=== PATIENT | female | born 1940 | race Caucasian/White ===

== ENCOUNTER 2017-08-30 06:11 | Inpatient (IN) | payer MEDICARE, BC ==
[~2017-08-30] VITALS: Ht 160 cm; Wt 72.6 kg
[~2017-08-30 06:11] MED LIST: ACETAMINOPHEN650 M5 PO; ADULT LOW DOSE81 MG PO; ALBUTEROL2.5 MG/0.5 INH; ALLOPURINOL 10100 M1 PO; ASPIR 8181 MG PO; ASPIRIN EC81 M1 PO; AUGMENTIN 875875 MG PO; AZITHROMYCIN 2250 MG PO; BACTRIM DS TAB1 EACH PO; BRILINTA90 MG PO; CARVEDILOL12.5 MG PO; CARVEDILOL6.25 MG; CARVEDILOL6.25 MG PO; CEFTIN 250 MG250 MG PO; CIPRO500 MG PO; CLOPIDOGREL PO; CO Q-1010 MG PO; COLACE100 MG PO; COREG PO; CRESTOR5 MG PO; DUONEB 2.5-0.5 M3 ML INH; EPOGEN2000 UNIT/ SUBQ; FEOSOL325 M1 PO; FEVERALL650 MG RECTAL; FISHOIL PO; FUROSEMIDE PO; HYDRALAZINE 2525 MG PO; HYDRALAZINE PO; HYDROCODONE-APA1 TA1 PO; IMDUR 60 MG TAB60 M1; IMDUR 60 MG TAB60 M1 PO; IMDUR 60 MG TAB60 MG PO; IRON325 PO; ISOSORBIDE MON120 MG PO; ISOSORBIDE PO; K-DUR 20 MEQ T20 MEQ PO; KEFLEX250 MG PO; LASIX 40 MG TAB40 M1 PO; LASIX 80 MG TAB80 MG PO; LEVAQUIN 250 M250 MG PO; LEVAQUIN 750 M750 MG PO; LIPITOR 20 MG T20 M1 PO; LISINOPRIL PO; LISINOPRIL20 MG PO; LISINOPRIL30 MG PO; LOPRESSOR PO; LORAZEPAM 22 MG/1 ML PO; LOVASTATIN 20 M20 MG PO; LOVASTATIN PO; MEGESTROL400 MG/11 PO; MEVACOR40 MG; MSL20MG/ML PO; MULTI VITAMIN1 EACH PO; NEXIUM40 MG PO; OMEPRAZOLE40 MG PO; ONDANSETRON HCL4 M2 PO; POTASSIUM PO; POTASSIUM20 PO; PREDNISONE 10 M10 MG PO; PREDNISONE 20 M20 MG PO; PRESERVISION A1 EAC1 PO; PRESERVISION A1 EAC2 PO; PRESERVISION T1 EACH PO; PROAIR HFA8.5 GM INH; PROBIOTIC1 EAC1 PO; PROCARDIA XL60 MG PO; PROTONIX40 M1 PO; SYNTHROID25 MCG PO; TYLENOL325 MG PO; VANCO1GM PO; VITAMIN D-32000 UNIT PO; XIFAXAN550 MG PO
[2017-08-30 06:12] VITALS: BP 182/59
[2017-08-30] MEDS ORDERED: IMDUR 60 MG TAB60 M1 PO (06:27)
[2017-08-30 07:02] LABS: HEMATOCRIT 28.5 % (37.0-47.0); HEMOGLOBIN 9.3 gm/dL (12.0-15.0); MCH 35.4 pg (26.0-34.0); MCHC 32.6 g/dL (28.0-37.0); MCV 108.5 fL (80.0-100.0); MPV 7.5 fl. (7.2-11.1); NUCLEATED RBCS 0 /100WBC; PLATELET COUNT* 243 thou/uL (150-400); RBC 2.63 mil/uL (4.20-5.00); RDW-CV 24.6 % (10.5-14.5); WBC 6.1 thou/uL (4.0-11.0)
[2017-08-30 07:13] LABS: APTT 27.8 Seconds (25.0-31.3); INR 1.2
[2017-08-30 07:30] LABS: ABSOLUTE BASOPHILS 0.1 thou/uL (0.0-0.2); ABSOLUTE EOSINOPHILS 0.5 thou/uL (0.0-0.7); ABSOLUTE LYMPHOCYTES 0.4 thou/uL (0.8-5.3); ABSOLUTE MONOCYTES 0.4 thou/uL (0.0-1.2); ABSOLUTE NEUTROPHILS 4.6 thou/uL (1.6-8.1); ANISOCYTOSIS 1+; MACROCYTES 2+; PLATELET ESTIMATE ADEQUATE; POLYCHROMASIA 2+
[2017-08-30 07:37] LABS: ANION GAP 4 mmol/L (7-16); BUN 39 mg/dL (7-18); CALCIUM 8.7 mg/dL (8.5-10.1); CHLORIDE 111 mmol/L (98-107); CO2 30 mmol/L (21-32); CREATININE 1.8 mg/dL (0.6-1.3); GLUCOSE 116 mg/dL (70-99); POTASSIUM 3.7 mmol/L (3.5-5.1); SODIUM 145 mmol/L (136-145)
[2017-08-30 07:48] LABS: ALBUMIN 2.2 g/dL (3.4-5.0); ALKALINE PHOSPHATASE 171 U/L (46-116); NT-PRO BRAIN NAT PEPTIDE 1998 pg/mL (<300); SGOT 35 U/L (15-37); SGPT 20 U/L (30-65); TOTAL BILIRUBIN 0.8 mg/dL (<0.1-1.0); TOTAL PROTEIN 6.9 g/dL (6.4-8.2); TROPONIN-I LEVEL <0.06 ng/mL (<0.06)
[2017-08-30 08:02] VITALS: BP 166/52
[2017-08-30 08:32] VITALS: BP 164/44
--- NOTE | 2017-08-30 11:24 | EKG ---
[place] [address] ELECTROCARDIOGRAM REPORT Name: GABINO INIGUEZ Room: [address] ADM IN .R.#: [id number] Admission: 08/30/17 Attend Phys: Bob Carrillo MD Discharge: Date of : 40 Report #: [id number] THIS REPORT FOR: //name// [facility] ED Test Date: 2017-08-30 Test Time: 06:20:57 Pat Name: GABINO INIGUEZ Department: Room: [facility] Gender: F Chipper Machine Operator: 99 : 1940 Requested By: Óscar Rousseau Order Number: [id number] MD: Efren Sloan Measurements Intervals [place] Rate: 69 P: 35 ID: 175 QRS: 16 QRSD: 103 T: 57 QT: 416 QTc: 446 Interpretive Statements Sinus rhythm Compared to ECG 08/05/2017 08:31:58 Intraventricular conduction delay no longer present ST (T wave) deviation no longer present Electronically Signed On 08-30-2017 11:24:30 CUSTOMER SERVICE COORDINATOR by Efren Sloan [email or web address] <ELECTRONICALLY SIGNED> By: Efren Sloan MD, [facility] 08/30/17 1124 9 9 Efren Sloan MD, [facility] /EPI
[2017-08-30 11:30] VITALS: BP 197/55
[2017-08-30 14:59] LABS: URINE BILIRUBIN NEGATIVE (Negative); URINE BLOOD 1+ (Negative); URINE COLOR YELLOW; URINE GLUCOSE-RANDOM NEGATIVE (Negative); URINE KETONES TRACE (Negative); URINE LEUKOCYTES-REFLEX 1+ (Negative); URINE NITRITE-REFLEX NEGATIVE (Negative); URINE PROTEIN 2+ (Negative); URINE SPECIFIC GRAVITY 1.025 (1.005-1.030); URINE UROBILINOGEN 0.2 E.U./dl (0.2-1.0)
[2017-08-30 15:00] LABS: URINE CLARITY SL CLOUDY
[2017-08-30 15:09] LABS: BACTERIA-REFLEX >30 Many /HPF (None Seen); CASTS None Seen /LPF (None Seen); CRYSTALS None Seen /LPF (None Seen); SQUAMOUS >10 Many /LPF (0-3); URINE WBC-REFLEX >25 Many /HPF (0-5)
[2017-08-30 15:30] VITALS: BP 169/58
--- NOTE | 2017-08-30 15:51 | NUR ---
CM ASSESSMENT: Pt is A&O. Recently discharged to home after being in the hospital and acute rehab. Pt is current with [facility]. There were issues at home with Pt's pleurex drains, they require different supplies than what HH has. Spoke with Mita at [facility], they have ordered supplies, but supplies won't be in until next or Saturday. Lo MAXWELL, contacted [facility] and [facility], both agencies will also need to order supplies. Pt stated that her dtr has been staying with her and she had been doing ok at home, Pt anxious to return home. CM left VM for Mita to see if they can expediate the shipping of the supplies. Anticipate dc early next week. Following.
--- NOTE | 2017-08-30 18:57 | NUR ---
ADMISSION ASSESSMENT COMPLETED REFER TO COMPUTER CHARTING. RECONSIGNMENT CLERK TRACKING SR. PATIENT RESTING IN BED REPORTING NO PAIN OR NAUSEA. PATIENT ON 3 LITERS O2 VIA NASAL CANNULA. BILATERAL PLEURAL X TUBES IN PLACE. PATIENT ORIENTATED TO ROOM, CALL LIGHT AND BED/TV CONTROLS. PATIENT REPORTING NO QUESTIONS OR CONCERNS AT THIS TIME. FAMILY AT BEDSIDE. WILL CONTINUE TO MONITOR.
[2017-08-30 19:40] VITALS: BP 166/46
[2017-08-31] VITALS (7 sets, daily range): BP systolic 117–163; BP diastolic 40–58
--- NOTE | 2017-08-31 04:20 | NUR ---
END SHIFT: PT RESTED WELL. NO PAIN. NO COMPLAINTS NOTED. SMALL NON ADHEARANT BANDAGE APPLIED TO FOREHEAD PER PT REQUEST. 3L NC. VSS. 2+ ANKLE EDEMA NOTED. PT STATES SHE GETS SOA WITH EXURSION. HAS BEEN GETTING UP WITH ASSIST. ASSESSMENT UNCHANGED. SAFETY PRECAUTIONS IN PLACE. CALL LIGHT IN REACH. PERFORMED HOURLY ROUNDING. WILL CONT TO MONITOR.
[2017-08-31 04:51] LABS: CALCIUM 8.1 mg/dL (8.5-10.1); CREATININE 1.9 mg/dL (0.6-1.3); POTASSIUM 4.5 mmol/L (3.5-5.1)
--- NOTE | 2017-08-31 06:44 | CON ---
[address] [address] CONSULTATION Name: GABINO INIGUEZ Room: [address] IN M.R.#: [id number] Admission: 08/30/17 Attend Phys: Bob Carrillo MD Discharge: Date of : 40 Report #: [id number] THIS REPORT FOR: //name// CC: Tres Carrillo HISTORY OF PRESENT ILLNESS: The patient is a very pleasant 77-year-old woman who has a history of severe COPD. She is O2 dependent. She also has a history of recurrent pleural effusions, it has been ongoing for some time. She was just discharged from this facility last weekend after she has had a long stay. She had developed acute kidney injury superimposed on chronic kidney disease, dialysis was done. She also had bilateral PleurX catheters placed due to the frequent recurrence of her pleural effusions as well as volumes that was being drained. Those were done on 08/05/2017. After she completed her inpatient stay, she did go to rehab. She has had sufficient improvement in her renal function that she has not had any dialysis now in over a week. Her creatinine was improving. she has been making urine, the plan was for renal to follow up with her. She has been draining via the PleurX catheters roughly 3 times per week (Saturday, Saturday and Saturday). Her daughter had been instructed the correct way of doing that. However, it appears once they were discharged home, her daughter was unable to get the necessary supplies in order to do it at home. She has not been drained since last weekend. At that time, got approximately 300 mL off the right pleural space and around 25 off the left. Daughter notes they have not been getting much fluid off the left, just had only been around 25 or 30 mL. she has been getting much more short of breath. She is on oxygen at home generally between 2-4 liters. There is a note that when EMS arrived this morning, her O2 saturations were low on room air, but she supposed to be on O2 continuously. She does have a nebulizer at home, does albuterol for that. She has been seen in our office previously, that has been over a year. Our group has seen her when she has been hospitalized here at [facility]. She does have a Trilogy unit at home. However, she has not been using it. Had brought it in for her hospital stay here earlier in the month, again she was not overly compliant with that. She has not been using at home since she was discharged. She is a former smoker, quitting about 10 years ago. She has approximately [id number] smoking history. I do not have any recent PFTs on her. From 4 years ago, she had an FEV1 of 1.4, FVC of 2.1 with a ratio of 68%. Did have evidence of a restrictive process as well. I do note she has had a history also of breast cancer. However, cytology done on the pleural effusions over the last 2 years all have been negative for malignant cells. PAST MEDICAL HISTORY: Besides her COPD, is also remarkable for chronic [facility] [address] [facility] [place] [address] CONSULTATION Name: GABINO INIGUEZ Room: [address] IN M.R.#: [id number] Admission: 12/29/17 Attend Phys: Bob Carrillo MD Discharge: Date of : 40 Report #: [id number] respiratory failure, coronary artery disease. Her last cardiac catheterization was done this year and she did have stents placed at that time. REVIEW OF SYSTEMS: No positives as above. She did fall when she got home last weekend. Got out of the car without waiting for assistance, fell, hit her face on the curb. Did not lose consciousness. Ecchymotic areas present over her upper left forehead and left periorbital area. Her appetite has been fair. difficulty swallowing. She has not had any fevers. No cough or sputum production. No chest pain. Again, she has not been sleeping with a Trilogy as well. Has not had much in the way of increased lower extremity edema. She has been making a fair amount of urine. No nausea or vomiting. PHYSICAL EXAMINATION: GENERAL APPEARANCE: A chronically ill-appearing woman. Her daughter is at the bedside. She is alert, cooperative. HEENT: Head is normocephalic. She does have ecchymotic areas noted over her forehead, again left periorbital area. She is alert, conversant. Mucous membranes are moist. NECK: Negative for adenopathy. No JVD is noted. HEART: Regular. She does have a grade 2/6 systolic murmur. No S3 is heard. LUNGS: Do reveal breath sounds to be diminished in the lower third. She has bibasilar crackles heard as well. She is kyphotic. Minimal dullness to percussion in the lower lung espinal bilaterally. ABDOMEN: Soft. It is not tender, does not appear to have any hepatosplenomegaly. No clubbing is noted. EXTREMITIES: Lower extremities negative for any significant edema. LABORATORY AND X-RAY FINDINGS: Chest x-ray was reviewed. It does appear that she has had some increase in pleural effusions relative to her other studies done. Prominence of pulmonary vascular markings as well. On her chemistry today, BUN is 39, creatinine of 1.8 (improved from 2.1 on 08/23/2017). Potassium is 3.7. Albumin 2.2. Her proBNP was 1998. White blood cell count 6100, hemoglobin 9.3, hematocrit 28.5, platelets are normal. IMPRESSION: 1. Recurrent pleural effusions. Typically has been mostly transudative in nature based on prior studies. Status post PleurX catheter placement. Question how effective the left thorax is based on the history from her daughter. 2. Chronic kidney disease. Had episode of acute renal failure requiring dialysis. Has had improvement in her creatinine as well as her urinary output. 3. Chronic obstructive pulmonary disease, is O2 dependent. 4. Chronic respiratory failure, has not been compliant with her Trilogy machine. 5. Coronary artery disease, status post recent stent placement. RECOMMENDATIONS: [place] [address] CONSULTATION Name: GABINO INIGUEZ Room: [address] IN [facility]#: [id number] Admission: 08/30/17 Attend Phys: Bob Carrillo MD Discharge: Date of : 40 Report #: [id number] 1. I have discussed with her RN. Also discussed with case management. It appears she had been discharged home and her home health company was not able to get her supplies needed to adequately drain the pleural space at home. Currently, are attempting to get that equipment here now. We will have both sides drain today. If she does not get much fluid out of the left pleural space, we will ask IR to evaluate the patency of the left PleurX catheter. May need to consider either repositioning of it, attempting to clear if it does appear that it may be partially obstructed. We will continue her neb treatments. She is on albuterol at home. 2. If arrangements can be made for adequate supplies at home, then can hopefully get discharged home soon. <ELECTRONICALLY SIGNED> By: Zia Abraham MD 08/31/17 [id number] Olsen MD /nt
--- NOTE | 2017-08-31 10:00 | NUR ---
ASSUMED PT CARE AT 0730, FULL ASSESMENT DONE CHARTED. PT A/O X4, DENIES PAIN, DENIES SOA THIS AM. PT UP WITH 1 ASSIST TO BSC, VSS, SR ON THE MONITOR. FALL PRECATUIONS IN PLACE. CALL LIGHT IN REACH. WILL CONTINUE WITH PLAN OF CARE.
--- NOTE | 2017-08-31 13:34 | CON ---
[address] [address] CONSULTATION Name: GABINO INIGUEZ Room: [address] ADM IN M.R.#: [id number] Admission: 08/30/17 Attend Phys: Bob Carrillo MD Discharge: Date of : 40 Report #: [id number] THIS REPORT FOR: //name// CC: Tres Carrillo DATE OF SERVICE: 08/30/2017 NEPHROLOGY CONSULTATION The patient is at [facility], room 212. I am asked to see this 77-year-old female who is well known to me from her prior admission. She was dialysis dependent during much of the latter part of her last admission, but left the hospital with recovery and no need for outpatient dialysis. She presented to the ED the morning of admission after having difficulty breathing. She began to have some back spasms. She had some shaking. She was weak. She was severely short of air. She was on her renal diet at home, but she was having more leg swelling. She has not been dialyzing since she left the hospital, and this has been since about 08/23 at least. PAST MEDICAL HISTORY: She has had CHF exacerbation; community-acquired bacterial pneumonia; COPD exacerbation; acute kidney injury, dialysis dependent; head contusion; hematoma; leukopenia; non-ST elevation myocardial infarction and pleural effusions with bilateral PleurX drainage tubes. She has had respiratory failure and UTI. She has a history of coronary artery disease and NH x 3 and stents x 5. She has had scarlet fever as a child. She has had tonsillectomy and adenoidectomy and D and C. Other medical issues include macular degeneration of the left eye, elevated cholesterol, GERD, diastolic dysfunction, hypertension history and COPD. FAMILY HISTORY: Cardiac disease. SOCIAL HISTORY: She is a former tobacco user. Never had any problem with the recreational drugs or alcohol. She stopped smoking more than a year ago. ALLERGIES: IBUPROFEN AND AMOXICILLIN. PRESENT MEDICATIONS: Per her reconciliation list show that she was on albuterol inhaler 2 puffs every 6 hours, ferrous sulfate 325 mg daily, ticagrelor 90 mg b.i.d., lovastatin 20 mg daily, isosorbide mononitrate 60 mg 2 daily, aspirin 81 mg daily, levothyroxine 25 mcg daily, multivitamins one daily and allopurinol 100 mg daily. REVIEW OF SYSTEMS: HEENT: No recent changes in vision or hearing. [place] [address] CONSULTATION Name: GABINO INIGUEZ Room: [address]#: [id number] Admission: 08/30/17 Attend Phys: Bob Carrillo MD Discharge: Date of : 40 Report #: [id number] the left. CARDIAC: No chest pain. PULMONARY: Positive shortness of air. Positive PleurX catheters. GASTROINTESTINAL: No nausea, vomiting or diarrhea. GENITOURINARY: Recent acute kidney injury requiring dialysis, but she has been off dialysis for about a week since she was last discharged at least. HEMATOLOGIC AND LYMPHATIC: Anemia. MUSCULOSKELETAL: Weakness. ENDOCRINE: Not hypothyroid. Not diabetic. PSYCHIATRIC: Negative. NEUROLOGIC: No TIA, CVA. She has had a recent head contusion. No seizure disorder. No Parkinson disease. Other 14-point review of systems as above. PHYSICAL EXAMINATION: GENERAL: She is awake, alert. Much more conversant and appears much better than when I saw her during her last admission. VITAL SIGNS: Her temp is 36.8, heart rate 63, respirations 20, blood pressure 164/44 and O2 sat 40%, on nasal cannula. Intake and output not yet charted. She has just been admitted. HEENT: She has evidence of ecchymosis on her forehead from recent head contusion, but she is normocephalic. NECK: Supple. CHEST: Shows diminished breath sounds. She has bilateral PleurX catheters. HEART: Shows S1 and S2. She has a 3/6 systolic murmur audible throughout the precordium. No rubs. ABDOMEN: Soft. Positive bowel sounds. EXTREMITIES: Show 1-2+ edema bilaterally over lower extremities. Negative Homans. NEUROLOGIC: Cranial nerves, sensory and motor appeared to be at her recent baseline. LABORATORY: Shows a white count of 6100; hemoglobin 9.3; hematocrit 28.5 and platelets 243,000. PT 12, INR 1.2 and PTT 27.1. Urine is pending. Sodium 145, potassium 3.7, chloride 111 and CO2 30. BUN 39 and creatinine 1.8, this is down from her recent creatinine in the hospital a week or more ago. Glucose 116. Estimated GFR 27. Calcium 8.7. Liver function studies not increased, except for alk phos of 171. CK 37. Troponin less than 0.06. Albumin 2.2. IMAGING STUDIES: Included chest x-ray done today that shows enlargement of her cardiac silhouette, left and right pleural catheters are in place with some residual pleural thickening and pleural fluid. This seems a bit more on the left. She seems to still have her dialysis catheter in place. IMPRESSION: [facility] [address] [place] [address] CONSULTATION Name: GABINO INIGUEZ Room: [address]#: [id number] Admission: 08/30/17 Attend Phys: Bob Carrillo MD Discharge: Date of : 40 Report #: [id number] 1. Dyspnea with evidence of some volume overload and perhaps worsened pleural effusion on the left. She likely has some diastolic dysfunction and diastolic congestive heart failure. 2. Pleural effusions with PleurX catheters. These need to be assessed to be certain they are working appropriately. 3. Recent acute kidney injury, dialysis dependent. 4. Stage 4 chronic kidney disease. 5. Coronary artery disease with 3 myocardial infarctions in the past and status post stent placements. 6. Anemia. 7. Severe chronic obstructive pulmonary disease, O2 dependent. 8. History of recurrent urinary tract infections. 9. Recent head contusion. 10. Recent community-acquired pneumonia. PLAN: We will follow with you. She will have measures to be certain that her PleurX catheter is working. We will try diuresis. Follow lab closely. If unable to remove fluid, and this was thought to be the problem, we would always be able to use her dialysis catheter and dialysis to achieve this. We would prefer that we would be able to do this with meds alone. Further recommendations to follow. <ELECTRONICALLY SIGNED> By: Maria E Sanchez MD 08/31/17 1334 [id number] E Sanchez MD /nt
--- NOTE | 2017-08-31 18:28 | NUR ---
PT PROGRESSING TOWARD GOALS, UP TO BSC WITH ASSIST. DENIES SOA TODAY, NO DRAINAGE FROM PLEUREX CATHETERS. PT IS WANTING TO SPEAK TO BEER STILL RUNNER COMPOUNDER, DR HAS NOT SEEN PT YET TODAY. PT HAS SMALL APITITE. FORHEAD LACERATION ACCESED AND REDRESSED. PT DENIES PAIN. VSS, SR ON THE MONITOR. WILL CONTINUE WITH PLAN OF CARE.
[2017-09-01 04:23] VITALS: BP 151/54
--- NOTE | 2017-09-01 05:50 | NUR ---
ALERT AND ORIENTED. HAD FADING BRUISING TO FACE. DENIED NEED FOR PAIN OR NAUSEA MEDICATON. UP WITH 1 ASSIST TO BEDSIDE COMMODE. CONTINUES TO RECEIVE SCHEDULED BREATHING TREATMENTS AND IV ANTIBIODICS. HAS PLEUREX TUBING ON LEFT AND RIGHT SIDE OF ABDOMEN. HAD DRY DRESSING ON LEFT SIDE OF FOREHEAD. BRUISING NOTED AROUND DIALYSIS TUBING RIGHT SIDE OF UPPER CHEST. HEART MONITOR SHOWS NORMAL SINUS RHYTHM. NO C/O SOA OR PAIN. WILL CONTINUE TO MONITOR. CALL LIGHT WITHIN REACH.
[2017-09-01 08:00] VITALS: BP 157/59
--- NOTE | 2017-09-01 09:00 | NUR ---
ASSUMED RESPONSIBILITY OF PT THIS AM PT IS ALERT AND ORIENTED X 4 NSR ON THE MONITOR IV TO LEFT THUMB IV ROCEPHIN GIVEN SLOW PLEURAL DRAINS TO LEFT SIDE AND RIGHT/BACK DRAINAGE BAGS CONNECTED LS WITH FINE CRACKLES X1 ASSIST TO BSC OR BATHROOM WITH WALKER 3L NC THAT SHE WEARS AT HOME RIGHT ARM LIMB ALERT RECENT FALLS AND PT ON FALL RISK CALL LIGHT IN REACH BED ALARM ON WILL CONT TO MONITOR
[2017-09-01 11:30] VITALS: BP 147/46
[2017-09-01 16:00] VITALS: BP 149/47
--- NOTE | 2017-09-01 19:03 | NUR ---
PLEURAL DRAINS DRAINED TODAY AND DRESSINGS CHANGED TO BOTH LEFT AND RIGHT/BACK DECREASED SHORTNESS OF AIR
[2017-09-01 20:25] VITALS: BP 163/54
[2017-09-02] VITALS: BP 162/64
[2017-09-02 04:00] VITALS: BP 158/59
[2017-09-02 04:41] LABS: CALCIUM 7.9 mg/dL (8.5-10.1); CREATININE 2.2 mg/dL (0.6-1.3); MAGNESIUM 2.1 mg/dL (1.8-2.4); POTASSIUM 3.9 mmol/L (3.5-5.1); TOTAL BILIRUBIN 0.5 mg/dL (<0.1-1.0); TOTAL PROTEIN 6.1 g/dL (6.4-8.2)
[2017-09-02 04:45] LABS: HEMATOCRIT 25.6 % (37.0-47.0); HEMOGLOBIN 8.6 gm/dL (12.0-15.0); MCH 35.9 pg (26.0-34.0); MCHC 33.6 g/dL (28.0-37.0); MCV 106.8 fL (80.0-100.0); MPV 8.1 fl. (7.2-11.1); NUCLEATED RBCS 0 /100WBC; PLATELET COUNT* 179 thou/uL (150-400); RBC 2.39 mil/uL (4.20-5.00); RDW-CV 24.4 % (10.5-14.5); WBC 10.1 thou/uL (4.0-11.0)
[2017-09-02 05:04] LABS: ABSOLUTE LYMPHOCYTES 0.1 thou/uL (0.8-5.3); ABSOLUTE MONOCYTES 0.2 thou/uL (0.0-1.2); ABSOLUTE NEUTROPHILS 9.8 thou/uL (1.6-8.1)
[2017-09-02 05:05] LABS: PLATELET ESTIMATE ADEQUATE
--- NOTE | 2017-09-02 05:08 | NUR ---
PT IS ABLE TO COMMUNICATE HER NEEDS TO STAFF EFFECTIVELY. SHE HAS DENIED THE NEED FOR PAIN MEDICAION UP TO THIS TIME. TWO PLEUREX DRAINS ARE PATENT.
[2017-09-02 08:00] VITALS: BP 163/55
[2017-09-02 12:03] VITALS: BP 164/51
[2017-09-02 16:48] VITALS: BP 162/54
--- NOTE | 2017-09-02 18:47 | NUR ---
ASSUMED RESPONSIBILITY OF PT THIS AM PT IS ALERT AND ORIENTED BUT FORGETFUL AT TIMES IN BED T/O DAY SOA MUCH IMPROVED 2L NC O2 ON SCANT CRACKLES PLEURIX DRAINS COVERED WITH DRESSINGS AND NO DRAINAGE NOTED BANDAGE TO HEAD REPLACED WITH SCANT BRIGHT RED BLEEDING DENIES ANY PAIN AT THIS TIME UP SBA TO ASSIST X 1 TO BSC OR BATHROOM LBM THIS AM PT WITH GOOD APPETITE DID NOT WANT TO TAKE STEROIDS DR TO TITRATE DOWN AND EDUCATION ON STOPPING ABRUPTLY PT OKAY WITH DAUGHTER AT BEDSIDE PLEURIX DRAINS DRAINED YESTERDAY WITHOUT DIFFICULTY DENIES ANY PAIN OR DISCOMFORT CALL LIGHT IN REACH
[2017-09-02 20:23] VITALS: BP 145/46
[2017-09-03] VITALS: BP 149/47
[2017-09-03 04:00] VITALS: BP 156/78
--- NOTE | 2017-09-03 07:55 | NUR ---
PT IS ABLE TO COMMUNICATE HER NEEDS TO STAFF EFFECTIEVLY. SHE HAS DENIED THE NEED FOR PAIN MEDICATIONS UP TO THIS TIME. CURRENTLY, PLEUREX DRAINS ARE BEING ACCESSED AND DRAINED EVERY OTHER DAY; LAST DAY OF DRAINAGE WAS SATURDAY 09/01.
[2017-09-03 08:06] VITALS: BP 163/48
--- NOTE | 2017-09-03 09:43 | NUR ---
ASSUMED CARE OF PT THIS AM AROUND 0715- AGENCY TRAINER IN PLACE ORDERED, TRACING SB THIS AM- UPON ASSESSMENT PT NOTED TO BE RESTING IN BED, WATCHING TV- PT A&O X4- CONTINENT OF BOWEL AND BLADDER- ASSIST X1 TO BED SIDE COMMODE- VSS, O2 SAT 98% ON 3L VIA NC- SOB NOTED WITH EXERTION- ABDOMEN SOFT/ROUND/NON-TENDER, BS X4 QUADS- LAST BM REPORTED 09/02/17- TRACE EDEMA NOTED TO BLE, LEG ELEVATION NOTED- IV NOTED TO LEFT THUMB, INTACT AND SL- IV ABT GIVEN THIS AM PRESCRIBED, NO ADVERSE REACTIONS TO NOTE- LEFT FRONT PLUREX DRAIN NOTED AND RIGHT BACK, WITH DRESSINGS IN PLACE- POOR PO INTAKE NOTED THIS AM WITH BREAKFAST- DRESSING NOTED INTACT TO FOREHEAD, NO DRAINAGE NOTED- PT DENIES ANY C/O PAIN/DISCOMFORT AT THIS TIME- CALL LIGHT AND PERSONAL BELONGINGS WITH IN REACH-HOURLY ROUNDS IN PLACE R/T SAFETY/NEEDS- ALL NEEDS MET AT THIS TIME-TM
[2017-09-03 11:57] VITALS: BP 151/47
[2017-09-03 16:29] VITALS: BP 166/56
--- NOTE | 2017-09-03 18:28 | NUR ---
PT CURRENTLY RESTING IN BED, WATCHING TV- DEPARTMENT SPECIALIST CONTINUED ORDERED, TRACING SR- IV TO LEFT THUMB CONTINUED AND FLSHING WELL, IV LASIX GIVEN PRESCRIBED- PLEUREX DRAINS TO BE DRINED NEXT 09/04/16 PER PULMONARY WITH FURTHER ORDERS THERE AFTER- DRESSING CHANGED TO LEFT FOREHEAD THIS SHIFT INDICATED, CLEANED WITH WW, PATTED DRY WITH XEROFORM GAUZE APPLIED COVERED WITH NON-ADHERANT DRSG AND SECURED WITH TAPE- AREA WITH OUT DRAINGE OR S/S INFECTION- FAIR PO INTAKE NOTED THIS SHIFT- NOTED TO BE URINATING SEVERAL TIMES WITH GOOD OUTPUT THIS SHIFT- DIALYSIS PORT REMOVAL ON HOLD PER WITH NEPHROLOGY, R/T LABS- PT DENIES ANY C/O PAIN/DISCOMFORT AT THIS TIME- CALL LIGHT AND PERSONAL BELONGINGS WITH IN REACH- ALL NEEDS MET AT THIS TIME-WCTM
[2017-09-03 19:35] VITALS: BP 191/65
[2017-09-04] VITALS: BP 171/58
--- NOTE | 2017-09-04 00:29 | NUR ---
ASSUMED CARE OF PT AT 1900. PT IS ALERT AND ORIENTED. VSS. PERRLA. NO COMPLAINTS OF PAIN. PT IS UP WITH STAND BY ASSIST. PT IS IN SINUS RYTHM ON THE TELEMETRY. PT IS RESTING COMFORTABLY IN BED. RESPIRATIONS ARE EVEN AND NONLABORED. WILL CONTINUE TO MONITOR PT.
[2017-09-04 04:07] VITALS: BP 184/61
[2017-09-04 05:24] LABS: CALCIUM 8.1 mg/dL (8.5-10.1); CREATININE 1.9 mg/dL (0.6-1.3); POTASSIUM 3.7 mmol/L (3.5-5.1)
[2017-09-04 09:22] VITALS: BP 164/51
--- NOTE | 2017-09-04 11:46 | NUR ---
Plan is for Pt to dc to home today with [facility]. Spoke with Mita, liaison with [facility], she confirmed that Pt's pleurex supplies will be delivered to [facility]'s office on Saturday. Pt to be sent home with enough supplies to get her through Saturday, informed Mita of this. Cm will fax dc orders once available. Dtr will transport home.
[2017-09-04 11:54] VITALS: BP 174/51
[2017-09-04] MEDS ORDERED: CARDURA1 MG PO (12:58)
[2017-09-04] MEDS ORDERED: PREDNISONE 10 M10 MG PO (12:58)
[2017-09-04] MEDS ORDERED: KEFLEX500 M1 PO (12:58)
--- NOTE | 2017-09-04 14:30 | NUR ---
ASSUMED CARES OF PT AT 0700. PT IN BED ASLEEP, BED IN LOW AND LOCKED POSTION, CALL BUTTON AND PERSONAL ITEMS IN PT REACH. FALL PRECAUTIONS IN PLACE. PT REFUSES SCD'S AT THIS TIME THIS MORNING SHIFT. PT A&O X4, CARIDAC MONITOR TRACING NSR/MURMUR AUSCULTATED. VSS ON RA, 2L 02 NC WORN AT BEDTIME. OCC. HYPERTENSION NOTED, MONITORING. LUNG SOUNDS CLEAR TO DIMINISHED, SOA ON EXERTION. PT CONCERNED ABOUT DIALYSIS CATH. IR TO REMOVE TUNNELED CATH PRIOR TO DISCHARGE PER NEPHROLOGY. PT HAS SCATTERED BRUISING ON FACE AND BODY R/T FALL AT HOME RECENTLY. PT DENIES PAIN AT THIS TIME. PT WEAK, SBA TO BSC. LEFT THUMB IV PATENT TO FLUIDS, TOLERATED IV ABT. HOURLY ROUNDING AND ACCU CHECKS CONTINUE. LEFT LIMB ALERT R/T LUMPECTOMY. CHEST DRAINS TO BE DRAINED AND PREPARED FOR HOME DISCHARGE WITH [facility]. PT AFEBRILE, PERRLA, SBA, PT STATES SHE IS READY TO GO HOME. PT PROGRESSING TOWARDS GOAL. WILL CONTINUE TO MONITOR PT PROGESS. POSSIBLE D/C TODAY.
--- NOTE | 2017-09-04 19:48 | NUR ---
PT CLEARED TO DISCHARGE HOME. IR ORDERED TO REMOVE DIALYSIS TUNNELED CATHETER. PULLED SUCCESSFULLY, NO AVR/TOLERATED. PERIPHERAL IV AND TELE REMOVED. PT EDUCATED ON DISCHARGE ORDERS, STROKE SYMPTOMS AND RISKS. REVIEWED S/S OF INFECTION AT CATH SITE. PLUREX DRAINS APPLIED AND REMOVED APPROX. 330 ML OFF CHEST, 200ML ON RIGHT SIDE AND 130 ON LEFT SIDE. TUBES REDRESSED PER PACKAGES PROVIDED. DAUGHTER AT SIDE TO MONITOR HER MOTHERS DRAINAGE TUBES AND DRESSING. MEDICATIONS REMOVED, PT QUESTIONS WERE ANSWSERED BY NURSE. PT STATED SHE WAS HAPPY TO BE GOING HOME TO HER OWN BED. PT STABLE AT DISCHARGE, PT ESCORTED VIA W/C BY NURSING STAFF WITH DAUGHTER TO CAR AT FRONT OF HOSPITAL TO GO HOME. PT AND DAUGHTER STOPPING AT [facility]IR [facility] TO BREAKFAST AND ROOM ATTENDANT MEDS ORDERED. ALL PT BELONGINGS PACKED, ROOM CHECKED AND TAKEN WITH PT AND DAUGHTER. DISCHARGE COMPLETE AT 1930.
== END 2017-09-04 19:30 | disposition home health service (06) | DRG 177 ==
LOC: M.ERS 06:11 → M.TBA-ER 06:39 → M.2W 07:52
PROVIDERS: Family Medicine; Internal Medicine; Internal Medicine Critical Care Medicine; Internal Medicine Nephrology; ADMIT Internal Medicine
DX: J69.0 Pneumonitis due to inhalation of food and vomit (principal); I50.33 Acute on chronic diastolic (congestive) heart failure; J96.20 Acute and chronic respiratory failure, unspecified whether with hypoxia or hypercapnia; J90 Pleural effusion, not elsewhere classified; N17.9 Acute kidney failure, unspecified; N18.4 Chronic kidney disease, stage 4 (severe); I13.0 Hypertensive heart and chronic kidney disease with heart failure and stage 1 through stage 4 chronic kidney disease, or unspecified chronic kidney disease; J44.1 Chronic obstructive pulmonary disease with (acute) exacerbation; H35.30 Unspecified macular degeneration; E78.00 Pure hypercholesterolemia, unspecified; K21.9 Gastro-esophageal reflux disease without esophagitis; I25.10 Atherosclerotic heart disease of native coronary artery without angina pectoris; D72.819 Decreased white blood cell count, unspecified; D64.9 Anemia, unspecified; Z99.81 Dependence on supplemental oxygen; I25.2 Old myocardial infarction; Z98.61 Coronary angioplasty status; Z87.440 Personal history of urinary (tract) infections; Z79.899 Other long term (current) drug therapy; Z79.82 Long term (current) use of aspirin; Z88.8 Allergy status to other drugs, medicaments and biological substances; Z87.891 Personal history of nicotine dependence; Z87.01 Personal history of pneumonia (recurrent); Z99.2 Dependence on renal dialysis; Z90.89 Acquired absence of other organs; Z82.49 Family history of ischemic heart disease and other diseases of the circulatory system

== ENCOUNTER → 2017-09-26 | Outpatient (CLI) | payer MEDICARE, BC ==
[~2017-09-26] MED LIST changes: +CARDURA1 MG PO; +HYDRALAZINE 2525 M1 PO; +KEFLEX500 M1 PO; +LASIX 40 MG TAB40 M2 PO; +VITAMIN D2000 UNIT PO
== END ==
LOC: M.RAD 11:49
DX: Z09 Encounter for follow-up examination after completed treatment for conditions other than malignant neoplasm (principal); J44.1 Chronic obstructive pulmonary disease with (acute) exacerbation; I51.7 Cardiomegaly; I12.9 Hypertensive chronic kidney disease with stage 1 through stage 4 chronic kidney disease, or unspecified chronic kidney disease; N18.3 Chronic kidney disease, stage 3 (moderate); N18.6 End stage renal disease; I50.9 Heart failure, unspecified; N39.0 Urinary tract infection, site not specified; J96.90 Respiratory failure, unspecified, unspecified whether with hypoxia or hypercapnia; I51.9 Heart disease, unspecified

== ENCOUNTER 2017-10-14 09:40 | Inpatient (IN) | payer MEDICARE, BC ==
[~2017-10-14] VITALS: Ht 160 cm; Wt 70.8 kg
[~2017-10-14 09:40] MED LIST changes: -HYDRALAZINE 2525 M1 PO; -LASIX 40 MG TAB40 M2 PO; -VITAMIN D2000 UNIT PO
[2017-10-14 09:54] VITALS: BP 139/61
[2017-10-14] MEDS ORDERED: LASIX 40 MG TAB40 M2 PO (09:58)
[2017-10-14] MEDS ORDERED: POTASSIUM20 PO (09:59)
[2017-10-14] MEDS ORDERED: VITAMIN D2000 UNIT PO (10:00)
[2017-10-14] MEDS ORDERED: SYNTHROID25 MCG PO (10:00)
[2017-10-14] MEDS ORDERED: PROBIOTIC1 EAC1 PO (10:00)
[2017-10-14] MEDS ORDERED: HYDRALAZINE 2525 M1 PO (10:00)
[2017-10-14 10:19] LABS: HEMOGLOBIN 11.4 gm/dL (12.0-15.0); MCH 36.1 pg (26.0-34.0); MCHC 33.5 g/dL (28.0-37.0); MCV 107.7 fL (80.0-100.0); MPV 8.5 fl. (7.2-11.1); NUCLEATED RBCS 0 /100WBC; PLATELET COUNT* 160 thou/uL (150-400); RBC 3.15 mil/uL (4.20-5.00); RDW-CV 17.5 % (10.5-14.5); WBC 3.8 thou/uL (4.0-11.0)
[2017-10-14 10:26] LABS: ANION GAP 7 mmol/L (7-16); BUN 24 mg/dL (7-18); CHLORIDE 105 mmol/L (98-107); CO2 27 mmol/L (21-32); CREATININE 1.8 mg/dL (0.6-1.3); GLUCOSE 121 mg/dL (70-99); POTASSIUM 3.6 mmol/L (3.5-5.1); SODIUM 139 mmol/L (136-145)
[2017-10-14 10:32] LABS: ALBUMIN 2.5 g/dL (3.4-5.0); ALKALINE PHOSPHATASE 243 U/L (46-116); SGOT 41 U/L (15-37); SGPT 26 U/L (30-65); TOTAL BILIRUBIN 0.7 mg/dL (<0.1-1.0)
[2017-10-14 10:37] LABS: ABSOLUTE EOSINOPHILS 0.2 thou/uL (0.0-0.7); ABSOLUTE LYMPHOCYTES 0.1 thou/uL (0.8-5.3); ABSOLUTE MONOCYTES 0.2 thou/uL (0.0-1.2); ABSOLUTE NEUTROPHILS 3.3 thou/uL (1.6-8.1)
[2017-10-14 10:38] LABS: ANISOCYTOSIS 1+; MACROCYTES 1+; PLATELET ESTIMATE ADEQUATE
[2017-10-14 10:49] LABS: TROPONIN-I LEVEL <0.06 ng/mL (<0.06)
[2017-10-14 14:30] VITALS: BP 126/62; BP 139/55
[2017-10-14 15:19] LABS: % SATURATION 37 % (20-39); IRON 65 ug/dL (50-175)
[2017-10-14 16:00] VITALS: BP 127/56
--- NOTE | 2017-10-14 16:01 | EKG ---
[place] [address] ELECTROCARDIOGRAM REPORT Name: GABINO INIGUEZ Room: [address] ADM IN M.R.#: [id number] Admission: 10/14/17 Attend Phys: Alexa Khan Discharge: Date of : 40 Report #: [id number] THIS REPORT FOR: //name// [facility] ED Test Date: 2017-10-14 Test Time: 09:52:50 Pat Name: GABINO INIGUEZ Department: Room: [facility] Gender: F Broadcast Correspondent: Luz CARPENTER : 1940 Requested By: Dale Cornelius Order Number: [id number] MD: Luis Olvera Measurements Intervals [place] Rate: 96 P: 63 FL: 178 QRS: 11 QRSD: 104 T: 61 QT: 392 QTc: 496 Interpretive Statements Sinus rhythm Borderline prolonged QT interval Compared to ECG 08/30/2017 06:20:57 No significant changes Electronically Signed On 10-14-2017 16:01:40 LAW OFFICE MANAGER by Luis Olvera [email or web address] <ELECTRONICALLY SIGNED> By: Luis Olvera MD, [facility] 10/14/17 1601 uLis Olvera MD, [facility] /EPI
[2017-10-14 16:28] LABS: MAGNESIUM 1.9 mg/dL (1.8-2.4); TROPONIN-I LEVEL <0.06 ng/mL (<0.06)
--- NOTE | 2017-10-14 16:41 | 2DMMODE ---
[place] [address] 2 D/M-MODE ECHOCARDIOGRAM Name: GABINO INIGUEZ Room: [address] [facility]#: [id number] Admission: 10/14/17 Attend Phys: Edvin Leon Discharge: Date of : 40 Date of Service: 10/14/17 [facility] Report #: [id number] THIS REPORT FOR: //name// APPROVED REPORT Study performed: 10/14/2017 15:03:50 EXAM: Comprehensive 2D, Doppler, and color-flow Echocardiogram Patient Location: In-Patient Room #: 229 Status: routine BSA: 1.72 HR: 90 bpm BP: 126/62 mmHg Rhythm: NSR Other Information Study Quality: Good Indications CAD Near syncope 2D Dimensions LVEF(%): 32.28 (>50%) IVSd: 14.66 (7-11mm) LVOT Diam: 18.37 (18-24mm) LVDd: 37.18 mm PWd: 7.78 (7-11mm) Ascending Ao: 26.94 (22-36mm) LVDs: 31.63 (25-40mm) Aortic Root: 24.64 mm Bell's LVEF: 32.28 % Volumes Left Atrial Volume (Systole) LA ESV Index: 34.10 mL/m2 Aortic Valve AoV Peak Cedrick.: 2.84 m/s AO Peak Gr.: 32.30 mmHg LVOT Max P.98 mmHg AO Mean Gr.: 16.74 mmHg LVOT Mean P.20 mmHg LVOT Max V: 1.58 m/s AO V2 VTI: 47.40 cm LVOT Mean V: 1.06 m/s MAURICIO (VTI): 1.70 cm2 LVOT V1 VTI: 30.34 [place] [address] 2 D/M-MODE ECHOCARDIOGRAM Name: GABINO INIGUEZ Room: [address] IN .R.#: [id number] Admission: 10/14/17 Attend Phys: Edvin Leon Discharge: Date of : 40 Date of Service: 10/14/17 [facility] Report #: [id number] E/A Ratio: 0.74 MV Decel. Time: 161.61 ms MV E Max Cedrick.: 1.12 m/s MV PHT: 46.87 ms MVA (PHT): 4.69 cm2 TDI E/Lateral E': 18.67 E/Medial E': 9.33 Medial E' Cedrick.: 0.12 m/s Lateral E' Cedrick.: 0.06 m/s Pulmonary Valve PV Peak Cedrick.: 1.85 m/s PV Peak Gr.: 13.76 mmHg Left Ventricle The left ventricle is normal size. Regional wall motion abnormalities are noted with inferobasilar akinesis Mild concentric left ventricular hypertrophy. Left ventricular systolic function is normal. The left ventricular ejection fraction is within the normal range. LVEF is 60%. Grade I - abnormal relaxation pattern. Right Ventricle The right ventricle is normal size. The right ventricular systolic function is normal. Atria The left atrium size is normal. The right atrium size is normal. Aortic Valve Mild aortic valve sclerosis. No aortic regurgitation is present. Mild aortic stenosis. Mitral Valve There is mitral annular calcification. Mild mitral regurgitation. No evidence of mitral valve stenosis. Tricuspid Valve The tricuspid valve is normal in structure. Unable to assess PA pressure. Trace tricuspid regurgitation. Pulmonic Valve The pulmonary valve is normal in structure. Trace pulmonic regurgitation[place] [address] 2 D/M-MODE ECHOCARDIOGRAM Name: GABINO INIGUEZ Room: [address] [facility]#: [id number] Admission: 10/14/17 Attend Phys: Edvin Leon Discharge: Date of : 40 Date of Service: 10/14/17 [facility] Report #: [id number] The aortic root is normal in size. IVC is normal in size and collapses with >50% inspiration Pericardium There is no pericardial effusion. <Conclusion> The left ventricle is normal size. Mild concentric left ventricular hypertrophy. Left ventricular systolic function is normal. The left ventricular ejection fraction is within the normal range. LVEF is 60%. Grade I - abnormal relaxation pattern. The right ventricle is normal size. Mild aortic valve sclerosis. No aortic regurgitation is present. Mild aortic stenosis. There is mitral annular calcification. Mild mitral regurgitation. The tricuspid valve is normal in structure. IVC is normal in size and collapses with >50% inspiration There is no pericardial effusion. Regional wall motion abnormalities are noted with inferobasilar akinesis <ELECTRONICALLY SIGNED> By: Luis Olvera MD, FACC 10/14/17 1640 1640 1640 Luis Olvera MD, FACC /INF
[2017-10-14] MEDS ORDERED: PRESERVISION A1 EAC2 PO (16:59)
--- NOTE | 2017-10-14 17:59 | NUR ---
RECEIVED REPORT FROM JUAN LUIS IN ER. PT TRANSFERED TO TELE FLOOR AT 1430, ASSUMED CARE. PT A&O X4. VSS. O2 SAT 96% ON RA, TITRATED OFF 2L NC. SENIOR SAS PROGRAMMER PLACED TRACING SR WITH 1ST DEGREE. ADMISSION HISTORY, EDUCATION, AND ASSESSMENT COMPLETED CHARTED. PT ORIENTED TO ROOM, BED AND CALL LIGHT- PT COMMUNICATES UNDERSTANDING. IV PATENT AND INFUSING. PT HAS DENIED PAIN OR DISCOMFORT THROUGHOUT THE SHIFT, STATES THAT SYMPTOMS FROM THIS MORNING HAVE ABATED. DAUGHTER IS AT BEDSIDE. PT EATING AND DRINKING WITHOUT ISSUE. PT UP WITH ASSIST X1 TO BEDSIDE COMMODE TO VOID, VOIDING WITHOUT ISSUE. HIGH FALL RISK PRECAUTIONS IN PLACE. CALL LIGHT IS WITHIN REACH. HOURLY ROUNDING PERFORMED. WILL CONTINUE TO MONITOR FOR DURATION OF SHIFT.
[2017-10-14 20:00] VITALS: BP 120/45
[2017-10-14 23:59] VITALS: BP 121/46
[2017-10-15 04:00] VITALS: BP 146/57
[2017-10-15 05:34] LABS: HEMATOCRIT 27.6 % (37.0-47.0); MCH 36.6 pg (26.0-34.0); MCHC 34.2 g/dL (28.0-37.0); MCV 107.1 fL (80.0-100.0); MPV 9.4 fl. (7.2-11.1); NUCLEATED RBCS 0 /100WBC; PLATELET COUNT* 132 thou/uL (150-400); RBC 2.58 mil/uL (4.20-5.00); RDW-CV 17.4 % (10.5-14.5); WBC 2.9 thou/uL (4.0-11.0)
[2017-10-15 05:38] LABS: CALCIUM 8.4 mg/dL (8.5-10.1); CREATININE 1.6 mg/dL (0.6-1.3); POTASSIUM 4.2 mmol/L (3.5-5.1)
--- NOTE | 2017-10-15 05:42 | NUR ---
PT CARE ASSUMED AFTER REPORT. ASSESSMENT COMPLETE. SR/1ST DEGREE ON MONITOR. DENIES PAIN. PT COMPLANED OF RESTLESS LEGS. DR MYRICK NOTIFIED. TEMAZEPAM ORDERED AND GIVEN. IRON INFUSION COMPLETED. FALL PRECAUTIONS IN PLACE INCLUDING BED ALARM. CALL LIGHT IN REACH. BED IN LOWEST POSITION. PROGRESSING TOWARDS GOALS.
[2017-10-15 05:56] LABS: HEMOGLOBIN 9.4 gm/dL (12.0-15.0)
[2017-10-15 06:26] LABS: ABSOLUTE EOSINOPHILS 0.4 thou/uL (0.0-0.7); ABSOLUTE LYMPHOCYTES 0.5 thou/uL (0.8-5.3); ABSOLUTE MONOCYTES 0.2 thou/uL (0.0-1.2); ABSOLUTE NEUTROPHILS 1.8 thou/uL (1.6-8.1); ANISOCYTOSIS 1+; PLATELET ESTIMATE DECREASED; POIKILOCYTOSIS 1+
[2017-10-15 08:00] VITALS: BP 155/65
[2017-10-15 12:16] VITALS: BP 174/64
--- NOTE | 2017-10-15 13:56 | NUR ---
CM SPOKE TO THE PATIENT TO DISCUSS HOME SITUATION, DISCHARGE PLANNING, AND TO INFORM OF THE ROLE OF CM. PATIENT ALERT AND ORIENTED. PATIENT RESIDES AT HOME ALONE AND STATES THAT HER DTR COMES TO HER HOME EVERY EVENING TO CHECK ON HER. PATIENT OWNS A WALKER, AND ONLY USES IT OCCATIONALLY WHEN SHE IS FEELING WEAK. PATIENT IS CURRENTLY ON-SERVICE WITH [facility] AND PLANS TO CONTINUE THEIR SERVICES AT D/C. PATIENT HAS NO JX OF SNF. PATIENT PLANS TO RETURN HOME AT D/C. CM WILL REMAIN AVAILABLE TO ASSIST AND FOLLOW NEEDED.
[2017-10-15 15:58] VITALS: BP 155/64
--- NOTE | 2017-10-15 18:21 | NUR ---
ASSUMED RESPONSIBILITY OF PT THIS AM PT IS ALERT AND ORIENTEDX4 DENIES ANY PAIN SBA TO BSC LBM T-1 LSC AND DIMINISHED DENIES SOA MRI DONE PER NEURO NO ACUTE CHANGES NOTICED IV IRON INFUSED THIS AM NSR WITH 1D AV TACHY AT TIMES HOLD ASA AND BRILINTA FOR TAKING OF PLEURIX TUBES OUT PT DOES NOT HAVE ANY CONCERNS AT THIS TIME CALL LIGHT IN REACH MEDS RESTARTED
[2017-10-15 20:00] VITALS: BP 145/59
[2017-10-16] VITALS: BP 143/61; BP 150/59
[2017-10-16 04:00] VITALS: BP 121/50
--- NOTE | 2017-10-16 05:20 | NUR ---
PT CARE ASSUMED AFTER REPORT. ASSESSMENT COMPLETE. SR ON MONITOR. O2 2L NC. DENIES PAIN. NPO SINCE MIDNIGHT FOR PROCEDURE TODAY. FALL PRECAUTIONS IN PLACE INCLUDING BED ALARM. CALL LIGHT IN REACH. BED IN LOWEST POSITION. PROGRESSING TOWARDS GOALS.
[2017-10-16 05:34] LABS: ABSOLUTE EOSINOPHILS 0.5 thou/uL (0.0-0.7); ABSOLUTE LYMPHOCYTES 0.5 thou/uL (0.8-5.3); ABSOLUTE MONOCYTES 0.4 thou/uL (0.0-1.2); ABSOLUTE NEUTROPHILS 1.6 thou/uL (1.6-8.1); EOSINOPHILS 17.6 %; HEMATOCRIT 25.4 % (37.0-47.0); HEMOGLOBIN 8.6 gm/dL (12.0-15.0); LYMPHOCYTES 17.3 %; MCH 36.2 pg (26.0-34.0); MCHC 33.7 g/dL (28.0-37.0); MCV 107.4 fL (80.0-100.0); MONOCYTES 11.5 %; MPV 9.3 fl. (7.2-11.1); NUCLEATED RBCS 0 /100WBC; PLATELET COUNT* 130 thou/uL (150-400); POLYS 52.6 %; RBC 2.37 mil/uL (4.20-5.00); RDW-CV 16.9 % (10.5-14.5); WBC 3.1 thou/uL (4.0-11.0)
[2017-10-16 05:59] LABS: CALCIUM 8.2 mg/dL (8.5-10.1); CREATININE 1.4 mg/dL (0.6-1.3); POTASSIUM 4.1 mmol/L (3.5-5.1)
--- NOTE | 2017-10-16 07:16 | CON ---
[address] [address] CONSULTATION Name: GABINO INIGUEZ Room: [address] IN M.R.#: [id number] Admission: 10/14/17 Attend Phys: Alexa Khan Discharge: Date of : 40 Report #: [id number] THIS REPORT FOR: //name// CC: Tres Leon DO DATE OF SERVICE: 10/15/2017 PULMONARY CONSULTATION ATTENDING PHYSICIAN: Edvin Leon DO INDICATION FOR CONSULTATION: Nonfunctioning pleural tube drainage systems. HISTORY OF PRESENT ILLNESS: The patient is a 77-year-old female who presented to the Emergency Room on 10/14/2017 after not feeling well. She took her blood pressure and she discovered her systolics around 170. She took the hydralazine and then she had some lightheadedness. She became somewhat shaky and dizzy and thought she was going to pass out. She denies any chest pain or hemoptysis or shortness of air. She denied any cough or sick contacts or illness. She is to see Dr. Hurd this week about getting her indwelling chest tubes removed. Also is going to receive an iron infusion. Had an MRI yesterday, results are still pending. She is feeling much better today. Again, I talked to her and her daughter about it. She is only draining about 5-15 mL out of either chest tube about every 5 days. She was draining about 600 mL out of the chest tube every other day. This was related to transudative effusion related to pleural effusion and related to her renal failure. That seems to have been improving and so there has not been as much fluid. PAST MEDICAL HISTORY: The patient has a history of atypical chest pain, fluid overload, also mild COPD, has end-stage renal disease, questionably on dialysis, also has hematoma, previous leukopenia, and a non-ST elevated myocardial infarction. ALLERGIES: She has allergies or intolerance to AMOXICILLIN which gives her rash and IBUPROFEN which gives her itching. Her past medical history, she had scarlet fever as a child. 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 PAST SURGICAL HISTORY: Include D and C and tonsils [place] [address] CONSULTATION Name: GABINO INIGUEZ Room: [address] IN ..#: [id number] Admission: 10/14/17 Attend Phys: Alexa Khan Discharge: Date of : 40 Report #: [id number] OUTPATIENT MEDICATIONS: She was off the prednisone taper and she was off Keflex or cephalexin, she took 500 mg b.i.d. on 09/04/2017 and finished that 10 days later, also was on doxazosin, Cardura 1 mg p.o. b.i.d., 60 tabs on 09/04/2017. Other reported medicines include Lasix, furosemide 40 mg daily, levothyroxine 25 mcg daily, cholecalciferol, vitamin D3 2000 units daily, ticagrelor or Brilinta 90 mg b.i.d., Imdur 60 mg or 120 mg once daily, and also albuterol nebulizers and also on ferrous sulfate 325 mg daily, lovastatin, Mevacor 20 mg daily, potassium chloride 20 mEq daily, off aspirin 81 mg daily and levothyroxine 25 mcg daily. FAMILY HISTORY: Negative for premature cardiopulmonary disease. SOCIAL HISTORY: She is a remote smoker. She quit about 3-4 years ago. She had about a 35-lbww-bjvg history of smoking. Denies any alcohol or illicit drug use. Lives at home with her daughter. REVIEW OF SYSTEMS: A 14-point review of systems reviewed and negative except for pertinent positives noted in the HPI. PHYSICAL EXAMINATION: GENERAL: A pleasant 77-year-old female who can lie flat in bed without any distress. VITAL SIGNS: Blood pressure is between 155/65 and 174/64, heart rate is 90, respirations 16, and temperature is 36 degrees, room air sats 95%. She is 5 feet 4 inches tall, weight 70 kilograms or 154 pounds, BMI is 27. HEENT: Unremarkable. NECK: Supple without nodes. CHEST: Shows clear breath sounds without wheeze or rhonchi. CARDIOVASCULAR: Regular rate and rhythm without murmur, gallop or rub. Heart rate is 90. I am not certain she has an AV shunt or AV graft present. If she does, she may need to use that for ongoing hemodialysis. Her pleural tubes are located. The right one is posteriorly in the right lower lobe and the left one is somewhat anteriorly and laterally in the left lower lobe. IMAGING: Chest x-ray shows both the tubes to be in good position, not much fluid around them. A CT of the chest just obtained this morning noncontrast with a creatinine of 1.8, basically explores the same. IMPRESSION: Nonfunctioning pleural chest tubes, probably related to renal insufficiency and transudative effusion. PLAN: We will see if IR can remove these chest tubes tomorrow. She has been off her Plavix and been off her Breo, so she should be out of the millard as far as anticoagulation and bleeding occurs. Other than that I think she should do quite well. [address] [address] CONSULTATION Name: GABINO INIGUEZ Room: [address] IN M.R.#: [id number] Admission: 10/14/17 Attend Phys: Alexa Khan Discharge: Date of : 40 Report #: [id number] Thanks again for allowing us to participate in this lady's care. I saw her on 10/14/2017 and I dictated this on 10/15/2017. Dr. Hurd will see her in the office in another week or two. We may get another chest x-ray in 3-4 weeks to make sure the fluid is not coming back. <ELECTRONICALLY SIGNED> By: Angie Olsen MD 10/16/17 0716 1339 [id number] Abraham MD /nt
[2017-10-16 07:39] LABS: INFLUENZA A ANTIGEN None Detected (None Detect); INFLUENZA B ANTIGEN None Detected (None Detect)
[2017-10-16 08:00] VITALS: BP 152/59
[2017-10-16 11:24] VITALS: BP 120/50
--- NOTE | 2017-10-16 12:15 | NUR ---
CONTINUE TO FOLLOW, MET WITH PT. STATES FEELING IMPROVED. TO HAVE HER PLEUREX TUBES REMOVED TOMORROW. PT PLANS TO RETURN HOME AT [place] AND RESUME HER HH WITH [facility]. CALLED AND UPDATED ANN/PHOKELSIX ON PLAN. WILL FOLLOW
--- NOTE | 2017-10-16 13:40 | NUR ---
This RN agrees with the assessment of SN Ken
[2017-10-16 15:42] VITALS: BP 134/51
[2017-10-16 17:53] LABS: HEMATOCRIT 25.4 % (37.0-47.0); HEMOGLOBIN 8.5 gm/dL (12.0-15.0)
--- NOTE | 2017-10-16 19:40 | NUR ---
ASSUMED RESPONSIBILITY OF PT THIS AM PT IS ALERT AND ORIENTED VERY PLEASANT SBA TO BSC PLEURX TUBES DRAINED TODAY AND PLAN TO REMOVE TUBES TOMORROW NPO AFTER MIDNIGHT IR TO DO DENIES ANY PAIN T/O DAY NO CONCERNS TODAY
[2017-10-16 20:00] VITALS: BP 137/51
[2017-10-17] VITALS: BP 142/54
[2017-10-17 04:00] VITALS: BP 143/43
--- NOTE | 2017-10-17 05:14 | NUR ---
PT CARE ASSUMED AFTER REPORT. ASSESSMENT COMPLETE. ST/SB ON MONITOR. O2 2L NC. NPO FOR PLEUREX REMOVAL. FALL PRECAUTIONS IN PLACE INCLUDING BED ALARM. CALL LIGHT IN REACH. BED IN LOWEST POSITION. DENIES PAIN. PROGRESSING TOWARDS GOALS.
[2017-10-17 05:34] LABS: ABSOLUTE EOSINOPHILS 0.5 thou/uL (0.0-0.7); ABSOLUTE LYMPHOCYTES 0.6 thou/uL (0.8-5.3); ABSOLUTE MONOCYTES 0.4 thou/uL (0.0-1.2); ABSOLUTE NEUTROPHILS 1.2 thou/uL (1.6-8.1); BASOPHILS 0.9 %; EOSINOPHILS 19.7 %; HEMATOCRIT 25.2 % (37.0-47.0); HEMOGLOBIN 8.5 gm/dL (12.0-15.0); LYMPHOCYTES 20.3 %; MCH 36.3 pg (26.0-34.0); MCHC 33.8 g/dL (28.0-37.0); MCV 107.6 fL (80.0-100.0); MONOCYTES 14.2 %; MPV 9.7 fl. (7.2-11.1); NUCLEATED RBCS 0 /100WBC; PLATELET COUNT* 123 thou/uL (150-400); POLYS 44.9 %; RBC 2.34 mil/uL (4.20-5.00); RDW-CV 17.2 % (10.5-14.5); WBC 2.8 thou/uL (4.0-11.0)
[2017-10-17 05:55] LABS: CREATININE 1.3 mg/dL (0.6-1.3); POTASSIUM 4.2 mmol/L (3.5-5.1)
[2017-10-17 08:00] VITALS: BP 151/59
--- NOTE | 2017-10-17 08:00 | NUR ---
AM ASSESSMENT COMPELTE, DEFER TO COMPUTER CHARTING. COLOR BLENDER TRACKING TRACKING SB. DENIES PAIN, DIZZINESS, NAUSEA OR ANY DISCOMFORT AT THIS TIME. REMAINS NPO FOR PROCEDURE. CALL LIGHT WITHIN REACH, HOB ELEVATED.
[2017-10-17 11:56] VITALS: BP 139/50
[2017-10-17 14:14] VITALS: BP 139/50
--- NOTE | 2017-10-17 14:16 | NUR ---
ORDERS NOTED FOR DC HOME [facility]. CALLED AND FAXED DC ORDERS TO [facility]. PT STATES FEELING GOOD AND READY TO GO HOME. DENIES ANY OTHER CONCERNS. DTR TO TRANSPORT
[2017-10-17 15:58] VITALS: BP 132/46
--- NOTE | 2017-10-24 11:51 | CON ---
[address] [address] CONSULTATION Name: GABINO INIGUEZ Room: [address] IN M.R.#: [id number] Admission: 10/14/17 Attend Phys: Alexa Khan Discharge: 10/17/17 Date of : 40 Report #: [id number] THIS REPORT FOR: //name// CC: Tres Leon DATE OF SERVICE: 10/15/2017 HISTORY OF PRESENT ILLNESS: This is a 77-year-old female patient on whom the history is not clear. She was admitted with an episode of blurred vision, lightheadedness, dizziness and weakness. They all appeared to be generalized. It looks like the symptoms resolved. The symptoms came spontaneously. They were moderately severe and then they resolved spontaneously. She does not know what brought them on. REVIEW OF SYSTEMS: Indicate this patient does have shortness of breath. She has some tubes put in. At one time, her blood pressure was low when she came in. She does take oxygen at home. She has iron infusions because she indicates "her count gets low." She denies any seizure activity in the past. Record indicates she has a history of pleural effusions, head contusion, community-acquired pneumonia, urinary tract infections in the past. That was her relevant 14-point review of system. PAST MEDICAL HISTORY: Negative for any stroke. FAMILY HISTORY: Negative for early age stroke. SOCIAL HISTORY: Indicates she is a former smoker. She does not use alcohol. PHYSICAL EXAMINATION: Indicate she is alert. She is responsive. Her speech, concentration, fund of knowledge and memory is at her baseline. Cranial nerve examination 2-12 looks mostly unremarkable. She has symmetrical strength, sensation, reflexes and tones in all 4 extremities. There is no meningeal sign. There is no carotid bruit. I could not look at the fundus very well. Reflexes are diminished. Strength, sensation and tone is symmetrical. She has no cerebellar sign. She is reasonably well-developed individual. She does not have much dysmorphic features of eyes, ears and face. Her vision and hearing looks adequate. Pulses are somewhat difficult to feel, but she has no edema, cyanosis or jaundice. Cardiac examinations indicate a murmur, but she said she does have a murmur. There does not appear to be any atrial fibrillations. Respiratory examination does not appear to be showing much respiratory difficulty, but she does have a chest tube put in. Blood pressure is 146/57, respirations 18, pulse is 80, temperature is 97.7. LABORATORY DATA: Hemoglobin is 9.4. [place] [address] CONSULTATION Name: GABINO INIGUEZ Room: [address] IN M.R.#: [id number] Admission: 10/14/17 Attend Phys: Alexa Khan Discharge: 10/17/17 Date of : 40 Report #: [id number] IMAGING: She did not have any imaging study of the brain. IMPRESSION: Most likely her symptoms were secondary to multiple systemic problems going on including and low hemoglobin count, but she had multiple other symptoms, which cannot be explained on the basis of that fully, especially blurring of vision. I suspect that is still because of hypoperfusion, but I would like to do an MRI just to make sure there is no etiology there. I discussed that possibility with the patient and she wants to do it and we will set it up sometime and follow up tomorrow after that. Thank you very much for this referral. If you have any questions, please feel free to contact me. <ELECTRONICALLY SIGNED> By: Ad Betancourt MD 10/24/17 1151 0943 1119Ad Betancourt MD /nt
== END 2017-10-17 17:37 | disposition home health service (06) | DRG 304 ==
LOC: M.ERS 09:40 → M.TBA-ER 11:32 → M.2W 11:32
PROVIDERS: Emergency Medicine Emergency Medical Services; ADMIT Internal Medicine
PROC: 0BPQX0Z Removal of Drainage Device from Pleura, External Approach (ICD-10-PCS; principal; 2017-10-17)
DX: I16.1 Hypertensive emergency (principal); E43 Unspecified severe protein-calorie malnutrition; N18.4 Chronic kidney disease, stage 4 (severe); I50.32 Chronic diastolic (congestive) heart failure; R65.10 Systemic inflammatory response syndrome (SIRS) of non-infectious origin without acute organ dysfunction; I42.1 Obstructive hypertrophic cardiomyopathy; I95.2 Hypotension due to drugs; I13.0 Hypertensive heart and chronic kidney disease with heart failure and stage 1 through stage 4 chronic kidney disease, or unspecified chronic kidney disease; I25.10 Atherosclerotic heart disease of native coronary artery without angina pectoris; K21.9 Gastro-esophageal reflux disease without esophagitis; J44.9 Chronic obstructive pulmonary disease, unspecified; E78.00 Pure hypercholesterolemia, unspecified; H35.30 Unspecified macular degeneration; E03.9 Hypothyroidism, unspecified; M10.9 Gout, unspecified; E78.5 Hyperlipidemia, unspecified; D50.9 Iron deficiency anemia, unspecified; I25.2 Old myocardial infarction; Z98.49 Cataract extraction status, unspecified eye; Z95.5 Presence of coronary angioplasty implant and graft; Z88.1 Allergy status to other antibiotic agents; Z88.8 Allergy status to other drugs, medicaments and biological substances; Z87.891 Personal history of nicotine dependence; Z82.49 Family history of ischemic heart disease and other diseases of the circulatory system; Z68.27 Body mass index [BMI] 27.0-27.9, adult

== ENCOUNTER 2017-12-12 10:44 | Emergency (ER) | payer MEDICARE, BC ==
[~2017-12-12] VITALS: Ht 160 cm; Wt 70.3 kg
[2017-12-12 12:30] VITALS: BP 158/77
== END 2017-12-12 12:31 | disposition home or self-care (01) ==
LOC: M.ERS 10:44
DX: R04.0 Epistaxis (principal); I25.10 Atherosclerotic heart disease of native coronary artery without angina pectoris; K21.9 Gastro-esophageal reflux disease without esophagitis; I11.0 Hypertensive heart disease with heart failure; I50.9 Heart failure, unspecified; J44.9 Chronic obstructive pulmonary disease, unspecified; E78.00 Pure hypercholesterolemia, unspecified; Z87.440 Personal history of urinary (tract) infections; Z88.1 Allergy status to other antibiotic agents; Z88.6 Allergy status to analgesic agent; Z87.891 Personal history of nicotine dependence

== ENCOUNTER → 2017-12-12 | Outpatient (CLI) | payer MEDICARE, BC ==
[~2017-12-12] MED LIST changes: +HYDRALAZINE 2525 M1 PO; +LASIX 40 MG TAB40 M2 PO; +VITAMIN D2000 UNIT PO
== END ==
LOC: M.CT 12:50
DX: R91.8 Other nonspecific abnormal finding of lung field (principal)

== ENCOUNTER 2017-12-31 19:40 | Emergency (ER) | payer MEDICARE, BC ==
[~2017-12-31] VITALS: Ht 160 cm; Wt 70.8 kg
[2017-12-31 20:07] VITALS: BP 180/69
== END 2017-12-31 20:08 | disposition home or self-care (01) ==
LOC: M.ERS 19:40
DX: S00.412A Abrasion of left ear, initial encounter (principal); I25.10 Atherosclerotic heart disease of native coronary artery without angina pectoris; K21.9 Gastro-esophageal reflux disease without esophagitis; I11.0 Hypertensive heart disease with heart failure; I50.9 Heart failure, unspecified; J44.9 Chronic obstructive pulmonary disease, unspecified; E78.00 Pure hypercholesterolemia, unspecified; Z87.440 Personal history of urinary (tract) infections; Z88.1 Allergy status to other antibiotic agents; Z88.6 Allergy status to analgesic agent; Z87.891 Personal history of nicotine dependence; X58.XXXA Exposure to other specified factors, initial encounter; Y93.89 Activity, other specified; Y92.89 Other specified places as the place of occurrence of the external cause; Y99.8 Other external cause status

== ENCOUNTER → 2018-01-08 | Outpatient (CLI) | payer MEDICARE, BC ==
[2018-01-08 11:19] LABS: HEMATOCRIT 30.5 % (37.0-47.0); HEMOGLOBIN 10.5 gm/dL (12.0-15.0)
[2018-01-08 12:01] LABS: % SATURATION 77 % (20-39); IRON 130 ug/dL (50-175)
[2018-01-08 12:49] LABS: ALBUMIN 2.5 g/dL (3.4-5.0); CALCIUM 8.8 mg/dL (8.5-10.1); CREATININE 1.3 mg/dL (0.6-1.3); TOTAL BILIRUBIN 0.9 mg/dL (<0.1-1.0); TOTAL PROTEIN 6.6 g/dL (6.4-8.2)
== END ==
LOC: M.LAB 10:50
PROVIDERS: Internal Medicine Nephrology
DX: N18.4 Chronic kidney disease, stage 4 (severe) (principal); D50.8 Other iron deficiency anemias

== ENCOUNTER → 2018-07-17 | Outpatient (CLI) | payer MEDICARE, BC ==
[2018-07-17 12:44] LABS: HEMATOCRIT 36.5 % (37.0-47.0); HEMOGLOBIN 12.5 gm/dL (12.0-15.0); MCH 36.3 pg (26.0-34.0); MCHC 34.4 g/dL (28.0-37.0); MCV 105.6 fL (80.0-100.0); MPV 7.2 fl. (7.2-11.1); NUCLEATED RBCS 0 /100WBC; PLATELET COUNT* 197 thou/uL (150-400); RBC 3.45 mil/uL (4.20-5.00); RDW-CV 14.3 % (10.5-14.5); WBC 5.1 thou/uL (4.0-11.0)
[2018-07-17 12:52] LABS: ALBUMIN 2.5 g/dL (3.4-5.0); CALCIUM 9.2 mg/dL (8.5-10.1); CREATININE 1.4 mg/dL (0.6-1.3); PHOSPHORUS* 2.5 mg/dL (2.5-4.9)
[2018-07-17 13:08] LABS: ABSOLUTE BASOPHILS 0.1 thou/uL (0.0-0.2); ABSOLUTE EOSINOPHILS 0.7 thou/uL (0.0-0.7); ABSOLUTE LYMPHOCYTES 0.9 thou/uL (0.8-5.3); ABSOLUTE MONOCYTES 0.2 thou/uL (0.0-1.2); ABSOLUTE NEUTROPHILS 3.2 thou/uL (1.6-8.1); PLATELET ESTIMATE ADEQUATE
[2018-07-17 13:09] LABS: MACROCYTES 2+
[2018-07-17 18:06] LABS: eGFR IF AFRICAN AMERICAN 45 (>59)
[2018-07-18 10:10] LABS: PARATHYROID HORMONE 40 pg/mL (15-65)
== END ==
LOC: M.LAB 12:14
PROVIDERS: Internal Medicine Nephrology
DX: I13.0 Hypertensive heart and chronic kidney disease with heart failure and stage 1 through stage 4 chronic kidney disease, or unspecified chronic kidney disease (principal); N18.3 Chronic kidney disease, stage 3 (moderate)

== ENCOUNTER 2018-09-12 06:48 | Inpatient (IN) | payer MEDICARE, BC ==
[2018-09-12] VITALS (8 sets, daily range): BP systolic 98–225; BP diastolic 37–97
[~2018-09-12] VITALS: Ht 160 cm; Wt 83.0 kg
[2018-09-12] MEDS ORDERED: OMEPRAZOLE40 MG PO (07:01)
[2018-09-12] MEDS ORDERED: ASA81BEC PO (07:02)
[2018-09-12 07:28] LABS: ABSOLUTE EOSINOPHILS 0.3 thou/uL (0.0-0.7); ABSOLUTE LYMPHOCYTES 0.5 thou/uL (0.8-5.3); ABSOLUTE MONOCYTES 0.5 thou/uL (0.0-1.2); ABSOLUTE NEUTROPHILS 3.7 thou/uL (1.6-8.1); BASOPHILS 0.6 %; EOSINOPHILS 5.5 %; HEMATOCRIT 36.4 % (37.0-47.0); HEMOGLOBIN 12.6 gm/dL (12.0-15.0); MCH 36.8 pg (26.0-34.0); MCHC 34.5 g/dL (28.0-37.0); MCV 106.6 fL (80.0-100.0); MONOCYTES 9.3 %; MPV 7.9 fl. (7.2-11.1); NUCLEATED RBCS 0 /100WBC; PLATELET COUNT* 152 thou/uL (150-400); POLYS 73.6 %; RBC 3.42 mil/uL (4.20-5.00); RDW-CV 14.9 % (10.5-14.5)
[2018-09-12 07:37] LABS: ANION GAP 4 mmol/L (7-16); BUN 20 mg/dL (7-18); CALCIUM 8.6 mg/dL (8.5-10.1); CHLORIDE 108 mmol/L (98-107); CO2 32 mmol/L (21-32); CREATININE 1.2 mg/dL (0.6-1.3); GLUCOSE 108 mg/dL (70-99); POTASSIUM 3.7 mmol/L (3.5-5.1); SODIUM 144 mmol/L (136-145)
[2018-09-12 07:39] LABS: INR 1.2; PROTIME 11.9 Seconds (9.20-11.50)
[2018-09-12 07:45] LABS: BE 5.3 mmol/L (-2 to +3); HCO3 30.2 mmol/L (22.0-26.0); PO2 85.7 mmHg (75.0-100.0); pH 7.444 (7.340-7.450)
[2018-09-12 07:48] LABS: ALBUMIN 1.7 g/dL (3.4-5.0); ALKALINE PHOSPHATASE 153 U/L (46-116); NT-PRO BRAIN NAT PEPTIDE 949 pg/mL (<300); SGOT 42 U/L (15-37); SGPT 22 U/L (30-65); TOTAL BILIRUBIN 1.3 mg/dL (<0.1-1.0); TOTAL PROTEIN 6.2 g/dL (6.4-8.2); TROPONIN-I LEVEL <0.06 ng/mL (<0.06)
--- NOTE | 2018-09-12 10:53 | EKG ---
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: Luz DEL VALLE : 1940 Requested By: Michael Chu Order Number: [id number] MD: Luis Olvera Measurements Intervals [place] Rate: 67 P: 59 [place]: 162 QRS: 31 QRSD: 101 T: 60 QT: 429 QTc: 453 Interpretive Statements Sinus rhythm Atrial premature complex Probable left atrial enlargement Borderline low voltage, extremity leads Compared to ECG 10/14/2017 09:52:50 Atrial premature complex(es) now present Electronically Signed On 09-12-2018 10:52:45 BREAD WRAPPER OPERATOR by Luis Olvera [email or web address] <ELECTRONICALLY SIGNED> By: Luis Olvera MD, FACC 09/12/18 1052 9 Luis Olvera MD, [facility] /EPI
--- NOTE | 2018-09-12 17:22 | 2DMMODE ---
[place] [address] 2 D/M-MODE ECHOCARDIOGRAM Name: GABINO INIGUEZ Room: [address] IN [facility]#: [id number] Admission: 09/12/18 Attend Phys: Bob Carrillo, Discharge: Date of : 40 Date of Service: 09/12/18 1722 Report #: [id number] THIS REPORT FOR: //name// APPROVED REPORT Study performed: 09/12/2018 16:42:11 EXAM: Comprehensive 2D, Doppler, and color-flow Echocardiogram Patient Location: In-Patient Room #: 224 Status: routine BSA: 1.86 HR: 63 bpm BP: 181/70 mmHg Rhythm: NSR Other Information Study Quality: Good Indications Congestive Heart Failure CAD 2D Dimensions IVSd: 17.11 (7-11mm) LVOT Diam: 18.18 (18-24mm) LVDd: 45.69 mm PWd: 7.74 (7-11mm) Ascending Ao: 25.37 (22-36mm) LVDs: 38.71 (25-40mm) Aortic Root: 27.21 mm Volumes Left Atrial Volume (Systole) LA ESV Index: 45.50 mL/m2 Aortic Valve AoV Peak Cedrick.: 2.81 m/s AO Peak Gr.: 31.47 mmHg LVOT Max P.53 mmHg AO Mean Gr.: 16.91 mmHg LVOT Mean P.28 mmHg LVOT Max V: 1.84 m/s AO V2 VTI: 54.15 cm LVOT Mean V: 1.26 m/s MAURICIO (VTI): 1.67 cm2 LVOT V1 VTI: 34.75 cm Mitral Valve E/A Ratio: 1.09 MV Decel. Time: 217.55 [place] [address] 2 D/M-MODE ECHOCARDIOGRAM Name: GABINO INIGUEZ Room: [address] IN ..#: [id number] Admission: 09/12/18 Attend Phys: Bob Carrillo, Discharge: Date of : 40 Date of Service: 09/12/18 1722 Report #: [id number] MV E Max Cedrick.: 1.56 m/s MV PHT: 63.09 ms MVA (PHT): 3.49 cm2 TDI E/Lateral E': 22.29 E/Medial E': 17.33 Medial E' Cedrick.: 0.09 m/s Lateral E' Cedrick.: 0.07 m/s Pulmonary Valve PV Peak Cedrick.: 1.82 m/s PV Peak Gr.: 13.18 mmHg Left Ventricle The left ventricle is normal size. Inferior wall appears hypokinetic. Moderate concentric left ventricular hypertrophy. Left ventricular systolic function fairly well preserved. LVEF is 55-60%. Transmitral Doppler flow pattern suggests impaired LV relaxation. Right Ventricle The right ventricle is normal size. The right ventricular systolic function is normal. Atria Left atrium is moderately dilated. Right atrium is mildly dilated. Aortic Valve Mild aortic valve sclerosis. No aortic regurgitation is present. Mild aortic stenosis. Mitral Valve There is mitral annular calcification. Mild mitral regurgitation. No evidence of mitral valve stenosis. Tricuspid Valve The tricuspid valve is normal in structure. Trace tricuspid regurgitation. Unable to assess PA pressure. Pulmonic Valve The pulmonary valve is normal in structure. Mild pulmonic regurgitation. Great Vessels The aortic root is normal in size. IVC is normal in size and collapses >50% [place] [address] 2 D/M-MODE ECHOCARDIOGRAM Name: GABINO INIGUEZ Room: [address] IN [facility]#: [id number] Admission: 09/12/18 Attend Phys: Bob Carrillo, Discharge: Date of : 40 Date of Service: 09/12/18 1722 Report #: [id number] Pericardium There is no pericardial effusion. <Conclusion> The left ventricle is normal size. Moderate concentric left ventricular hypertrophy. Left ventricular systolic function fairly well preserved. LVEF is 55-60%. Transmitral Doppler flow pattern suggests impaired LV relaxation. Left atrium is moderately dilated. Right atrium is mildly dilated. Mild aortic stenosis. Mild mitral regurgitation. Trace tricuspid regurgitation. IVC is normal in size and collapses >50% with inspiration. <ELECTRONICALLY SIGNED> By: Kyle Valle MD, FACC 09/12/181721 21 21 Kyle Valle MD, FACC /INF
[2018-09-13 04:10] VITALS: BP 137/56
[2018-09-13 04:56] LABS: CALCIUM 8.3 mg/dL (8.5-10.1); CREATININE 1.5 mg/dL (0.6-1.3); MAGNESIUM 1.6 mg/dL (1.8-2.4); POTASSIUM 3.9 mmol/L (3.5-5.1)
[2018-09-13 08:00] VITALS: BP 146/54
[2018-09-13 12:00] VITALS: BP 154/70
[2018-09-13 16:00] VITALS: BP 158/70
[2018-09-13 20:00] VITALS: BP 146/60
[2018-09-14] VITALS: BP 149/67
[2018-09-14 04:00] VITALS: BP 150/60
[2018-09-14 05:42] LABS: CALCIUM 8.1 mg/dL (8.5-10.1); CREATININE 1.5 mg/dL (0.6-1.3); POTASSIUM 4.2 mmol/L (3.5-5.1)
[2018-09-14 08:00] VITALS: BP 179/80
[2018-09-14 12:00] VITALS: BP 144/67
[2018-09-14 16:00] VITALS: BP 148/80
[2018-09-14 20:00] VITALS: BP 147/60
[2018-09-15] VITALS (7 sets, daily range): BP systolic 131–191; BP diastolic 40–79
[2018-09-15 04:05] LABS: CALCIUM 8.3 mg/dL (8.5-10.1); CREATININE 1.5 mg/dL (0.6-1.3); MAGNESIUM 2.2 mg/dL (1.8-2.4); POTASSIUM 4.1 mmol/L (3.5-5.1)
[2018-09-16] VITALS: BP 151/49
[2018-09-16 04:00] VITALS: BP 124/70
[2018-09-16 05:34] LABS: CALCIUM 8.4 mg/dL (8.5-10.1); CREATININE 1.8 mg/dL (0.6-1.3); MAGNESIUM 2.2 mg/dL (1.8-2.4); POTASSIUM 4.3 mmol/L (3.5-5.1)
[2018-09-16 08:00] VITALS: BP 171/46
[2018-09-16] MEDS ORDERED: METOPROLOL SUCC25 M1 PO (08:34)
[2018-09-16] MEDS ORDERED: LASIX 40 MG TAB40 M2 PO (08:34)
[2018-09-16] MEDS ORDERED: SPIRONOLACTONE25 MG PO (08:34)
[2018-09-16] MEDS ORDERED: ADULT LOW DOSE81 MG PO (08:34)
[2018-09-16 12:00] VITALS: BP 198/61
[2018-09-16 15:19] VITALS: BP 138/48
[2018-09-16 20:00] VITALS: BP 165/66
[2018-09-17] VITALS: BP 109/43
[2018-09-17 04:00] VITALS: BP 152/57
[2018-09-17 08:05] VITALS: BP 133/59
[2018-09-17 11:45] VITALS: BP 161/51
[2018-09-17] MEDS ORDERED: METOPROLOL SUCC25 M1 PO (12:35)
== END 2018-09-17 17:06 | disposition home or self-care (01) | DRG 291 ==
LOC: M.ERS 06:48 → M.2W 08:20 → M.TBA-ER 08:20 → M.2W 08:44
PROVIDERS: Emergency Medicine; ADMIT Internal Medicine
DX: I13.0 Hypertensive heart and chronic kidney disease with heart failure and stage 1 through stage 4 chronic kidney disease, or unspecified chronic kidney disease (principal); I50.33 Acute on chronic diastolic (congestive) heart failure; J96.01 Acute respiratory failure with hypoxia; I42.1 Obstructive hypertrophic cardiomyopathy; H35.30 Unspecified macular degeneration; I25.10 Atherosclerotic heart disease of native coronary artery without angina pectoris; N18.3 Chronic kidney disease, stage 3 (moderate); K21.9 Gastro-esophageal reflux disease without esophagitis; E78.5 Hyperlipidemia, unspecified; K75.81 Nonalcoholic steatohepatitis (NASH); J98.4 Other disorders of lung; K74.60 Unspecified cirrhosis of liver; E66.9 Obesity, unspecified; E78.00 Pure hypercholesterolemia, unspecified; J44.9 Chronic obstructive pulmonary disease, unspecified; Z79.899 Other long term (current) drug therapy; I25.2 Old myocardial infarction; Z95.5 Presence of coronary angioplasty implant and graft; Z79.82 Long term (current) use of aspirin; Z88.1 Allergy status to other antibiotic agents; Z88.6 Allergy status to analgesic agent; Z98.49 Cataract extraction status, unspecified eye; Z82.49 Family history of ischemic heart disease and other diseases of the circulatory system; Z68.32 Body mass index [BMI] 32.0-32.9, adult

== ENCOUNTER → 2018-09-24 | Outpatient (CLI) | payer MEDICARE, BC ==
[~2018-09-24] MED LIST changes: +ASA81BEC PO; +METOPROLOL SUCC25 M1 PO; +SPIRONOLACTONE25 MG PO
[2018-09-24 14:20] LABS: CALCIUM 9.9 mg/dL (8.5-10.1); CREATININE 1.8 mg/dL (0.6-1.3); POTASSIUM 4.4 mmol/L (3.5-5.1)
== END ==
LOC: M.LAB 13:39
PROVIDERS: Nurse Practitioner
DX: I11.0 Hypertensive heart disease with heart failure (principal); I50.32 Chronic diastolic (congestive) heart failure; Z87.891 Personal history of nicotine dependence

== ENCOUNTER → 2018-11-20 | Outpatient (CLI) | payer MEDICARE, BC ==
[2018-11-20 14:22] LABS: CALCIUM 9.5 mg/dL (8.5-10.1); CREATININE 1.8 mg/dL (0.6-1.3); POTASSIUM 3.8 mmol/L (3.5-5.1)
== END ==
LOC: M.LAB 13:55
PROVIDERS: Family Medicine
DX: I13.2 Hypertensive heart and chronic kidney disease with heart failure and with stage 5 chronic kidney disease, or end stage renal disease (principal); N18.6 End stage renal disease; I50.30 Unspecified diastolic (congestive) heart failure; Z99.2 Dependence on renal dialysis

== ENCOUNTER → 2018-12-25 | Outpatient (CLI) | payer MEDICARE, BC ==
[2018-12-25 12:29] LABS: ABSOLUTE EOSINOPHILS 0.3 thou/uL (0.0-0.7); ABSOLUTE LYMPHOCYTES 0.8 thou/uL (0.8-5.3); ABSOLUTE MONOCYTES 0.4 thou/uL (0.0-1.2); ABSOLUTE NEUTROPHILS 2.6 thou/uL (1.6-8.1); BASOPHILS 1.2 %; EOSINOPHILS 7.6 %; HEMATOCRIT 31.4 % (37.0-47.0); LYMPHOCYTES 19.7 %; MCH 37.6 pg (26.0-34.0); MCHC 35.1 g/dL (28.0-37.0); MCV 106.9 fL (80.0-100.0); MONOCYTES 10.7 %; MPV 7.8 fl. (7.2-11.1); NUCLEATED RBCS 0 /100WBC; PLATELET COUNT* 163 thou/uL (150-400); POLYS 60.8 %; RBC 2.94 mil/uL (4.20-5.00); RDW-CV 13.9 % (10.5-14.5); WBC 4.2 thou/uL (4.0-11.0)
[2018-12-25 12:40] LABS: ALBUMIN 2.7 g/dL (3.4-5.0); CALCIUM 9.4 mg/dL (8.5-10.1); CREATININE 1.6 mg/dL (0.6-1.3); PHOSPHORUS* 2.6 mg/dL (2.5-4.9)
[2018-12-25 13:05] LABS: CREATININE 1.7 mg/dL (0.6-1.3); PHOSPHORUS* 2.9 mg/dL (2.5-4.9)
== END ==
LOC: M.LAB 11:48
PROVIDERS: Nurse Practitioner Family
DX: I13.0 Hypertensive heart and chronic kidney disease with heart failure and stage 1 through stage 4 chronic kidney disease, or unspecified chronic kidney disease (principal); N18.3 Chronic kidney disease, stage 3 (moderate); I50.32 Chronic diastolic (congestive) heart failure

== ENCOUNTER 2018-12-26 10:47 | Emergency (ER) | payer MEDICARE, BC ==
[~2018-12-26] VITALS: Ht 160 cm; Wt 79.4 kg
[2018-12-26] MEDS ORDERED: KEFLEX500 M1 PO (13:15)
[2018-12-26 13:38] VITALS: BP 156/74
== END 2018-12-26 13:20 | disposition home or self-care (01) ==
LOC: M.ERS 10:47
DX: S16.1XXA Strain of muscle, fascia and tendon at neck level, initial encounter (principal); S61.412A Laceration without foreign body of left hand, initial encounter; S91.012A Laceration without foreign body, left ankle, initial encounter; S00.83XA Contusion of other part of head, initial encounter; M25.551 Pain in right hip; K21.9 Gastro-esophageal reflux disease without esophagitis; I11.0 Hypertensive heart disease with heart failure; I50.32 Chronic diastolic (congestive) heart failure; J44.9 Chronic obstructive pulmonary disease, unspecified; E78.00 Pure hypercholesterolemia, unspecified; I25.10 Atherosclerotic heart disease of native coronary artery without angina pectoris; Z88.1 Allergy status to other antibiotic agents; Z88.6 Allergy status to analgesic agent; Z87.891 Personal history of nicotine dependence; Z95.5 Presence of coronary angioplasty implant and graft; W01.0XXA Fall on same level from slipping, tripping and stumbling without subsequent striking against object, initial encounter; Y93.89 Activity, other specified; Y92.89 Other specified places as the place of occurrence of the external cause; Y99.8 Other external cause status

== ENCOUNTER 2019-01-04 03:31 | Inpatient (IN) | payer MEDICARE, BC ==
[~2019-01-04] VITALS: Ht 160 cm; Wt 81.2 kg
[2019-01-04 03:35] VITALS: BP 223/108
[2019-01-04 03:55] LABS: ABSOLUTE EOSINOPHILS 0.4 thou/uL (0.0-0.7); ABSOLUTE LYMPHOCYTES 0.8 thou/uL (0.8-5.3); ABSOLUTE MONOCYTES 0.4 thou/uL (0.0-1.2); ABSOLUTE NEUTROPHILS 2.4 thou/uL (1.6-8.1); BASOPHILS 0.8 %; EOSINOPHILS 9.3 %; HEMATOCRIT 33.4 % (37.0-47.0); HEMOGLOBIN 11.6 gm/dL (12.0-15.0); LYMPHOCYTES 20.3 %; MCH 37.2 pg (26.0-34.0); MCHC 34.7 g/dL (28.0-37.0); MCV 107.4 fL (80.0-100.0); MONOCYTES 10.7 %; MPV 7.9 fl. (7.2-11.1); NUCLEATED RBCS 0 /100WBC; PLATELET COUNT* 144 thou/uL (150-400); POLYS 58.9 %; RBC 3.11 mil/uL (4.20-5.00); RDW-CV 14.4 % (10.5-14.5)
[2019-01-04 04:03] LABS: ANION GAP 5 mmol/L (7-16); BUN 53 mg/dL (7-18); CALCIUM 9.1 mg/dL (8.5-10.1); CHLORIDE 109 mmol/L (98-107); CO2 30 mmol/L (21-32); CREATININE 1.8 mg/dL (0.6-1.3); GLUCOSE 109 mg/dL (70-99); POTASSIUM 4.4 mmol/L (3.5-5.1); SODIUM 144 mmol/L (136-145)
[2019-01-04 04:06] LABS: INR 1.1; PROTIME 11.5 Seconds (9.20-11.50)
[2019-01-04 04:14] LABS: ALBUMIN 2.7 g/dL (3.4-5.0); ALKALINE PHOSPHATASE 134 U/L (46-116); LIPASE 370 U/L (73-393); NT-PRO BRAIN NAT PEPTIDE 560 pg/mL (<300); SGOT 48 U/L (15-37); SGPT 30 U/L (30-65); TOTAL BILIRUBIN 0.7 mg/dL (<0.1-1.0); TOTAL PROTEIN 7.1 g/dL (6.4-8.2); TROPONIN-I LEVEL <0.06 ng/mL (<0.06)
[2019-01-04 05:48] LABS: URINE BILIRUBIN NEGATIVE (Negative); URINE BLOOD TRACE (Negative); URINE CLARITY CLEAR; URINE COLOR YELLOW; URINE GLUCOSE-RANDOM NEGATIVE (Negative); URINE KETONES NEGATIVE (Negative); URINE LEUKOCYTES-REFLEX 1+ (Negative); URINE NITRITE-REFLEX NEGATIVE (Negative); URINE PROTEIN 2+ (Negative); URINE SPECIFIC GRAVITY 1.015 (1.005-1.030); URINE UROBILINOGEN 0.2 E.U./dl (0.2-1.0)
[2019-01-04 06:04] LABS: BACTERIA-REFLEX >30 Many /HPF (None Seen); CASTS None Seen /LPF (None Seen); CRYSTALS None Seen /LPF (None Seen); MUCUS 4-6 Moderate strn/LPF (None Seen); SQUAMOUS 4-10 Moderate /LPF (0-3); TRANSITIONAL EPITHEL CELL 0-3 Few /LPF (None Seen); URINE WBC-REFLEX >25 Many /HPF (0-5); WBC CLUMPS Few (None Seen)
[2019-01-04 07:50] VITALS: BP 145/57
[2019-01-04 08:15] VITALS: BP 158/61
[2019-01-04 12:13] VITALS: BP 138/79
--- NOTE | 2019-01-04 13:46 | EKG ---
[place] [address] ELECTROCARDIOGRAM REPORT Name: GABINO INIGUEZ Room: [address] ADM [place] .R.#: [id number] Admission: 01/04/19 Attend Phys: Josemanuel Shafer MD Discharge: Date of : 40 Report #: [id number] THIS REPORT FOR: //name// [facility] ED Test Date: 2019-01-04 Test Time: 03:38:12 Pat Name: GABINO INIGUEZ Department: Room: [address] Gender: F Peanut Farmer: Luz URBAN : 1940 Requested By: Georgina Daniel Order Number: [id number] Gigi MD: Efren Sloan Measurements Intervals [place] Rate: 76 P: 70 [place]: 167 QRS: 16 QRSD: 108 T: 76 QT: 412 QTc: 464 Interpretive Statements Sinus rhythm Borderline low voltage, extremity leads Compared to ECG 09/12/2018 07:00:57 no change Electronically Signed On 01-04-2019 13:45:52 CDT by Efren Sloan [email or web address] <ELECTRONICALLY SIGNED> By: Efren Sloan MD, [facility] 01/04/19 1345 0338 0338 Efren Sloan MD, FAC /EPI
--- NOTE | 2019-01-04 13:47 | EKG ---
[place] [address] ELECTROCARDIOGRAM REPORT Name: GABINO INIGUEZ Room: [address] ADM IN ..#: [id number] Admission: 01/04/19 Attend Phys: Josemanuel Shafer MD Discharge: Date of : 40 Report #: [id number] THIS REPORT FOR: //name// [facility] ED Test Date: 2019-01-04 Test Time: 04:15:33 Pat Name: GABINO INIGUEZ Department: Room: [facility] Gender: F Geometry Teacher: Luz URBAN : 1940 Requested By: Georgina Daniel Order Number: [id number] MD: Efren Sloan Measurements Intervals [place] Rate: 110 P: 0 [place]: 186 QRS: -2 QRSD: 105 T: 61 QT: 411 QTc: 557 Interpretive Statements Sinus tachycardia with short run of atrial tachycardia Prolonged QT interval Electronically Signed On 01-04-2019 13:47:10 CDT by Efren Sloan [email or web address] <ELECTRONICALLY SIGNED> By: Efren Sloan MD, [facility] 01/04/19 1347 0415 0415 Efren Sloan MD, FACC /EPI
--- NOTE | 2019-01-04 13:48 | EKG ---
[place] [address] ELECTROCARDIOGRAM REPORT Name: GABINO INIGUEZ Room: [address] ADM IN ..#: [id number] Admission: 01/04/19 Attend Phys: Josemanuel Shafer MD Discharge: Date of : 40 Report #: [id number] THIS REPORT FOR: //name// [facility] ED Test Date: 2019-01-04 Test Time: 04:17:25 Pat Name: GABINO INIGUEZ Department: Room: [address] Gender: F Tool Shaper Set Up Operator: Luz URBAN : 1940 Requested By: Georgina Daniel Order Number: [id number] Gigi MD: Efren Sloan Measurements Intervals [place] Rate: 108 P: 0 SC: 167 QRS: -2 QRSD: 106 T: 62 QT: 412 QTc: 553 Interpretive Statements Sinus tachycardia with run of atrial tachycardia Prolonged QT interval Electronically Signed On 01-04-2019 13:47:56 CDT by Efren Sloan [email or web address] <ELECTRONICALLY SIGNED> By: Efren Sloan MD, [facility] 01/04/19 1347 0417 041 Efren Sloan MD, FACC /EPI
[2019-01-04 15:49] VITALS: BP 125/56
[2019-01-04 19:50] VITALS: BP 145/54
[2019-01-05] VITALS (21 sets, daily range): BP systolic 98–164; BP diastolic 41–70
--- NOTE | 2019-01-05 01:02 | NUR ---
PT CARE IS ASSUMED AT 1930. ALERT AND ORIENTED X4. SAT MAINTAINED IN NC. CALL LIGHT WITHIN REACH AND BED IN LOW POSITION. DENIES PAIN AND SOB AT THIS MOMENT. REPORT GIVEN TO LISSETH HERNANDEZ.
[2019-01-05 04:18] LABS: ABSOLUTE EOSINOPHILS 0.4 thou/uL (0.0-0.7); ABSOLUTE LYMPHOCYTES 0.9 thou/uL (0.8-5.3); ABSOLUTE MONOCYTES 0.5 thou/uL (0.0-1.2); ABSOLUTE NEUTROPHILS 2.3 thou/uL (1.6-8.1); BASOPHILS 0.9 %; HEMOGLOBIN 10.5 gm/dL (12.0-15.0); LYMPHOCYTES 21.2 %; MCH 37.7 pg (26.0-34.0); MCHC 35.1 g/dL (28.0-37.0); MCV 107.4 fL (80.0-100.0); MONOCYTES 11.8 %; MPV 8.2 fl. (7.2-11.1); NUCLEATED RBCS 0 /100WBC; PLATELET COUNT* 132 thou/uL (150-400); POLYS 56.1 %; RDW-CV 14.5 % (10.5-14.5); WBC 4.2 thou/uL (4.0-11.0)
[2019-01-05 04:47] LABS: ANION GAP 6 mmol/L (7-16); BUN 55 mg/dL (7-18); CALCIUM 9.1 mg/dL (8.5-10.1); CHLORIDE 110 mmol/L (98-107); CHOLESTEROL 124 mg/dL (<200); CO2 28 mmol/L (21-32); CREATININE 1.8 mg/dL (0.6-1.3); GLUCOSE 101 mg/dL (70-99); HDL CHOLESTEROL 52 mg/dL (>40); LDL CHOLESTEROL 60 mg/dL (<100); POTASSIUM 4.2 mmol/L (3.5-5.1); SODIUM 144 mmol/L (136-145); TC:HDL 2.4 Ratio (Not establshd); TRIGLYCERIDE 60 mg/dL (<150); VLDL 12 mg/dL (<40)
[2019-01-05 04:49] LABS: SERUM ASSESSMENT CLEAR
--- NOTE | 2019-01-05 07:33 | NUR ---
PATIENT NPO POST MIDNIGHT FOR CARDIAC CATH. CONSENT SIGNED AND IN CHART. IVF INFUSING PER ORDERS. DENIES CHEST PAIN THIS SHIFT. VSS ON 2L O2 NC. CALL LIGHT WITHIN REACH.
--- NOTE | 2019-01-05 09:33 | NUR ---
PT ALERT AND ORIENTED. TELE TRACKING SR WITH 1ST AVB AND FREQUENT PAC'S. ALL VSS ON ROOM AIR. DENIES CP, SOA. REMAINS NPO FOR HEART CATH THIS AM. EDUCATED ON SAFETY AND PLAN OF CARE. PT TO [facility] AT APPROX 0845 THIS AM. PLEASE SEE ASSESSMENT FOR ADDITIONAL INFORMATION. WILL CONT TO MONITOR.
--- NOTE | 2019-01-05 09:36 | NUR ---
Pt is out of the room when CM went to assess, will f/u later
--- NOTE | 2019-01-05 13:40 | EKG ---
[place] [address] ELECTROCARDIOGRAM REPORT Name: GABINO INIGUEZ Room: [address] ADM IN M.R.#: [id number] Admission: 01/04/19 Attend Phys: Josemanuel Shafer MD Discharge: Date of : 40 Report #: [id number] THIS REPORT FOR: //name// [facility] Test Date: 2019-01-05 Test Time: 10:51:43 Pat Name: GABINO INIGUEZ Department: Room: [address] Gender: F Cnc Mill Operator: : 1940 Requested By: Efren Sloan Order Number: [id number] Gigi MD: Efren Sloan Measurements Intervals [place] Rate: 62 P: 71 VA: 226 QRS: 30 QRSD: 107 T: 60 QT: 487 QTc: 495 Interpretive Statements Sinus arrhythmia Prolonged VA interval Borderline low voltage, extremity leads Borderline prolonged QT interval Compared to ECG 01/04/2019 04:17:25 First degree AV block now present Sinus tachycardia no longer present Electronically Signed On 01-05-2019 13:39:56 CDT by Efren Sloan [email or web address] <ELECTRONICALLY SIGNED> By: Efren Sloan MD, [facility] 01/05/19 1339 1051 1051 Efren Sloan MD, [facility] /EPI
--- NOTE | 2019-01-05 14:38 | CON ---
[address] [address] CONSULTATION Name: GABINO INIGUEZ Room: [address] IN M.R.#: [id number] Admission: 01/04/19 Attend Phys: Josemanuel Shafer MD Discharge: Date of : 40 Report #: [id number] THIS REPORT FOR: //name// CC: Josemanuel Zuniga DO DATE OF SERVICE: 01/04/2019 CARDIOLOGY CONSULTATION HISTORY OF PRESENT ILLNESS: The patient is a 78-year-old single white female who I was asked to see in the hospital today after an episode of chest pain. The patient has an extensive past medical history. She has had multiple stents placed in the past. She had coronary artery stents placed in [place], [place] in [facility]. Her last stent was apparently placed here at [place] [address] Olvera. She apparently has not had a stress test since that time. She has been followed by my partner, Dr. Valle. Her last cardiac catheterization in the records appears to have been in 08/2017 from the right femoral artery. She is found to have heavily calcified arteries. The LAD had a 60% narrowing. The circumflex had a 50% stenosis. The right coronary artery had a 90% heavily calcified mid stenosis. She had a stent placed in the mid right coronary artery. No ventriculogram was performed. She had an echocardiogram in September of this year that showed an ejection fraction of 60% with biatrial enlargement, mild aortic stenosis with a peak gradient across the aortic valve of 14 mmHg. The patient was last admitted here to [place] in September with zeosx-dt-lxxdlkb diastolic heart failure. She stays fairly active. She lives by herself. She was doing well until last night; she felt some chest pain, felt diaphoretic. This morning, she felt short of breath, diaphoretic and had chest pain. Her daughter brought her to the hospital and she was admitted. She denied the pain being related to food. She had no belching episode. She has had no recent bleeding. Denied any fever, cough or trauma to her chest. She denies exertional dyspnea, palpitations or syncope. PAST MEDICAL HISTORY: She has had previous tonsillectomy. She has a history of hypertension and hyperlipidemia. She has had previous peptic ulcer disease, requiring transfusion. She has chronic kidney disease, was on dialysis for a period of time. MEDICATIONS: On admission consist of furosemide, Synthroid, omeprazole, aspirin, lovastatin, Imdur and hydralazine. ALLERGIES: SHE HAS PREVIOUS INTOLERANCE TO AMOXICILLIN AND IBUPROFEN. FAMILY HISTORY: [place] [address] CONSULTATION Name: GABINO INIGUEZ Room: [address] IN ..#: [id number] Admission: 01/04/19 Attend Phys: Josemanuel Shafer MD Discharge: Date of : 40 Report #: [id number] SOCIAL HISTORY: She is , lives by herself in [place]. Quit smoking years ago. No alcohol abuse. REVIEW OF SYSTEMS: She has had no history of stroke. She does have a history of a carotid stenosis by previous Doppler study. She has had previous history of peptic ulcer disease, chronic kidney disease. No cancer. No psychiatric illness. No chronic skin condition. PHYSICAL EXAMINATION: GENERAL: Revealed an elderly frail-appearing female, lying in bed. She appeared in no acute distress. VITAL SIGNS: Her blood pressure was 200/100, her pulse was 80. HEENT: She was anicteric, conjunctivae pink. Mucous members moist. NECK: Neck veins did not appear distended. Right carotid bruit was heard. CHEST: Clear to auscultation. CARDIAC EXAMINATION: Regular rate and a grade 4 mid peaking systolic ejection murmur along the sternal border. ABDOMEN: Soft. EXTREMITIES: Had no pitting edema. Dorsalis pedis pulse 2+ bilaterally. SKIN: Warm and dry. NEUROLOGICAL EXAMINATION: Nonfocal. LABORATORY DATA: ECG showed a sinus rhythm; no significant ST or T-wave change. Her workup in the Emergency Room today consisted of a portable chest x-ray that showed bilateral interstitial infiltrates, possible pulmonary edema and small effusions. Previous CT scan of the head done last month showed a hematoma after she slipped and fell. Her carotid MRA in 10/2017 showed less than 40% bilateral. Her lab work today, her sodium 144, potassium 4.4 and creatinine 1.8, it was 1.8 in September. Liver function studies were normal. Total protein 7.1. Albumin 2.7. Troponin 0.06. Her BNP 560 in 2017. Cholesterol 111, triglycerides 58, HDL 37 and LDL 63. In October, TSH was 3.6. Her white blood cell count is 4.0, hemoglobin 11.6 and MCV is 107. Her B12 in 2017 was 1142. Her T4 in 2018 was 1.29. IMPRESSION AND RECOMMENDATIONS: 1. Unstable angina. Recommend cardiac catheterization. 2. Mild aortic stenosis. 3. Mild carotid stenosis. 4. Hypertension. The patient has been on a beta bello and hydralazine. 5. [place] [address] CONSULTATION Name: GABINO INIGUEZ Room: [address] IN [facility].#: [id number] Admission: 01/04/19 Attend Phys: Josemanuel Shafer MD Discharge: Date of : 40 Report #: [id number] 6. History of peptic ulcer disease. 7. Hyperlipidemia. The patient is on a statin drug. <ELECTRONICALLY SIGNED> By: Efren Sloan MD, FACC 01/05/19 1438 0933 0033Dalis Sloan MD, FACC /nt
--- NOTE | 2019-01-05 15:02 | CARD ---
[address] [address] CARDIAC CATH REPORT Name: GABINO INIGUEZ Room: [address] IN [facility].#: [id number] Admission: 01/04/19 Attend Phys: Josemanuel Shafer MD Discharge: Date of : 40 Report #: [id number] THIS REPORT FOR: //name// APPROVED REPORT Study performed: 01/05/2019 07:52:49 Patient Details Patient Status: In-Patient Room #: The patient is a 78 year-old female Event Personnel Efren Sloan Clinical Nursing Intern, Eunice Little RN Mobile Device Engineer, Landon Barnett SUPERVISOR PAYROLL Monitor, Bob Chavez SUPERVISOR PAYROLL Scrub Procedures Performed Left Heart Cath w/or w/o Coronaries [id number] [facility] Place w/wo Plasty Single LAD [id number] Hemostasis w/ Angioseal , Right transradial approach Indication Unstable angina , Chest pain Risk Factors Hypercholesterolemia, Coronary Artery DiseaseHypertension, Tobacco History () Previous Procedures/Diagnoses Previous PCI Admission/Lab Medications/Medications given during procedure Glycoprotein IllbIlla Inhibitors, Heparin Unfract., Midazolam (Versed) IV 2 mg, Lidocaine Subcut 15 ml, Hydralazine (Apresoline) IV 10 mg, Heparin IV 6000 units, Aggrastat IV 8.4 mcg per min, Heparin IV 2000 units, Plavix PO 600 mg, Zofran (Ondansetron) IV 4 mg Procedure Narrative The patient was brought electively to the Cardiac Catheterization Laboratory and was prepped and draped in a sterile manner. The right femoral was infiltrated with 1% Lidocaine subcutaneous anesthesia. A 6fr Ultimum Sheath sheath was inserted into the RFA. Coronary angiography was performed using coronary diagnostic catheters. The right coronary system was accessed and visualized with [place] [place] [address] CARDIAC CATH REPORT Name: GABINO INIGUEZ Room: [address] IN [facility].#: [id number] Admission: 01/04/19 Attend Phys: Josemanuel Shafer MD Discharge: Date of : 40 Report #: [id number] catheter. The left coronary system was accessed and visualized with a JL4 catheter. The left ventricle was accessed and visualized with a Angled PIG catheter. Left ventricular/Aortic Valve gradient assessed via catheter pullback. Pre-demployment femoral angiogram was performed . Closure device was deployed with a 6 Fr Angioseal STS 6Fr. The patient tolerated the procedure well and there were no complications associated with the procedure. There was no hematoma. Intraoperative Conscious Sedation Dose: 955 mGy Contrast Type and Amount: Visipaque 150 ml Coronary Angiography The patient's coronary anatomy is co- dominant. Diagnostic Cath Left Main 0% stenosis LAD 70% mid, and 50% distal stenosis noted Circumflex 60% ostial stenosis, mid stent with 40% restenosis OM2 stent appeared chronically occluded and filled by retrograde collaterals from the lad Right Coronary proximal stent with 30% restenosis, mid stent with 0% stenosis, 30% distal stenosis noted Left Ventriculography Left Ventriculography was not performed. Hemodynamics The aortic pressure is 191/59 mmHg with a mean of 88 mmHg. The left ventricular pressure is 194/12 mmHg with a mean of mmHg. The left ventricular end diastolic pressure is 21 mmHg. There was no gradient across the aortic valve upon pullback. Pullback from the left ventricle to the aorta revealed no gradient across the aortic valve. PCI Technique Lesion Anticoagulation was achieved with Heparin. bolus of iv aggrastat given Percutaneous coronary intervention was performed on the mid left anterior descending artery segment. The lesion stenosis prior to intervention was 70% with RAAFEL 3 flow. A 6F XB LAD 3.5 Guide Catheter was used to engage the lm ostium. A IG: BMW 190cm Interventional Guidewire was [place] [address] CARDIAC CATH REPORT Name: GABINO INIGUEZ Room: [address]#: [id number] Admission: 01/04/19 Attend Phys: Josemanuel Shafer MD Discharge: Date of : 40 Report #: [id number] BALLOON DILATION A Balloon catheter Trek RX 2.5 X 8 was inserted and inflated up to 10.00atm for 14seconds. Repeat angiography revealed the following post-dilatation results: 40% stenosis. Additional Inflation: 12.00atm for 13seconds. STENT DEPLOYMENT A drug-eluting stent [place] RX Stent 2.29A39vo was inserted and inflated up to 15.00atm for 15seconds. Repeat angiography revealed the following post-stent deployment results: 0% stenosis. Additional Inflation: 18.00atm for 15seconds. Final angiography reveals 0 % stenosis with RAFAEL 3 flow. Conclusion 1. 70% stenosis of the mid lad 2. no restenosis of stent in the mid circumflex, although the stent in the 2nd marginal branch appeared chronically occluded and filled by retrograde collaterals 3. no restenosis of stents in the rca 4. successful placement of a drug eluting stent in the mid lad Recommendations Cardiac Rehabilitation Referral Aggressive Medical Therapy Medications Administered Clopidogrel <ELECTRONICALLY SIGNED> By: Efren Sloan MD, [facility] 01/05/19 1502 1502 1502Davikashif Sloan MD, FAC /INF
--- NOTE | 2019-01-05 15:12 | NUR ---
Pt is A&O. Resides at home alone. Independent. Supportive dtr that is involved in POC. Pt has home o2 through [employer]. Pt has a cane that she can use for mobility. Hx of [facility]. Pt had a cath today. Goal is home at [place]. Following
[2019-01-06 00:30] VITALS: BP 155/57
[2019-01-06] MEDS ORDERED: TYLENOL325 MG PO (02:05)
[2019-01-06 02:54] LABS: HEMATOCRIT 27.1 % (37.0-47.0); HEMOGLOBIN 9.4 gm/dL (12.0-15.0); MCH 37.5 pg (26.0-34.0); MCHC 34.7 g/dL (28.0-37.0); MCV 108.1 fL (80.0-100.0); RBC 2.51 mil/uL (4.20-5.00); RDW-CV 14.3 % (10.5-14.5); WBC 5.1 thou/uL (4.0-11.0)
[2019-01-06 03:13] LABS: CALCIUM 8.3 mg/dL (8.5-10.1); CREATININE 1.9 mg/dL (0.6-1.3); POTASSIUM 4.9 mmol/L (3.5-5.1)
[2019-01-06 04:00] VITALS: BP 145/43
--- NOTE | 2019-01-06 06:07 | NUR ---
PATIENT IS ALERT AND ORIENTED X4. VSS, ON NC 2L/M OVERNIGHT. 02 SATS >92% IN RA. NO BLEEDING OR HEMATOMA AT THE RT FEMORAL SITE. FENTANYL 50MG AND TYLENOL GIVEN ONCE THIS SHIFT FOR PAIN. SLEPT WELL OVERNIGHT.
[2019-01-06 08:30] VITALS: BP 147/68
--- NOTE | 2019-01-06 08:30 | NUR ---
ASSUMED PT. CARE AND RECEIVED REPORT AT 0730. PT A/OX4, VSS, MONITOR ON TRACING SR WITH PAC. PT. DENIES CURRENT PAIN/SOB. ON RA @ 95%. FULL ASSESSMENT COMPLETED, REFER TO CHARTING. RIGHT GROIN DRESSING C/D/I. 2/2 PULSES. NAVARRO TO DD WITH CLEAR YELLOW DRAINAGE. CALL LIGHT IN REACH, FALL PRECUATIONS IN PLACE. WILL CONTINUE WITH PLAN OF CARE.
[2019-01-06 10:43] VITALS: BP 145/43
[2019-01-06] MEDS ORDERED: PLAVIX 75 MG TA75 M1 PO (11:29)
[2019-01-06] MEDS ORDERED: APAP650 PO (11:30)
[2019-01-06] MEDS ORDERED: NITROGLYCERIN0.4 MG SUBLING (11:33)
[2019-01-06 12:32] VITALS: BP 149/43
--- NOTE | 2019-01-06 13:23 | NUR ---
XRAY RESULTS CALLED TO DR. MYRICK. ORDER RECEIVED TO GIVEN 40MG LASIX AND OKAY TO DC. PT. DID NOT WANT TO TAKE LASIX AND DRIVE HOME, PT. WANTS TO TAKE DOSE WHEN SHE GETS HOME. PT. AND DAUGHTER AGREEABLE. PT. GIVEN DC INSTRUCTIONS, SCRIPTS AND CARENOTES. PT. LEFT IN WHEELCHAIR TO RETURN HOMEIN PERSONAL VEHICLE, ALL BELONGINGS ACCOUNTED FOR.
--- NOTE | 2019-01-06 17:02 | EKG ---
[place] [address] ELECTROCARDIOGRAM REPORT Name: GABINO INIGUEZ Room: [address] DIS IN M.R.#: [id number] Admission: 01/04/19 Attend Phys: Josemanuel Shafer MD Discharge: 01/06/19 Date of : 40 Report #: [id number] THIS REPORT FOR: //name// [facility] Test Date: 2019-01-06 Test Time: 05:14:41 Pat Name: GABINO INIGUEZ Department: Room: [address] Gender: F Experimental Welder: TOBIAS : 1940 Requested By: Efren Sloan Order Number: [id number] Gigi MD: Kyle Valle Measurements Intervals [place] Rate: 62 P: 58 [place]: 195 QRS: 28 QRSD: 106 T: 56 QT: 469 QTc: 477 Interpretive Statements Sinus rhythm Atrial premature complexes Borderline low voltage, extremity leads Compared to ECG 01/05/2019 10:51:43 Atrial premature complex(es) now present Sinus arrhythmia no longer present First degree AV block no longer present Electronically Signed On 01-06-2019 17:02:08 CDT by Kyle Valle [email or web address] <ELECTRONICALLY SIGNED> By: Kyle Valle MD, [facility] 01/06/19 1702 3 3 Kyle Valle MD, [facility] /EPI
== END 2019-01-06 13:30 | disposition home or self-care (01) | DRG 246 ==
LOC: M.ERS 03:31 → M.TBA-ER 05:56 → M.2W 05:56
PROVIDERS: Emergency Medicine; Internal Medicine Cardiovascular Disease; ADMIT Internal Medicine
PROC: 027034Z Dilation of Coronary Artery, One Artery with Drug-eluting Intraluminal Device, Percutaneous Approach (ICD-10-PCS; principal; 2019-01-05)
PROC: 4A023N7 Measurement of Cardiac Sampling and Pressure, Left Heart, Percutaneous Approach (ICD-10-PCS; principal; 2019-01-05)
PROC: B2111ZZ Fluoroscopy of Multiple Coronary Arteries using Low Osmolar Contrast (ICD-10-PCS; principal; 2019-01-05)
DX: I25.110 Atherosclerotic heart disease of native coronary artery with unstable angina pectoris (principal); I50.43 Acute on chronic combined systolic (congestive) and diastolic (congestive) heart failure; I13.0 Hypertensive heart and chronic kidney disease with heart failure and stage 1 through stage 4 chronic kidney disease, or unspecified chronic kidney disease; E44.0 Moderate protein-calorie malnutrition; E78.5 Hyperlipidemia, unspecified; N18.9 Chronic kidney disease, unspecified; D64.9 Anemia, unspecified; I35.0 Nonrheumatic aortic (valve) stenosis; R00.0 Tachycardia, unspecified; I65.29 Occlusion and stenosis of unspecified carotid artery; J44.9 Chronic obstructive pulmonary disease, unspecified; I42.9 Cardiomyopathy, unspecified; I25.2 Old myocardial infarction; Z95.5 Presence of coronary angioplasty implant and graft; Z79.899 Other long term (current) drug therapy; Z88.1 Allergy status to other antibiotic agents; Z88.6 Allergy status to analgesic agent; Z87.891 Personal history of nicotine dependence; Z87.11 Personal history of peptic ulcer disease

== ENCOUNTER 2019-01-13 22:32 | Observation (INO) | payer MEDICARE, BC ==
[~2019-01-13] VITALS: Ht 160 cm; Wt 78.9 kg
[~2019-01-13 22:32] MED LIST changes: +APAP650 PO; +NITROGLYCERIN0.4 MG SUBLING; +PLAVIX 75 MG TA75 M1 PO; +SYNTHROID25 MC1 PO
[2019-01-13 22:39] VITALS: BP 193/100
[2019-01-13 23:13] LABS: ABSOLUTE EOSINOPHILS 0.3 thou/uL (0.0-0.7); ABSOLUTE LYMPHOCYTES 0.9 thou/uL (0.8-5.3); ABSOLUTE MONOCYTES 0.6 thou/uL (0.0-1.2); ABSOLUTE NEUTROPHILS 2.5 thou/uL (1.6-8.1); EOSINOPHILS 6.5 %; HEMATOCRIT 32.4 % (37.0-47.0); HEMOGLOBIN 11.4 gm/dL (12.0-15.0); LYMPHOCYTES 20.4 %; MCH 37.2 pg (26.0-34.0); MCHC 35.2 g/dL (28.0-37.0); MCV 105.6 fL (80.0-100.0); MONOCYTES 14.6 %; MPV 8.2 fl. (7.2-11.1); NUCLEATED RBCS 0 /100WBC; PLATELET COUNT* 188 thou/uL (150-400); POLYS 57.5 %; RBC 3.07 mil/uL (4.20-5.00); RDW-CV 13.8 % (10.5-14.5); WBC 4.4 thou/uL (4.0-11.0)
[2019-01-13 23:25] LABS: ANION GAP 5 mmol/L (7-16); BUN 47 mg/dL (7-18); CALCIUM 8.8 mg/dL (8.5-10.1); CHLORIDE 105 mmol/L (98-107); CO2 29 mmol/L (21-32); CREATININE 1.8 mg/dL (0.6-1.3); GLUCOSE 161 mg/dL (70-99); POTASSIUM 3.6 mmol/L (3.5-5.1); SODIUM 139 mmol/L (136-145)
[2019-01-13 23:28] LABS: INR 1.2; PROTIME 11.8 Seconds (9.20-11.50)
[2019-01-13 23:35] LABS: ALBUMIN 2.6 g/dL (3.4-5.0); ALKALINE PHOSPHATASE 171 U/L (46-116); LIPASE 433 U/L (73-393); NT-PRO BRAIN NAT PEPTIDE 368 pg/mL (<300); SGOT 46 U/L (15-37); SGPT 30 U/L (30-65); TOTAL BILIRUBIN 0.7 mg/dL (<0.1-1.0); TROPONIN-I LEVEL <0.06 ng/mL (<0.06)
[2019-01-13 23:48] LABS: AMMONIA 124 umol/L (11-32)
[2019-01-14] VITALS (7 sets, daily range): BP systolic 125–159; BP diastolic 41–79
--- NOTE | 2019-01-14 04:59 | NUR ---
RECEIVED REPORT FROM CATALINO HERNANDEZ. PT TRANSFERRED TO 209. PT A&OX4. VSS. ACCELERATOR OPERATOR IN PLACE. ORIENTED TO ROOM AND CALL LIGHT. ADMISSION HISTORY & PHYSICAL ASSESSMENT COMPLETED AND CHARTED. FALL FORM SIGNED. PT ON O2 AT 2L NC. PT TRACING SR 1ST DEG ON TELE. PT UPSTANDBY TO BSC. PT RESTED WELL ON BED. CALL LIGHT WITHIN REACH.
--- NOTE | 2019-01-14 07:45 | NUR ---
ASSUMED CARE OF PT ASSESSED AND DOCUMENTED. PT IS ON CARDIAC MONITER TRACING SR HR 63. PT IS A&O WITH NO C/O PAIN. VSS WNL. PT IS AFEBRILE. PT IS ON ROOM AIR. PT IS ON FALL PRECAUTIONS PER FACILITY PROTOCOL. BED IS IN LOW POSITION CALL LIGHT IS IN REACH. WM.
[2019-01-14 09:52] LABS: URINE BILIRUBIN NEGATIVE (Negative); URINE BLOOD NEGATIVE (Negative); URINE CLARITY CLEAR; URINE COLOR YELLOW; URINE GLUCOSE-RANDOM NEGATIVE (Negative); URINE KETONES NEGATIVE (Negative); URINE LEUKOCYTES-REFLEX NEGATIVE (Negative); URINE NITRITE-REFLEX NEGATIVE (Negative); URINE PROTEIN 1+ (Negative); URINE SPECIFIC GRAVITY 1.015 (1.005-1.030); URINE UROBILINOGEN 0.2 E.U./dl (0.2-1.0)
--- NOTE | 2019-01-14 10:23 | NUR ---
Pt is A&O. Resides at home alone. Pt recently dc to home last week. Pt stated that last evening she started feeling dizzy and off balance. Supportive dtr, that is in room at bedside. Pt has a walker that she can use for mobility. Home o2. Hx of [facility]. No hx of SNF. Goal is home at dc. Following.
--- NOTE | 2019-01-14 10:49 | EKG ---
[place] [address] ELECTROCARDIOGRAM REPORT Name: GABINO INIGUEZ Room: [address] ADM IN M.R.#: [id number] Admission: 01/14/19 Attend Phys: Bob Carrillo MD Discharge: Date of : 40 Report #: [id number] THIS REPORT FOR: //name// [facility] ED Test Date: 2019-01-13 Test Time: 22:41:18 Pat Name: GABINO INIGUEZ Department: Room: [facility] Gender: F Crate Opener: Luz URBAN : 1940 Requested By: Travis Mcfarland Order Number: [id number] MD: Efren Sloan Measurements Intervals [place] Rate: 108 P: 237 [place]: 176 QRS: 2 QRSD: 106 T: 64 QT: 420 QTc: 563 Interpretive Statements Sinus or ectopic atrial tachycardia Prolonged QT interval Compared to ECG 01/06/2019 05:14:41 Prolonged QT interval now present Sinus rhythm no longer present Atrial premature complex(es) no longer present Electronically Signed On 01-14-2019 10:49:20 CDT by Efren Sloan [email or web address] <ELECTRONICALLY SIGNED> By: Efren Sloan MD, [facility] 01/14/19 1049 2241 2241 Efren Sloan MD, [facility] /EPI
--- NOTE | 2019-01-14 17:20 | NUR ---
PT HAS RESTED IN HER ROOM THIS SHIFT WITH DAUGHTER AT BEDSIDE. URINE SPECIMEN OBTAINED AND TAKEN TO LAB. PT HAS HAD NO C/O PAIN OR DISCOMFORT. EDCATION GIVEN ON DEMAND. HOURLY ROUNDING CONT.
[2019-01-15] VITALS: BP 143/46
[2019-01-15 04:00] VITALS: BP 141/42
--- NOTE | 2019-01-15 05:04 | NUR ---
ASSUMED CARE OF PT AFTER REPORT AT 1930. PT A&OX4. VSS.PHYSICAL ASSESSMENT COMPLETED AND CHARTED. PT ON RA. PT TRACING SR 1ST DEG ON TELE. PT UPSTANDBY TO BSC. PT DENIES ANY PAIN OR DISCOMFORT. PT RESTED WELL ON BED. CALL LIGHT WITHIN REACH.
[2019-01-15 08:00] VITALS: BP 155/47
--- NOTE | 2019-01-15 11:19 | NUR ---
9656 ASSUMED CARE OF PATIENT. PLEASE SEE DOCUMENTED ASSESSMENT. PT IS HOPING TO GO HOME TODAY. REFUSING LACTULOSE.
[2019-01-15] MEDS ORDERED: XIFAXAN550 M1 PO ×2 (12:20→13:25)
--- NOTE | 2019-01-15 12:20 | NUR ---
PATIENT TO BE DISCHARGED HOME TODAY. DAUGHTER WILL TAKE PATIENT HOME
[2019-01-15] MEDS ORDERED: LACTULOSE20 GM/30 M PO ×2 (12:21→13:26)
[2019-01-15] MEDS ORDERED: LOPRESSOR25 PO ×2 (12:22→13:27)
[2019-01-15 13:00] VITALS: BP 165/62
[2019-01-15 13:39] VITALS: BP 165/62
--- NOTE | 2019-01-15 15:28 | NUR ---
PATIENT EDUCATION FOR DISCHARGE COMPLETED. IV DISCONTINUED AND TELE PACK REMOVED.
--- NOTE | 2019-01-15 15:37 | NUR ---
1530 DISCHARGED PER WHEELCHAIR
== END 2019-01-15 15:30 | disposition home or self-care (01) ==
LOC: M.ERS 22:32 → M.2W 01-14 00:16 → M.TBA-ER 01-14 00:16 → M.2W 01-14 00:57
PROVIDERS: Emergency Medicine; ADMIT Internal Medicine
DX: K72.90 Hepatic failure, unspecified without coma (principal); I13.0 Hypertensive heart and chronic kidney disease with heart failure and stage 1 through stage 4 chronic kidney disease, or unspecified chronic kidney disease; N18.3 Chronic kidney disease, stage 3 (moderate); I50.42 Chronic combined systolic (congestive) and diastolic (congestive) heart failure; E44.0 Moderate protein-calorie malnutrition; I48.0 Paroxysmal atrial fibrillation; E78.5 Hyperlipidemia, unspecified; K74.69 Other cirrhosis of liver; I25.10 Atherosclerotic heart disease of native coronary artery without angina pectoris; I25.2 Old myocardial infarction; K21.9 Gastro-esophageal reflux disease without esophagitis; J44.9 Chronic obstructive pulmonary disease, unspecified; E78.00 Pure hypercholesterolemia, unspecified; I25.5 Ischemic cardiomyopathy; Z88.1 Allergy status to other antibiotic agents; Z88.6 Allergy status to analgesic agent; Z79.899 Other long term (current) drug therapy; Z90.12 Acquired absence of left breast and nipple; Z87.891 Personal history of nicotine dependence; Z98.890 Other specified postprocedural states

== ENCOUNTER → 2019-02-03 | Outpatient (CLI) | payer MEDICARE, BC ==
[~2019-02-03] MED LIST changes: +LACTULOSE20 GM/30 M PO; +LOPRESSOR25 PO; +XIFAXAN550 M1 PO
[2019-02-03 15:00] LABS: HEMATOCRIT 32.5 % (37.0-47.0); HEMOGLOBIN 11.2 gm/dL (12.0-15.0); MCH 36.7 pg (26.0-34.0); MCHC 34.5 g/dL (28.0-37.0); MCV 106.6 fL (80.0-100.0); MPV 8.4 fl. (7.2-11.1); NUCLEATED RBCS 0 /100WBC; PLATELET COUNT* 142 thou/uL (150-400); RBC 3.05 mil/uL (4.20-5.00); RDW-CV 13.8 % (10.5-14.5); WBC 3.7 thou/uL (4.0-11.0)
[2019-02-03 15:18] LABS: ALBUMIN 2.8 g/dL (3.4-5.0); CALCIUM 9.1 mg/dL (8.5-10.1); CREATININE 1.7 mg/dL (0.6-1.3); PHOSPHORUS* 2.7 mg/dL (2.5-4.9); POTASSIUM 3.8 mmol/L (3.5-5.1)
[2019-02-03 15:39] LABS: CALCIUM 8.9 mg/dL (8.5-10.1); CREATININE 1.7 mg/dL (0.6-1.3); PHOSPHORUS* 2.7 mg/dL (2.5-4.9)
[2019-02-03 15:48] LABS: ABSOLUTE LYMPHOCYTES 1.1 thou/uL (0.8-5.3); ABSOLUTE MONOCYTES 0.1 thou/uL (0.0-1.2); ABSOLUTE NEUTROPHILS 2.4 thou/uL (1.6-8.1); PLATELET ESTIMATE ADEQUATE
== END ==
LOC: M.LAB 14:27
PROVIDERS: Nurse Practitioner Family
DX: I13.0 Hypertensive heart and chronic kidney disease with heart failure and stage 1 through stage 4 chronic kidney disease, or unspecified chronic kidney disease (principal); I50.9 Heart failure, unspecified; N18.3 Chronic kidney disease, stage 3 (moderate)

== ENCOUNTER → 2019-02-24 | Outpatient (CLI) | payer MEDICARE, BC | LOC: M.ULTRA 08:49 | DX: K80.20 Calculus of gallbladder without cholecystitis without obstruction (principal); J90 Pleural effusion, not elsewhere classified; N28.1 Cyst of kidney, acquired; K74.60 Unspecified cirrhosis of liver ==

== ENCOUNTER 2019-05-05 05:14 | Inpatient (IN) | payer MEDICARE, BC ==
[~2019-05-05] VITALS: Ht 152.4 cm; Wt 88.5 kg
[2019-05-05 05:26] VITALS: BP 190/62
[2019-05-05] MEDS ORDERED: CARVEDILOL3.125 MG PO (05:32)
[2019-05-05 05:45] LABS: BE 5.6 mmol/L (-2 to +3); PO2 91.2 mmHg (75.0-100.0)
[2019-05-05 06:11] LABS: HEMATOCRIT 32.8 % (37.0-47.0); HEMOGLOBIN 11.2 gm/dL (12.0-15.0); MCH 36.6 pg (26.0-34.0); MCHC 34.2 g/dL (28.0-37.0); MPV 8.2 fl. (7.2-11.1); NUCLEATED RBCS 0 /100WBC; PLATELET COUNT* 130 thou/uL (150-400); RBC 3.07 mil/uL (4.20-5.00); RDW-CV 14.7 % (10.5-14.5); WBC 11.1 thou/uL (4.0-11.0)
[2019-05-05 06:21] LABS: ANION GAP 5 mmol/L (7-16); BUN 36 mg/dL (7-18); CALCIUM 9.2 mg/dL (8.5-10.1); CHLORIDE 106 mmol/L (98-107); CO2 31 mmol/L (21-32); GLUCOSE 117 mg/dL (70-99); POTASSIUM 4.7 mmol/L (3.5-5.1); SODIUM 142 mmol/L (136-145)
[2019-05-05 06:24] LABS: INR 1.2; PROTIME 12.6 Seconds (9.20-11.50)
[2019-05-05 06:32] LABS: ALBUMIN 2.7 g/dL (3.4-5.0); ALKALINE PHOSPHATASE 134 U/L (46-116); MAGNESIUM 2.1 mg/dL (1.8-2.4); NT-PRO BRAIN NAT PEPTIDE 2229 pg/mL (<300); SGOT 42 U/L (15-37); SGPT 27 U/L (30-65); TOTAL PROTEIN 7.1 g/dL (6.4-8.2); TROPONIN-I LEVEL <0.06 ng/mL (<0.06)
[2019-05-05 07:03] LABS: ABSOLUTE BASOPHILS 0.1 thou/uL (0.0-0.2); ABSOLUTE LYMPHOCYTES 0.3 thou/uL (0.8-5.3); ABSOLUTE MONOCYTES 0.8 thou/uL (0.0-1.2); ABSOLUTE NEUTROPHILS 9.9 thou/uL (1.6-8.1)
[2019-05-05 07:04] LABS: PLATELET ESTIMATE DECREASED; TOXIC GRANULATION 2+
[2019-05-05 07:05] LABS: MACROCYTES 2+
[2019-05-05 08:00] VITALS: BP 168/55
[2019-05-05 08:07] VITALS: BP 194/57
[2019-05-05 11:03] LABS: URINE BILIRUBIN NEGATIVE (Negative); URINE BLOOD TRACE (Negative); URINE CLARITY CLEAR; URINE COLOR YELLOW; URINE GLUCOSE-RANDOM NEGATIVE (Negative); URINE KETONES NEGATIVE (Negative); URINE LEUKOCYTES-REFLEX NEGATIVE (Negative); URINE NITRITE-REFLEX NEGATIVE (Negative); URINE PROTEIN 2+ (Negative); URINE SPECIFIC GRAVITY 1.025 (1.005-1.030); URINE UROBILINOGEN 0.2 E.U./dl (0.2-1.0)
--- NOTE | 2019-05-05 11:13 | NUR ---
PT ADMITTED TO TELE FLOOR AT 0850, REPORT RECEIVED FROM ER NURSE. PT IS AOX4 SA ON PILE DRIVING SETTER. CARDIAC STRIP PLACED IN CHART. NAVARRO PLACED IN PER DR ORDER. NS STARTED AT 250 CC PER HOUR. COREG GIVEN. ORAL TEMP OF 101.9 TYLENOL GIVEN, TEMP RECHECKED 100.5. COLD COMPRESS PLACED ON PT FOREHEAD. IV IN LEFT FINGER IS INTACT. HEART HEALTHY DIET, PT HAS GOOD APPETITE. WILL CONTINUE TO MONITOR PT
[2019-05-05 11:32] LABS: CASTS None Seen /LPF (None Seen); CRYSTALS None Seen /LPF (None Seen); SQUAMOUS 4-10 Moderate /LPF (0-3); URINE RBC None Seen /HPF (0-2); URINE WBC-REFLEX 6-15 Few /HPF (0-5)
[2019-05-05 11:40] VITALS: BP 138/48
--- NOTE | 2019-05-05 13:57 | NUR ---
cm completed initial assessment to [facility] on role of cm and to discuss d/c planning. pt alert and oriented x 4. pt lives at home alone. pt is independent w/adls. drives and states she is "somewhat" active. support system consist of family and friends. pt has walker, commode and shower bench at home. pt has a hx w/[facility], but states she doesnt think shell need home health. pt has no hx w/snf. cm to cont to follow to assist as needed.
--- NOTE | 2019-05-05 14:18 | NUR ---
I HAVE REVIEWED THE STUDENT'S CHARTING.
[2019-05-05 16:05] VITALS: BP 106/43
--- NOTE | 2019-05-05 16:21 | EKG ---
[place] [address] ELECTROCARDIOGRAM REPORT Name: GABINO INIGUEZ Room: [address] ADM IN M.R.#: [id number] Admission: 05/05/19 Attend Phys: Alexa Khan Discharge: Date of : 40 Report #: [id number] THIS REPORT FOR: //name// [facility] ED Test Date: 2019-05-05 Test Time: 05:45:43 Pat Name: GABINO INIGUEZ Department: Room: [facility] Gender: F Matrix Drier Tender: [place] : 1940 Requested By: Karin Alvarado Order Number: [id number] MD: Luis Olvera Measurements Intervals [place] Rate: 60 P: 48 MA: 58 QRS: 7 QRSD: 104 T: 51 QT: 443 QTc: 443 Interpretive Statements Sinus rhythm Supraventricular bigeminy Short MA interval Compared to ECG 01/13/2019 22:41:18 Atrial premature complex(es) now present Short MA interval now present Prolonged QT interval no longer present Electronically Signed On 05-05-2019 16:21:32 CDT by Luis Olvera [email or web address] <ELECTRONICALLY SIGNED> By: Luis Olvera MD, [facility] 05/05/19 1621 0545 0545 Luis Olvera MD, [facility] /EPI
[2019-05-05 19:45] VITALS: BP 136/38
[2019-05-06 00:39] VITALS: BP 135/42
--- NOTE | 2019-05-06 03:05 | NUR ---
RECEIVED REPORT AND ASSUMED CARE AT 1900. VSS. CARDIAC MONITORING IN PLACE. PT DENIES COMPLAINTS OF PAIN. ASSESSMENT COMPLETED CHARTED. PT UP WITH ASSIST. BED LOCKED IN LOWEST POSITION, CALL LIGHT WITHIN REACH, BED ALARM ON.
[2019-05-06 04:59] LABS: ABSOLUTE EOSINOPHILS 0.1 thou/uL (0.0-0.7); ABSOLUTE LYMPHOCYTES 0.5 thou/uL (0.8-5.3); ABSOLUTE MONOCYTES 0.5 thou/uL (0.0-1.2); ABSOLUTE NEUTROPHILS 3.5 thou/uL (1.6-8.1); BASOPHILS 0.3 %; EOSINOPHILS 3.1 %; HEMATOCRIT 27.4 % (37.0-47.0); HEMOGLOBIN 9.4 gm/dL (12.0-15.0); LYMPHOCYTES 11.1 %; MCH 36.8 pg (26.0-34.0); MCHC 34.5 g/dL (28.0-37.0); MCV 106.6 fL (80.0-100.0); MONOCYTES 11.2 %; MPV 8.4 fl. (7.2-11.1); NUCLEATED RBCS 0 /100WBC; PLATELET COUNT* 97 thou/uL (150-400); POLYS 74.3 %; RBC 2.57 mil/uL (4.20-5.00); RDW-CV 14.5 % (10.5-14.5); WBC 4.7 thou/uL (4.0-11.0)
[2019-05-06 05:01] VITALS: BP 176/54
[2019-05-06 05:07] LABS: CALCIUM 8.3 mg/dL (8.5-10.1); CREATININE 2.4 mg/dL (0.6-1.3); MAGNESIUM 1.9 mg/dL (1.8-2.4); PHOSPHORUS* 3.6 mg/dL (2.5-4.9); TOTAL BILIRUBIN 1.1 mg/dL (<0.1-1.0); TOTAL PROTEIN 5.8 g/dL (6.4-8.2)
[2019-05-06 06:10] LABS: CHOLESTEROL 95 mg/dL (<200); HDL CHOLESTEROL 37 mg/dL (>40); LDL CHOLESTEROL 49 mg/dL (<100); TC:HDL 2.6 Ratio (Not establshd); TRIGLYCERIDE 46 mg/dL (<150); VLDL 9 mg/dL (<40)
[2019-05-06 06:13] LABS: SERUM ASSESSMENT Clear
[2019-05-06 07:53] VITALS: BP 172/54
--- NOTE | 2019-05-06 11:13 | NUR ---
ASSUMED PT CARE AT 0730. ASSESSMENT COMPLETED CHARTED. ABLE TO MAKE NEEDS KNOWN. UP WITH 1 TO BSC. NAVARRO DRAINING YELLOW URINE WITH NO ISSUES. PT RESTING IN BED MOST OF THE MORNING. NO C/O PAIN OR DISCOMFORT. WILL CONTINUE TO MONITOR.
[2019-05-06 12:31] VITALS: BP 176/72
--- NOTE | 2019-05-06 18:15 | EKG ---
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: : 1940 Requested By: Josemanuel Shafer Order Number: [id number] Gigi MD: Kyle Valle Measurements Intervals [place] Rate: 58 P: 74 [place]: 194 QRS: 8 QRSD: 110 T: 53 QT: 486 QTc: 478 Interpretive Statements Sinus rhythm Compared to ECG 05/05/2019 05:45:43 Atrial premature complex(es) no longer present Short [place] interval no longer present Electronically Signed On 05-06-2019 18:15:26 CDT by Kyle Valle [email or web address] <ELECTRONICALLY SIGNED> By: Kyle Valle MD, [facility] 05/06/19 1815 0054 0054 Kyle Valle MD, [facility] /EPI
[2019-05-06 20:00] VITALS: BP 124/48
[2019-05-07] VITALS: BP 135/61
[2019-05-07 04:00] VITALS: BP 130/45
--- NOTE | 2019-05-07 05:06 | NUR ---
ASSUMED PT CARE AT APPROX 1930. PT IS AWAKE AND ORIENTED X4. VSS ON 2L OF O2/NC, NO DESATURATIONS NOTED. COMPLIANCE SPEC IN PLACE, TRACING SA. PT DENIES PAIN/DISCOMFORT THROUGH THIS SHIFT. ASSESSMENT DONE AND CHARTED. NAVARRO CATH INTACT AND DRAINING WELL. CALL LIGHT WITHIN REACH, HOURLY ROUNDING DONE FOR PT SAFETY, FALL PRECAUTIONS IN PLACE.
[2019-05-07 05:26] LABS: HEMATOCRIT 31.2 % (37.0-47.0); HEMOGLOBIN 10.5 gm/dL (12.0-15.0); MCH 35.8 pg (26.0-34.0); MCHC 33.6 g/dL (28.0-37.0); MCV 106.6 fL (80.0-100.0); MPV 8.6 fl. (7.2-11.1); RBC 2.92 mil/uL (4.20-5.00); RDW-CV 14.4 % (10.5-14.5); WBC 5.4 thou/uL (4.0-11.0)
[2019-05-07 05:38] LABS: INR 1.2
[2019-05-07 05:43] LABS: ALBUMIN 2.3 g/dL (3.4-5.0); CREATININE 1.8 mg/dL (0.6-1.3); MAGNESIUM 2.2 mg/dL (1.8-2.4); POTASSIUM 3.8 mmol/L (3.5-5.1); TOTAL BILIRUBIN 0.7 mg/dL (<0.1-1.0); TOTAL PROTEIN 6.3 g/dL (6.4-8.2)
[2019-05-07 08:00] VITALS: BP 129/54
--- NOTE | 2019-05-07 15:50 | NUR ---
ASSUMED PT CARE AT 1930. ASSESSMENT COMPLETED CHARTED. ABLE TO MAKE NEEDS KNOWN. UP WITH SBA TO BSC DUE TO SOA. NO C/O PAIN OR DISCOMFORT. HAS BEEN RA ALL DAY AND WEARS O2 AT NIGHT. VSS. NAVARRO IN PLACE DRAINING YELLOW URINE. WILL CONTINUE TO MONITOR.
[2019-05-07 16:00] VITALS: BP 146/50
[2019-05-07 20:15] VITALS: BP 147/57
[2019-05-08] VITALS: BP 136/61
[2019-05-08 04:00] VITALS: BP 131/66
[2019-05-08 05:29] LABS: CALCIUM 8.7 mg/dL (8.5-10.1); CREATININE 1.8 mg/dL (0.6-1.3); POTASSIUM 3.6 mmol/L (3.5-5.1)
--- NOTE | 2019-05-08 06:04 | NUR ---
PT SLEPT WELL WITHOUT COMPLAINTS. UP WITH ASSIST TO BSC FOR BM OVERNIGHT. LHAND SL IV. BLE EDEMA. O2 2L SAT 96%. NAVARRO DRAINING YELLOW URINE. R LIMB ALERT. HAS DENIED PAIN OR PROBLEMS OVERNIGHT. PO ABX GIVEN ORDERED. AM LABS DRAWN. ABLE TO USE CALL LITE AND MAKE NEEDS KNOWN. PT TURNED AND REPOSITIONED Q2 HOURS AND PRN FOR SKIN CARE AND COMFORT PT WOULD ALLOW. [place] CARE GIVEN, AND BARRIER CREAM APPLIED. TELE AFIB, SB AT TIMES THIS SHIFT.
[2019-05-08 08:00] VITALS: BP 149/70
[2019-05-08] MEDS ORDERED: LASIX 40 MG TAB40 M2 PO (09:10)
[2019-05-08] MEDS ORDERED: COREG6.25 MG PO (09:10)
[2019-05-08 10:09] VITALS: BP 149/70
--- NOTE | 2019-05-08 10:32 | NUR ---
PT STATES THAT SHE ALREADY HAS OXYGEN AT HOME AND DOES NOT WANT TO GO FOR A WALK TO REASSESS THE NEED FOR HOME OXYGEN NEED. SHE STATES THAT SHE HAS A PULSE OXIMTER AT HOME TO CHECK HER SATURATION ON A REGULAR BASIS TO MAKE SURE HER OXYGEN LEVEL IS OK AND WILL INCREASE HER OXYGEN IF NEEDED.
[2019-05-08 13:51] VITALS: BP 139/49
--- NOTE | 2019-05-08 14:58 | 2DMMODE ---
[place] [address] 2 D/M-MODE ECHOCARDIOGRAM Name: GABINO INIGUEZ Room: [address] IN [facility]#: [id number] Admission: 05/05/19 Attend Phys: Edvin Leon Discharge: Date of : 40 Date of Service: 05/08/19 1458 Report #: [id number] THIS REPORT FOR: //name// APPROVED REPORT Study performed: 05/08/2019 11:12:09 EXAM: Limited 2D, Doppler, and color-flow Echocardiogram Patient Location: In-Patient Room #: 209 Status: routine BSA: 1.93 HR: 56 bpm BP: 149/70 mmHg Rhythm: NSR Other Information Study Quality: Good Indications Murmur Limited echo to evaluate LVEF and aortic stenosis 2D Dimensions LVOT Diam: 19.76 (18-24mm) Aortic Valve AoV Peak Cedrick.: 2.79 m/s AO Peak Gr.: 31.06 mmHg LVOT Max P.20 mmHg AO Mean Gr.: 17.40 mmHg LVOT Mean P.71 mmHg LVOT Max V: 1.52 m/s AO V2 VTI: 63.76 cm LVOT Mean V: 1.00 m/s MAURICIO (VTI): 1.85 cm2 LVOT V1 VTI: 38.49 cm Left Ventricle The left ventricle is normal size. Basilar 2/3 of inferior wall is hypo-akinetic. Moderate septal hypertrophy is present. Left ventricular systolic function is mildly decreased. LVEF is 45-50%. Right Ventricle The right ventricle is normal size. The right ventricular systolic function is normal. Atria Left atrium is mildly dilated. Right [place] [address] 2 D/M-MODE ECHOCARDIOGRAM Name: GABINO INIGUEZ Room: [address] IN ..#: [id number] Admission: 05/05/19 Attend Phys: Edvin Leon Discharge: Date of : 40 Date of Service: 05/08/19 1458 Report #: [id number] Aortic Valve Moderate aortic valve sclerosis. No aortic regurgitation is present. Mild to moderate aortic stenosis. Mitral Valve There is mitral annular calcification. Mild to moderate mitral regurgitation. Tricuspid Valve The tricuspid valve is normal in structure. Unable to assess PA pressure. Trace tricuspid regurgitation. Pulmonic Valve The pulmonary valve is normal in structure. Mild pulmonic regurgitation. Great Vessels The aortic root is normal in size. IVC is normal in size and collapses >50% with inspiration. Pericardium There is no pericardial effusion. <Conclusion> The left ventricle is normal size. Moderate septal hypertrophy is present. Left ventricular systolic function is mildly decreased. LVEF is 45-50%. The right ventricle is normal size. Left atrium is mildly dilated. Right atrium is dilated. Moderate aortic valve sclerosis. No aortic regurgitation is present. Mild to moderate aortic stenosis. There is mitral annular calcification. Mild to moderate mitral regurgitation. The tricuspid valve is normal in structure. IVC is normal in size and collapses >50% with inspiration. There is no pericardial effusion. Basilar 2/3 of inferior wall is hypo-akinetic. <ELECTRONICALLY SIGNED> By: Luis Olvera MD, [facility] 05/08/19 1458 1458 1458 Luis Olvera MD, [facility] /INF
--- NOTE | 2019-05-08 15:20 | NUR ---
RE:heart failure medication education I provided the patient a heart failure medication information handout. We discussed furosemide and carvedilol. I answered all the patients questions. Pharmacy is available for any future questions. Thank you.
--- NOTE | 2019-05-08 16:06 | NUR ---
ASSUMED PT CARE AT 1930. ASSESSMENT COMPLETED CHARTED. ABLE TO MAKE NEEDS KNOWN. D/C [facility] TODAY AND PT IS URINATING WITH NO ISSUES. NO C/O PAIN OR DISCOMFORT. UP WITH SBA. PT DAUGHTER CAME BY AFTER WORK AND GOT ALL OF PT STUFF TOGETHER. TOOK OUT IV AND TOOK OFF HEART MONITOR. WENT OVER DISCHARGE PAPERWORK AND HAD NO FURTHER QUESTIONS. PT LEFT AT 1540 IN WHEELCHAIR TO DAUGHTERS CAR. WILL CONTINUE TO MONITOR.
--- NOTE | 2019-05-08 17:08 | CON ---
[address] [address] CONSULTATION Name: GABINO INIGUEZ Room: [address] IN M.R.#: [id number] Admission: 05/05/19 Attend Phys: Alexa Khan Discharge: 05/08/19 Date of : 40 Report #: [id number] THIS REPORT FOR: //name// CC: Tres Mcintosh DATE OF SERVICE: 05/05/2019 CARDIOLOGY CONSULT INDICATION: Heart failure and febrile illness. HISTORY OF PRESENT ILLNESS: The patient is a very pleasant 78-year-old white female who is well known to myself. She has a history of coronary artery disease with multiple percutaneous coronary interventions in the past. Her most recent episode of intervention was in December of this year with drug-eluting stent placed to the LAD. She is on dual antiplatelet therapy for this. She came to the hospital this morning after an episode of sweats, chills, fever and shortness of breath. She was felt to possibly have pneumonia. She does appear to have a recurrent left pleural effusion. At the time of my interview, she is afebrile. She denies chest pain throughout this episode. Her troponins are negative x 3 sets. NT-proBNP was mildly elevated. Her creatinine is elevated consistent with acute renal failure. She does have a history of chronic diastolic heart failure. Presently, she appears to have acute on chronic diastolic heart failure. PAST MEDICAL HISTORY: 1. Coronary artery disease with multiple interventions in the past. 2. Diastolic heart failure. 3. Hypertension. 4. Dyslipidemia. 5. Peptic ulcer disease. 6. Chronic renal insufficiency. 7. History of tonsillectomy. HOME MEDICATIONS: Tylenol p.r.n., DuoNeb inhaler q. 6 hours p.r.n., aspirin 81 mg daily, carvedilol 3.125 mg b.i.d., vitamin D 2000 units daily, Plavix 75 mg daily, furosemide 120 mg p.o. daily, probiotic capsules 1 daily, lactulose 30 mL daily, levothyroxine 25 mcg daily, lovastatin 20 mg at dinnertime, multivitamin 1 tablet daily, Nitrostat p.r.n., potassium chloride 40 mEq daily, Xifaxan 550 mg b.i.d., PreserVision gel one tablet b.i.d. FAMILY HISTORY: Positive [place] [address] CONSULTATION Name: GABINO INIGUEZ Room: [address]#: [id number] Admission: 05/05/19 Attend Phys: Alexa Khan Discharge: 05/08/19 Date of : 40 Report #: [id number] ALLERGIES: AMOXICILLIN, IBUPROFEN. SOCIAL HISTORY: The patient is . She lives by herself. She quit smoking years ago. She does not drink alcohol. PHYSICAL EXAMINATION: VITAL SIGNS: Blood pressure 138/48, pulse is 96 and regular. GENERAL: This is a thin, pleasant, elderly female in no distress. Mood and affect appropriate. HEENT: Extraocular muscles intact. Mucous membranes moist. NECK: Shows no obvious jugular venous distention. There are no carotid bruits. CHEST: Reveals diffusely decreased breath sounds throughout with crackles. CARDIOVASCULAR: Reveals a regular rhythm with grade 2/6 systolic ejection murmur. ABDOMEN: Reveals normal bowel sounds. The abdomen is soft, nontender. EXTREMITIES: Shows trace to 1+ edema to the knees bilaterally. LABORATORY DATA: Reviewed. Troponins are negative x 3 sets. NT-proBNP was moderately elevated at 2250. Creatinine is mildly elevated at 2.0. IMPRESSION AND RECOMMENDATIONS: 1. Acute on chronic diastolic heart failure. We will give a single bolus of IV Lasix at this time and follow renal function with a.m. labs. The patient is on her home regimen otherwise. We will follow clinically. 2. Coronary artery disease, presently stable. She had stenting in December. Continue dual antiplatelet therapy through July of this year. She is on Plavix and aspirin. 3. Acute renal failure. Etiology not entirely clear. We will follow with a.m. labs. 4. Hypertension. Blood pressure adequately controlled on current regimen. 5. Dyslipidemia. Continue lovastatin at current dose. Check fasting lipid profile in a.m. <ELECTRONICALLY SIGNED> By: Kyle Valle MD, FACC 05/08/19 1708 1408 2149Micjani Valle MD, FACC /nt
--- NOTE | 2019-05-09 06:54 | CON ---
[address] [address] CONSULTATION Name: GABINO INIGUEZ Room: [address] IN M.R.#: [id number] Admission: 05/05/19 Attend Phys: Alexa Khan Discharge: 05/08/19 Date of : 40 Report #: [id number] THIS REPORT FOR: //name// CC: Tres Leon DATE OF SERVICE: 05/08/2019 This is a consultation obtained by Dr. Carrillo for acute kidney injury and chronic kidney disease. HISTORY OF PRESENT ILLNESS: The patient is a 78-year-old female patient well known to us. She has a history of diastolic congestive heart failure and stage 3 chronic kidney disease with her baseline creatinine being around 1.4-1.7. She sees my partner, Dr. Angeles. She was last seen back in January with creatinine of around 1.6. She was admitted 2 days ago with worsening shortness of breath. There is some documentation of fevers and chills, but the patient could not remember those today. She reported worsening shortness of breath with activity and some orthopnea. She takes 2 liters of oxygen at home. She does have history of congestive heart failure, predominantly diastolic and a history of coronary artery disease with recent placement of stents in the coronary. She also has a history of liver cirrhosis. The patient denied any cough or any phlegm. No recent sick contacts. At home, she takes Lasix 120 mg in the morning. PAST MEDICAL HISTORY: Congestive heart failure; diastolic, chronic kidney disease stage 3; baseline creatinine of 1.4-1.7, history of cirrhosis, history of COPD, history of coronary artery disease with recent coronary interventions, hypertension, history of pleural effusions in the past, recurrent UTIs, history of non-ST elevation [place]. PERSONAL, SOCIAL AND FAMILY HISTORY: She is a former tobacco user. No recreational drugs. ALLERGIES: IBUPROFEN AND AMOXICILLIN. No family history of ESRD. The patient has an episode of acute kidney injury that required dialysis back in 2017. She has not dialyzed since that time. HOME MEDICATIONS: Carvedilol 3.125 mg twice daily, multivitamins, albuterol nebulizers, lovastatin, potassium supplements, levothyroxine, cholecalciferol, lactobacillus, aspirin, Plavix, acetaminophen and nitroglycerin [place] [address] CONSULTATION Name: GABINO INIGUEZ Room: [address]#: [id number] Admission: 05/05/19 Attend Phys: Alexa Khan Discharge: 05/08/19 Date of : 40 Report #: [id number] reported taking Lasix 120 mg daily. PHYSICAL EXAMINATION: VITAL SIGNS: Today, her blood pressure is 149/70, pulse is 72. She is afebrile. LUNGS: Diminished bilaterally, but clear. Jugular venous pressure is elevated. ABDOMEN: Soft and nontender. CARDIOVASCULAR: She has regular S1, S2. EXTREMITIES: Showed trace lower extremity edema. LABORATORY DATA: Reviewed. Her creatinine on admission had gone up to 2.4 after intravenous diuretic dosing, now down to 1.8. Hemoglobin is 10.5, white count is 5.4. Sodium 142 and potassium 3.6. ASSESSMENT: 1. Chronic kidney disease stage 3, baseline creatinine 1.4-1.7. 2. History of acute kidney injury in 2017, requiring dialysis, but recovered from that. 3. Diastolic congestive heart failure. 4. History of cirrhosis. 5. Coronary artery disease with recent coronary interventions. PLAN: 1. Congestive heart failure decompensation required intravenous diuretics with slight bump in creatinine, now inching closer to baseline. 2. Recommend staying on home dose of Lasix 120 mg, though I would recommend splitting that into 80 in the morning and 40 towards the afternoon. 3. If the patient is being discharged from the hospital today, she can come back for followup to Nephrology in 1 week from now. 4. We will continue to follow and provide necessary support while she is in the hospital. Thank you for the consultation. <ELECTRONICALLY SIGNED> By: Shan Curry MD 05/09/19 0654 0955 1120Shan Curry MD /nt
--- NOTE | 2019-05-09 16:06 | CON ---
[address] [address] CONSULTATION Name: GABINO INIGUEZ Room: [address] IN M.R.#: [id number] Admission: 05/05/19 Attend Phys: Alexa Khan Discharge: 05/08/19 Date of : 40 Report #: [id number] THIS REPORT FOR: //name// CC: CELE Leon DICTATED BY: Suzanne Rosen [facility] DATE OF SERVICE: 05/07/2019 Please note at the time of this dictation, the patient was seen and physically examined by myself. REASON FOR CONSULTATION: Help with her diuretic therapy, refractory due to her cirrhosis and congestive heart failure. HISTORY OF PRESENT ILLNESS: This is a pleasant 78-year-old female who was recently seen in our office earlier this summer for her cirrhosis of the liver. At that time, the patient was doing relatively well. She did undergo an ultrasound back in January that was essentially normal. She states over the last several days she does admit that she has not been watching her diet and increasing a lot of salt, which likely brought her in to the hospital. She states she was noticing that she was having some swelling and more edema as well. Her weight had also been fluctuating somewhat. She had been noticing the last couple of days that she was coughing leading to some dry heaves, prompting her to come to the Emergency Room for further evaluation. The patient did undergo an EGD back in 2015 that showed a healed duodenal ulcer, small hiatal hernia. 2014, she had a colonoscopy that showed sigmoid diverticulosis and external hemorrhoids. ALLERGIES: AMOXICILLIN, IBUPROFEN. MEDICATIONS: From home include carvedilol, multivitamin, albuterol, lovastatin, potassium, levothyroxine, vitamin D, probiotic, aspirin, Plavix, acetaminophen, nitroglycerin, Xifaxan, lactulose 40, and 120 mg of Lasix daily. PAST MEDICAL HISTORY: Congestive heart failure, cirrhosis, chronic kidney disease, currently has pleural effusions. PAST SURGICAL HISTORY: Cataracts, tonsillectomy, multiple PTCAs with stent placement. She had an ultrasound-guided thoracentesis on multiple occasions. FAMILY HISTORY: Cancer in her siblings. SOCIAL HISTORY: Denies any alcohol or illegal drug use, tobacco [place] [address] CONSULTATION Name: GABINO INIGUEZ Room: [address]#: [id number] Admission: 05/05/19 Attend Phys: Alexa Khan Discharge: 05/08/19 Date of : 40 Report #: [id number] greater than 1 year. REVIEW OF SYSTEMS: Twelve-point review of systems is essentially negative except what is mentioned in the HPI. PHYSICAL EXAMINATION: VITAL SIGNS: Temperature 36.3, pulse 55, respirations 18, blood pressure 124/54. HEART: Regular rate and rhythm. LUNGS: Clear. ABDOMEN: Soft, positive bowel sounds in all 4 quadrants with no masses or tenderness noted. LABORATORY DATA: Hemoglobin is 10.9, white count is 5.4, platelets 127. PT is 12, INR is 1.2, GFR is 27, total bilirubin 0.7, alkaline phosphatase 142, ALT 16, AST is 36. Chest x-ray shows worsening congestive heart failure. IMPRESSION: 1. Cirrhosis. 2. Thrombocytopenia. 3. Shortness of air. 4. History of chronic obstructive pulmonary disease. 5. Anticoagulant therapy, Plavix, recent stent placement in December. 6. Chronic kidney disease stage 3-4. 7. Family history of colon cancer. PLAN: 1. We will consult Nephrology in light of her having worsening congestive heart failure as well as her cirrhosis and her chronic kidney disease state to help with management of this. 2. We will decrease her lactulose to 10 mL a day to help with her stooling. 3. The patient is overdue for a surveillance EGD regarding varices. 4. Further recommendations to be made once Dr. Cabrera sees the patient and after a Nephrology sees the patient. Thank you for allowing us to participate in this patient's care. Please do not hesitate to call with any questions in regard to this consult. <ELECTRONICALLY SIGNED> By: Donte Cabrera DO 05/09/19 1606 1220 2355Donte Cabrera DO /nt
== END 2019-05-08 15:40 | disposition home or self-care (01) | DRG 871 ==
LOC: M.ERS 05:14 → M.TBA-ER 06:37 → M.2W 08:18
PROVIDERS: Family Medicine; Internal Medicine; Internal Medicine Cardiovascular Disease; Personal Emergency Response Attendant; ADMIT Internal Medicine
DX: A41.9 Sepsis, unspecified organism (principal); J15.6 Pneumonia due to other Gram-negative bacteria; J96.21 Acute and chronic respiratory failure with hypoxia; I50.33 Acute on chronic diastolic (congestive) heart failure; N17.9 Acute kidney failure, unspecified; N18.4 Chronic kidney disease, stage 4 (severe); E44.0 Moderate protein-calorie malnutrition; I13.0 Hypertensive heart and chronic kidney disease with heart failure and stage 1 through stage 4 chronic kidney disease, or unspecified chronic kidney disease; J44.0 Chronic obstructive pulmonary disease with (acute) lower respiratory infection; R65.20 Severe sepsis without septic shock; I25.10 Atherosclerotic heart disease of native coronary artery without angina pectoris; K21.9 Gastro-esophageal reflux disease without esophagitis; E78.5 Hyperlipidemia, unspecified; K74.60 Unspecified cirrhosis of liver; D69.6 Thrombocytopenia, unspecified; E03.9 Hypothyroidism, unspecified; I35.0 Nonrheumatic aortic (valve) stenosis; I25.5 Ischemic cardiomyopathy; Z88.6 Allergy status to analgesic agent; Z88.1 Allergy status to other antibiotic agents; Z87.891 Personal history of nicotine dependence; Z87.11 Personal history of peptic ulcer disease; Z82.49 Family history of ischemic heart disease and other diseases of the circulatory system; Z98.49 Cataract extraction status, unspecified eye; Z79.01 Long term (current) use of anticoagulants; Z80.0 Family history of malignant neoplasm of digestive organs; Z68.38 Body mass index [BMI] 38.0-38.9, adult; I25.2 Old myocardial infarction; Z95.5 Presence of coronary angioplasty implant and graft; Z79.82 Long term (current) use of aspirin; Z79.899 Other long term (current) drug therapy

== ENCOUNTER → 2019-05-12 | Outpatient (CLI) | payer MEDICARE, BC ==
[~2019-05-12] MED LIST changes: +CARVEDILOL3.125 MG PO; +COREG6.25 MG PO
[2019-05-12 15:13] LABS: CALCIUM 9.5 mg/dL (8.5-10.1); CREATININE 1.6 mg/dL (0.6-1.3); POTASSIUM 4.2 mmol/L (3.5-5.1)
== END ==
LOC: M.LAB 14:22
PROVIDERS: Registered Nurse
DX: I25.5 Ischemic cardiomyopathy (principal)

== ENCOUNTER → 2019-07-27 | Outpatient (CLI) | payer MEDICARE, BC ==
[2019-07-27 13:23] LABS: HEMATOCRIT 33.7 % (37.0-47.0); HEMOGLOBIN 11.9 gm/dL (12.0-15.0)
[2019-07-27 13:41] LABS: ALBUMIN 2.4 g/dL (3.4-5.0); CALCIUM 8.2 mg/dL (8.5-10.1); CREATININE 1.5 mg/dL (0.6-1.3); PHOSPHORUS* 2.7 mg/dL (2.5-4.9); TOTAL PROTEIN 7.1 g/dL (6.4-8.2)
[2019-07-27 13:43] LABS: CALCIUM 8.2 mg/dL (8.5-10.1); CREATININE 1.5 mg/dL (0.6-1.3); PHOSPHORUS* 2.9 mg/dL (2.5-4.9)
== END ==
LOC: M.LAB 13:01
PROVIDERS: Internal Medicine Nephrology
DX: N18.3 Chronic kidney disease, stage 3 (moderate) (principal)

== ENCOUNTER 2019-12-02 10:37 | Inpatient (IN) | payer MEDICARE, BC ==
[~2019-12-02] VITALS: Ht 160 cm; Wt 93.4 kg
[~2019-12-02 10:37] MED LIST changes: -NITROGLYCERIN0.4 MG SUBLING
[2019-12-02 10:39] VITALS: BP 122/44
[2019-12-02 11:27] LABS: INFLUENZA A ANTIGEN Negative (Negative); INFLUENZA B ANTIGEN Negative (Negative)
[2019-12-02 11:35] LABS: HEMATOCRIT 22.6 % (37.0-47.0); HEMOGLOBIN 7.8 gm/dL (12.0-15.0); MCH 36.9 pg (26.0-34.0); MCHC 34.6 g/dL (28.0-37.0); MCV 106.7 fL (80.0-100.0); MPV 8.8 fl. (7.2-11.1); NUCLEATED RBCS 0 /100WBC; PLATELET COUNT* 120 thou/uL (150-400); RBC 2.12 mil/uL (4.20-5.00); RDW-CV 16.2 % (10.5-14.5); WBC 10.8 thou/uL (4.0-11.0)
[2019-12-02 11:41] LABS: CALCIUM 8.1 mg/dL (8.5-10.1); CREATININE 2.5 mg/dL (0.6-1.3); POTASSIUM 4.3 mmol/L (3.5-5.1)
[2019-12-02 11:42] LABS: APTT 28.7 Seconds (25.0-31.3); INR 1.3; PROTIME 13.2 Seconds (9.20-11.50)
[2019-12-02 11:52] LABS: ALBUMIN 2.1 g/dL (3.4-5.0); TOTAL PROTEIN 5.7 g/dL (6.4-8.2)
[2019-12-02 12:12] LABS: ABSOLUTE LYMPHOCYTES 0.5 thou/uL (0.8-5.3); ABSOLUTE MONOCYTES 0.5 thou/uL (0.0-1.2); ABSOLUTE NEUTROPHILS 9.7 thou/uL (1.6-8.1)
[2019-12-02 12:14] LABS: MACROCYTES 1+
[2019-12-02 12:15] LABS: PLATELET ESTIMATE DECREASED; TOXIC GRANULATION 1+
[2019-12-02 12:44] VITALS: BP 111/50
[2019-12-02 13:32] VITALS: BP 110/45
--- NOTE | 2019-12-02 16:33 | NUR ---
PATIENT ARRIVED TO UNIT AT APPROX 1300. ALERT AND ORIENTED X4. ADMISSION HISTORY AND ASSESSMENT COMPLETED AND CHARTED. VSS ON 2 LITERS 02. NO COMPLAINT OF PAIN OR SOA. COVID PENDING. TRACING SINUS SAMAN ON THE MONITOR. PATIENT ORIENTED TO ROOM AND INSTRUCTED TO USE CALL LIGHT FOR NEEDS. CALL LIGHT PLACED IN REACH. HOURLY ROUNDS COMPLETED. WILL CONTINUE TO MONITOR.
--- NOTE | 2019-12-02 17:02 | EKG ---
[place] [address] ELECTROCARDIOGRAM REPORT Name: GABINO INIGUEZ Room: [address] ADM IN M.R.#: [id number] Admission: 12/02/19 Attend Phys: Liz Louise Discharge: Date of : 40 Date of Service: 12/02/19 1052 Report #: [id number] THIS REPORT FOR: //name// [facility] ED Test Date: 2019-12-02 Test Time: 10:52:43 Pat Name: GABINO INIGUEZ Department: Room: 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
[2019-12-02 17:04] VITALS: BP 143/55
[2019-12-02 20:00] VITALS: BP 124/44
[2019-12-03 03:30] VITALS: BP 138/54
[2019-12-03 06:45] LABS: ABSOLUTE EOSINOPHILS 0.2 thou/uL (0.0-0.7); ABSOLUTE LYMPHOCYTES 0.6 thou/uL (0.8-5.3); ABSOLUTE MONOCYTES 0.9 thou/uL (0.0-1.2); ABSOLUTE NEUTROPHILS 4.8 thou/uL (1.6-8.1); BASOPHILS 0.2 %; EOSINOPHILS 3.1 %; HEMOGLOBIN 8.2 gm/dL (12.0-15.0); LYMPHOCYTES 9.5 %; MCHC 34.4 g/dL (28.0-37.0); MCV 107.4 fL (80.0-100.0); MONOCYTES 13.2 %; MPV 8.8 fl. (7.2-11.1); NUCLEATED RBCS 0 /100WBC; PLATELET COUNT* 108 thou/uL (150-400); RBC 2.23 mil/uL (4.20-5.00); RDW-CV 16.3 % (10.5-14.5); WBC 6.5 thou/uL (4.0-11.0)
[2019-12-03 06:49] LABS: CALCIUM 7.8 mg/dL (8.5-10.1); CREATININE 2.2 mg/dL (0.6-1.3); POTASSIUM 4.2 mmol/L (3.5-5.1); TOTAL BILIRUBIN 0.7 mg/dL (<0.1-1.0); TOTAL PROTEIN 5.8 g/dL (6.4-8.2)
[2019-12-03 09:35] VITALS: BP 171/79
[2019-12-03 12:30] VITALS: BP 175/86
--- NOTE | 2019-12-03 15:33 | NUR ---
CM ASSESSMENT: CM SPOKE TO THE PT TO DISCUSS HER HOME SITUATION, AND MOBILITY AND COGNITION PRIOR TO ADMISSION, AND TO INFORM OF THE ROLE OF CM. PT INFORMS THAT SHE RESIDES AT HOME ALONE, NORMALLY INDPENDENT AND DRIVES. PT OWNS A WALKER AND A CANE, BUT DOES NOT USE THEM. PT HAS A PAST HX OF HH WITH [facility]. PT HAS 0 HX OF SNF, AND PLANS TO RETURN HOME AT D/C. PT'S COVID-19 RESULTS: 'NOT DETECTED'. PHYSICIAN'S PROGRESS NOTE INFORMS THAT PT MAY BE READY TO D/C TOMORROW. CM WILL REMAIN AVAILABLE TO ASSIST AND FOLLOW NEEDED.
[2019-12-03 17:02] VITALS: BP 202/90
--- NOTE | 2019-12-03 18:40 | NUR ---
ASSUMED CARE OFATIENT AT APPROX 0730. ALERT AND ORIENTED X4. ASSESSMENT COMPLETED AND CHARTED. VSS ON ROOM AIR. NO COMPLAINTS OF PAIN OR SOA. ANTIBIOTICS INFUSED ORDERED. PATIENT UP WITH ASSIST. FALL PRECAUTIONS IN PLACE. CALL LIGHT WITHIN REACH. HOURLY ROUNDS COMPLETED. WILL CONTINUE WITH PLAN OF CARE.
[2019-12-03 20:00] VITALS: BP 195/84
[2019-12-03 21:00] VITALS: BP 132/53
[2019-12-04] VITALS: BP 143/47
[2019-12-04 04:00] VITALS: BP 143/52
[2019-12-04 08:00] VITALS: BP 148/54
[2019-12-04] MEDS ORDERED: AZITHROMYCIN 2250 MG PO (11:05)
[2019-12-04] MEDS ORDERED: CEFDINIR300 MG PO (11:06)
--- NOTE | 2019-12-04 11:59 | NUR ---
ASSUMED PT CARE REPORT RECEIVED FROM NURSE PT IS AOX4. ON 2 L NC. OXYGEN REMOVED SINCE PATIENT TOLD THIS NURSE SHE ONLY WEAR OXYGEN AT NIGHT TIME. O2 SATURATION ON RA IS 99%. PT GOT UP AND WALKED IN HER ROOM. NO COMPLAINT. DENIES PAIN. PATIENT REQUESTED THAT HER COREG BE GIVEN TO HER DESPITE HER HEART RATE OF 57 STATING THAT HER FENCE MAKER WANTS HER TO TAKE IT WHEN HER HR IS IN THE 50S. COREG GIVEN REQUESTED. VSS. SEE CHART. DISCHARGE ORDERED. REST AND EXERCISE O2 MOINITORING ORDERED. AWAITING FOR RT. CALL LIGHT WITHIN REACH. WILL CONTINUE TO MONITOR
[2019-12-04] MEDS ORDERED: NITROGLYCERIN0.4 MG SUBLING (13:10)
[2019-12-04 13:14] VITALS: BP 148/54
--- NOTE | 2019-12-04 14:57 | NUR ---
PATIENT LEFT FLOOR AT 1350 ACCOMPANIED BY THIS NURSE ON WHEELCHAIR. IV LINE REMOVED. HEART MONITOR RETRIEVED. PT WENT HOME WITH DAUGHTER. BELONGINGS BROUGHT ALONG.
== END 2019-12-04 13:50 | disposition home or self-care (01) | DRG 177 ==
LOC: M.ERS 10:37 → M.ORTHSURG 12:07 → M.TBA-ER 12:07 → M.ORTHSURG 13:01
PROVIDERS: Emergency Medicine Emergency Medical Services; ADMIT Internal Medicine
DX: J15.6 Pneumonia due to other Gram-negative bacteria (principal); J96.01 Acute respiratory failure with hypoxia; N17.0 Acute kidney failure with tubular necrosis; I50.22 Chronic systolic (congestive) heart failure; J44.0 Chronic obstructive pulmonary disease with (acute) lower respiratory infection; E44.0 Moderate protein-calorie malnutrition; I13.0 Hypertensive heart and chronic kidney disease with heart failure and stage 1 through stage 4 chronic kidney disease, or unspecified chronic kidney disease; E03.9 Hypothyroidism, unspecified; I25.10 Atherosclerotic heart disease of native coronary artery without angina pectoris; E78.5 Hyperlipidemia, unspecified; N18.9 Chronic kidney disease, unspecified; D64.9 Anemia, unspecified; E78.00 Pure hypercholesterolemia, unspecified; K21.9 Gastro-esophageal reflux disease without esophagitis; I25.2 Old myocardial infarction; Z87.891 Personal history of nicotine dependence; Z95.5 Presence of coronary angioplasty implant and graft; Z79.82 Long term (current) use of aspirin; Z79.01 Long term (current) use of anticoagulants; Z79.899 Other long term (current) drug therapy; Z88.1 Allergy status to other antibiotic agents; Z88.8 Allergy status to other drugs, medicaments and biological substances; Z68.36 Body mass index [BMI] 36.0-36.9, adult; Z82.49 Family history of ischemic heart disease and other diseases of the circulatory system; Z03.818 Encounter for observation for suspected exposure to other biological agents ruled out

== ENCOUNTER 2019-12-13 21:12 | Inpatient (IN) | payer MEDICARE, BC ==
[~2019-12-13] VITALS: Ht 160 cm; Wt 92.6 kg
[~2019-12-13 21:12] MED LIST changes: +CEFDINIR300 MG PO; +NITROGLYCERIN0.4 MG SUBLING
[2019-12-13 21:14] VITALS: BP 125/87
[2019-12-13 21:45] LABS: INFLUENZA A ANTIGEN Negative (Negative); INFLUENZA B ANTIGEN Negative (Negative)
[2019-12-14 00:17] LABS: ABSOLUTE EOSINOPHILS 0.1 thou/uL (0.0-0.7); ABSOLUTE LYMPHOCYTES 0.2 thou/uL (0.8-5.3); ABSOLUTE MONOCYTES 0.5 thou/uL (0.0-1.2); ABSOLUTE NEUTROPHILS 3.3 thou/uL (1.6-8.1); BASOPHILS 0.6 %; HEMATOCRIT 24.2 % (37.0-47.0); HEMOGLOBIN 8.3 gm/dL (12.0-15.0); MCH 36.8 pg (26.0-34.0); MCHC 34.4 g/dL (28.0-37.0); MCV 107.1 fL (80.0-100.0); MONOCYTES 11.5 %; MPV 8.1 fl. (7.2-11.1); NUCLEATED RBCS 0 /100WBC; PLATELET COUNT* 120 thou/uL (150-400); POLYS 81.9 %; RBC 2.26 mil/uL (4.20-5.00)
[2019-12-14 00:48] LABS: CALCIUM 8.9 mg/dL (8.5-10.1); CREATININE 1.9 mg/dL (0.6-1.3); POTASSIUM 4.6 mmol/L (3.5-5.1)
[2019-12-14 00:55] LABS: INR 1.3; PROTIME 13.6 Seconds (9.20-11.50)
[2019-12-14 00:58] LABS: ALBUMIN 2.4 g/dL (3.4-5.0); TOTAL PROTEIN 6.2 g/dL (6.4-8.2)
[2019-12-14 02:45] VITALS: BP 164/57
[2019-12-14 03:02] VITALS: BP 164/57
[2019-12-14 08:00] VITALS: BP 131/46
[2019-12-14] MEDS ORDERED: FUROSEMIDE 40 M40 M1 PO (09:28)
--- NOTE | 2019-12-14 11:00 | EKG ---
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 : 1940 Requested By: Georgina Daniel Order Number: [id number] MD: Luis Olvera Measurements Intervals [place] Rate: 93 P: 50 SD: 223 QRS: 0 QRSD: 104 T: 65 QT: 380 QTc: 473 Interpretive Statements Sinus rhythm Prolonged SD interval Borderline low voltage, extremity leads Compared to ECG 12/02/2019 10:52:43 First degree AV block now present Atrial premature complex(es) no longer present Electronically Signed On 12-14-2019 10:59:14 CDT by Luis Olvera [email or web address] <ELECTRONICALLY SIGNED> By: Luis Olvera MD, FACC 12/14/19 1059 2159 Luis Olvera MD, FACC /EPI
[2019-12-14 12:00] VITALS: BP 188/46
[2019-12-14 14:07] LABS: URINE BILIRUBIN NEGATIVE (Negative); URINE BLOOD NEGATIVE (Negative); URINE CLARITY CLEAR; URINE COLOR YELLOW; URINE GLUCOSE-RANDOM NEGATIVE (Negative); URINE KETONES NEGATIVE (Negative); URINE LEUKOCYTES-REFLEX TRACE (Negative); URINE NITRITE-REFLEX NEGATIVE (Negative); URINE PROTEIN TRACE (Negative); URINE SPECIFIC GRAVITY >= 1.030 (1.005-1.030); URINE UROBILINOGEN 0.2 E.U./dl (0.2-1.0)
[2019-12-14 14:13] LABS: CASTS None Seen /LPF (None Seen); CRYSTALS None Seen /LPF (None Seen); SQUAMOUS 0-3 Few /LPF (0-3); URINE RBC 0-2 Rare /HPF (0-2); URINE WBC-REFLEX 6-15 Few /HPF (0-5)
[2019-12-14 16:00] VITALS: BP 191/51
--- NOTE | 2019-12-14 16:20 | 2DMMODE ---
[place] [address] 2 D/M-MODE ECHOCARDIOGRAM Name: GABINO INIGUEZ Room: [address] IN [facility]#: [id number] Admission: 12/14/19 Attend Phys: Edvin Leon Discharge: Date of : 40 Date of Service: 12/14/19 1618 Report #: [id number] THIS REPORT FOR: cc: FAM - No family physician/PCP FAM - No family physician/PCP Luis Olvera MD [facility] ~ APPROVED REPORT Study performed: 12/14/2019 14:52:38 EXAM: Comprehensive 2D, Doppler, and color-flow Echocardiogram Patient Location: In-Patient Room #: [facility] Status: routine BSA: 1.92 HR: 67 bpm BP: 164/57 mmHg Rhythm: NSR Other Information Study Quality: Good Indications Congestive Heart Failure Dyspnea 2D Dimensions IVSd: 18.10 (7-11mm) LVOT Diam: 17.31 (18-24mm) LVDd: 47.84 mm PWd: 8.73 (7-11mm) Ascending Ao: 28.50 (22-36mm) LVDs: 38.22 (25-40mm) Aortic Root: 29.03 mm Aortic Valve AoV Peak Cedrick.: 3.06 m/s AO Peak Gr.: 37.57 mmHg AO Mean Gr.: 20.98 mmHg AO V2 VTI: 67.33 cm Mitral Valve E/A Ratio: 1.28 MV Decel. Time: 207.19 ms MV E Max Cedrick.: 1.76 m/s MV PHT: 60.09 [place] [address] 2 D/M-MODE ECHOCARDIOGRAM Name: GABINO INIGUEZ Room: [address] IN [facility]#: [id number] Admission: 12/14/19 Attend Phys: Edvin Leon Discharge: Date of : 40 Date of Service: 12/14/19 1618 Report #: [id number] MVA (PHT): 3.66 cm2 TDI E/Lateral E': 22.00 Lateral E' Cedrick.: 0.08 m/s Pulmonary Valve PV Peak Cedrick.: 2.04 m/s PV Peak Gr.: 16.66 mmHg Left Ventricle The left ventricle is normal size. There is normal LV segmental wall motion. Moderatel septal hypertrophy is present. Left ventricular outflow tract gradient is present, peak 40mmHg The left ventricular systolic function is normal. The left ventricular ejection fraction is within the normal range. LVEF is 55%. The left ventricular diastolic function is normal. Right Ventricle The right ventricle is normal size. The right ventricular systolic function is normal. Atria Left atrium is mildly dilated. Right atrium is dilated. Aortic Valve Moderate aortic valve sclerosis. No aortic regurgitation is present. No hemodynamically significant valvular aortic stenosis. Mitral Valve Moderate mitral annular calcification. Mild to moderate mitral regurgitation. No evidence of mitral valve stenosis. Tricuspid Valve The tricuspid valve is normal in structure. Trace tricuspid regurgitation. Unable to assess PA pressure. Pulmonic Valve The pulmonary valve is normal in structure. Mild pulmonic regurgitation. Great Vessels The aortic root is normal in size. IVC is normal in size and collapses >50% with inspiration. Pericardium There is no pericardial [place] [address] 2 D/M-MODE ECHOCARDIOGRAM Name: GABINO INIGUEZ Room: [address] IN .R.#: [id number] Admission: 12/14/19 Attend Phys: Edvin Leon Discharge: Date of : 40 Date of Service: 12/14/19 1618 Report #: [id number] <Conclusion> The left ventricle is normal size. Moderate proximal septal hypertrophy is present with a peak transoutflow tract gradient of 40mmHg The left ventricular systolic function is normal. The left ventricular ejection fraction is within the normal range. LVEF is 55%. The right ventricle is normal size. The right ventricular systolic function is normal. Left atrium is mildly dilated. Moderate aortic valve sclerosis. No aortic regurgitation is present. No hemodynamically significant valvular aortic stenosis. Moderate mitral annular calcification. Mild to moderate mitral regurgitation. No evidence of mitral valve stenosis. The tricuspid valve is normal in structure. IVC is normal in size and collapses >50% with inspiration. There is no pericardial effusion. <ELECTRONICALLY SIGNED> By: Luis Olvera MD, FACC 12/14/19 1618 1618 161 Luis Olvera MD, FACC /INF
[2019-12-14 20:00] VITALS: BP 171/48
[2019-12-15] VITALS: BP 138/51
[2019-12-15 04:00] VITALS: BP 168/43
[2019-12-15 04:02] LABS: HEMATOCRIT 22.9 % (37.0-47.0); HEMOGLOBIN 7.8 gm/dL (12.0-15.0); MCH 36.3 pg (26.0-34.0); MCHC 34.1 g/dL (28.0-37.0); MCV 106.4 fL (80.0-100.0); MPV 7.8 fl. (7.2-11.1); RBC 2.15 mil/uL (4.20-5.00); RDW-CV 16.7 % (10.5-14.5); WBC 2.4 thou/uL (4.0-11.0)
[2019-12-15 04:45] LABS: ALBUMIN 2.1 g/dL (3.4-5.0); CALCIUM 8.2 mg/dL (8.5-10.1); CREATININE 2.2 mg/dL (0.6-1.3); PHOSPHORUS* 3.3 mg/dL (2.5-4.9); POTASSIUM 4.8 mmol/L (3.5-5.1)
[2019-12-15 08:00] VITALS: BP 183/53
[2019-12-15 12:11] VITALS: BP 85/49
[2019-12-15 16:00] VITALS: BP 137/44
[2019-12-15 19:40] VITALS: BP 147/45
[2019-12-16] VITALS: BP 165/50
[2019-12-16 04:00] VITALS: BP 195/60
[2019-12-16 04:21] LABS: HEMATOCRIT 25.3 % (37.0-47.0); HEMOGLOBIN 8.7 gm/dL (12.0-15.0); MCH 36.7 pg (26.0-34.0); MCHC 34.2 g/dL (28.0-37.0); MCV 107.2 fL (80.0-100.0); MPV 8.5 fl. (7.2-11.1); RBC 2.36 mil/uL (4.20-5.00); RDW-CV 17.2 % (10.5-14.5); WBC 3.1 thou/uL (4.0-11.0)
[2019-12-16 04:36] LABS: ALBUMIN 2.2 g/dL (3.4-5.0); CALCIUM 8.3 mg/dL (8.5-10.1); CREATININE 1.9 mg/dL (0.6-1.3); PHOSPHORUS* 3.7 mg/dL (2.5-4.9); POTASSIUM 5.1 mmol/L (3.5-5.1)
[2019-12-16 06:00] VITALS: BP 142/55
[2019-12-16 08:15] VITALS: BP 150/46
[2019-12-16 12:13] VITALS: BP 140/41
[2019-12-16 19:50] VITALS: BP 139/48
[2019-12-17] VITALS: BP 147/47
[2019-12-17 04:00] VITALS: BP 168/77
[2019-12-17 08:00] VITALS: BP 178/50
[2019-12-17 10:58] LABS: CALCIUM 7.8 mg/dL (8.5-10.1); CREATININE 2.3 mg/dL (0.6-1.3); MAGNESIUM 1.8 mg/dL (1.8-2.4); PHOSPHORUS* 3.8 mg/dL (2.5-4.9); POTASSIUM 4.9 mmol/L (3.5-5.1)
[2019-12-17 12:14] VITALS: BP 171/46
[2019-12-17 16:53] VITALS: BP 144/51
[2019-12-17 20:00] VITALS: BP 133/54
[2019-12-18 00:36] VITALS: BP 122/55
[2019-12-18 04:24] VITALS: BP 117/56
[2019-12-18 07:35] VITALS: BP 151/56
[2019-12-18 10:11] VITALS: BP 151/56
[2019-12-18 10:41] LABS: CALCIUM 7.7 mg/dL (8.5-10.1); CREATININE 2.6 mg/dL (0.6-1.3); POTASSIUM 4.9 mmol/L (3.5-5.1)
[2019-12-18] MEDS ORDERED: GABAPENTIN 100100 MG PO (11:12)
[2019-12-18] MEDS ORDERED: VALTREX 500 MG500 M1 PO (11:12)
[2019-12-18] MEDS ORDERED: PROBIOTIC1 EAC1 PO (11:12)
[2019-12-18] MEDS ORDERED: LASIX 40 MG TAB40 M2 PO (11:12)
[2019-12-18] MEDS ORDERED: HYDROCODON-ACE1 EAC7 PO (11:12)
[2019-12-18] MEDS ORDERED: LEVAQUIN 750 M750 MG PO (11:14)
[2019-12-18] MEDS ORDERED: BENADRYL ITCH28.3 G1 TOP (11:29)
[2019-12-18] MEDS ORDERED: CLARITIN10 MG PO (11:29)
== END 2019-12-18 16:18 | disposition home health service (06) | DRG 291 ==
LOC: M.ERS 21:12 → M.ORTHSURG 12-14 00:09 → M.TBA-ER 12-14 00:09 → M.ORTHSURG 12-14 03:00 → M.2W 12-14 20:14
PROVIDERS: Emergency Medicine; Family Medicine; ADMIT Internal Medicine
DX: I13.0 Hypertensive heart and chronic kidney disease with heart failure and stage 1 through stage 4 chronic kidney disease, or unspecified chronic kidney disease (principal); I50.33 Acute on chronic diastolic (congestive) heart failure; N17.9 Acute kidney failure, unspecified; E44.0 Moderate protein-calorie malnutrition; J96.11 Chronic respiratory failure with hypoxia; D61.818 Other pancytopenia; N39.0 Urinary tract infection, site not specified; N18.3 Chronic kidney disease, stage 3 (moderate); Z20.828 Contact with and (suspected) exposure to other viral communicable diseases; I25.10 Atherosclerotic heart disease of native coronary artery without angina pectoris; K21.9 Gastro-esophageal reflux disease without esophagitis; J44.9 Chronic obstructive pulmonary disease, unspecified; E78.00 Pure hypercholesterolemia, unspecified; H35.30 Unspecified macular degeneration; I25.5 Ischemic cardiomyopathy; B02.9 Zoster without complications; D53.9 Nutritional anemia, unspecified; E03.9 Hypothyroidism, unspecified; K74.60 Unspecified cirrhosis of liver; M79.2 Neuralgia and neuritis, unspecified; Z87.891 Personal history of nicotine dependence; Z68.36 Body mass index [BMI] 36.0-36.9, adult; Z87.440 Personal history of urinary (tract) infections; I25.2 Old myocardial infarction; Z95.5 Presence of coronary angioplasty implant and graft; Z79.2 Long term (current) use of antibiotics; Z79.899 Other long term (current) drug therapy; Z88.1 Allergy status to other antibiotic agents; Z88.8 Allergy status to other drugs, medicaments and biological substances

== ENCOUNTER 2020-01-03 00:04 | Inpatient (IN) | payer MEDICARE, BC ==
[~2020-01-03] VITALS: Ht 160 cm; Wt 94.9 kg
[2020-01-03] VITALS (7 sets, daily range): BP systolic 120–199; BP diastolic 42–105
[~2020-01-03 00:04] MED LIST changes: +BENADRYL ITCH28.3 G1 TOP; +CLARITIN10 MG PO; +FUROSEMIDE 40 M40 M1 PO; +GABAPENTIN 100100 MG PO; +HYDROCODON-ACE1 EAC7 PO; +VALTREX 500 MG500 M1 PO
[2020-01-03 00:46] LABS: ABSOLUTE EOSINOPHILS 0.3 thou/uL (0.0-0.7); ABSOLUTE LYMPHOCYTES 0.6 thou/uL (0.8-5.3); ABSOLUTE MONOCYTES 0.5 thou/uL (0.0-1.2); ABSOLUTE NEUTROPHILS 2.6 thou/uL (1.6-8.1); BASOPHILS 0.7 %; EOSINOPHILS 7.5 %; HEMATOCRIT 25.4 % (37.0-47.0); HEMOGLOBIN 8.6 gm/dL (12.0-15.0); LYMPHOCYTES 15.3 %; MCH 36.9 pg (26.0-34.0); MCHC 33.8 g/dL (28.0-37.0); MCV 109.3 fL (80.0-100.0); MONOCYTES 13.1 %; MPV 7.9 fl. (7.2-11.1); NUCLEATED RBCS 0 /100WBC; PLATELET COUNT* 177 thou/uL (150-400); POLYS 63.4 %; RBC 2.32 mil/uL (4.20-5.00); RDW-CV 19.1 % (10.5-14.5); WBC 4.1 thou/uL (4.0-11.0)
[2020-01-03 00:55] LABS: CALCIUM 8.5 mg/dL (8.5-10.1); CREATININE 4.1 mg/dL (0.6-1.3)
[2020-01-03 00:56] LABS: INR 1.5; PROTIME 14.9 Seconds (9.20-11.50)
[2020-01-03 01:06] LABS: ALBUMIN 2.4 g/dL (3.4-5.0); TOTAL PROTEIN 7.2 g/dL (6.4-8.2)
[2020-01-03] MEDS ORDERED: TYLENOL EXTRA500 MG PO (05:35)
--- NOTE | 2020-01-03 05:58 | NUR ---
PT RECIEVED FROM ED IN ROOM 219. ALERT AND ORIENTED X4. C/O PAIN, MEDICATION GIVEN PER EMAR. SOB WITH EXERTION. CALL LIGHT WITHIN REACH AND BED IN LOW POSITION. HOURLY ROUNDING DONE FOR PT SAFETY.
[2020-01-03 10:45] LABS: URINE BILIRUBIN NEGATIVE (Negative); URINE BLOOD NEGATIVE (Negative); URINE CLARITY CLEAR; URINE COLOR YELLOW; URINE GLUCOSE-RANDOM NEGATIVE (Negative); URINE KETONES TRACE (Negative); URINE LEUKOCYTES-REFLEX 1+ (Negative); URINE NITRITE-REFLEX NEGATIVE (Negative); URINE PROTEIN 1+ (Negative); URINE SPECIFIC GRAVITY 1.025 (1.005-1.030); URINE UROBILINOGEN 0.2 E.U./dl (0.2-1.0)
[2020-01-03 10:52] LABS: BACTERIA-REFLEX 1-9 Few /HPF (None Seen); CASTS None Seen /LPF (None Seen); CRYSTALS None Seen /LPF (None Seen); RENAL EPITHELIAL CELLS 4-10 Moderate /LPF (None Seen); SQUAMOUS 4-10 Moderate /LPF (0-3); URINE RBC 3-10 Few /HPF (0-2); YEAST-REFLEX Present (None Seen)
[2020-01-04] VITALS: BP 126/41
[2020-01-04 04:00] VITALS: BP 143/51
--- NOTE | 2020-01-04 05:48 | NUR ---
PT CARE ASSUMED AT 1930. SAT MAINTAINED IN O2. ALERT AND ORIENTED X4. DENIES PAIN AND SOB. CALL LIGHT WITHIN REACH AND BED IN LOW POSITION. HOURLY ROUNDING DONE FOR PT SAFETY.
[2020-01-04 07:25] LABS: HEMATOCRIT 24.8 % (37.0-47.0); HEMOGLOBIN 8.3 gm/dL (12.0-15.0); MCHC 33.4 g/dL (28.0-37.0); MCV 110.7 fL (80.0-100.0); RBC 2.24 mil/uL (4.20-5.00); RDW-CV 19.4 % (10.5-14.5); WBC 5.1 thou/uL (4.0-11.0)
[2020-01-04 07:49] LABS: ALBUMIN 2.2 g/dL (3.4-5.0); CALCIUM 8.1 mg/dL (8.5-10.1); CREATININE 4.3 mg/dL (0.6-1.3); MAGNESIUM 2.3 mg/dL (1.8-2.4); POTASSIUM 4.3 mmol/L (3.5-5.1); TOTAL BILIRUBIN 0.9 mg/dL (<0.1-1.0); TOTAL PROTEIN 6.3 g/dL (6.4-8.2)
[2020-01-04 08:00] VITALS: BP 172/55
--- NOTE | 2020-01-04 10:34 | EKG ---
[place] [address] ELECTROCARDIOGRAM REPORT Name: GABINO INIGUEZ Room: [address] ADM IN M.R.#: [id number] Admission: 01/03/20 Attend Phys: Liz Louise Discharge: Date of : 40 Date of Service: 01/03/20 0009 Report #: [id number] THIS REPORT FOR: //name// [facility] ED Test Date: 2020-01-03 Test Time: 00:09:40 Pat Name: GABINO INIGUEZ Department: Room: [facility] Gender: F Arnp: [place] : 1940 Requested By: Karin Alvarado Order Number: [id number] MD: Efren Sloan Measurements Intervals [place] Rate: 82 P: 34 LA: 216 QRS: 33 QRSD: 102 T: 61 QT: 392 QTc: 458 Interpretive Statements Sinus rhythm Atrial premature complex Borderline prolonged LA interval Low voltage, extremity leads Abnormal R-wave progression, late transition Compared to ECG 12/13/2019 21:59:02 Atrial premature complex(es) now present Electronically Signed On 01-04-2020 10:33:03 CDT by Efren Sloan [email or web address] <ELECTRONICALLY SIGNED> By: Efren Sloan MD, FAC 01/04/20 1033 0009 0009 Efren Sloan MD, FAC /EPI
[2020-01-04 11:58] VITALS: BP 154/61
--- NOTE | 2020-01-04 12:40 | NUR ---
ASSUMED PT CARE AT 0730, PT RESTING IN BED C/O PAIN TO RT. ABD R/T RESOLVING SHINGLES. TYLENOL GIVEN W/ RELIEF. PT SATTING 99% ON 3L AND TRACING SB ON THE REFRIGERATION ENGINEERING TEACHER. PT GOAL IS DIURESIS AND TO WORK W/ PT/OT AND SEE NEPHRO. WOUND CARE CONSULT IN PLACE FOR 3+ EDEMA TO BILAT LE'S. UNABLE TO COLLECT STOOL FOR CDIFF CULTURE R/T STOOL MIXED W/ URINE. AM ASSESSMENT CHARTED, MEDS PER OCT, HOURLY ROUNDING OBSERVED, WILL CONTINUE POC.
--- NOTE | 2020-01-04 15:00 | NUR ---
PT.KNOWN FROM PREVIOUS RECENT HOSPITALIZATION. SHE LIVES ALONE. FAMILY IS VERY SUPPORTIVE. [facility] HAS HOME O2. HOPES TO GO HOME AGAIN AT DISCHARGE AND WOULD LIKE TO CONTINUE HH WITH [facility].
[2020-01-04 17:21] VITALS: BP 160/82
--- NOTE | 2020-01-04 18:13 | NUR ---
NO ACUTE CHANGES THROUGHOUT SHIFT. PT CONTINUES TO SAT MID TO HIGH 90'S ON 3L AND HAD NO FURTHER C/O PAIN THROUGHOUT SHIFT. PT SAW NEPHRO TODAY, SEE NOTES, AND REFUSED PT. STOOL SAMPLE WAS COLLECTED THIS AFTERNOON AND SENT TO LAB. MEDS PER OCT, HOURLY ROUNDING OBSERVED, WILL CONTINUE POC.
[2020-01-04 19:50] VITALS: BP 165/55
[2020-01-05] VITALS (8 sets, daily range): BP systolic 133–188; BP diastolic 47–86
--- NOTE | 2020-01-05 07:20 | NUR ---
CHANGE OF SHIFT, BEDSIDE REPORT GIVEN PATIENT SEEN AT BEDSIDE, IN BED ASLEEP ASSUMED PATIENT CARE
[2020-01-05 07:23] LABS: HEMATOCRIT 20.6 % (37.0-47.0); HEMOGLOBIN 7.1 gm/dL (12.0-15.0); MCH 37.6 pg (26.0-34.0); MCHC 34.4 g/dL (28.0-37.0); MCV 109.3 fL (80.0-100.0); RBC 1.88 mil/uL (4.20-5.00); RDW-CV 18.8 % (10.5-14.5); WBC 4.4 thou/uL (4.0-11.0)
--- NOTE | 2020-01-05 08:18 | NUR ---
PT CARE ASSUMED AT 1930. SAT MAINTAINED IN O2. ALERT AND ORIENTED X4. DENIES PAIN AND SOB. BP ELEVATED THIS AM, MEDICATION GIVEN PER EMAR. CALL LIGHT WITHIN REACH AND BED IN LOW POSITION. HOURLY ROUNDING DONE FOR PT SAFETY.
[2020-01-05 09:50] LABS: ALBUMIN 2.8 g/dL (3.4-5.0); CALCIUM 7.9 mg/dL (8.5-10.1); CREATININE 4.7 mg/dL (0.6-1.3); MAGNESIUM 2.4 mg/dL (1.8-2.4); PHOSPHORUS* 4.7 mg/dL (2.5-4.9); POTASSIUM 4.4 mmol/L (3.5-5.1); TOTAL BILIRUBIN 0.8 mg/dL (<0.1-1.0); TOTAL PROTEIN 6.6 g/dL (6.4-8.2)
--- NOTE | 2020-01-05 12:09 | NUR ---
Per , anticipate dc on to skilled, CM to discuss skilled options with Pt and dtr. Following.
--- NOTE | 2020-01-05 16:45 | NUR ---
MULTIPLE ATTEMPTS TO REPLACED FAILED IV. UNSUUCESSFUL. CONTACTED DR ZHU FOR ORDER FOR CENTRAL LINE PLACEMENT BOOTS AND SHOES SUPERVISOR NOTIFIED AND WILL CONTACT STAFF TO PLACE CL
[2020-01-05 22:07] LABS: IgA 471 mg/dL (64-422); IgG 1854 mg/dL (586-1602); IgM 149 mg/dL (26-217)
[2020-01-06] VITALS (7 sets, daily range): BP systolic 135–183; BP diastolic 47–64
--- NOTE | 2020-01-06 04:54 | NUR ---
PT CARE ASSUMED AT 1930. SAT MAINTAINED IN O2. ALERT AND ORIENTED X4. DENIES PAIN. SOB AT REST. CALL LIGHT WITHIN REACH AND BED IN LOW POSITION. LASIX DRIP RUNNING. HOURLY ROUNDING DONE FOR PT SAFETY.
[2020-01-06 06:36] LABS: MCH 37.2 pg (26.0-34.0); MCV 109.3 fL (80.0-100.0); MPV 8.5 fl. (7.2-11.1); RBC 1.72 mil/uL (4.20-5.00); RDW-CV 19.3 % (10.5-14.5); WBC 4.2 thou/uL (4.0-11.0)
[2020-01-06 06:47] LABS: HEMATOCRIT 18.8 % (37.0-47.0); HEMOGLOBIN 6.4 gm/dL (12.0-15.0)
[2020-01-06 06:50] LABS: ALBUMIN 3.7 g/dL (3.4-5.0); CALCIUM 8.1 mg/dL (8.5-10.1); CREATININE 4.8 mg/dL (0.6-1.3); MAGNESIUM 2.4 mg/dL (1.8-2.4); PHOSPHORUS* 3.5 mg/dL (2.5-4.9); POTASSIUM 4.2 mmol/L (3.5-5.1); TOTAL BILIRUBIN 0.9 mg/dL (<0.1-1.0)
--- NOTE | 2020-01-06 07:15 | NUR ---
CHANGE OF SHIFT, BEDSIDE REPORT GIVEN PATIENT SEEN AT BEDSIDE, IN BED RESTING ASSUMED PATIENT CARE
--- NOTE | 2020-01-06 08:46 | NUR ---
CM spoke with Pt regarding skilled post dc from hospital, Pt declined and wants to return home with HH. Pt is current with [facility].
--- NOTE | 2020-01-06 09:15 | NUR ---
PATIENTS O2 SATS DECREASED TO LOW 80S RT NOTIFIED HIGH FLOW NC PLACED AT 11 L SATS TO LOW 90S WILL CONTINUE TO MONITOR
--- NOTE | 2020-01-07 02:09 | NUR ---
PT ALERT ORIENTED. PRBCS INFUSING. LAST HGB 6.3. DENIES PAIN. TELEMETRY SHOWS SB. NAVARRO WITH YELLOW. ON LASIX QTT. 1500 ML FR. WCTM
[2020-01-07 04:00] VITALS: BP 146/56
[2020-01-07 05:03] LABS: HEMATOCRIT 22.7 % (37.0-47.0); HEMOGLOBIN 7.8 gm/dL (12.0-15.0); MCH 36.6 pg (26.0-34.0); MCHC 34.4 g/dL (28.0-37.0); MCV 106.6 fL (80.0-100.0); MPV 8.6 fl. (7.2-11.1); RBC 2.13 mil/uL (4.20-5.00); RDW-CV 19.1 % (10.5-14.5); WBC 4.2 thou/uL (4.0-11.0)
[2020-01-07 05:14] LABS: ALBUMIN 4.2 g/dL (3.4-5.0); CALCIUM 8.3 mg/dL (8.5-10.1); CREATININE 5.4 mg/dL (0.6-1.3); MAGNESIUM 2.6 mg/dL (1.8-2.4); PHOSPHORUS* 5.1 mg/dL (2.5-4.9); POTASSIUM 4.7 mmol/L (3.5-5.1)
--- NOTE | 2020-01-07 06:59 | NUR ---
AM HGB 7.8, PT RESTING WITH EYES CLOSED.
[2020-01-07 08:00] VITALS: BP 149/80
[2020-01-07 10:08] LABS: KAPPA FREE LIGHT CHAINS 295.7 mg/L (3.3-19.4)
--- NOTE | 2020-01-07 12:40 | NUR ---
Per , anticipate that Pt will need to be inpt for a few more days, renal biopsy planned. Pulm following. Per , Pt will need skilled vs rehab, Pt is adament that she wants to return home at [place]. Cm to contact pt's dtr to discuss dispo. Following.
--- NOTE | 2020-01-07 13:36 | NUR ---
WOUND NURSE: WOUND NURSE CONSULT RECEIVED FOR TUBIGRIPS PLACED BY DR. MARKO MD. PATIENT'S CALF MEASUREMENTS ARE 37.5 ON RIGHT AND 38.0 CM ON LEFT. APPLIED SINGLE LAYER SIZE E TUBIGRIPS TOES TO KNEE TO BLE. ALSO ELEVATED BLE ON 2 PILLOWS IN THE BED. PATIENT INSTRUCTED ON IMPORTANCE OF ELEVATION FOR EDEMA CONTROL WITH GOOD UNDER UNDERSTANDING ACHIEVED.
--- NOTE | 2020-01-07 13:48 | NUR ---
ASSUMED PT CARE AT 0730, PT RESTING IN BED C/O SHORTNESS OF BREATH AND SATTING 89% ON 3L. O2 WAS INCREASED TO 5L AND SAT UP IN BED, PT SATTING 95%. BOTH STOOL AND URINE SAMPLES NEEDED, BOTH COLLECTED AND SENT TO LAB, REFER TO RESULTS. PT HAS A NAVARRO IN PLACE W/ DARK SHAWN URINE CONTAINING SEDEMENT TO DEPENDENT DRAINAGE. PT CONTINUES TO HAVE EDEMA TO BILAT LE'S W/ TUBIGRIPS IN PLACE, WOUND CARE SAW PT TO CHANGE SIZING. NEPHRO SAW PT TODAY, ORDERED KIDNEY BIOPSY, ASPIRIN NEEDS TO BE HELD PER US FOR 5 DAYS BEFORE BIOPSY CAN BE DONE. ASPIRIN WAS GIVEN THIS MORNING W/ AM MEDS. PT GOAL IS TO TITRATE O2 DOWN AND MAINTAIN SATS ABOVE 92%. AM ASSESSMENT CHARTED, MEDS PER OCT, HOURLY ROUNDING OBSERVED, WILL CONTINUE POC.
[2020-01-07 15:08] LABS: GLOBULIN TOTAL 3.3 g/dL (2.2-3.9); M-SPIKE Not Observed g/dL (Not Observed)
[2020-01-07 16:29] VITALS: BP 181/73
--- NOTE | 2020-01-07 18:58 | NUR ---
NO ACUTE CHANGES THROUGHOUT SHIFT, PT CONTINUES TO WEAR 5L AND SAT MID 90'S AND TRACE SB ON THE ACCOUNTS ADJUSTABLE CLERK. URINE OUTPUT TO NAVARRO CONTINUES TO BE DARK SHAWN W/ SEDIMENT. PT GOT UP TO CHAIR W/ PT TODAY. MEDS PER MAR, HOURLY ROUNDING OBSERVED, WILL CONTINUE POC.
[2020-01-07 20:00] VITALS: BP 157/60
[2020-01-07 20:34] LABS: SMEAR FOR EOSINOPHILS Rare per HPF
[2020-01-08] VITALS: BP 142/54
--- NOTE | 2020-01-08 01:24 | NUR ---
PT SLEEPY AROUSES EASILY. ORIENTED X 4. TURNING Q 2 HRS. DENIES PAIN. NAVARRO WITH BROWN URINE. LASIX AT 10MG/HR. TELEMETRY SHOWS SB 1ST DEGREE AVB. WCTM
[2020-01-08 04:00] VITALS: BP 128/54
[2020-01-08 04:44] LABS: ABSOLUTE LYMPHOCYTES 0.3 thou/uL (0.8-5.3); ABSOLUTE MONOCYTES 0.5 thou/uL (0.0-1.2); ABSOLUTE NEUTROPHILS 3.9 thou/uL (1.6-8.1); BASOPHILS 0.1 %; EOSINOPHILS 0.1 %; HEMATOCRIT 21.8 % (37.0-47.0); HEMOGLOBIN 7.6 gm/dL (12.0-15.0); MCH 37.2 pg (26.0-34.0); MCHC 34.8 g/dL (28.0-37.0); MONOCYTES 10.4 %; MPV 9.3 fl. (7.2-11.1); NUCLEATED RBCS 0 /100WBC; PLATELET COUNT* 121 thou/uL (150-400); POLYS 82.4 %; RBC 2.04 mil/uL (4.20-5.00); RDW-CV 19.8 % (10.5-14.5); WBC 4.7 thou/uL (4.0-11.0)
[2020-01-08 05:08] LABS: % SATURATION 34 % (20-39); IRON 44 ug/dL (50-175)
[2020-01-08 05:08] LABS: COMPLEMENT-C4 6 mg/dL (14-44)
[2020-01-08 05:11] LABS: CALCIUM 8.3 mg/dL (8.5-10.1); POTASSIUM 4.8 mmol/L (3.5-5.1)
[2020-01-08 07:45] VITALS: BP 140/48
--- NOTE | 2020-01-08 11:25 | NUR ---
ASSUMED PT CARE AT 0730, PT RESTING IN BED, SATTING 98% ON 4L, TRACING SB WITH A 1D ON THE PINMAKER AND STATES HER BACK IS SORE BUT THAT SHE RECEIVED TYLENOL THIS MORNING AND DOESN'T NEED ANYTHING ELSE FOR PAIN. PT SPOKE W/ NEPHRO THIS MORNING, GOAL IS TO GETA TEMPORARY DIALYSIS PORT PLACED TO DIALIZE PT TODAY AND TOMORROW. PT GOAL IS TO HAVE DIALYSIS DONE TODAY AND TITRATE OXYGEN DOWN. AM ASSESSMENT CHARTED, MEDS PER MAR, HOURLY ROUNDING OBSERVED, STRICT I&O MONITORING IN PLACE, WILL CONTINUE POC.
[2020-01-08 12:17] VITALS: BP 151/45
--- NOTE | 2020-01-08 13:01 | NUR ---
Per Dr, Pt in agreement with renal biopsy and dialysis at this time. Pt will need skilled at dc, CM to continue to attempt to reach dtr via phone. No dc plans as of yet.
[2020-01-08 16:41] VITALS: BP 149/59
--- NOTE | 2020-01-08 17:33 | NUR ---
NO ACUTE CHANGES THROUGHOUT SHIFT, PT CONTINUES TO SAT MID 90'S ON 4L AND TRACE SB ON THE DESIGN TEACHER. PT C/O PAIN TO BACK THIS AFTERNOON, PRN TYLENOL GIVEN W/ PARTIAL RELIEF. TEMPORARY DIALYSIS PORT WAS PLACED, PT IS CURRENTLY AWAITING DIALYSIS WHICH IS SCHEDULED FOR 1829. MEDS PER OCT, HOURLY ROUNDING OBSERVED, WILL CONTINUE POC.
[2020-01-08 18:07] LABS: HEPATITIS B SURFACE AG Negative (Negative)
[2020-01-08 23:45] VITALS: BP 130/59
[2020-01-09 04:00] VITALS: BP 150/58
[2020-01-09 05:58] LABS: HEMATOCRIT 22.4 % (37.0-47.0); HEMOGLOBIN 7.7 gm/dL (12.0-15.0); MCH 36.8 pg (26.0-34.0); MCHC 34.2 g/dL (28.0-37.0); MCV 107.4 fL (80.0-100.0); MPV 8.6 fl. (7.2-11.1); RBC 2.09 mil/uL (4.20-5.00); RDW-CV 19.5 % (10.5-14.5); WBC 4.5 thou/uL (4.0-11.0)
[2020-01-09 06:14] LABS: ALBUMIN 3.5 g/dL (3.4-5.0); MAGNESIUM 2.5 mg/dL (1.8-2.4); PHOSPHORUS* 6.1 mg/dL (2.5-4.9); POTASSIUM 4.7 mmol/L (3.5-5.1)
--- NOTE | 2020-01-09 07:17 | NUR ---
Shift uneventful. Pt is aox4, running s-garett w/ 1st degree AV block/ BBB, respirations are even and unlabored on 3L NC. Pt is medically stable at this time.
[2020-01-09 08:34] VITALS: BP 154/55
[2020-01-09 12:00] VITALS: BP 148/55
--- NOTE | 2020-01-09 12:54 | NUR ---
PT OFF UNIT TO DIALYSIS.
--- NOTE | 2020-01-09 15:50 | NUR ---
PT RETURN FROM DIALYSIS AT 1530.
[2020-01-09 16:00] VITALS: BP 130/107
--- NOTE | 2020-01-09 17:56 | NUR ---
PT TOLERATING PO AND HAD DIALYSIS TODAY. PT WILL HAVE RANAL AND BONE MARROW BIOPSY ON OF NEXT WEEK. PT DENIED PAIN OR SOA. WILL CONTINUE TO ASSESS.
[2020-01-09 20:00] VITALS: BP 107/45
[2020-01-10] VITALS (7 sets, daily range): BP systolic 144–174; BP diastolic 45–70
[2020-01-10 12:06] LABS: CALCIUM 8.2 mg/dL (8.5-10.1); CREATININE 4.8 mg/dL (0.6-1.3); MAGNESIUM 2.3 mg/dL (1.8-2.4); PHOSPHORUS* 6.5 mg/dL (2.5-4.9); POTASSIUM 4.6 mmol/L (3.5-5.1)
--- NOTE | 2020-01-10 17:44 | NUR ---
PATIENT RESTING IN BED. VSS. RIGHT TEMP DIALYSIS CATH, LEFT TRIPLE LUMEN IJ. UP WITH WALKER AND ASSIST X2. DIALYSIS EXPECTED SATURDAY. RENAL US AND BONE BIOPSY SCHEDULED FOR SATURDAY. HOURLY ROUNDING COMPLETED FOR PATINET SAFETY.
[2020-01-11] VITALS: BP 149/56
[2020-01-11 04:00] VITALS: BP 118/75
[2020-01-11 07:28] LABS: CALCIUM 8.4 mg/dL (8.5-10.1); CREATININE 5.5 mg/dL (0.6-1.3)
[2020-01-11 07:35] LABS: POTASSIUM 5.6 mmol/L (3.5-5.1)
[2020-01-11 08:00] VITALS: BP 150/92
[2020-01-11 10:08] LABS: GLOMERULR BASEM MEMBRN AB 4 units (0-20)
[2020-01-11 12:10] VITALS: BP 154/52
--- NOTE | 2020-01-11 14:49 | NUR ---
PT OFF UNIT TO DIALYSIS.
--- NOTE | 2020-01-11 15:10 | NUR ---
Pt to have renal and BM biopsy tomorrow. HD planned for today. Rehab consult placed. Following.
--- NOTE | 2020-01-11 18:16 | NUR ---
PT RETURN FROM DIALYSIS.
[2020-01-11 19:08] LABS: ANA INTERPRETATION Negative (())
[2020-01-11 20:00] VITALS: BP 92/36
[2020-01-12] VITALS (8 sets, daily range): BP systolic 105–177; BP diastolic 38–65
[2020-01-12 06:10] LABS: HEMATOCRIT 26.3 % (37.0-47.0); MCH 36.7 pg (26.0-34.0); MCHC 34.4 g/dL (28.0-37.0); MCV 106.9 fL (80.0-100.0); MPV 7.9 fl. (7.2-11.1); NUCLEATED RBCS 0 /100WBC; PLATELET COUNT* 144 thou/uL (150-400); RBC 2.46 mil/uL (4.20-5.00); RDW-CV 19.2 % (10.5-14.5); WBC 7.8 thou/uL (4.0-11.0)
[2020-01-12 06:26] LABS: ALBUMIN 3.2 g/dL (3.4-5.0); MAGNESIUM 2.3 mg/dL (1.8-2.4); PHOSPHORUS* 6.8 mg/dL (2.5-4.9); POTASSIUM 5.2 mmol/L (3.5-5.1)
[2020-01-12 06:28] LABS: CREATININE 3.9 mg/dL (0.6-1.3)
[2020-01-12 07:10] LABS: ABSOLUTE LYMPHOCYTES 0.9 thou/uL (0.8-5.3); ABSOLUTE MONOCYTES 0.2 thou/uL (0.0-1.2); ABSOLUTE NEUTROPHILS 6.7 thou/uL (1.6-8.1); ANISOCYTOSIS 1+; MICROCYTES 1+; PLATELET ESTIMATE ADEQUATE
--- NOTE | 2020-01-12 11:24 | NUR ---
ASSUMED PT CARE REPORT RECEIVED FROM NURSE.PT IS AOX4 ON RA. O2 SAT 97%. TRACING SB ON DATA POWER CONSULTANT. VSS. WENT TO IR FOR RENAL AND BONE MARROW BIOPSY. CAME BACK AT 1115 ON 2 L NC. LOOKS HALF SEDATED. OPEN EYES AND ANSWERES TO QUESTIONS ASKED PROPERLY. VSS . SEE CHART. O2 SAT 99% ON 2 L NC. NO COMPLAINT. WILL FOLLOW UP AND CONTINUE TO MONITOR
--- NOTE | 2020-01-12 12:58 | NUR ---
CM spoke with Pt's dtr via phone. Updated on need for SNF vs acute rehab. Dtr in agreement with POC, but is concerned with what Pt will want to do once the biopsy results are back. Dtr states that Pt would likely prefer acute rehab, consult completed, rehab Dr recommending skilled. Per dtr, Pt would be able to stay with her son [place] from acute rehab is needed. Spoke with Dr today, Dr recommending SNF, and also informed CM that Pt will need outpt dialysis. CM to fax referral to [facility]. Following.
[2020-01-13] VITALS (7 sets, daily range): BP systolic 126–168; BP diastolic 43–66
[2020-01-13 04:54] LABS: HEMATOCRIT 23.6 % (37.0-47.0); HEMOGLOBIN 8.2 gm/dL (12.0-15.0); MCH 37.3 pg (26.0-34.0); MCHC 34.9 g/dL (28.0-37.0); MCV 106.7 fL (80.0-100.0); MPV 8.5 fl. (7.2-11.1); RBC 2.21 mil/uL (4.20-5.00); RDW-CV 19.1 % (10.5-14.5); WBC 4.7 thou/uL (4.0-11.0)
[2020-01-13 05:12] LABS: ALBUMIN 2.7 g/dL (3.4-5.0); CALCIUM 8.2 mg/dL (8.5-10.1); CREATININE 4.8 mg/dL (0.6-1.3); MAGNESIUM 2.4 mg/dL (1.8-2.4); PHOSPHORUS* 8.2 mg/dL (2.5-4.9); POTASSIUM 5.6 mmol/L (3.5-5.1); TOTAL BILIRUBIN 0.9 mg/dL (<0.1-1.0); TOTAL PROTEIN 5.9 g/dL (6.4-8.2)
--- NOTE | 2020-01-13 05:56 | NUR ---
ASSUMED PT CARE AT APPROX 1930. PT IS AWAKE AND ORIENTED X4. REAL ESTATE RECRUITER IS TRACING SR/SB. PT DENIES PAIN/DSCOMFORT. ASSESSMENT DONE CHARTED. NO ACUTE CHANGES OVERNIGHT. PT IS FOR TUNNELED DIALYSIS CATHETER PLACEMENT TODAY, MAINTAINED ON NPO. CALL LIGHT WITHIN REACH. HOURLY ROUNDING DONE FOR PT SAFETY. HIGH FALL PRECAUTIONS IN PLACE. POSITION CHANGES DONE Q2H.
--- NOTE | 2020-01-13 11:26 | NUR ---
ASSUMED PT CARE REPORT RECEIVED FROM NURSE . PT IS AOX4. ON 2 L NC. TRACING SINUS SAMAN ON FLUID DYNAMICIST. VSS. PT LEFT THE FLOOR AT 0900 FOR TUNNELED DIALYSIS CATHETER PLACEMENT. PT CAME BACK ON UNIT AT 1100. ACCOMPANIED BY IR NURSE. POST IR VITAL SIGNS TAKEN AND CHARTED. PT IS NOW WORKING WITH PHYSICAL THERAPY IN HER ROOM. AWAITING FOR DIALYSIS TO BE DONE TODAY. NO FURTHER COMPLAINT. NAVARRO IN PLACE
--- NOTE | 2020-01-13 11:55 | CON ---
[address] [address] CONSULTATION Name: GABINO INIGUEZ Room: [address] IN M.R.#: [id number] Admission: 01/03/20 Attend Phys: Stephany Webb Discharge: Date of : 40 Report #: [id number] THIS REPORT FOR: //name// cc: JOSE ALFREDO Almanza family physician/PCP JOSE ALFREDO Almanza family physician/PCP ~ THIS REPORT FOR: //name// CC: JOSE ALFREDO physician/PCP Liz Louise DATE OF SERVICE: 01/03/2020 REQUESTING PHYSICIAN: Dr. Echavarria. REASON FOR CONSULTATION: Acute kidney injury on top of the chronic kidney disease. HISTORY OF PRESENT ILLNESS: The patient is a very pleasant 79-year-old female who is very well known to me as I follow her for her chronic kidney disease stage 4 in my office. She has a known history of congestive heart failure as well, was on Lasix 80 mg p.o. twice a day at home, presents with complaints of increased lower extremity edema and increased shortness of breath. Her CT scan revealed the presence of some small bilateral pleural effusion and evidence of fluid overload. Her creatinine on admission is 4.1, which is higher than her baseline, baseline is around 2. PAST MEDICAL HISTORY: 1. Chronic kidney disease, stage 4. 2. History of liver cirrhosis. 3. History of cardiomyopathy due to coronary artery disease and also history of congestive heart failure. FAMILY HISTORY: Noncontributory. SOCIAL HISTORY: No tobacco or alcohol abuse. MEDICATIONS: Reviewed. From my standpoint, she is on Lasix 80 mg p.o. twice a day. REVIEW OF SYSTEMS: Positive for the symptoms as I mentioned earlier, otherwise all systems reviewed and negative. PHYSICAL EXAMINATION: GENERAL: Awake, alert, oriented. VITAL SIGNS: Blood pressure 120/50, heart rate 74, afebrile. HEENT: [place] [address] CONSULTATION Name: GABINO INIGUEZ Room: [address]#: [id number] Admission: 01/03/20 Attend Phys: Stephany Webb Discharge: Date of : 40 Report #: [id number] NECK: Fatty. JVD is elevated. LUNGS: Decreased breath sounds at both bases. CARDIOVASCULAR: Distant heart tones. ABDOMEN: Obese, soft. LOWER EXTREMITIES: With bilateral edema. LABORATORY DATA: Report revealed serum sodium 144, potassium 4.0, chloride 105, carbon dioxide 34, BUN 62, creatinine 4.1. ASSESSMENT: 1. Chronic kidney disease, stage 4. 2. Acute kidney injury likely due to congestive heart failure and underperfusion of the kidneys. 3. Ischemic cardiomyopathy. 4. Congestive heart failure. 5. Liver cirrhosis. PLAN: 1. [place], will put on Lasix 60 mg IV twice a day. Follow her labs very closely. 2. Probably will need to obtain Cardiology recommendations to reassess her ejection fraction. 3. The patient is very close to the chronic dialysis. 4. Discussed this case with Dr. Echavarria. Thank you very much. <ELECTRONICALLY SIGNED> By: Kavon Angeles MD 01/13/20 1155 1217 0006Alexashli Angeles MD /[facility]
--- NOTE | 2020-01-13 13:13 | NUR ---
Pt now an acute rehab candidate, anticipate that Pt will be medically stable to dc on Saturday. CM waiting to hear back from [facility] regarding outpt dialysis chair time. Updated Pt's dtr of dispo and need of outpt dialysis at this time. Between dtr and son, they will make sure that Pt has what she needs at dc.
--- NOTE | 2020-01-13 13:51 | NUR ---
PT HAD A BOWEL MOVEMENT. PT LEFT FLOOR TO GO TO DIALYSIS AT 1350 . REPORT GIVEN TO DIALYSIS NURSE
--- NOTE | 2020-01-13 15:41 | NUR ---
PER PHYSICAL THERAPIST THIS AM, PATIENT WILL NEED REHAB BECAUSE PATIENT IS WEAK ON HIS LEGS AND NEED MORE STRENGHT TRAINING.
[2020-01-14] VITALS (7 sets, daily range): BP systolic 115–175; BP diastolic 34–64
--- NOTE | 2020-01-14 00:53 | NUR ---
ASSUMED CARE OF PT AT 1900. PT IS ALERT AND ORIENTED. TERRENCE. LONNY. PT HAS A NAVARRO IN PLACE. PT IS IN SINUS BRADYCARDIA. PT IS SLEEPING QUIETLY IN BED. RESPIRATIONS ARE EVEN AND NONLABORED. WILL CONTINUE TO MONITOR PT.
[2020-01-14 04:36] LABS: HEMATOCRIT 23.1 % (37.0-47.0); HEMOGLOBIN 7.9 gm/dL (12.0-15.0); MCH 36.6 pg (26.0-34.0); MCHC 34.1 g/dL (28.0-37.0); MCV 107.1 fL (80.0-100.0); RBC 2.15 mil/uL (4.20-5.00); RDW-CV 18.8 % (10.5-14.5); WBC 4.5 thou/uL (4.0-11.0)
[2020-01-14 04:52] LABS: ALBUMIN 2.6 g/dL (3.4-5.0); CALCIUM 7.9 mg/dL (8.5-10.1); MAGNESIUM 2.2 mg/dL (1.8-2.4); TOTAL PROTEIN 5.6 g/dL (6.4-8.2)
[2020-01-14 04:57] LABS: CREATININE 3.7 mg/dL (0.6-1.3)
--- NOTE | 2020-01-14 12:18 | NUR ---
ALISSA spoke with Franny from [facility], plan schedule is MWF at 430pm. Updated that Pt will be going to acute rehab first. Per , anticipate that Pt will be ready to dc tomorrow.
--- NOTE | 2020-01-14 17:48 | NUR ---
PATIENT PLEASANT AND CONVERSANT, COOPERATIVE W/ ASSESS, CARES AND PHYSICAL THERAPY. NOTED GEN WEAKNESS. PATIENT STATES WANTING TO REST TODAY. EATING INDEP. SEE THERAPY NOTES. TELE NOTED SBRADY THRU SHIFT 48-50BPM. DRSG CHANGE TO DIALYSIS PORT SITE, ASEPTIC TECH USED. IV TLSC LT NOTED WNL. FLUSHES EASIILY ALL PORTS. NAVARRO CATH DISC, 100ML DARK URINE NOTED. EDEMA NOTED 1+BLE. HRLY ROUNDS DONE. PATIENT DENIES OTHER NURSING NEEDS AT THIS TIME. HOB UP TO PATIENT COMFORT. CALL LIGHT IN REACH. TV ON. ~TJRN
[2020-01-15 04:00] VITALS: BP 158/51
[2020-01-15 04:50] LABS: HEMATOCRIT 24.5 % (37.0-47.0); HEMOGLOBIN 8.6 gm/dL (12.0-15.0); MCH 37.1 pg (26.0-34.0); MPV 8.9 fl. (7.2-11.1); RBC 2.31 mil/uL (4.20-5.00); RDW-CV 18.8 % (10.5-14.5); WBC 6.9 thou/uL (4.0-11.0)
[2020-01-15 05:01] LABS: CALCIUM 8.3 mg/dL (8.5-10.1); CREATININE 5.3 mg/dL (0.6-1.3); MAGNESIUM 2.5 mg/dL (1.8-2.4); POTASSIUM 4.3 mmol/L (3.5-5.1)
[2020-01-15 08:09] VITALS: BP 164/53
--- NOTE | 2020-01-15 09:20 | NUR ---
ASSUMED CARE OF PT THIS AM AROUND 0715- CORRECTIONAL PROBATION OFFICER IN PLACE ORDERED, TRACING SB- UPON ASSESSMENT PT NOTED TO BE RESTING IN BED, WATCHING TV- PT A&O X 4, FORGETFULL- OLIGURIA NOTED, CONT OF BOWEL- EXT ASSIST X1 WITH TRANSFERS- LCTA/DIMINISHED IN BASES- RESP EVEN AND UN-LABORED- VSS, O2 SAT 92% ON 2L VIA NC- ABD SOFT/ROUND/OBESE, BS X4 QUADS- GOOD PO INTAKE NOTED THIS AM WITH BREAKFAST- LEFT TRIPLE LUMEN SUB CLAV PICC NOTED C/D/I AND SL, RIGHT CHEST DIALYSIS PORT NOTED C/D/I-2+ BLE EDEMA NOTED- PT DENIES ANY C/O PAIN/DISCOMFORT AT THIS TIME- CALL LIGHT AND PERSONAL BELONGINGS WITH IN REACH- HOURLY ROUNDS IN PLACE R/T SAFETY/NEEDS- ALL NEEDS MET AT THIS TIME-WCTM
[2020-01-15 11:45] VITALS: BP 136/39
[2020-01-15] MEDS ORDERED: PREDNISONE 20 M20 MG PO (13:36)
[2020-01-15] MEDS ORDERED: EPOGEN2000 UNIT/ IVPUSH (13:36)
[2020-01-15] MEDS ORDERED: HYDRALAZINE 10M10 MG PO (13:36)
[2020-01-15] MEDS ORDERED: HYDROCODON-ACE1 EAC7 PO (13:36)
[2020-01-15] MEDS ORDERED: ACIDOPHILUS1 EAC4 PO (13:36)
[2020-01-15] MEDS ORDERED: IPRAT-ALBUT 0.5-3 ML INH (13:36)
[2020-01-15 16:11] VITALS: BP 152/43
== END 2020-01-15 17:01 | DRG 177 ==
LOC: M.ERS 00:04 → M.2W 01:26 → M.TBA-ER 01:26 → M.2W 01:34
PROVIDERS: Family Medicine; Internal Medicine; Internal Medicine Nephrology; Personal Emergency Response Attendant; ADMIT Internal Medicine
DX: J15.6 Pneumonia due to other Gram-negative bacteria (principal); I50.33 Acute on chronic diastolic (congestive) heart failure; J96.21 Acute and chronic respiratory failure with hypoxia; N17.0 Acute kidney failure with tubular necrosis; J44.1 Chronic obstructive pulmonary disease with (acute) exacerbation; N18.4 Chronic kidney disease, stage 4 (severe); I42.2 Other hypertrophic cardiomyopathy; E44.0 Moderate protein-calorie malnutrition; D61.818 Other pancytopenia; D80.2 Selective deficiency of immunoglobulin A [IgA]; I13.0 Hypertensive heart and chronic kidney disease with heart failure and stage 1 through stage 4 chronic kidney disease, or unspecified chronic kidney disease; J44.0 Chronic obstructive pulmonary disease with (acute) lower respiratory infection; I25.10 Atherosclerotic heart disease of native coronary artery without angina pectoris; K21.9 Gastro-esophageal reflux disease without esophagitis; I25.5 Ischemic cardiomyopathy; K74.60 Unspecified cirrhosis of liver; E78.5 Hyperlipidemia, unspecified; I16.0 Hypertensive urgency; R91.1 Solitary pulmonary nodule; N28.1 Cyst of kidney, acquired; E87.70 Fluid overload, unspecified; D64.9 Anemia, unspecified; D75.89 Other specified diseases of blood and blood-forming organs; J84.89 Other specified interstitial pulmonary diseases; E66.9 Obesity, unspecified; R31.9 Hematuria, unspecified; E87.5 Hyperkalemia; I25.2 Old myocardial infarction; Z88.6 Allergy status to analgesic agent; Z88.1 Allergy status to other antibiotic agents; Z88.8 Allergy status to other drugs, medicaments and biological substances; Z87.891 Personal history of nicotine dependence; Z85.3 Personal history of malignant neoplasm of breast; Z68.37 Body mass index [BMI] 37.0-37.9, adult

== ENCOUNTER 2020-01-15 12:28 | Inpatient (IN) | payer MEDICARE, BC ==
[~2020-01-15] VITALS: Ht 160 cm; Wt 87.0 kg
[~2020-01-15 12:28] MED LIST changes: +TYLENOL EXTRA500 MG PO
[2020-01-15] MEDS ORDERED: IPRAT-ALBUT 0.5-3 ML INH (13:36)
[2020-01-15] MEDS ORDERED: ACIDOPHILUS1 EAC4 PO (13:36)
[2020-01-15] MEDS ORDERED: HYDROCODON-ACE1 EAC7 PO (13:36)
[2020-01-15] MEDS ORDERED: PREDNISONE 20 M20 MG PO (13:36)
[2020-01-15] MEDS ORDERED: HYDRALAZINE 10M10 MG PO (13:36)
[2020-01-15] MEDS ORDERED: EPOGEN2000 UNIT/ IVPUSH (13:36)
[2020-01-15 17:00] VITALS: BP 173/52
[2020-01-15 20:14] VITALS: BP 156/41
[2020-01-16 05:22] LABS: HEMATOCRIT 24.3 % (37.0-47.0); HEMOGLOBIN 8.5 gm/dL (12.0-15.0); MCH 36.9 pg (26.0-34.0); MCHC 35.2 g/dL (28.0-37.0); RBC 2.31 mil/uL (4.20-5.00); RDW-CV 18.6 % (10.5-14.5); WBC 6.4 thou/uL (4.0-11.0)
[2020-01-16 05:45] LABS: CALCIUM 8.5 mg/dL (8.5-10.1); CREATININE 6.1 mg/dL (0.6-1.3); POTASSIUM 4.4 mmol/L (3.5-5.1)
[2020-01-16 08:34] VITALS: BP 148/51
[2020-01-16 19:58] VITALS: BP 147/43
[2020-01-17 08:00] VITALS: BP 145/49
[2020-01-17 19:35] VITALS: BP 140/42
[2020-01-18 07:23] LABS: HEMOGLOBIN 8.9 gm/dL (12.0-15.0); MCH 36.6 pg (26.0-34.0); MCHC 34.2 g/dL (28.0-37.0); MCV 107.1 fL (80.0-100.0); MPV 9.5 fl. (7.2-11.1); RBC 2.43 mil/uL (4.20-5.00); RDW-CV 18.7 % (10.5-14.5); WBC 7.4 thou/uL (4.0-11.0)
[2020-01-18 07:32] LABS: ALBUMIN 2.7 g/dL (3.4-5.0); CALCIUM 8.9 mg/dL (8.5-10.1); POTASSIUM 4.5 mmol/L (3.5-5.1); TOTAL BILIRUBIN 1.2 mg/dL (<0.1-1.0)
[2020-01-18 07:36] LABS: CREATININE 5.1 mg/dL (0.6-1.3)
[2020-01-18 08:29] VITALS: BP 186/54
[2020-01-18 14:52] VITALS: BP 167/48
[2020-01-18 19:15] VITALS: BP 178/59
[2020-01-19 08:00] VITALS: BP 178/51
[2020-01-19 19:30] VITALS: BP 152/57
[2020-01-20 08:54] VITALS: BP 181/49
[2020-01-20 16:46] LABS: HEMATOCRIT 28.2 % (37.0-47.0); HEMOGLOBIN 9.7 gm/dL (12.0-15.0); MCH 36.8 pg (26.0-34.0); MCHC 34.4 g/dL (28.0-37.0); MCV 106.8 fL (80.0-100.0); MPV 9.2 fl. (7.2-11.1); RBC 2.64 mil/uL (4.20-5.00); RDW-CV 18.7 % (10.5-14.5); WBC 9.5 thou/uL (4.0-11.0)
[2020-01-20 17:15] LABS: ALBUMIN 3.2 g/dL (3.4-5.0); CALCIUM 8.8 mg/dL (8.5-10.1); CREATININE 4.4 mg/dL (0.6-1.3); MAGNESIUM 2.2 mg/dL (1.8-2.4); POTASSIUM 4.7 mmol/L (3.5-5.1); TOTAL BILIRUBIN 2.1 mg/dL (<0.1-1.0); TOTAL PROTEIN 6.9 g/dL (6.4-8.2)
[2020-01-20 17:30] VITALS: BP 172/55
[2020-01-20 19:50] VITALS: BP 151/49
[2020-01-20 23:40] VITALS: BP 128/38
[2020-01-21 05:48] LABS: HEMATOCRIT 23.6 % (37.0-47.0); HEMOGLOBIN 8.3 gm/dL (12.0-15.0); MCH 37.2 pg (26.0-34.0); MCV 106.4 fL (80.0-100.0); MPV 8.6 fl. (7.2-11.1); RBC 2.22 mil/uL (4.20-5.00); WBC 7.4 thou/uL (4.0-11.0)
[2020-01-21 05:56] LABS: CALCIUM 8.5 mg/dL (8.5-10.1); CREATININE 4.6 mg/dL (0.6-1.3); MAGNESIUM 2.4 mg/dL (1.8-2.4); POTASSIUM 4.5 mmol/L (3.5-5.1)
[2020-01-21 06:35] VITALS: BP 146/39
[2020-01-21 08:00] VITALS: BP 133/38
[2020-01-21 20:04] VITALS: BP 143/41
[2020-01-22 08:03] VITALS: BP 144/45
[2020-01-22 09:35] LABS: ABSOLUTE BASOPHILS 0.1 thou/uL (0.0-0.2); ABSOLUTE EOSINOPHILS 0.1 thou/uL (0.0-0.7); ABSOLUTE LYMPHOCYTES 0.8 thou/uL (0.8-5.3); ABSOLUTE MONOCYTES 1.1 thou/uL (0.0-1.2); ABSOLUTE NEUTROPHILS 5.2 thou/uL (1.6-8.1); EOSINOPHILS 1.2 %; HEMATOCRIT 25.5 % (37.0-47.0); HEMOGLOBIN 8.7 gm/dL (12.0-15.0); LYMPHOCYTES 11.5 %; MCH 36.7 pg (26.0-34.0); MCHC 33.9 g/dL (28.0-37.0); MCV 108.2 fL (80.0-100.0); MONOCYTES 14.6 %; MPV 8.6 fl. (7.2-11.1); NUCLEATED RBCS 0 /100WBC; PLATELET COUNT* 102 thou/uL (150-400); POLYS 71.7 %; RBC 2.36 mil/uL (4.20-5.00); RDW-CV 19.1 % (10.5-14.5); WBC 7.3 thou/uL (4.0-11.0)
[2020-01-22 09:53] LABS: ALBUMIN 2.6 g/dL (3.4-5.0); CALCIUM 8.4 mg/dL (8.5-10.1); CREATININE 3.9 mg/dL (0.6-1.3); POTASSIUM 3.8 mmol/L (3.5-5.1); TOTAL BILIRUBIN 1.5 mg/dL (<0.1-1.0)
[2020-01-22 20:00] VITALS: BP 143/49
[2020-01-23 00:32] VITALS: BP 125/33
[2020-01-23 06:17] VITALS: BP 133/41
[2020-01-23 08:15] VITALS: BP 147/41
[2020-01-23 20:00] VITALS: BP 116/34
[2020-01-23 23:25] VITALS: BP 114/34
[2020-01-24 06:32] VITALS: BP 164/55
[2020-01-24 07:30] VITALS: BP 155/51
[2020-01-24 20:00] VITALS: BP 140/39
[2020-01-24 23:52] VITALS: BP 135/40
[2020-01-25 06:11] VITALS: BP 152/50
[2020-01-25 08:24] LABS: CALCIUM 8.5 mg/dL (8.5-10.1)
[2020-01-25 08:25] LABS: CREATININE 4.9 mg/dL (0.6-1.3)
[2020-01-25 09:00] VITALS: BP 139/48
[2020-01-25 17:55] VITALS: BP 167/50
[2020-01-25 20:00] VITALS: BP 146/50
[2020-01-25 23:37] VITALS: BP 155/48
[2020-01-26 09:38] VITALS: BP 127/42
[2020-01-26 12:10] VITALS: BP 184/46
[2020-01-26 19:10] VITALS: BP 145/49
[2020-01-26 23:32] VITALS: BP 127/44
[2020-01-27 05:24] VITALS: BP 137/54
[2020-01-27 08:00] VITALS: BP 137/51
[2020-01-27 09:36] LABS: CALCIUM 8.5 mg/dL (8.5-10.1); MAGNESIUM 2.1 mg/dL (1.8-2.4); POTASSIUM 3.9 mmol/L (3.5-5.1)
[2020-01-27 09:37] LABS: CREATININE 3.7 mg/dL (0.6-1.3)
[2020-01-27 09:39] LABS: HEMATOCRIT 25.4 % (37.0-47.0); HEMOGLOBIN 8.6 gm/dL (12.0-15.0); MCH 36.7 pg (26.0-34.0); MCHC 33.8 g/dL (28.0-37.0); MCV 108.8 fL (80.0-100.0); MPV 8.6 fl. (7.2-11.1); RBC 2.33 mil/uL (4.20-5.00); RDW-CV 18.6 % (10.5-14.5); WBC 4.8 thou/uL (4.0-11.0)
[2020-01-27 17:30] VITALS: BP 154/52
[2020-01-27 20:00] VITALS: BP 141/51
[2020-01-28 08:00] VITALS: BP 148/50
[2020-01-28 20:00] VITALS: BP 131/44
[2020-01-29 08:00] VITALS: BP 121/46
[2020-01-29 10:28] VITALS: BP 131/44
[2020-01-29] MEDS ORDERED: COLACE100 MG PO (10:39)
[2020-01-29 10:46] VITALS: BP 131/44
== END 2020-01-29 15:29 | disposition home health service (06) | DRG 947 ==
LOC: M.REH 12:28
PROVIDERS: Internal Medicine; Nurse Practitioner; ADMIT Physical Medicine & Rehabilitation
PROC: 5A1D70Z Performance of Urinary Filtration, Intermittent, Less than 6 Hours Per Day (ICD-10-PCS; principal; 2020-01-17)
PROC: 5A1D70Z Performance of Urinary Filtration, Intermittent, Less than 6 Hours Per Day (ICD-10-PCS; 2020-01-19)
PROC: 5A1D70Z Performance of Urinary Filtration, Intermittent, Less than 6 Hours Per Day (ICD-10-PCS; 2020-01-21)
PROC: 5A1D70Z Performance of Urinary Filtration, Intermittent, Less than 6 Hours Per Day (ICD-10-PCS; 2020-01-26)
DX: R53.81 Other malaise (principal); J96.21 Acute and chronic respiratory failure with hypoxia; I50.33 Acute on chronic diastolic (congestive) heart failure; N17.0 Acute kidney failure with tubular necrosis; J15.6 Pneumonia due to other Gram-negative bacteria; J44.1 Chronic obstructive pulmonary disease with (acute) exacerbation; I13.0 Hypertensive heart and chronic kidney disease with heart failure and stage 1 through stage 4 chronic kidney disease, or unspecified chronic kidney disease; E44.0 Moderate protein-calorie malnutrition; N18.4 Chronic kidney disease, stage 4 (severe); E03.9 Hypothyroidism, unspecified; I25.10 Atherosclerotic heart disease of native coronary artery without angina pectoris; K21.9 Gastro-esophageal reflux disease without esophagitis; D63.1 Anemia in chronic kidney disease; E78.2 Mixed hyperlipidemia; E66.9 Obesity, unspecified; Z87.440 Personal history of urinary (tract) infections; Z85.3 Personal history of malignant neoplasm of breast; Z95.5 Presence of coronary angioplasty implant and graft; I25.2 Old myocardial infarction; Z88.1 Allergy status to other antibiotic agents; Z88.8 Allergy status to other drugs, medicaments and biological substances; Z68.34 Body mass index [BMI] 34.0-34.9, adult; Z82.49 Family history of ischemic heart disease and other diseases of the circulatory system; Z80.0 Family history of malignant neoplasm of digestive organs; Z99.2 Dependence on renal dialysis

== ENCOUNTER 2020-06-03 15:41 | Inpatient (IN) | payer MEDICARE, BC ==
[~2020-06-03] VITALS: Ht 160 cm; Wt 84.8 kg
[2020-06-03 15:41] VITALS: BP 127/69
[~2020-06-03 15:41] MED LIST changes: +ACIDOPHILUS1 EAC4 PO; +EPOGEN2000 UNIT/ IVPUSH; +HYDRALAZINE 10M10 MG PO; +IPRAT-ALBUT 0.5-3 ML INH
[2020-06-03] MEDS ORDERED: MIDODRINE HCL10 MG PO (15:48)
[2020-06-03] MEDS ORDERED: NEPHRO-VITE RX1 TA1 PO (15:49)
[2020-06-03] MEDS ORDERED: PRESERVISION A1 EAC2 PO ×2 (15:50→17:48)
[2020-06-03 16:11] LABS: ABSOLUTE BASOPHILS 0.1 thou/uL (0.0-0.2); ABSOLUTE EOSINOPHILS 0.3 thou/uL (0.0-0.7); ABSOLUTE MONOCYTES 0.9 thou/uL (0.0-1.2); ABSOLUTE NEUTROPHILS 3.6 thou/uL (1.6-8.1); BASOPHILS 1.6 %; EOSINOPHILS 4.3 %; HEMATOCRIT 34.9 % (37.0-47.0); HEMOGLOBIN 12.4 gm/dL (12.0-15.0); LYMPHOCYTES 17.2 %; MCH 38.6 pg (26.0-34.0); MCHC 35.6 g/dL (28.0-37.0); MCV 108.5 fL (80.0-100.0); MONOCYTES 15.3 %; MPV 8.3 fl. (7.2-11.1); NUCLEATED RBCS 0 /100WBC; PLATELET COUNT* 146 thou/uL (150-400); POLYS 61.6 %; RBC 3.22 mil/uL (4.20-5.00); RDW-CV 14.7 % (10.5-14.5); WBC 5.8 thou/uL (4.0-11.0)
[2020-06-03 16:22] LABS: CALCIUM 9.6 mg/dL (8.5-10.1); CREATININE 7.9 mg/dL (0.6-1.3); POTASSIUM 4.1 mmol/L (3.5-5.1)
[2020-06-03 16:30] LABS: ALBUMIN 2.8 g/dL (3.4-5.0); MAGNESIUM 2.9 mg/dL (1.8-2.4); TOTAL BILIRUBIN 0.8 mg/dL (<0.1-1.0); TOTAL PROTEIN 7.2 g/dL (6.4-8.2)
--- NOTE | 2020-06-03 17:00 | EKG ---
[place] [address] ELECTROCARDIOGRAM REPORT Name: GABINO INIGUEZ Room: [facility]#: [id number] Admission: 06/03/20 Attend Phys: Discharge: Date of : 40 Date of Service: 06/03/20 1543 Report #: [id number] THIS REPORT FOR: //name// [facility] ED Test Date: 2020-06-03 Test Time: 15:43:52 Pat Name: GABINO INIGUEZ Department: Room: Gender: F Retirement Plan Counselor: : 1940 Requested By: Dale Cornelius Order Number: [id number] MD: Efren Sloan Measurements Intervals [place] Rate: 125 P: MA: QRS: 3 QRSD: 111 T: 87 QT: 332 QTc: 479 Interpretive Statements Atrial fibrillation Abnormal R-wave progression, late transition Baseline wander in lead(s) II,III,aVF Compared to ECG 01/03/2020 00:09:40 Sinus rhythm no longer present Electronically Signed On 06-03-2020 16:59:56 CDT by Efren Sloan [email or web address] <ELECTRONICALLY SIGNED> By: Efren Sloan MD, FACC 06/03/20 1659 1543 1543 Efren Sloan MD, [facility] /EPI
[2020-06-03 18:00] VITALS: BP 100/50
[2020-06-03 18:20] VITALS: BP 115/64
[2020-06-03 20:00] VITALS: BP 98/53
[2020-06-04] VITALS: BP 91/59
[2020-06-04 04:00] VITALS: BP 106/78
[2020-06-04 04:36] LABS: HEMATOCRIT 29.5 % (37.0-47.0); HEMOGLOBIN 10.5 gm/dL (12.0-15.0); MCH 38.8 pg (26.0-34.0); MCHC 35.7 g/dL (28.0-37.0); MCV 108.7 fL (80.0-100.0); RBC 2.72 mil/uL (4.20-5.00); RDW-CV 15.2 % (10.5-14.5); WBC 5.3 thou/uL (4.0-11.0)
[2020-06-04 04:55] LABS: CALCIUM 9.1 mg/dL (8.5-10.1); CREATININE 8.4 mg/dL (0.6-1.3); MAGNESIUM 2.9 mg/dL (1.8-2.4); POTASSIUM 4.1 mmol/L (3.5-5.1)
[2020-06-04 08:00] VITALS: BP 121/64
--- NOTE | 2020-06-04 12:00 | CON ---
[address] [address] CONSULTATION Name: GABINO INIGUEZ Room: [address] IN M.R.#: [id number] Admission: 06/03/20 Attend Phys: Bob Carrillo MD Discharge: Date of : 40 Report #: [id number] THIS REPORT FOR: //name// cc: Tres Zuniga Gregg R. DO THIS REPORT FOR: //name// CC: Tres Kinsey DATE OF SERVICE: 06/04/2020 CARDIOLOGY CONSULTATION HISTORY OF PRESENT ILLNESS: The patient is an 80-year-old single white female who I was asked to see in the hospital today after she had an episode of atrial fibrillation. The patient has an extensive and complicated past medical history. She has had multiple stents in the past, apparently totaling 7. She states her first stent was at [facility] back in 2006. After that time. She has had stents placed in [place]. Her last stent was placed here at [place] little over a year ago. She is not very active at this time. She has been followed by my partner, Dr. Valle. She apparently was admitted to [place] in December with swelling. She was noted to have end-stage renal disease. A temporary dialysis catheter was placed. She is now on dialysis Saturday, Saturday and Saturday. She went to dialysis yesterday. She had felt weak and somewhat short of breath lately. She was noted to be in rapid atrial fibrillation. She was sent to the hospital and admitted. She was started on IV Cardizem. I was asked to see her for further evaluation and treatment. She denies any recent fever, cough, swelling, chest pain. She has felt somewhat weak, but no syncope. PAST MEDICAL HISTORY: She has had previous mastectomy for breast cancer. She has had tonsillectomy. She previously had a history of high blood pressure, is on Coreg, but after being placed on dialysis, she now has low blood pressure and is no longer taking Coreg. She does take lovastatin and aspirin a day. She was on Brilinta, but this was discontinued last year. ALLERGIES: SHE HAS AN INTOLERANCE TO AMOXICILLIN. FAMILY HISTORY: Mother had congestive heart failure. SOCIAL HISTORY: She is single, lives in [place]. She quit smoking years ago. No alcohol abuse. She uses a walker occasionally. REVIEW OF SYSTEMS: There is no history of stroke, asthma, [place] [address] CONSULTATION Name: GABINO INIGUEZ Room: [address] IN [facility].#: [id number] Admission: 06/03/20 Attend Phys: Bob Carrillo MD Discharge: Date of : 40 Report #: [id number] apparently was told she had cirrhosis in the past. No chronic skin condition. No psychiatric illness. PHYSICAL EXAMINATION: GENERAL: Revealed an elderly female lying in bed. She appeared in no distress. VITAL SIGNS: Her blood pressure 100/60, pulse is 100 and irregular. She is afebrile. HEENT: She was anicteric. Conjunctivae pink. Mucous membranes moist. NECK: Veins do not appear distended. Right carotid bruit was noted. CHEST: Clear to auscultation. NECK: Supple. CARDIOVASCULAR: Irregular rhythm, grade 2 holosystolic murmur at the apex. ABDOMEN: Soft. EXTREMITIES: Had no pitting edema. SKIN: Cool and dry. NEUROLOGIC: Nonfocal. Her ECG on admission showed atrial fibrillation with an increased ventricular response rate. No significant ST or T-wave changes. After being placed on diltiazem, the patient did have a couple of sinus beats. Her workup, she had an echocardiogram done in December that showed evidence of a hypertrophic cardiomyopathy with septal hypertrophy and outflow tract gradient of 40 mmHg. Ejection fraction of 55%, left atrial enlargement, aortic sclerosis, mild mitral regurgitation. Her x-ray in the Emergency Room last night showed normal heart size, clear lung espinal. LABORATORY DATA: Sodium 136, BUN 54, creatinine 8.4. Liver function studies were normal. Her troponin 0.06. BNP 2495. TSH 1.2. Her white blood cell count 5.3; hemoglobin was 10.5, it was actually 6.3 in December. IMPRESSION AND RECOMMENDATIONS: 1. Atrial fibrillation. I would consider starting amiodarone in an effort to convert the patient. I would recommend anticoagulation with Eliquis. 2. End-stage renal disease. The patient is on hemodialysis. 3. Coronary artery disease. Previous stents. Recommend aspirin. 4. Previous tobacco abuse. 5. History of cirrhosis. 6. Anemia. No history of bleeding. 7. Carotid bruit. The patient followed by Vascular Surgery. <ELECTRONICALLY SIGNED> By: Efren Sloan MD, FACC 06/04/20 1200 0826 [id number] alberto Sloan MD, FACC /nt
[2020-06-04 13:05] VITALS: BP 121/46
[2020-06-04 17:58] VITALS: BP 109/42
[2020-06-04 21:00] VITALS: BP 103/58
[2020-06-05] VITALS: BP 98/47
[2020-06-05 04:00] VITALS: BP 125/59
[2020-06-05 04:41] LABS: HEMATOCRIT 29.5 % (37.0-47.0); HEMOGLOBIN 10.4 gm/dL (12.0-15.0); MCH 38.5 pg (26.0-34.0); MCHC 35.2 g/dL (28.0-37.0); MCV 109.2 fL (80.0-100.0); RBC 2.7 mil/uL (4.20-5.00); RDW-CV 14.9 % (10.5-14.5); WBC 5.5 thou/uL (4.0-11.0)
[2020-06-05 04:50] LABS: CALCIUM 8.7 mg/dL (8.5-10.1); MAGNESIUM 2.1 mg/dL (1.8-2.4); POTASSIUM 4.2 mmol/L (3.5-5.1)
[2020-06-05 04:51] LABS: CREATININE 5.3 mg/dL (0.6-1.3)
[2020-06-05 07:35] VITALS: BP 128/45
[2020-06-05 11:53] VITALS: BP 118/49
[2020-06-05 16:06] VITALS: BP 120/42
[2020-06-05 20:24] VITALS: BP 140/53
[2020-06-06] VITALS: BP 125/51
[2020-06-06 04:00] VITALS: BP 132/46
[2020-06-06 05:13] LABS: HEMATOCRIT 28.8 % (37.0-47.0); HEMOGLOBIN 10.3 gm/dL (12.0-15.0); MCHC 35.8 g/dL (28.0-37.0); MCV 108.8 fL (80.0-100.0); MPV 8.9 fl. (7.2-11.1); RBC 2.65 mil/uL (4.20-5.00); RDW-CV 14.6 % (10.5-14.5); WBC 5.1 thou/uL (4.0-11.0)
[2020-06-06 05:35] LABS: ANION GAP 6 mmol/L (7-16); BUN 50 mg/dL (7-18); CALCIUM 9.2 mg/dL (8.5-10.1); CHLORIDE 100 mmol/L (98-107); CHOLESTEROL 108 mg/dL (<200); CO2 30 mmol/L (21-32); GLUCOSE 96 mg/dL (70-99); HDL CHOLESTEROL 40 mg/dL (>40); LDL CHOLESTEROL 55 mg/dL (<100); MAGNESIUM 2.9 mg/dL (1.8-2.4); POTASSIUM 4.7 mmol/L (3.5-5.1); SODIUM 136 mmol/L (136-145); TC:HDL 2.7 Ratio (Not establshd); TRIGLYCERIDE 67 mg/dL (<150); VLDL 13 mg/dL (<40)
[2020-06-06 05:53] LABS: CREATININE 7.1 mg/dL (0.6-1.3)
[2020-06-06 06:08] LABS: SERUM ASSESSMENT CLEAR
[2020-06-06 08:02] VITALS: BP 130/32
--- NOTE | 2020-06-06 09:46 | EKG ---
[place] [address] ELECTROCARDIOGRAM REPORT Name: GABINO INIGUEZ Room: [address] ADM IN M.R.#: [id number] Admission: 06/03/20 Attend Phys: Bob Carrillo, Discharge: Date of : 40 Date of Service: 06/06/20 0858 Report #: [id number] THIS REPORT FOR: //name// [facility] Test Date: 2020-06-06 Test Time: 08:58:17 Pat Name: GABINO INIGUEZ Department: Room: [address] Gender: F Hat Marker: : 1940 Requested By: Efren Sloan Order Number: [id number] Reading MD: Efren Sloan Measurements Intervals [place] Rate: 69 P: 64 RI: 214 QRS: -20 QRSD: 121 T: 56 QT: 468 QTc: 502 Interpretive Statements sinus arrhthmia Borderline prolonged RI interval Nonspecific intraventricular conduction delay Compared to ECG 06/03/2020 15:43:52 Atrial fibrillation no longer present Electronically Signed On 06-06-2020 9:45:56 CDT by Efren Sloan [email or web address] <ELECTRONICALLY SIGNED> By: Efren Sloan MD, FAC 06/06/20 0945 Efren Sloan MD, [facility] /EPI
[2020-06-06] MEDS ORDERED: ELIQUIS5 MG PO (09:55)
[2020-06-06] MEDS ORDERED: PACERONE 200 M200 M1 PO (09:55)
[2020-06-06 11:48] VITALS: BP 128/41
[2020-06-06 12:36] VITALS: BP 114/40
--- NOTE | 2020-06-08 09:54 | CON ---
[address] [address] CONSULTATION Name: GABINO INIGUEZ Room: [address] IN M.R.#: [id number] Admission: 06/03/20 Attend Phys: Bob Carrillo MD Discharge: 06/06/20 Date of : 40 Report #: [id number] THIS REPORT FOR: //name// cc: Tres Zuniga Gregg R. DO ~ THIS REPORT FOR: //name// CC: Tres Carrillo DATE OF SERVICE: 06/04/2020 NEPHROLOGY CONSULTATION CONSULTING PHYSICIAN: Bob Carrillo MD REASON FOR NEPHROLOGY CONSULTATION: ESRD, assistance in providing dialysis. REASON FOR ADMISSION: Chest pain. HISTORY OF PRESENT ILLNESS: This is an 80-year-old female who was brought in from the Dialysis Facility yesterday when she went into tachycardia and this was noticed to have rapid irregular rhythm just prior to starting dialysis. She had a heart rate of about 140s and she has no history of atrial fibrillation. In the ER, her heart rate went from 140s to low 50s and primary team entertained the possibility of possibly sick sinus syndrome. She has a right IJ tunneled dialysis catheter right now. She did have chest pain associated with tachycardia and that has resolved. It resolved even prior to coming to the hospital. She is comfortable right now. ALLERGIES: IBUPROFEN, CEFUROXIME AND AMOXICILLIN. REVIEW OF SYSTEMS: As mentioned in history of present illness, otherwise 10-point review of systems done, negative. HOME MEDICATIONS: Include ipratropium/albuterol, lactobacillus, Epogen, hydralazine, hydrocodone and gabapentin, loratadine. Lovastatin, levothyroxine, aspirin 81, midodrine, folic acid, vitamin C, PreserVision drops. PAST MEDICAL AND SURGICAL HISTORY: Includes coronary artery disease, GA x 4, stents x 7, scarlet fever, tonsillectomy, adenoidectomy, diastolic congestive heart failure, GERD, ESRD, hypertension, COPD, elevated cholesterol, macular degeneration of left eye, pleural effusion, history of frequent UTIs and hypertrophic obstructive cardiomyopathy, lumpectomy with lymph node removal, [place] [address] CONSULTATION Name: GABINO INIGUEZ Room: [address] IN [facility].#: [id number] Admission: 06/03/20 Attend Phys: Bob Carrillo MD Discharge: 06/06/20 Date of : 40 Report #: [id number] ischemic cardiomyopathy, chronic diastolic congestive heart failure as mentioned above. FAMILY HISTORY: Nonsignificant in this 80-year-old female. SOCIAL HISTORY: She does not drink alcohol or use illicit drugs or smoke. PHYSICAL EXAMINATION: VITAL SIGNS: Blood pressure is 106/78, respiratory rate is 18, pulse rate is 113, temperature 36.6, and pulse ox 97% on 2 liters of oxygen by nasal cannula. GENERAL: She is awake, alert, oriented x 3. HEAD AND EYES: Atraumatic and normocephalic. Conjunctivae normal. EARS, NOSE, AND THROAT: Normal ears and nose. Mucous membranes are moist. NECK: No JVD. CHEST: Bilaterally diminished breath sounds anteriorly. No crackles or wheezing heard. CARDIOVASCULAR: S1, S2 normal. No murmurs noted. ABDOMEN: Soft, nondistended, nontender. Bowel sounds are present. EXTREMITIES: Lower extremities, there is no lower extremity edema. DIALYSIS ACCESS: Right IJ tunneled dialysis catheter is intact. PSYCHOLOGIC: Mood and affect seems to be normal. NEUROLOGIC: Grossly intact. LABORATORY DATA: WBC is 5.3, hemoglobin is 10.5 and platelet count is 120. Sodium was 136, potassium is 4.1, BUN was 54. Magnesium is 2.9. Other labs are reviewed. IMAGING: Chest x-ray was reviewed. ASSESSMENT: 1. End-stage renal disease, on hemodialysis Saturday, Saturday and Saturday, missed her dialysis yesterday because of tachycardia and chest pain. 2. Chest pain, likely in association with atrial fibrillation with rapid ventricular response, new-onset atrial fibrillation. Cardiology has been consulted. 3. Possible sick sinus syndrome, tachybrady syndrome. 4. Coronary artery disease. 5. Chronic obstructive pulmonary disease. 6. Hypermagnesemia. 7. Chronic diastolic congestive heart failure. 8. Anemia of chronic kidney disease. PLAN: 1. Her magnesium is 2.9. Avoid all magnesium-containing compounds. 2. Cardiology to evaluate her for new-onset AFib. 3. Her hemoglobin is currently at goal 10.5. No need for Epogen. [address] [place] [address] CONSULTATION Name: GABINO INIGUEZ Room: [address] IN ..#: [id number] Admission: 06/03/20 Attend Phys: Bob Carrillo MD Discharge: 06/06/20 Date of : 40 Report #: [id number] 4. She will be dialyzed today because she missed her dialysis yesterday. Thank you for this consultation. We will continue to follow her for dialysis needs. <ELECTRONICALLY SIGNED> By: Supriya Metcalf MD 06/08/20 0954 0801 [id number] Metcalf MD /nt
== END 2020-06-06 16:48 | disposition home or self-care (01) | DRG 308 ==
LOC: M.ERS 15:41 → M.2W 17:21 → M.TBA-ER 17:21 → M.2W 18:10
PROVIDERS: Emergency Medicine Emergency Medical Services; ADMIT Internal Medicine; ATTEND Internal Medicine
PROC: 5A1D70Z Performance of Urinary Filtration, Intermittent, Less than 6 Hours Per Day (ICD-10-PCS; principal; 2020-06-04)
PROC: 5A1D70Z Performance of Urinary Filtration, Intermittent, Less than 6 Hours Per Day (ICD-10-PCS; 2020-06-06)
DX: I49.5 Sick sinus syndrome (principal); N18.6 End stage renal disease; I48.20 Chronic atrial fibrillation, unspecified; I25.110 Atherosclerotic heart disease of native coronary artery with unstable angina pectoris; I50.32 Chronic diastolic (congestive) heart failure; I13.2 Hypertensive heart and chronic kidney disease with heart failure and with stage 5 chronic kidney disease, or end stage renal disease; E44.0 Moderate protein-calorie malnutrition; J44.9 Chronic obstructive pulmonary disease, unspecified; K21.9 Gastro-esophageal reflux disease without esophagitis; E78.00 Pure hypercholesterolemia, unspecified; E83.41 Hypermagnesemia; D63.1 Anemia in chronic kidney disease; R09.89 Other specified symptoms and signs involving the circulatory and respiratory systems; I95.9 Hypotension, unspecified; Z20.828 Contact with and (suspected) exposure to other viral communicable diseases; Z85.3 Personal history of malignant neoplasm of breast; Z68.33 Body mass index [BMI] 33.0-33.9, adult; Z95.5 Presence of coronary angioplasty implant and graft; I25.2 Old myocardial infarction; Z99.2 Dependence on renal dialysis; Z88.1 Allergy status to other antibiotic agents; Z88.8 Allergy status to other drugs, medicaments and biological substances; Z87.891 Personal history of nicotine dependence; Z79.82 Long term (current) use of aspirin; Z79.899 Other long term (current) drug therapy; Z23 Encounter for immunization

== ENCOUNTER 2020-08-13 08:55 | Inpatient (IN) | payer MEDICARE, BC ==
[~2020-08-13] VITALS: Ht 160 cm; Wt 87.0 kg
--- NOTE | ~2020-08-13 | PROC ---
[address] [address] PROCEDURE REPORT Name: GABINO INIGUEZ Room: [address] ADM IN M.R.#: [id number] Admission: 08/13/20 Attend Phys: Alexa Khan Discharge: Date of : 40 Report #: [id number] THIS REPORT FOR: cc: Tres Zuniga Gregg R. DO ~ [facility],Medical Records Staff For GI report, please see the Provation report in Perceptive 7 content. By: 1454Medical Records Staff [facility] /CHRISTIAN
[~2020-08-13 08:55] MED LIST changes: +ELIQUIS5 MG PO; +MIDODRINE HCL10 MG PO; +NEPHRO-VITE RX1 TA1 PO; +PACERONE 200 M200 M1 PO
[2020-08-13 09:04] VITALS: BP 133/30
[2020-08-13] MEDS ORDERED: RENA-VITE RX T1 EACH PO (09:07)
[2020-08-13] MEDS ORDERED: DIGESTIVE ADVA PO (09:08)
[2020-08-13] MEDS ORDERED: ROPINIROLE HCL0.5 MG PO (09:09)
[2020-08-13 09:49] LABS: ABSOLUTE EOSINOPHILS 0.2 thou/uL (0.0-0.7); ABSOLUTE NEUTROPHILS 3.5 thou/uL (1.6-8.1); EOSINOPHILS 3.5 %; HEMOGLOBIN 7.4 gm/dL (12.0-15.0); MCHC 33.4 g/dL (28.0-37.0); NUCLEATED RBCS 0 /100WBC; RBC 1.93 mil/uL (4.20-5.00)
[2020-08-13 09:53] LABS: APTT 30.4 Seconds (25.0-31.3); INR 1.3; PROTIME 13.8 Seconds (9.20-11.50)
[2020-08-13 09:55] LABS: CALCIUM 8.1 mg/dL (8.5-10.1); CREATININE 6.4 mg/dL (0.6-1.3); POTASSIUM 4.3 mmol/L (3.5-5.1)
[2020-08-13 10:03] LABS: BASOPHILS 0.7 %; HEMATOCRIT 22.3 % (37.0-47.0); MCH 38.5 pg (26.0-34.0); MCV 115.2 fL (80.0-100.0); MPV 9.1 fl. (7.2-11.1); PLATELET COUNT* 134 thou/uL (150-400); POLYS 60.8 %; RDW-CV 16.5 % (10.5-14.5); WBC 5.8 thou/uL (4.0-11.0)
[2020-08-13 10:09] LABS: MAGNESIUM 2.3 mg/dL (1.8-2.4); TOTAL BILIRUBIN 0.8 mg/dL (<0.1-1.0); TOTAL PROTEIN 5.6 g/dL (6.4-8.2)
[2020-08-13 11:29] LABS: MACROCYTES 3+; TOXIC GRANULATION 1+
[2020-08-13 11:30] LABS: ANISOCYTOSIS 1+
[2020-08-13 11:31] LABS: PLATELET ESTIMATE DECREASED
[2020-08-13 11:47] VITALS: BP 113/33
[2020-08-13 11:55] VITALS: BP 124/36
[2020-08-13] MEDS ORDERED: AMIODARONE HCL400 MG PO (13:43)
[2020-08-13] MEDS ORDERED: PACERONE200 MG PO (13:44)
[2020-08-13 14:37] LABS: CALCIUM 8.6 mg/dL (8.5-10.1); CREATININE 6.8 mg/dL (0.6-1.3); PHOSPHORUS* 4.7 mg/dL (2.5-4.9); POTASSIUM 3.8 mmol/L (3.5-5.1)
[2020-08-13 16:00] VITALS: BP 112/43
--- NOTE | 2020-08-13 18:10 | NUR ---
PT ADMITTED TO ROOM 210 AT APPROX 1155, REPORT RECEIVED FROM MARY KEATING. PT STATES SHE HAS BEEN HAVING CHEST PAIN BUT CURRENTLY DOESN'T HAVE ANY. PT ALSO STATES SHE HAS BEEN FEELING MORE WEAK ON FEET AT HOME SO WALKER BROUGHT INTO ROOM. NEPHRO CONSULT IN PLACE AND THEY WILL BE HERE TO SEE PT TOMORROW. PT DAUGHTER IN ROOM AND UPDATED ON POC. ADMISSION ASSESSMENT AND HX COMPLETED CHARTED, HOME MEDS RECONCILED, PT ORIENTED TO ROOM AND CALL LIGHT. PT GOAL IS TO REMAIN FREE FROM CHEST PAIN. HOURLY ROUNDING OBSERVED, FALL PRECAUTIONS IN PLACE, CALL LIGHT W/IN REACH.
[2020-08-13 20:00] VITALS: BP 145/81
[2020-08-14] VITALS (7 sets, daily range): BP systolic 98–139; BP diastolic 28–95
[2020-08-14 03:42] LABS: ABSOLUTE EOSINOPHILS 0.3 thou/uL (0.0-0.7); ABSOLUTE LYMPHOCYTES 1.2 thou/uL (0.8-5.3); ABSOLUTE MONOCYTES 0.9 thou/uL (0.0-1.2); ABSOLUTE NEUTROPHILS 3.2 thou/uL (1.6-8.1); BASOPHILS 0.8 %; LYMPHOCYTES 21.2 %; MCH 38.7 pg (26.0-34.0); MCHC 33.9 g/dL (28.0-37.0); MCV 114.2 fL (80.0-100.0); MONOCYTES 15.8 %; MPV 8.5 fl. (7.2-11.1); NUCLEATED RBCS 0 /100WBC; PLATELET COUNT* 111 thou/uL (150-400); POLYS 57.2 %; RBC 1.61 mil/uL (4.20-5.00); WBC 5.6 thou/uL (4.0-11.0)
[2020-08-14 04:09] LABS: ALBUMIN 1.7 g/dL (3.4-5.0); CALCIUM 7.6 mg/dL (8.5-10.1); POTASSIUM 3.7 mmol/L (3.5-5.1); TOTAL BILIRUBIN 0.8 mg/dL (<0.1-1.0); TOTAL PROTEIN 4.9 g/dL (6.4-8.2)
[2020-08-14 04:10] LABS: CREATININE 7.9 mg/dL (0.6-1.3)
[2020-08-14 05:56] LABS: HEMATOCRIT 18.3 % (37.0-47.0); HEMOGLOBIN 6.2 gm/dL (12.0-15.0)
[2020-08-14 08:18] LABS: ANISOCYTOSIS Occasional; MACROCYTES 2+; PLATELET ESTIMATE DECREASED
--- NOTE | 2020-08-14 14:05 | EKG ---
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 : 1940 Requested By: Óscar Rousseau Order Number: [id number] MD: Thony Hawthorne Measurements Intervals [place] Rate: 66 P: -6 MS: 200 QRS: 50 QRSD: 116 T: -8 QT: 472 QTc: 495 Interpretive Statements Sinus rhythm Nonspecific intraventricular conduction delay Minimal ST elevation, lateral leads Baseline wander in lead(s) I,III,aVR,aVL,aVF Compared to ECG 06/06/2020 08:58:17 ST (T wave) deviation now present Electronically Signed On 08-14-2020 14:05:35 ACTUARIAL INTERN by Thony Hawthorne [email or web address] <ELECTRONICALLY SIGNED> By: Georgette Hawthorne MD, [facility] 08/14/20 1405 8 8 Georgette Hawthorne MD, [facility] /EPI
[2020-08-14 16:08] LABS: HEMATOCRIT 22.3 % (37.0-47.0); HEMOGLOBIN 7.5 gm/dL (12.0-15.0)
--- NOTE | 2020-08-14 18:47 | NUR ---
ASSUMED PT CARE AT 0730, PT AOX4, NO C/O SHORTNESS OF BREATH BUT C/O HEADACHE THIS MORNING TREATED W/ PRN TYLENOL W/ RELIEF. PT DAUGHTER IN ROOM THIS MORNING AND UPDATED ON POC. PT HGB 6.2, NOTIFIED AND ORDERS RECEIVED FOR 1 UNIT BLOOD. BLOOD GIVEN. PT GOAL IS TO CONTINUE TO IMPROVE HGB AND INCREASE ACTIVITY. AM ASSESSMENT CHARTED, MEDS PER MAR, HOURLY ROUNDING OBSERVED, FALLL PRECAUTIONS IN PLACE, CALL LIGHT W/IN REACH.
[2020-08-15] VITALS: BP 120/38
[2020-08-15 04:00] VITALS: BP 120/36
[2020-08-15 04:22] LABS: ABSOLUTE EOSINOPHILS 0.3 thou/uL (0.0-0.7); ABSOLUTE LYMPHOCYTES 1.7 thou/uL (0.8-5.3); ABSOLUTE MONOCYTES 1.1 thou/uL (0.0-1.2); ABSOLUTE NEUTROPHILS 3.8 thou/uL (1.6-8.1); BASOPHILS 0.5 %; EOSINOPHILS 4.2 %; HEMATOCRIT 21.2 % (37.0-47.0); HEMOGLOBIN 7.2 gm/dL (12.0-15.0); LYMPHOCYTES 24.3 %; MCH 36.4 pg (26.0-34.0); MONOCYTES 16.4 %; MPV 9.1 fl. (7.2-11.1); NUCLEATED RBCS 0 /100WBC; PLATELET COUNT* 118 thou/uL (150-400); POLYS 54.6 %; RBC 1.98 mil/uL (4.20-5.00); RDW-CV 20.6 % (10.5-14.5)
[2020-08-15 04:29] LABS: MCV 107.2 fL (80.0-100.0)
[2020-08-15 04:53] LABS: ALBUMIN 1.8 g/dL (3.4-5.0); CALCIUM 8.2 mg/dL (8.5-10.1); POTASSIUM 4.6 mmol/L (3.5-5.1); TOTAL PROTEIN 4.8 g/dL (6.4-8.2)
[2020-08-15 04:56] LABS: CREATININE 10.5 mg/dL (0.6-1.3)
[2020-08-15 04:58] LABS: CALCIUM 8.2 mg/dL (8.5-10.1); CREATININE 10.5 mg/dL (0.6-1.3); POTASSIUM 4.6 mmol/L (3.5-5.1)
[2020-08-15 04:59] LABS: ALBUMIN 1.8 g/dL (3.4-5.0)
[2020-08-15 05:21] LABS: PHOSPHORUS* 6.5 mg/dL (2.5-4.9)
[2020-08-15 08:00] VITALS: BP 113/30
--- NOTE | 2020-08-15 13:27 | NUR ---
Pt is A&O. Resides at home alone. Independent. Pt uses a walker for mobility. Pt is current at [facility] BS on a MWF 3rd shift scheduled, CM spoke with Charlene at [facility] to inform of hospitalization. Hx of [place] . Hx of ARU. Pt to have dialysis today. Pt's goal is to return home at dc, CM to follow for dc needs. Pt to have stress today. Anticipate dc in a few days.
--- NOTE | 2020-08-15 16:16 | 2DMMODE ---
[place] [address] 2 D/M-MODE ECHOCARDIOGRAM Name: GABINO INIGUEZ Room: [address] IN [facility]#: [id number] Admission: 08/13/20 Attend Phys: Edvin Leon Discharge: Date of : 40 Date of Service: 08/15/20 1615 Report #: [id number] THIS REPORT FOR: cc: Tres Zuniga,Tres Ross,Luis Ceron MD [facility] ~ APPROVED REPORT Study performed: 08/15/2020 14:42:07 EXAM: Comprehensive 2D, Doppler, and color-flow Echocardiogram Patient Location: In-Patient Room #: 210 BSA: 1.91 HR: 53 bpm BP: 113/30 mmHg Other Information Study Quality: Good Indications Chest Pain 2D Dimensions IVSd: 15.18 (7-11mm) LVOT Diam: 19.96 (18-24mm) LVDd: 44.70 mm PWd: 10.06 (7-11mm) Ascending Ao: 29.78 (22-36mm) LVDs: 32.69 (25-40mm) Aortic Root: 28.33 mm Volumes Left Atrial Volume (Systole) LA ESV Index: 25.50 mL/m2 Aortic Valve AoV Peak Cedrick.: 3.54 m/s AO Peak Gr.: 50.08 mmHg LVOT Max P.68 mmHg AO Mean Gr.: 27.28 mmHg LVOT Mean P.27 mmHg LVOT Max V: 1.47 m/s AO V2 VTI: 86.51 cm LVOT Mean V: 0.95 m/s MAURICIO (VTI): 1.50 cm2 LVOT V1 VTI: 41.58 [place] [address] 2 D/M-MODE ECHOCARDIOGRAM Name: GABINO INIGUEZ Room: [address] IN .R.#: [id number] Admission: 08/13/20 Attend Phys: Edvin Leon Discharge: Date of : 40 Date of Service: 08/15/20 1615 Report #: [id number] MV Peak Gr.: 12.91 mmHg MV Mean Gr.: 4.56 mmHg E/A Ratio: 1.06 MV Decel. Time: 366.73 ms MV E Max Cedrick.: 1.26 m/s MV PHT: 106.35 ms MVA (PHT): 2.07 cm2 TDI E/Lateral E': 14.00 E/Medial E': 9.69 Medial E' Cedrick.: 0.13 m/s Lateral E' Cedrick.: 0.09 m/s Pulmonary Valve PV Peak Cedrick.: 2.00 m/s PV Peak Gr.: 15.92 mmHg Tricuspid Valve RAP Estimate: 5.00 mmHg TR Peak Gr.: 18.95 mmHg RVSP: 23.95 mmHg PA Pressure: 23.95 mmHg Left Ventricle The left ventricle is normal size. There is normal LV segmental wall motion. moderate septal hypertrophy Left ventricular systolic function is normal. The left ventricular ejection fraction is within the normal range. LVEF is 60%. The left ventricular diastolic function is normal. Right Ventricle The right ventricle is normal size. The right ventricular systolic function is normal. Atria The left atrium size is normal. The right atrium size is normal. Aortic Valve Moderate aortic valve sclerosis. No aortic regurgitation is present. Mild to moderate aortic stenosis. Mitral Valve Moderate mitral annular calcification. Mild mitral regurgitation. No evidence of mitral valve stenosis. Tricuspid Valve The tricuspid valve is normal in structure. Mild tricuspid [place] [address] 2 D/M-MODE ECHOCARDIOGRAM Name: GABINO INIGUEZ Room: [address] IN [facility]#: [id number] Admission: 08/13/20 Attend Phys: Edvin Leon Discharge: Date of : 40 Date of Service: 08/15/20 1615 Report #: [id number] Pulmonic Valve The pulmonary valve is normal in structure. There is no pulmonic valvular regurgitation. Great Vessels The aortic root is normal in size. IVC is normal in size and collapses >50% with inspiration. Pericardium There is no pericardial effusion. <Conclusion> The left ventricle is normal size. moderate septal hypertrophy Left ventricular systolic function is normal. The left ventricular ejection fraction is within the normal range. LVEF is 60%. The left ventricular diastolic function is normal. The right ventricle is normal size. The left atrium size is normal. Moderate aortic valve sclerosis. No aortic regurgitation is present. Mild to moderate aortic stenosis. Moderate mitral annular calcification. Mild mitral regurgitation. No evidence of mitral valve stenosis. The tricuspid valve is normal in structure. Mild tricuspid regurgitation. IVC is normal in size and collapses >50% with inspiration. There is no pericardial effusion. There is normal LV segmental wall motion. <ELECTRONICALLY SIGNED> By: Luis Olvera MD, FACC 08/15/20 1615 14 14 Luis Olvera MD, FACC /INF
[2020-08-15 20:00] VITALS: BP 105/30
[2020-08-15 23:45] VITALS: BP 100/50
[2020-08-16 04:00] VITALS: BP 100/57
[2020-08-16 04:57] LABS: ABSOLUTE BASOPHILS 0.1 thou/uL (0.0-0.2); ABSOLUTE EOSINOPHILS 0.2 thou/uL (0.0-0.7); ABSOLUTE MONOCYTES 1.1 thou/uL (0.0-1.2); ABSOLUTE NEUTROPHILS 4.5 thou/uL (1.6-8.1); BASOPHILS 0.8 %; EOSINOPHILS 2.5 %; LYMPHOCYTES 14.7 %; MCHC 33.5 g/dL (28.0-37.0); MCV 107.5 fL (80.0-100.0); MONOCYTES 15.6 %; MPV 9.4 fl. (7.2-11.1); NUCLEATED RBCS 0 /100WBC; PLATELET COUNT* 115 thou/uL (150-400); POLYS 66.4 %; RBC 1.81 mil/uL (4.20-5.00); RDW-CV 20.3 % (10.5-14.5); WBC 6.8 thou/uL (4.0-11.0)
[2020-08-16 05:04] LABS: CALCIUM 7.8 mg/dL (8.5-10.1); POTASSIUM 4.6 mmol/L (3.5-5.1)
[2020-08-16 05:05] LABS: CREATININE 5.9 mg/dL (0.6-1.3)
[2020-08-16 06:03] LABS: % SATURATION 51 % (20-39); IRON 92 ug/dL (50-175)
[2020-08-16 06:08] LABS: HEMOGLOBIN 6.5 gm/dL (12.0-15.0)
[2020-08-16 06:09] LABS: HEMATOCRIT 19.5 % (37.0-47.0)
[2020-08-16 08:00] VITALS: BP 123/29; BP 147/81
[2020-08-16 12:00] VITALS: BP 122/28
--- NOTE | 2020-08-16 14:01 | NUR ---
GI following. Anticipate dc in a few days to home.
[2020-08-16 15:30] VITALS: BP 128/29; BP 132/34; BP 134/30; BP 140/38
--- NOTE | 2020-08-16 18:14 | CARDNUC ---
[place] [address] CARDIAC NUCLEAR IMAGING REPORT Name: GABINO INIGUEZ Room: 210 ADM IN [facility]#: [id number] Admission: 08/13/20 Attend Phys: Edvin Leon Discharge: Date of : 40 Date of Service: 08/16/20 1814 Report #: [id number] THIS REPORT FOR: cc: Tres Zuniga Gregg R. DO [place], F. Douglas MD [facility] ~ APPROVED REPORT Imaging Protocol: Stress Tc-99m/Rest Tc-99m 2 days Study performed: 08/14/2020 11:42:00 Indication: Chest pain, Dyspnea Patient Location: In-Patient Room #: 210 Stress Tech: Charissa Be Stress Nurse: Arielle Latham RN NM Tech:ALEAH Olivares Ht: 5 ft 3 in Wt: 180 lbs BSA: 1.85 m2 BMI: 31.88 Medical History Medical History: Chest pain, dyspnea, ESRD-Dialysis, COPD, nausea, anemic, hypothyroidism, chronic lung disease, HX Liver Cirrhosis, Macular Degeneration, wheelchair, weak, unstable gait, HTN, HLD, CAD s/p ME, CAD s/p stent, former smoker, 2L O2, hypotension. Medications: Apixaban, Atorvastatin, Cordarone, Midodrine, NTG. Allergies: Ibuprofen, Cefuroxime, Amoxicillin. Cardiac Risk Factors: Age, FHX of CAD, HTN, Hyperlipidemia, SOB, Past Smoker, COPD, hypotension. Previous Cardiac Procedures: Myocardial infarction, PCI. Pretest Chest Pain Characteristics: No chest pain Exercise History: Sedentary Physical Disabilities: Wheelchair, weak, unstable. Meds Held (24 hrs): NTG. Resting Data Rest SPECT myocardial perfusion imaging was performed in supine position 30 minutes following the intravenous injection of 31.9 mCi of Tc-99m Sestamibi. Time of rest injection: 1300 Date: 08/16/2020 The images were gated to evaluate regional [place] [address] CARDIAC NUCLEAR IMAGING REPORT Name: GABINO INIGUEZ Room: [address]#: [id number] Admission: 08/13/20 Attend Phys: Edvin Leon Discharge: Date of : 40 Date of Service: 08/16/20 1814 Report #: [id number] left ventricular ejection fraction. Administration Route: IV Administration Site: Left Hand Pharmacologic Stress Pharmacologic stress test was performed by injecting Regadenoson 0.4 mg IV push over 10-15 seconds immediately followed by the intravenous injection of 27.7 mCi of Tc-99m Sestamibi. Time of stress injection: 1105 Date: 08/15/2020 Administration Route: IV Administration Site: Left Hand Gated Stress SPECT was performed 40 minutes after stress injection. The images were gated to evaluate regional wall motion and calculate left ventricular ejection fraction. Stress only was performed in the Supine position. Stress Test Details Stress Test: Pharmacologic stress testing performed using 0.4 mg of regadenoson per 5 mL given IV over 10 seconds. Reason for pharmacologic stress test: Wheelchair, weak, unstable.. 60 mg caffeine given for other. HR Max Heart Rate (APMHR): 140 bpm Resting HR: 72 bpm Target HR (85% APMHR): 119 bpm Max HR Achieved: 92 bpm % of APMHR: 65 Recovery HR: 82 bpm HR response to stress: Normal HR response to stress BP Resting BP: 100/36 mmHg Max BP: 168/35 mmHg Recovery BP: 101/57 mmHg BP response to stress: Abnormal hypertensive response to stress. ECG Resting ECG: Sinus Rhythm, low voltage Stress ECG: Sinus Rhythm unchanged from above ST Change: None Arrhythmia: None Recovery ECG: Sinus rhythm low voltage unchanged from above Recovery ST Change: None Recovery Arrhythmia: [place] [address] CARDIAC NUCLEAR IMAGING REPORT Name: GEETHAGABINO Room: [address] IN [facility]#: [id number] Admission: 08/13/20 Attend Phys: Edvin Leon Discharge: Date of : 40 Date of Service: 08/16/20 1814 Report #: [id number] Clinical Reason for Termination: Completed protocol Stress Symptoms: Dyspnea, Chest pain. Exercise duration: 00 min 00 sec Exercise capacity: 1.00 METs Nurse Comments An 80 year old female inpatient presented for a sitting Lexiscan r/t chest pain, increased dyspnea. Test well tolerated. Recovery unremarkable. Patient required IV caffeine d/t dialysis/ ESRD and unable to take caffeine P.O.. Patient was escorted via wheelchair to Nuclear Medicine for imaging. Patient was stable and stated she felt good at that time. Stress ECG Conclusion Normal hemodynamic response to pharmacologic stress. Clinically suspicious for ischemia Non-diagnostic pharmacologic EKG stress due to failure to attain target HR. Study Quality Study: Good Artifact: Mild Breast and diaphragmatic artifact Lung Uptake: Normal Study Data At rest, the left ventricular ejection fraction was 74%.. Post stress, the left ventricular ejection was 37%.. SSS: 33 SRS: 28 SDS: 5 TID = 1.19. Perfusion The resting study demonstrates a large amount of severe lateral defect and a small mild inferior defect. The post stress images demonstrate a large severe lateral defect that is worse than seen at rest a small mild apical defect and a small mild anteroseptal defect near the apex. These images are consistent with an old lateral infarct with some inferior wall infarction. There is however a small mild apical completely reversible defect with some completely reversible portions extending into the anteroseptal area and the anterolateral areas. These reversible defects are compatible with ischemia involving the apex and the anterolateral wall near the apex in the anteroseptal wall near the apex. Images were reviewed [place] [address] CARDIAC NUCLEAR IMAGING REPORT Name: GABINO INIGUEZ Room: [address] IN M.R.#: [id number] Admission: 08/13/20 Attend Phys: Edvin ArmendarizYon Leon Discharge: Date of : 40 Date of Service: 08/16/201813 Report #: [id number] Wall Motion Normal at rest but globally hypokinetic with stress. Global ischemia should be considered Nuclear Conclusion ECG Findings: non-diagnostic Clinical Findings: positive for ischemia Nuclear Findings: positive for ischemia Exercise Capacity: not assessed Left Ventricular Function: Normal at rest but severely abnormal with stress Risk Study: high There is significant ischemia seen in the apex and apical septal and apical lateral areas. There is also a large infarct seen in the lateral wall and inferior wall. There is dramatic change in the left ventricular ejection fraction with stress. Overall this is a high risk study. <Conclusion> Normal hemodynamic response to pharmacologic stress. Clinically suspicious for ischemia Non-diagnostic pharmacologic EKG stress due to failure to attain target HR. <ELECTRONICALLY SIGNED> By: Georgette Hawthorne MD, FACC 08/16/201813 13 13 Georgette Hawthorne MD, FACC /INF
[2020-08-16 20:49] VITALS: BP 130/49
[2020-08-17 00:17] VITALS: BP 125/33
[2020-08-17 04:28] LABS: ABSOLUTE BASOPHILS 0.1 thou/uL (0.0-0.2); ABSOLUTE EOSINOPHILS 0.4 thou/uL (0.0-0.7); ABSOLUTE LYMPHOCYTES 1.8 thou/uL (0.8-5.3); ABSOLUTE MONOCYTES 1.3 thou/uL (0.0-1.2); ABSOLUTE NEUTROPHILS 3.9 thou/uL (1.6-8.1); BASOPHILS 0.7 %; EOSINOPHILS 4.8 %; HEMATOCRIT 24.5 % (37.0-47.0); HEMOGLOBIN 8.4 gm/dL (12.0-15.0); LYMPHOCYTES 24.5 %; MCH 35.3 pg (26.0-34.0); MCHC 34.2 g/dL (28.0-37.0); MCV 103.1 fL (80.0-100.0); MONOCYTES 17.5 %; MPV 9.9 fl. (7.2-11.1); NUCLEATED RBCS 0 /100WBC; PLATELET COUNT* 131 thou/uL (150-400); POLYS 52.5 %; RBC 2.38 mil/uL (4.20-5.00); RDW-CV 22.2 % (10.5-14.5); WBC 7.5 thou/uL (4.0-11.0)
[2020-08-17 04:44] LABS: ALBUMIN 1.8 g/dL (3.4-5.0); CALCIUM 8.3 mg/dL (8.5-10.1); POTASSIUM 4.6 mmol/L (3.5-5.1); TOTAL BILIRUBIN 1.1 mg/dL (<0.1-1.0); TOTAL PROTEIN 4.9 g/dL (6.4-8.2)
[2020-08-17 04:47] LABS: CREATININE 7.9 mg/dL (0.6-1.3)
[2020-08-17 05:00] VITALS: BP 102/30
--- NOTE | 2020-08-17 05:03 | NUR ---
PT IS ABLE TO COMMUNICATE HER NEEDS TO STAFF EFFECTIVELY. CURRENT PAIN MEDICATION REGIMEN HAS BEEN ADEQUATE FOR CONTROLLING HER PAIN UP TO THIS TIME. SHE HAS BEEN NPO SINCE MIDNIGHT FOR A LIKELY EGD LATER TODAY. SHE HAS BEEN FOLLOWING A M/W/ SCHEDULE FOR HEMODIALYSIS AND WILL PROBABLY HAVE A RUN TODAY.
[2020-08-17 06:15] LABS: ANISOCYTOSIS 1+; PLATELET ESTIMATE ADEQUATE
[2020-08-17 09:00] VITALS: BP 136/55
--- NOTE | 2020-08-17 09:40 | NUR ---
PT TO GI LAB FOR EGD VIA BED WITH FIRST AID TRAINER.
--- NOTE | 2020-08-17 12:57 | NUR ---
PT TO DIALYSIS
--- NOTE | 2020-08-17 13:54 | NUR ---
GI following, plan EGD today. Possible dc to home with HH in 1-2 days. CM updated Charlene at [facility].
[2020-08-17 21:18] VITALS: BP 130/39
[2020-08-18] VITALS: BP 114/28
[2020-08-18 04:00] VITALS: BP 117/27
[2020-08-18 05:07] LABS: ABSOLUTE BASOPHILS 0.1 thou/uL (0.0-0.2); ABSOLUTE EOSINOPHILS 0.2 thou/uL (0.0-0.7); ABSOLUTE LYMPHOCYTES 1.7 thou/uL (0.8-5.3); ABSOLUTE MONOCYTES 1.6 thou/uL (0.0-1.2); ABSOLUTE NEUTROPHILS 5.3 thou/uL (1.6-8.1); BASOPHILS 0.8 %; HEMATOCRIT 24.5 % (37.0-47.0); HEMOGLOBIN 8.2 gm/dL (12.0-15.0); LYMPHOCYTES 19.2 %; MCH 35.3 pg (26.0-34.0); MCHC 33.6 g/dL (28.0-37.0); MCV 105.2 fL (80.0-100.0); MONOCYTES 17.8 %; MPV 9.2 fl. (7.2-11.1); NUCLEATED RBCS 0 /100WBC; PLATELET COUNT* 124 thou/uL (150-400); POLYS 60.2 %; RBC 2.33 mil/uL (4.20-5.00); RDW-CV 22.2 % (10.5-14.5); WBC 8.7 thou/uL (4.0-11.0)
[2020-08-18 06:15] LABS: ALBUMIN 1.8 g/dL (3.4-5.0); CALCIUM 7.8 mg/dL (8.5-10.1); POTASSIUM 4.6 mmol/L (3.5-5.1); TOTAL BILIRUBIN 0.9 mg/dL (<0.1-1.0); TOTAL PROTEIN 5.1 g/dL (6.4-8.2)
[2020-08-18 06:16] LABS: CREATININE 5.1 mg/dL (0.6-1.3)
[2020-08-18 08:27] VITALS: BP 130/58
--- NOTE | 2020-08-18 08:35 | NUR ---
PT IS ABLE TO COMMUNICATE HER NEEDS TO STAFF EFFECTIVELY. SHE HAS DENIED THE NEED FOR PAIN MEDICATION DURIRING AGRICULTURAL SPECIALIST. SHE HAS BEEN FOLLOWING A M/W/F SCHEDULE FOR HEMODIALYSIS WHILE IN THE HOSPITAL. EGD DONE 08/17, BX RESULTS PENDING.
[2020-08-18 12:00] VITALS: BP 109/30
--- NOTE | 2020-08-18 15:09 | NUR ---
Pt to have heart cath tomorrow. Plan home at or.
[2020-08-18 16:00] VITALS: BP 110/31
[2020-08-18 20:00] VITALS: BP 118/30
--- NOTE | 2020-08-18 20:00 | NUR ---
RECEIVED REPORT AND ASSUMED CARE OF PT, ASSESSMENT COMPLETED. O2 ON AT 2L/NC, SOA WITH ACTIVITY, HOB ELEVATED. ASSISTED TO BSC, STEADY. TELEMETRY ON SHOWING SB. WILL CONT TO MONITOR AND ASSIST NEEDED.
[2020-08-19] VITALS: BP 108/28
[2020-08-19 04:25] LABS: ABSOLUTE EOSINOPHILS 0.2 thou/uL (0.0-0.7); ABSOLUTE LYMPHOCYTES 1.5 thou/uL (0.8-5.3); ABSOLUTE MONOCYTES 1.3 thou/uL (0.0-1.2); ABSOLUTE NEUTROPHILS 4.8 thou/uL (1.6-8.1); BASOPHILS 0.6 %; HEMATOCRIT 22.4 % (37.0-47.0); HEMOGLOBIN 7.5 gm/dL (12.0-15.0); LYMPHOCYTES 18.6 %; MCH 35.6 pg (26.0-34.0); MCHC 33.7 g/dL (28.0-37.0); MCV 105.6 fL (80.0-100.0); MONOCYTES 16.8 %; MPV 8.8 fl. (7.2-11.1); NUCLEATED RBCS 0 /100WBC; PLATELET COUNT* 109 thou/uL (150-400); RBC 2.12 mil/uL (4.20-5.00); RDW-CV 21.7 % (10.5-14.5); WBC 7.9 thou/uL (4.0-11.0)
[2020-08-19 04:30] VITALS: BP 107/30
[2020-08-19 04:42] LABS: ALBUMIN 1.7 g/dL (3.4-5.0); ALKALINE PHOSPHATASE 112 U/L (46-116); ANION GAP 4 mmol/L (7-16); BUN 36 mg/dL (7-18); CALCIUM 8.1 mg/dL (8.5-10.1); CHLORIDE 100 mmol/L (98-107); CHOLESTEROL 79 mg/dL (<200); CO2 29 mmol/L (21-32); GLUCOSE 92 mg/dL (70-99); HDL CHOLESTEROL 21 mg/dL (>40); LDL CHOLESTEROL 49 mg/dL (<100); POTASSIUM 4.5 mmol/L (3.5-5.1); SGOT 82 U/L (15-37); SGPT 84 U/L (30-65); SODIUM 133 mmol/L (136-145); TC:HDL 3.8 Ratio (Not establshd); TOTAL BILIRUBIN 0.6 mg/dL (<0.1-1.0); TOTAL PROTEIN 4.5 g/dL (6.4-8.2); TRIGLYCERIDE 46 mg/dL (<150); VLDL 9 mg/dL (<40)
[2020-08-19 05:04] LABS: CREATININE 7.6 mg/dL (0.6-1.3); SERUM ASSESSMENT CLEAR
[2020-08-19 06:32] LABS: ANISOCYTOSIS 2+; PLATELET ESTIMATE ADEQUATE
--- NOTE | 2020-08-19 07:47 | NUR ---
SLEPT WELL. NO CHANGES IN ASSESSMENT. NPO SINCE [place] FOR CARDIAC CATH THIS AM. ASSISTED TO BSC. TELEMETRY CONT TO SHOW SB. HS GOALS OF REST AND SAFETY ACHIEVED.
--- NOTE | 2020-08-19 11:23 | NUR ---
Pt hbg too low for cath today. Dialysis today. Per , no weekend dc planned. CM updated Charlene at [facility]. Following.
[2020-08-19 12:00] VITALS: BP 117/44
[2020-08-19 12:26] VITALS: BP 117/44
--- NOTE | 2020-08-19 13:44 | NUR ---
CARDIOLOGY MANAGER RETENTION KENTON TOLBERT ORDER 1 UNIT PRBC FOR DIALYSIS THIS AFTERNOON HOWEVER DR. SADLER DOES NOT WANT TO TRANSFUSE UNLESS HGB LESS THAN 7.0. DR. SADLER INSTRUCT PREFORMING MACHINE OPERATOR TO NOT TRANSFUSE BLOOD AND GIVE EPOETIN DURING DIALYSIS. INFORM [place] TOLBERT MANAGER RETENTION WHO IS AWARE. WILL CONTINUE TO ASSESS.
--- NOTE | 2020-08-19 17:12 | NUR ---
PT RECIEVING DILAYSIS AT THIS TIME.
[2020-08-19 20:00] VITALS: BP 127/33
--- NOTE | 2020-08-19 20:00 | NUR ---
RECEIVED REPORT AND ASSUMED CARE OF PT, ASSESSMENT COMPLETED. PT STATED SHE WAS TIRED FROM ALL THE ACTIVITY TODAY AND STILL DOESN'T KNOW WHAT IS GOING TO HAPPEN. O2 ON AT 2L/NC, HOB ELEVATED. TELEMETRY ON SHOWING SB. WILL CONT TO MONITOR AND ASSIST NEEDED.
[2020-08-19 23:55] VITALS: BP 115/43
[2020-08-20 04:04] LABS: HEMATOCRIT 22.3 % (37.0-47.0); HEMOGLOBIN 7.5 gm/dL (12.0-15.0); MCH 35.3 pg (26.0-34.0); MCHC 33.9 g/dL (28.0-37.0); MCV 104.2 fL (80.0-100.0); MPV 9.3 fl. (7.2-11.1); RBC 2.14 mil/uL (4.20-5.00); RDW-CV 20.8 % (10.5-14.5); WBC 7.4 thou/uL (4.0-11.0)
[2020-08-20 04:23] LABS: ALBUMIN 1.6 g/dL (3.4-5.0); CALCIUM 7.5 mg/dL (8.5-10.1); POTASSIUM 4.1 mmol/L (3.5-5.1); TOTAL BILIRUBIN 0.6 mg/dL (<0.1-1.0); TOTAL PROTEIN 4.6 g/dL (6.4-8.2)
[2020-08-20 04:28] VITALS: BP 113/40
[2020-08-20 04:47] LABS: CREATININE 4.8 mg/dL (0.6-1.3)
--- NOTE | 2020-08-20 07:05 | NUR ---
SLEPT WELL TONIGHT. ASSISTED TO AND FROM BR WITH STEADY GAIT. O2 REMAINS ON, NO SOA NOTED. NO CHANGE IN ASSESSMENT. TELEMETRY CONT TO SHOW SB. HS GOALS OF REST AND SAFETY ACHIEVED.
[2020-08-20 08:30] VITALS: BP 115/65
[2020-08-20 12:53] VITALS: BP 120/55
--- NOTE | 2020-08-20 13:44 | NUR ---
ASSUMED CARE OF PT AT 0730. PT RESTING IN BED WAITING FOR BREAKFAST. A&0X4, DENIES ANY PAIN OR SHORTNESS OF BREATH AT THIS TIME. TRACING SB ON THE RN TRAVEL-RATE IN THE UPPER 40'S-50'S. ON 2L NC SAT UPPER 90'S. PT UP WITH 1 ASSIST WALKER AND GAIT BELT TO BATHROOM-PT UNSTEADY AT TIMES. PT STATES SHE HASN'T HAD A BOWEL MOVEMENT IN 3 DAYS-PRN DULCOLAX GIVEN PER EMAR. DR ZHU HERE TO SEE PT. ORDERS RECEIVED TO TRANSFUSE 1 UNIT PRBC-WAITING TO HEAR FROM BLOOD BANK AT THIS TIME. PT GOAL FOR TODAY IS TRANSFUSION OF BLOOD WITH NO COMPLICATIONS, HAVE A BOWEL MOVEMENT AND INCREASE ACTIVITY. PT AND OT ON BOARD. AM ASSESSMENT CHARTED. MEDICATIONS PER OCT. PT REPOSITIONS SELF WITH REMINDERS. HOURLY ROUNDING OBSERVED. BED IN LOW POSTIION. CALL LIGHT WITHIN REACH. WILL CONTINUE PLAN OF CARE.
[2020-08-20 16:25] VITALS: BP 120/32; BP 125/35; BP 125/38; BP 130/36
[2020-08-20 18:38] VITALS: BP 101/35
[2020-08-20 20:00] VITALS: BP 136/38
[2020-08-20 20:02] LABS: HEMATOCRIT 28.2 % (37.0-47.0)
[2020-08-20 20:03] LABS: HEMOGLOBIN 9.5 gm/dL (12.0-15.0)
[2020-08-21] VITALS (7 sets, daily range): BP systolic 119–149; BP diastolic 32–47
[2020-08-21 04:49] LABS: HEMATOCRIT 26.3 % (37.0-47.0); HEMOGLOBIN 8.9 gm/dL (12.0-15.0); MCH 34.3 pg (26.0-34.0); MPV 9.4 fl. (7.2-11.1); RBC 2.6 mil/uL (4.20-5.00); RDW-CV 22.4 % (10.5-14.5); WBC 6.6 thou/uL (4.0-11.0)
[2020-08-21 04:55] LABS: ALBUMIN 1.7 g/dL (3.4-5.0); CALCIUM 7.6 mg/dL (8.5-10.1); MAGNESIUM 2.2 mg/dL (1.8-2.4); POTASSIUM 3.9 mmol/L (3.5-5.1); TOTAL BILIRUBIN 0.8 mg/dL (<0.1-1.0); TOTAL PROTEIN 4.8 g/dL (6.4-8.2)
[2020-08-21 05:06] LABS: CREATININE 7.3 mg/dL (0.6-1.3)
--- NOTE | 2020-08-21 16:32 | NUR ---
ASSUMED CARE OF PT AT 0730. PT RESTING IN BED WAITING FOR BREAKFAST. A&0X4, DENIES ANY PAIN OR SHORTNESS OF BREATH AT THIS TIME. PT AGREEABLE TO WORK WITH PHYSICAL THERAPY THIS AFTERNOON-TOLERATD WELL. TRACING SB WITH BBB ON THE METAL SPRAYER PROTECTIVE COATING. ON 2L NC SAT UPPER 90'S. PT UP WITH 1 ASSIST AND WALKER TO BATHROOM-UNSTEADY AT TIMES. PT STATES SHE HAD BLOODY STOOL LAST NIGHT- REMAINED FREE FROM BLOODY STOOLS THIS SHIFT. HGB STABLE. AM ASSESSMENT CHARTED. MEDICATIONS PER OCT. PT REPOSITIONS SELF WITH REMINDERS. HOURLY ROUNDING OBSERVED. BED IN LOW POSITION. CALL LIGHT WITHIN REACH. WILL CONTINUE PLAN OF CARE.
[2020-08-22 04:24] LABS: HEMATOCRIT 28.9 % (37.0-47.0); HEMOGLOBIN 9.8 gm/dL (12.0-15.0); MCH 33.7 pg (26.0-34.0); MCHC 33.8 g/dL (28.0-37.0); MCV 99.8 fL (80.0-100.0); MPV 9.2 fl. (7.2-11.1); RBC 2.9 mil/uL (4.20-5.00); RDW-CV 22.7 % (10.5-14.5); WBC 7.3 thou/uL (4.0-11.0)
[2020-08-22 04:59] VITALS: BP 138/48
[2020-08-22 05:02] LABS: ALBUMIN 1.9 g/dL (3.4-5.0); CALCIUM 8.4 mg/dL (8.5-10.1); MAGNESIUM 2.4 mg/dL (1.8-2.4); TOTAL BILIRUBIN 0.9 mg/dL (<0.1-1.0); TOTAL PROTEIN 5.3 g/dL (6.4-8.2)
[2020-08-22 05:09] LABS: CREATININE 9.1 mg/dL (0.6-1.3)
[2020-08-22] MEDS ORDERED: PROTONIX40 M3 PO (07:43)
[2020-08-22 08:30] VITALS: BP 146/39
--- NOTE | 2020-08-22 10:11 | NUR ---
Pt discharging to home today, Pt declined HH. CM spoke with Pt's dtr, dtr in agreement of no HH at this time, CM requested that dtr contact CM if she gets Pt home today and realizes that she could benefit from HH, CM will arrange at that time. Pt to have dialysis today. ALISSA updated Desmond at [facility] of dialysis today and dc afterwards. CM to fax H&P, covid test and flowsheets post dialysis today
[2020-08-22 12:00] VITALS: BP 130/45
--- NOTE | 2020-08-22 17:00 | NUR ---
ASSUMED CARE OF PT AT 0730. PT RESTING IN BED. A&0X4, DENIES ANY PAIN OR SHORTNESS OF BREATH AT THIS TIME. TRACING SB WITH BBB ON THE PATROL SERGEANT SHERIFF'S OFFICE. ON 2L NC SAT UPPER 90'S. PT UP WITH 1 ASSIST AND WALKER TO BATHROOM. PT TO HAVE DIALYSIS TODAY AND DISCHARGE HOME WITH DAUGHTER AFTER. DIALYSIS NURSE CALLED AND WILL BE HERE AROUND [phone]. CM CALLED DAUGHTER AND DAUGHTER OK WITH LATE DISCHARGE THIS EVENING. AM ASSESSMENT CHARTED. MEDICATIONS PER OCT. PT REPOSITIONS SELF. HOURLY ROUNDING OBSERVED. BED IN LOW POSITION. CALL LIGHT WITHIN REACH. WILL CONTINUE PLAN OF CARE.
[2020-08-22 17:14] VITALS: BP 146/39
[2020-08-22 17:18] VITALS: BP 146/39
--- NOTE | 2020-08-22 19:06 | PATH ---
[address] [address] PATHOLOGY RPT PROCEDURE Name: GABINO INIGUEZ Room: [address] IN M.R.#: [id number] Admission: 08/13/20 Date of : 40 Discharge: Report #: [id number] Path Case #: [id number] [facility] Accession Number: [id number] . 01 Material submitted: . PART A: stomach - GASTRIC BIOPSY R/O H. PYLORI AND GASTRITIS PART B: esophagus - DISTAL ESOPHAGUS R/O DYSPLASIA. Modifiers: distal . 01 Clinician provided ICD-10: I13.2 N18.6 . 01 Clinical history: . CHEST PAIN, ANEMIA, ESRD ON DIAYLSIS . 02 Diagnosis: A. Stomach "gastritis", endoscopic biopsy: - Gastric antral and oxyntic mucosa with mild reactive changes, mild chronic inflammation, and foveolar hyperplasia. - Negative for intestinal metaplasia, dysplasia, and malignancy. - Negative for Helicobacter pylori. . B. Esophagus "distal", endoscopic biopsy: - Gastric cardia mucosa with reactive change, acute and chronic inflammation, and focally prominent surface foveolar hyperplasia. - Negative for intestinal metaplasia, dysplasia, and malignancy. . (PÉREZ:eliazar; 08/19/2020) MBR 08/22/2020 1828 Local . 02 Electronically signed: . Trace Kahn MD, Pathologist NPI- [id number] . 01 Gross description: . A. Received in formalin labeled "Small, [place], gastric biopsy" are two gracia-brown soft tissue fragments measuring in aggregate 0.5 x 0.5 x 0.1 cm. The specimen is submitted entirely in A1. . B. Received in formalin labeled "Small, [place], esophagus-distal" is a fragment of gracia-brown soft tissue measuring 0.5 x 0.3 x 0.1 cm. The specimen is submitted entirely in B1. ([facility] [place]; 08/18/2020) [facility] 08/18/2020 1616 Local . 02 Pathologist provided ICD-10: K20.90, I13.2, N18.6, D64.9 . 02 [place] [address] PATHOLOGY RPT PROCEDURE Name: GABINO INIGUEZ Room: [address] IN M.R.#: [id number] Admission: 08/13/20 Date of : 40 Discharge: Report #: [id number] Path Case #: [id number] Specimen Comment: A courtesy copy of this report has been sent to [phone] Specimen Comment: [phone], Specimen Comment: Report sent to ,DR JOHN / DR BARRAGAN Performed at: [address] [facility], [place] [id number] MD Ezra Morelos MD Phone: [phone] Performed at: 02 [facility] [address], [place], [place] [id number] MD Calvin Villanueva MD Phone: [phone]
[2020-08-22 22:20] VITALS: BP 169/52
--- NOTE | 2020-08-25 12:12 | CON ---
[address] [address] CONSULTATION Name: GABINO INIGUEZ Room: [address] IN M.R.#: [id number] Admission: 08/13/20 Attend Phys: Alexa Khan Discharge: 08/22/20 Date of : 40 Report #: [id number] THIS REPORT FOR: cc: Tres Zuniga Gregg R. DO ~ Khan, Abid R. MD NEPHROLOGY CONSULT CONSULTING PHYSICIAN: Edvin Leon DO REASON FOR CONSULTATION: End-stage kidney disease. HISTORY OF PRESENT ILLNESS: An 80-year-old female with end-stage kidney disease, admitted with chest pain. She was found to be anemic and is currently receiving blood transfusion. She currently appears to be comfortable, has no complaints. She had dialysis on Saturday, she cut the treatment short by about 20 minutes. She was not feeling well, but overall is doing well, presently. REVIEW OF SYSTEMS: Constitutional, psych, heme, eyes, ENT, respiratory, cardiac, GI, , endocrine, all negative except as documented above. PAST MEDICAL HISTORY: End-stage kidney disease, coronary artery disease, COPD, diastolic heart failure, hypothyroidism, history of breast cancer, history of cirrhosis, history of IgA kappa paraprotein with bone marrow biopsy, history of chronic lung disease. CURRENT MEDICATIONS: Reviewed. FAMILY HISTORY: Not pertinent in this 80-year-old female. SOCIAL HISTORY: Former smoker. PHYSICAL EXAMINATION: VITAL SIGNS: Blood pressure is 98/28, pulse 65, respirations 16, temperature 36.9. Blood pressures have been mostly in the 110s/40s. GENERAL: No acute distress. EYES: Open. EARS: Externally normal. NECK: Supple. CARDIOVASCULAR: Regular rate. LUNGS: No crackles. ABDOMEN: Soft. MUSCULOSKELETAL: Nontender. PSYCHIATRIC: Awake, alert. [address] [address] CONSULTATION Name: GABINO INIGUEZ Room: [address]#: [id number] Admission: 08/13/20 Attend Phys: Alexa Khan Discharge: 08/22/20 Date of : 40 Report #: [id number] LABORATORY DATA: White cell count 5.6, hemoglobin 6.2, platelets 111. Sodium 135, potassium 3.7, chloride 101, bicarbonate 33, BUN 36, creatinine 7.9, glucose 89, calcium 7.6. ASSESSMENT: 1. End-stage kidney disease, hemodialysis Saturday, Saturday and Saturday at the [facility]. 2. Anemia, hemoglobin down to 6.2 from 7.4 on admission. 3. Coronary artery disease. 4. Chronic obstructive pulmonary disease. 5. Chronic hypotension, on midodrine. 6. Diastolic heart failure. 7. Hypothyroidism. 8. History of breast cancer. 9. History of liver cirrhosis. 10. Chronic lung disease. 11. History of IgA kappa paraprotein with bone marrow biopsy done in the past. PLAN: 1. No acute indications for dialysis today. No pulmonary edema on chest x-ray. 2. Anemia. Defer to Internal Medicine. She is receiving a transfusion. We will administer NICK therapy with hemodialysis. 3. Would avoid morphine. 4. Would consider holding Eliquis given acute drop in the hemoglobin. 5. Discontinue milk of magnesia. We will follow along with you for dialysis needs and plan dialysis tomorrow. Thank you for requesting my opinion in the care and management of this patient. <ELECTRONICALLY SIGNED> By: Dmitriy La MD 08/25/20 1212 1323 [id number] La MD /nt
--- NOTE | 2020-08-30 14:05 | CON ---
[address] [address] CONSULTATION Name: GABINO INIGUEZ Room: [address] IN M.R.#: [id number] Admission: 08/13/20 Attend Phys: Alexa Khan Discharge: 08/22/20 Date of : 40 Report #: [id number] THIS REPORT FOR: cc: Tres Zuniga Gregg R. DO ~ Saundra Faith MD COVERING PROVIDER: Saundra Faith MD The patient has been seen and personally examined by me. REASON FOR CONSULTATION: Anemia. HISTORY OF PRESENT ILLNESS: The patient presented to [facility] Emergency Department on 08/13/2020 with complaints of a chest pain and burning feeling. She said this has been going on for approximately a week with intermittent pain and she does report pain with movement. She states that her pain is located in the middle of the chest. She describes the pain as a consistent dull aching pain that increases to 8-10 out of 10 pain with movement. She is short of breath and on 2 liters per nasal cannula. She has also reported intermittent nausea. The patient was last seen by our service and had an EGD and colonoscopy done with EGD revealing bleeding ulcers and colonic polyps. She does report taking Eliquis daily for chronic atrial fibrillation. PAST MEDICAL HISTORY: Significant for atrial fibrillation, chronic end-stage renal disease, on hemodialysis Saturday, Saturday, Saturday. Anemia, chest pain, coronary artery disease, congestive heart failure exacerbation, cirrhosis and respiratory failure, among others. ALLERGIES: AMOXICILLIN, RASH. CEFUROXIME, RASH. IBUPROFEN, ITCHING. FAMILY HISTORY: Significant for a sister with breast cancer. Two other sisters with colon cancer and a brother with metastasized cancer of unknown origin. SOCIAL HISTORY: She is a 23-ucpu-iibr former smoker who quit greater than a year ago. Alcohol, she quit greater than 30 years ago. Illicit drugs none. REVIEW OF SYSTEMS: A 12-point review of systems is otherwise negative except for what is documented in the HPI. PHYSICAL EXAMINATION: CARDIOVASCULAR: Regular rate and rhythm. LUNGS: Clear and diminished bilaterally and throughout all lung espinal. ABDOMEN: Nausea, mild tenderness in epigastric region of abdomen. LABORATORY DATA: BUN 69, creatinine 10.5, GFR 4. BNP 2194[place] [address] CONSULTATION Name: GABINO INIGUEZ Room: [address]#: [id number] Admission: 08/13/20 Attend Phys: Alexa Khan Discharge: 08/22/20 Date of : 40 Report #: [id number] count 7.0, hemoglobin 7.2 with a low pretransfusion of 6.2, platelet count 118. IMAGING: Chest x-ray, impression: Mild hyperinflation and chronic pulmonary changes. There are no superimposed acute chest processes. ASSESSMENT: 1. Anemia. 2. Nausea. 3. End-stage renal disease, on dialysis. 4. Chest pain. PLAN: 1. Iron panel. 2. Await results of occult blood. 3. Await stress test and echocardiogram from Cardiology for clearance. 4. Dialysis today per Nephrology. 5. Consider EGD and colonoscopy with cardiac clearance. Thank you for allowing us to participate in the care of this anurag 80-year-old female while awaiting cardiac clearance and test results. We will obtain an iron panel for assessment of her anemia. Please feel free to contact us with any further questions or needs. <ELECTRONICALLY SIGNED> By: Saundra Faith MD 08/30/20 1405 36 Saundra Faith MD /nt
== END 2020-08-22 22:45 | disposition home or self-care (01) | DRG 368 ==
LOC: M.ERS 08:55 → M.TBA-ER 10:29 → M.2W 10:29
PROVIDERS: Family Medicine; Internal Medicine; Internal Medicine Nephrology; Nurse Practitioner Family; Registered Nurse; ADMIT Internal Medicine; ATTEND Internal Medicine
PROC: 30233N1 Transfusion of Nonautologous Red Blood Cells into Peripheral Vein, Percutaneous Approach (ICD-10-PCS; 2020-08-14)
PROC: 5A1D70Z Performance of Urinary Filtration, Intermittent, Less than 6 Hours Per Day (ICD-10-PCS; 2020-08-15)
PROC: 0DB38ZX Excision of Lower Esophagus, Via Natural or Artificial Opening Endoscopic, Diagnostic (ICD-10-PCS; principal; 2020-08-17)
PROC: 0DB68ZX Excision of Stomach, Via Natural or Artificial Opening Endoscopic, Diagnostic (ICD-10-PCS; principal; 2020-08-17)
PROC: 5A1D70Z Performance of Urinary Filtration, Intermittent, Less than 6 Hours Per Day (ICD-10-PCS; principal; 2020-08-17)
PROC: 5A1D70Z Performance of Urinary Filtration, Intermittent, Less than 6 Hours Per Day (ICD-10-PCS; 2020-08-19)
PROC: 5A1D70Z Performance of Urinary Filtration, Intermittent, Less than 6 Hours Per Day (ICD-10-PCS; 2020-08-22)
DX: K21.01 Gastro-esophageal reflux disease with esophagitis, with bleeding (principal); N18.6 End stage renal disease; E43 Unspecified severe protein-calorie malnutrition; I50.33 Acute on chronic diastolic (congestive) heart failure; J96.21 Acute and chronic respiratory failure with hypoxia; I13.2 Hypertensive heart and chronic kidney disease with heart failure and with stage 5 chronic kidney disease, or end stage renal disease; D62 Acute posthemorrhagic anemia; I25.119 Atherosclerotic heart disease of native coronary artery with unspecified angina pectoris; E03.9 Hypothyroidism, unspecified; E78.00 Pure hypercholesterolemia, unspecified; I25.5 Ischemic cardiomyopathy; I95.9 Hypotension, unspecified; K44.9 Diaphragmatic hernia without obstruction or gangrene; D63.1 Anemia in chronic kidney disease; J44.9 Chronic obstructive pulmonary disease, unspecified; K74.60 Unspecified cirrhosis of liver; E78.5 Hyperlipidemia, unspecified; I48.0 Paroxysmal atrial fibrillation; I34.0 Nonrheumatic mitral (valve) insufficiency; Z20.828 Contact with and (suspected) exposure to other viral communicable diseases; Z99.2 Dependence on renal dialysis; Z95.5 Presence of coronary angioplasty implant and graft; I25.2 Old myocardial infarction; Z79.01 Long term (current) use of anticoagulants; Z79.899 Other long term (current) drug therapy; Z88.1 Allergy status to other antibiotic agents; Z88.8 Allergy status to other drugs, medicaments and biological substances; Z85.3 Personal history of malignant neoplasm of breast; Z87.891 Personal history of nicotine dependence; Z68.34 Body mass index [BMI] 34.0-34.9, adult

== ENCOUNTER 2020-08-27 13:05 | Inpatient (IN) | payer MEDICARE, BC ==
[~2020-08-27] VITALS: Ht 160 cm; Wt 83.0 kg
--- NOTE | ~2020-08-27 | EEG ---
[address] [address] EEG STUDY REPORT Name: GABINO INIGUEZ Room: [address] IN M.R.#: [id number] Admission: 08/27/20 Attend Phys: Stephany Webb Discharge: Date of : 40 Report #: [id number] THIS REPORT FOR: cc: Tres Zuniga Gregg R. DO ~ Ad Suarez MD DATE OF SERVICE: 08/27/2020 This patient is being evaluated for confusion. EEG was done by placing the electrode by standard 10-20 system of electrode placement. Both referential and sequential montages were used for recording. Background activity is pretty difficult to determine because the patient's EEG is masked by a lot of artifact. It appeared to be about 6-7 Hz and in general, slow. Photic stimulation is unremarkable. EEG is slow in general and is disorganized and poorly formed. No active epileptiform activity was noticed. IMPRESSION: This patient's EEG is masked by a lot of artifact and is difficult to interpret, but it does appear to be intermixed with slowing on both sides. That is a nonspecific abnormality, which can occur with encephalopathy, effect of psychotropic medication, dementia, etc. Clinical correlation is recommended. By: 1115 [id number] Suarez MD /nt
[~2020-08-27 13:05] MED LIST changes: +AMIODARONE HCL400 MG PO; +DIGESTIVE ADVA PO; +PACERONE200 MG PO; +PROTONIX40 M3 PO; +RENA-VITE RX T1 EACH PO; +ROPINIROLE HCL0.5 MG PO
[2020-08-27 13:07] VITALS: BP 159/66
[2020-08-27] MEDS ORDERED: NEPHRO-VITE RX1 TA1 PO (13:13)
[2020-08-27] MEDS ORDERED: PROBIOTIC1 EAC2 PO (13:13)
[2020-08-27 13:38] LABS: HEMOGLOBIN 11.7 gm/dL (12.0-15.0); MCH 33.6 pg (26.0-34.0); MCHC 33.4 g/dL (28.0-37.0); MCV 100.6 fL (80.0-100.0); MPV 8.4 fl. (7.2-11.1); NUCLEATED RBCS 0 /100WBC; PLATELET COUNT* 126 thou/uL (150-400); RBC 3.48 mil/uL (4.20-5.00); RDW-CV 21.7 % (10.5-14.5); WBC 7.2 thou/uL (4.0-11.0)
[2020-08-27 13:48] LABS: CALCIUM 8.9 mg/dL (8.5-10.1); CREATININE 7.3 mg/dL (0.6-1.3); POTASSIUM 4.2 mmol/L (3.5-5.1)
[2020-08-27 13:51] LABS: APTT 43.6 Seconds (25.0-31.3); INR 1.2; PROTIME 12.4 Seconds (9.20-11.50)
[2020-08-27 14:04] LABS: ALBUMIN 2.5 g/dL (3.4-5.0)
[2020-08-27 14:13] LABS: URINE BILIRUBIN NEGATIVE (Negative); URINE BLOOD NEGATIVE (Negative); URINE CLARITY CLEAR; URINE COLOR YELLOW; URINE GLUCOSE-RANDOM NEGATIVE (Negative); URINE KETONES TRACE (Negative); URINE LEUKOCYTES-REFLEX TRACE (Negative); URINE NITRITE-REFLEX NEGATIVE (Negative); URINE PROTEIN TRACE (Negative); URINE SPECIFIC GRAVITY >= 1.030 (1.005-1.030); URINE UROBILINOGEN 0.2 E.U./dl (0.2-1.0)
[2020-08-27 14:29] LABS: AMORPHOUS URATES Few /LPF (None Seen); CASTS None Seen /LPF (None Seen); HYALINE CASTS 0-3 Few /LPF (None Seen); MUCUS 0-3 Light strn/LPF (None Seen); SQUAMOUS 4-10 Moderate /LPF (0-3)
[2020-08-27 14:30] LABS: BACTERIA-REFLEX 1-9 Few /HPF (None Seen); FINE GRANULAR CASTS 0-3 Few /LPF (None Seen); URINE RBC 0-2 Rare /HPF (0-2); URINE WBC-REFLEX 0-5 Rare /HPF (0-5); YEAST-REFLEX Present (None Seen)
[2020-08-27 15:25] LABS: ABSOLUTE LYMPHOCYTES 0.9 thou/uL (0.8-5.3); ABSOLUTE MONOCYTES 1.7 thou/uL (0.0-1.2); ABSOLUTE NEUTROPHILS 4.6 thou/uL (1.6-8.1)
[2020-08-27 15:26] LABS: ANISOCYTOSIS 2+; MACROCYTES Occasional
[2020-08-27 15:27] LABS: LARGE PLATELETS OCCASIONAL; PLATELET ESTIMATE ADEQUATE
[2020-08-27 16:04] VITALS: BP 166/78
--- NOTE | 2020-08-27 18:36 | NUR ---
PT ADMITTED TO ROOM 210 VIA CART FROM ED AT APPROX 1625. PT BEING TURNED Q2H AND YEAST NOTED TO UNDERSIDE OF BOTH BREASTS AND LEFT STOMACH FOLD. PT STATES SHE "FEELS MUCH BETTER" THAN SHE DID AT DIALYSIS TODAY. PT ALERT AND ORIENTED TO SELF BUT INITIALLY CONFUSED ABOUT WHERE SHE WAS AND FORGETFUL. ADMISSION ASSESSMENT AND HX COMPLETED CHARTED, MEDS PER MAR, HOURLY ROUNDING OBSERVED, FALL PRECAUTIONS IN PLACE, CALL LIGHT W/IN REACH. PT ORIENTED TO ROOM AND CALL LIGHT, DAUGHTER IN ROOM AND UPDATED ON POC, NOTIFIED ABOUT YEAST AND NYSTATIN POWDER ORDERED.
[2020-08-27 19:50] VITALS: BP 146/35
[2020-08-28 00:19] VITALS: BP 130/60
[2020-08-28 04:50] VITALS: BP 129/42
--- NOTE | 2020-08-28 04:59 | NUR ---
PT CARE ASSUMED AT 1930. SAT MAINTANED IN 2L NC. PT IS FORGETFUL. DENIES PAIN. CALL LIGHT WITHIN REACH AND BED IN LOW POSITION. HOURLY ROUNDING DONE FOR PT SAFETY.
[2020-08-28 08:00] VITALS: BP 140/52
--- NOTE | 2020-08-28 13:12 | EKG ---
[place] [address] ELECTROCARDIOGRAM REPORT Name: GABINO INIGUEZ Room: [address] ADM IN M.R.#: [id number] Admission: 08/27/20 Attend Phys: Liz Louise Discharge: Date of : 40 Date of Service: 08/27/20 1340 Report #: [id number] THIS REPORT FOR: //name// [facility] ED Test Date: 2020-08-27 Test Time: 13:40:46 Pat Name: GABINO INIGUEZ Department: Room: [facility] Gender: F Metallurgical Tester: TDS : 1940 Requested By: Óscar Rousseau Order Number: [id number] MD: Kyle Valle Measurements Intervals [place] Rate: 75 P: 75 LA: 204 QRS: -7 QRSD: 113 T: 71 QT: 429 QTc: 480 Interpretive Statements Sinus rhythm Borderline intraventricular conduction delay Borderline prolonged QT interval Compared to ECG 08/13/2020 08:59:30 ST (T wave) deviation no longer present Electronically Signed On 08-28-2020 13:12:13 GENERAL HARDWARE SALESPERSON by Kyle Valle [email or web address] <ELECTRONICALLY SIGNED> By: Kyle Valle MD, FACC 08/28/20 1312 1340 1340 Kyle Valle MD, FAC /EPI
[2020-08-28 16:00] VITALS: BP 105/39
--- NOTE | 2020-08-28 18:25 | NUR ---
ASSUMED PT CARE AT 0730, PT AOX4 AND FORGETFUL, NO C/O PAIN OR SHORTNESS OF BREATH. PT BEING TURNED Q2H BUT SOMETIMES REFUSES. PT WORKED W/ PT TODAY AND GOT UP TO CHAIR. MELANIE HERRMANN. PT GOAL IS TO REMAIN FREE FROM SKIN BREAKDOWN AND INCREASE ACTIVITY. MEDS PER OCT, HOURLY ROUNDING OBSERVED, FALL PRECAUTIONS IN PLACE, CALL LIGHT W/IN REACH.
[2020-08-29] VITALS: BP 111/31
[2020-08-29 04:00] VITALS: BP 118/31
--- NOTE | 2020-08-29 07:00 | NUR ---
PATIENT SLEPT MOST OF THE NIGHT. IV REMAINS SALINE LOCKED. PATIENT HAD NO COMPLAINTS OF PAIN. WILL CONTINUE TO MONITOR.
--- NOTE | 2020-08-29 08:09 | NUR ---
PT OFF UNIT TO DIALYSIS.
[2020-08-29 09:58] LABS: ABSOLUTE LYMPHOCYTES 0.6 thou/uL (0.8-5.3); ABSOLUTE MONOCYTES 0.9 thou/uL (0.0-1.2); BASOPHILS 0.7 %; EOSINOPHILS 0.7 %; HEMATOCRIT 27.6 % (37.0-47.0); LYMPHOCYTES 9.5 %; MCHC 34.3 g/dL (28.0-37.0); MCV 99.3 fL (80.0-100.0); MONOCYTES 13.6 %; MPV 8.1 fl. (7.2-11.1); NUCLEATED RBCS 0 /100WBC; PLATELET COUNT* 110 thou/uL (150-400); POLYS 75.5 %; RBC 2.78 mil/uL (4.20-5.00); WBC 6.6 thou/uL (4.0-11.0)
[2020-08-29 10:00] LABS: HEMOGLOBIN 9.4 gm/dL (12.0-15.0)
[2020-08-29 10:10] LABS: ALBUMIN 1.9 g/dL (3.4-5.0); CALCIUM 7.9 mg/dL (8.5-10.1); CREATININE 5.2 mg/dL (0.6-1.3); POTASSIUM 3.4 mmol/L (3.5-5.1); TOTAL PROTEIN 5.4 g/dL (6.4-8.2)
--- NOTE | 2020-08-29 12:26 | NUR ---
PT RETURN FROM MRI AND EATING LUNCH AT THIS TIME.
[2020-08-29 15:34] VITALS: BP 146/43
[2020-08-29 20:00] VITALS: BP 119/36
--- NOTE | 2020-08-29 20:00 | NUR ---
RECEIVED REPORT AND ASSUMED CARE OF PT, ASSESSMENT COMPLETED. ASSISTED TO BR WITH STEADY GAIT AND WALKER. O2 ON AT 2L/NC, NO SOA NOTED WITH ACTIVITY. TELEMTRY ON SHOWING A-FIB. WILL CONT TO MONITOR AND ASSIST NEEDED.
[2020-08-30] VITALS: BP 114/48
[2020-08-30 04:00] VITALS: BP 148/48
--- NOTE | 2020-08-30 05:30 | NUR ---
AWAKE PART OF THE NIGHT. FREQ THINKING SHE WAS INCONT OF STOOL AND NEEDING CLEANED UP. PT HAD LG BM IN THE BATHROOM BUT NOT ON HERSELF. REASSURANCE GIVEN SEVERAL TIMES AND GOWN CHANGED FOR HER OWN COMFORT. PT IS COMPLIANT WITH FLUID RESTRICTION. TELEMETRY CONT TO SHOW A-FIB WITH OCC SINUS BEATS. HS GOALS OF REST AND SAFETY ACHIEVED.
[2020-08-30 12:14] VITALS: BP 128/50
[2020-08-30] MEDS ORDERED: NYSTATIN15 G3 TOP (13:13)
[2020-08-30] MEDS ORDERED: KEPPRA 500 MG500 M1 PO (13:13)
[2020-08-30 13:31] VITALS: BP 128/50
--- NOTE | 2020-08-30 13:37 | NUR ---
PT ALERT AND ORIETED, DENIES PAIN OR SOA AT THIS TIME. TELE REVEALS CONTROLLED AFIB. IV AND TELE DISCONRTINUED. PT REMIANS ON 2L NC AND DAUGHTER WILL BRRING UP OXIMIZER FOR PT'S DISCHARGE TO HOME. PT UNDERSTANDS ALL FOLLOW UP ORDERS.
[2020-08-30 13:41] VITALS: BP 128/50
--- NOTE | 2020-08-30 14:15 | NUR ---
CM INFORMED DURING PRIME ROUNDING OF PLAN OF CARE FOR THE PT. PLAN FOR PT TO D/C HOME TODAY WITH SELF-CARE AND HOME HEALTH LEVEL OF CARE. CM SPOKE TO THE PT AND SHE IS IN AGREEMENT WITH THE PLAN. CM ARRANGED HH FOR THE PT AT HER PREVIOUS D/C. CM FAXED D/C ORDER FOR HH TO [facility] AND THEY WILL CONTACT THE PT TO ARRANGE A TIME TO VISIT. CM WILL REMAIN AVAILABLE TO ASSIST AND FOLLOW NEEDED. PT INFORMS THAT HER DTR WILL PROVIDE TRANSPORT HOME. CM ALSO CALLED AND FAXED [facility] PT'S CLINICAL INFO AND D/C ORDERS THE PT WILL RESUME OUTPATIENT DIALYSIS THERE. CM WILL REMAIN AVAILABLE TO ASSIST AND FOLLOW NEEDED. [facility] PHONE: [phone] FAX: [phone]
--- NOTE | 2020-09-01 08:23 | CON ---
[address] [address] CONSULTATION Name: GABINO INIGUEZ Room: [address] IN M.R.#: [id number] Admission: 08/27/20 Attend Phys: Stephany Webb Discharge: 08/30/20 Date of : 40 Report #: [id number] THIS REPORT FOR: cc: Tres Zuniga Gregg R. DO ~ Supriya Metcalf MD DATE OF SERVICE: 08/28/2020 NEPHROLOGY CONSULTATION CONSULTING PHYSICIAN: Liz Louise MD REASON FOR NEPHROLOGY CONSULTATION: ESRD, for maintenance hemodialysis. REASON FOR ADMISSION: Weakness during dialysis. HISTORY OF PRESENT ILLNESS: The patient is an 80-year-old female with a history of COPD, on home oxygen 2 liters; end-stage renal disease, on hemodialysis every Saturday, Saturday and Saturday at [facility], came in after 15 minutes of dialysis yesterday because she felt very weak and was slumping over. She was not really hypotensive. Her hemoglobin was 11.7. No real etiology has been ascertained yet so as to why she was weak. She was supposed to be on amiodarone prescribed about a week ago, but apparently she did not start it because of some confusion with prescription. She is really not short of breath this morning. She is on 2 liters of oxygen by nasal cannula. Her potassium was 4.2 yesterday. ALLERGIES: IBUPROFEN, CEFUROXIME AND AMOXICILLIN. REVIEW OF SYSTEMS: As mentioned in history of present illness, otherwise 10-point review of systems done, negative. HOME MEDICATIONS: Include midodrine, PreserVision drops, Carolyn-Alyson, ropinirole, lovastatin, levothyroxine, folic acid, pantoprazole, lactobacillus. PAST MEDICAL AND SURGICAL HISTORY: Includes coronary artery disease; D and C; tonsillectomy and adenoidectomy; GERD; diastolic congestive heart failure; hypertension; COPD; elevated cholesterol; macular degeneration, left eye; PleurX tubes for pleural effusions; frequent UTIs; hypertrophic cardiomyopathy; lumpectomy with lymph node removal; ischemic cardiomyopathy; chronic diastolic congestive heart failure. She has a tunneled dialysis catheter in right IJ. FAMILY HISTORY: Noncontributory in this 80-year-[place] [address] CONSULTATION Name: GABINO INIGUEZ Room: [address]#: [id number] Admission: 08/27/20 Attend Phys: Stephany Webb Discharge: 08/30/20 Date of : 40 Report #: [id number] SOCIAL HISTORY: She lives at home. Does not use drugs. Does not smoke or drink alcohol. PHYSICAL EXAMINATION: VITAL SIGNS: Her blood pressure is 129/42, pulse ox is 99% on 2 liters oxygen by nasal cannula, temperature 37.3, pulse rate is 74, respiratory rate is 18. GENERAL: She is awake, alert, oriented x 3. HEAD AND EYES: Atraumatic and normocephalic. Conjunctivae normal. EARS, NOSE, AND THROAT: Normal ears and nose. Mucous membranes are moist. NECK: There is no JVD. CHEST: Bilateral decreased breath sounds anteriorly. No crackles or wheezing. CARDIOVASCULAR: S1, S2 normal. No murmurs. ABDOMEN: Soft, nondistended, nontender. Bowel sounds are present. EXTREMITIES: Lower extremities, there is no lower extremity edema. DIALYSIS ACCESS: Right IJ tunneled dialysis catheter is intact. NEUROLOGICAL FUNCTION: Grossly intact. PSYCHIATRIC: Mood and affect seems to be normal. LABORATORY DATA: WBC 7.2, hemoglobin 11.7, platelet count 126. Sodium 138, potassium 4.2, BUN 24 and her electrolytes were from yesterday. Rest of the labs was reviewed. IMAGING: Chest x-ray was reviewed. ASSESSMENT: 1. End-stage renal disease, on hemodialysis every Saturday, Saturday, Saturday. 2. Weakness, which started during dialysis. Etiology is not clear. 3. Hypertension. Blood pressure seems to be controlled. 4. Hyper IgA paraproteinemia with plasma cells on last bone marrow biopsy. 5. Coronary artery disease. 6. Recent gastrointestinal bleed. 7. Esophagitis. 8. Cirrhosis secondary to autoimmune hepatitis. PLAN: I plan on dialyzing her tomorrow, I note that she received only 15 minutes of dialysis yesterday, but she looks okay, looks mostly euvolemic and her electrolytes were fine yesterday, plan on dialyzing her tomorrow morning. She was complaining of pain on urination when she came in, but she does not seem to have a UTI, please remove the [place] catheter. [facility] [address] [place] [address] CONSULTATION Name: GABINO INIGUEZ Room: M.224-P DIS IN M.R.#: [id number] Admission: 08/27/20 Attend Phys: Stephany Webb Discharge: 08/30/20 Date of : 40 Report #: [id number] Thank you for this consultation. We will continue to follow for dialysis needs. Discussed with the patient and the patient's nurse. <ELECTRONICALLY SIGNED> By: Supriya Metcalf MD 09/01/20 0823 0734 [id number] Metcalf MD /nt
== END 2020-08-30 16:13 | disposition home health service (06) | DRG 441 ==
LOC: M.ERS 13:05 → M.2W 14:16 → M.TBA-ER 14:16 → M.2W 16:52
PROVIDERS: Family Medicine; ADMIT Internal Medicine; ATTEND Internal Medicine
PROC: 5A1D70Z Performance of Urinary Filtration, Intermittent, Less than 6 Hours Per Day (ICD-10-PCS; principal; 2020-08-29)
DX: K75.4 Autoimmune hepatitis (principal); N18.6 End stage renal disease; I13.2 Hypertensive heart and chronic kidney disease with heart failure and with stage 5 chronic kidney disease, or end stage renal disease; I50.32 Chronic diastolic (congestive) heart failure; I95.9 Hypotension, unspecified; J44.9 Chronic obstructive pulmonary disease, unspecified; K20.90 Esophagitis, unspecified without bleeding; E78.00 Pure hypercholesterolemia, unspecified; D89.2 Hypergammaglobulinemia, unspecified; K21.9 Gastro-esophageal reflux disease without esophagitis; I25.10 Atherosclerotic heart disease of native coronary artery without angina pectoris; K74.60 Unspecified cirrhosis of liver; Z20.828 Contact with and (suspected) exposure to other viral communicable diseases; I25.2 Old myocardial infarction; Z95.5 Presence of coronary angioplasty implant and graft; Z99.2 Dependence on renal dialysis; Z79.01 Long term (current) use of anticoagulants; Z79.899 Other long term (current) drug therapy; Z88.1 Allergy status to other antibiotic agents; Z88.8 Allergy status to other drugs, medicaments and biological substances

== ENCOUNTER 2020-08-31 11:59 | Inpatient (IN) | payer MEDICARE, BC ==
[~2020-08-31] VITALS: Ht 152.4 cm; Wt 81.4 kg
[~2020-08-31 11:59] MED LIST changes: +KEPPRA 500 MG500 M1 PO; +NYSTATIN15 G3 TOP; +PROBIOTIC1 EAC2 PO
[2020-08-31 12:10] VITALS: BP 187/68
[2020-08-31 12:22] LABS: HEMATOCRIT 33.8 % (37.0-47.0); HEMOGLOBIN 11.3 gm/dL (12.0-15.0); MCH 33.4 pg (26.0-34.0); MCHC 33.4 g/dL (28.0-37.0); MCV 100.2 fL (80.0-100.0); MPV 7.6 fl. (7.2-11.1); NUCLEATED RBCS 0 /100WBC; PLATELET COUNT* 153 thou/uL (150-400); RBC 3.38 mil/uL (4.20-5.00); RDW-CV 20.9 % (10.5-14.5); WBC 4.6 thou/uL (4.0-11.0)
[2020-08-31 12:35] LABS: APTT 25.9 Seconds (25.0-31.3); INR 1.2; PROTIME 12.7 Seconds (9.20-11.50)
[2020-08-31 12:46] LABS: ABSOLUTE LYMPHOCYTES 0.7 thou/uL (0.8-5.3); ABSOLUTE MONOCYTES 0.6 thou/uL (0.0-1.2); ABSOLUTE NEUTROPHILS 3.3 thou/uL (1.6-8.1); ANISOCYTOSIS 1+; ATYPICAL LYMPHS 2 %; MACROCYTES 1+; PLATELET ESTIMATE ADEQUATE; POIKILOCYTOSIS 1+
[2020-08-31 12:51] LABS: CALCIUM 8.8 mg/dL (8.5-10.1); POTASSIUM 4.3 mmol/L (3.5-5.1)
[2020-08-31 12:53] LABS: CREATININE 9.8 mg/dL (0.6-1.3)
[2020-08-31 13:02] LABS: ALBUMIN 2.1 g/dL (3.4-5.0); TOTAL PROTEIN 6.2 g/dL (6.4-8.2)
[2020-08-31 13:34] LABS: URINE BILIRUBIN NEGATIVE (Negative); URINE BLOOD 2+ (Negative); URINE CLARITY CLEAR; URINE COLOR YELLOW; URINE GLUCOSE-RANDOM NEGATIVE (Negative); URINE KETONES TRACE (Negative); URINE NITRITE-REFLEX NEGATIVE (Negative); URINE PROTEIN 1+ (Negative); URINE SPECIFIC GRAVITY >= 1.030 (1.005-1.030); URINE UROBILINOGEN 0.2 E.U./dl (0.2-1.0)
[2020-08-31 13:41] LABS: URINE LEUKOCYTES-REFLEX 2+ (Negative)
[2020-08-31 13:44] LABS: BACTERIA-REFLEX >30 Many /HPF (None Seen); CASTS None Seen /LPF (None Seen); CRYSTALS None Seen /LPF (None Seen); MUCUS 0-3 Light strn/LPF (None Seen); SQUAMOUS NONE SEEN /LPF (0-3); URINE RBC 0-2 Rare /HPF (0-2); URINE WBC-REFLEX 6-15 Few /HPF (0-5)
[2020-08-31 15:43] VITALS: BP 159/62
--- NOTE | 2020-08-31 16:37 | EKG ---
[place] [address] ELECTROCARDIOGRAM REPORT Name: GABINO INIGUEZ Room: [address] ADM IN .R.#: [id number] Admission: 08/31/20 Attend Phys: Kathryn Echavarria, Discharge: Date of : 40 Date of Service: 08/31/20 1229 Report #: [id number] THIS REPORT FOR: //name// [facility] ED Test Date: 2020-08-31 Test Time: 12:29:42 Pat Name: GABINO INIGUEZ Department: Room: [facility] Gender: F Refinery Operator Crude Unit: : 1940 Requested By: Dale Cornelius Order Number: [id number] MD: Luis Olvera Measurements Intervals [place] Rate: 72 P: 41 ND: 197 QRS: -3 QRSD: 116 T: 61 QT: 455 QTc: 499 Interpretive Statements Sinus rhythm Atrial premature complexes in couplets Probable left atrial enlargement Nonspecific intraventricular conduction delay Baseline wander in lead(s) V3 Compared to ECG 08/27/2020 13:40:46 Atrial premature complex(es) now present Electronically Signed On 08-31-2020 16:36:59 STEAM BOX OPERATOR by Luis Olvera [email or web address] <ELECTRONICALLY SIGNED> By: Luis Olvera MD, FACC 08/31/20 1636 1229 1229 Luis Olvera MD, FACC /EPI
[2020-08-31 17:00] VITALS: BP 150/66
[2020-08-31 20:41] VITALS: BP 131/55
[2020-08-31 22:50] VITALS: BP 105/43
[2020-09-01 04:44] LABS: HEMATOCRIT 33.4 % (37.0-47.0); HEMOGLOBIN 11.2 gm/dL (12.0-15.0); MCH 33.6 pg (26.0-34.0); MCHC 33.5 g/dL (28.0-37.0); MCV 100.1 fL (80.0-100.0); MPV 8.4 fl. (7.2-11.1); RBC 3.34 mil/uL (4.20-5.00); RDW-CV 21.3 % (10.5-14.5); WBC 6.5 thou/uL (4.0-11.0)
[2020-09-01 05:27] LABS: POTASSIUM 4.4 mmol/L (3.5-5.1)
[2020-09-01 05:32] LABS: CREATININE 5.1 mg/dL (0.6-1.3)
[2020-09-01 08:00] VITALS: BP 122/45
--- NOTE | 2020-09-01 08:23 | CON ---
[address] [address] CONSULTATION Name: GABINO INIGUEZ Room: [address] ADM IN M.R.#: [id number] Admission: 08/31/20 Attend Phys: Kathryn Echavarria MD Discharge: Date of : 40 Report #: [id number] THIS REPORT FOR: cc: Tres Zuniga Gregg R. DO ~ Vasudeva, Amita MD DATE OF SERVICE: 09/01/2020 NEPHROLOGY CONSULTATION CONSULTING PHYSICIAN: Kathryn Echavarria MD REASON FOR NEPHROLOGY CONSULTATION: ESRD, for maintenance hemodialysis. REASON FOR ADMISSION: Weakness. HISTORY OF PRESENT ILLNESS: This is an 80-year-old female with history of end-stage renal disease, on hemodialysis every Saturday, Saturday and Saturday, has had recurrent admissions recently, came in with weakness again. She was diagnosed with possible seizures during her last admission. Urine cultures and blood cultures are pending. She has evidence of right-sided pneumonia and primary team is treating that. She was dialyzed yesterday. This morning, she is complaining of restless leg syndrome. ALLERGIES: IBUPROFEN, CEFUROXIME AND AMOXICILLIN. REVIEW OF SYSTEMS: As mentioned in history of present illness, otherwise 10-point review of systems done, negative. PAST MEDICAL AND SURGICAL HISTORY: Which includes coronary artery disease, ESRD, on hemodialysis every Saturday, Saturday, Saturday. She has had 7 coronary artery stents, D and C, tonsillectomy, adenoidectomy, GERD, diastolic congestive heart failure, hypertension, COPD, dyslipidemia, macular degeneration of left eye, restless leg syndrome, pleural effusion, history of frequent UTIs, HOCM, lumpectomy with lymph node removal and chronic diastolic congestive heart failure. HOME MEDICATIONS: Which include Protonix, Keppra, nystatin, lactobacillus, midodrine, PreserVision drops, Carolyn-Alyson, ropinirole, levothyroxine, folic acid, B complex, lovastatin. FAMILY HISTORY: Noncontributory. SOCIAL HISTORY: She lives at home. Does not smoke [place] [address] CONSULTATION Name: GABINO INIGUEZ Room: [address]#: [id number] Admission: 08/31/20 Attend Phys: Kathryn Echavarria MD Discharge: Date of : 40 Report #: [id number] illicit drugs. PHYSICAL EXAMINATION: VITAL SIGNS: Blood pressure is 105/43, pulse is 87, temperature is 36.8, respiratory rate is 20, pulse ox is 97% on room air. GENERAL: She is awake, alert and oriented x 3. HEAD AND EYES: Atraumatic and normocephalic. Conjunctivae normal. EARS, NOSE, AND THROAT: Normal ears and nose. Mucous membranes are moist. NECK: No JVD. CHEST: Bilaterally diminished breath sounds. No crackles or wheezing. Tunneled dialysis catheter intact. ABDOMEN: Soft, nondistended, nontender. Bowel sounds are present. LOWER EXTREMITIES: No lower extremity edema. NEUROLOGICAL FUNCTION: Grossly intact. PSYCHIATRIC: Mood seems to be normal. LABORATORY DATA: Hemoglobin 11.2, potassium was 4.4. Other labs are reviewed. IMAGING: Chest x-ray and cervical spinal CT were reviewed. ASSESSMENT: 1. End-stage renal disease, on hemodialysis every Saturday, Saturday, and Saturday. 2. Admission diagnosis of weakness, consult for recurrent seizures. 3. Right-sided pneumonia. Primary team is treating. 4. Anemia of chronic kidney disease. Hemoglobin currently at goal. 5. Hypertension. 6. History of pleural effusions. 7. Chronic diastolic congestive heart failure, not in exacerbation. 8. Dyslipidemia. 9. History of lumpectomy, right breast. PLAN: 1. Antibiotics for right-sided pneumonia as per primary team. 2. She was dialyzed yesterday. Next dialysis will be on Saturday because of holiday schedule. There is no need for dialysis today. 3. Hemoglobin is currently at goal. 4. We will continue to follow with you for dialysis needs. <ELECTRONICALLY SIGNED> By: Supriya Metcalf MD 09/01/20 0823 0753 [id number] Metcalf MD /nt
[2020-09-01 11:55] VITALS: BP 163/42
[2020-09-01 17:02] VITALS: BP 165/43
[2020-09-01 20:39] VITALS: BP 143/52
[2020-09-02] VITALS (8 sets, daily range): BP systolic 106–178; BP diastolic 38–65
[2020-09-02 03:30] LABS: HEMATOCRIT 27.5 % (37.0-47.0); HEMOGLOBIN 9.3 gm/dL (12.0-15.0); MCH 34.1 pg (26.0-34.0); MCHC 33.7 g/dL (28.0-37.0); MCV 101.1 fL (80.0-100.0); MPV 7.6 fl. (7.2-11.1); RBC 2.72 mil/uL (4.20-5.00); RDW-CV 21.5 % (10.5-14.5); WBC 5.6 thou/uL (4.0-11.0)
[2020-09-02 04:22] LABS: ALBUMIN 1.7 g/dL (3.4-5.0); CALCIUM 8.4 mg/dL (8.5-10.1); MAGNESIUM 2.1 mg/dL (1.8-2.4); POTASSIUM 3.8 mmol/L (3.5-5.1); TOTAL BILIRUBIN 0.7 mg/dL (<0.1-1.0); TOTAL PROTEIN 5.3 g/dL (6.4-8.2)
[2020-09-02 04:26] LABS: CREATININE 7.6 mg/dL (0.6-1.3)
[2020-09-03 03:41] LABS: HEMATOCRIT 26.6 % (37.0-47.0); MCHC 33.9 g/dL (28.0-37.0); MCV 100.2 fL (80.0-100.0); MPV 7.7 fl. (7.2-11.1); RBC 2.65 mil/uL (4.20-5.00); RDW-CV 21.2 % (10.5-14.5); WBC 5.5 thou/uL (4.0-11.0)
[2020-09-03 03:56] LABS: ALBUMIN 1.8 g/dL (3.4-5.0); CALCIUM 8.5 mg/dL (8.5-10.1); MAGNESIUM 2.3 mg/dL (1.8-2.4); POTASSIUM 3.9 mmol/L (3.5-5.1); TOTAL BILIRUBIN 0.7 mg/dL (<0.1-1.0); TOTAL PROTEIN 5.2 g/dL (6.4-8.2)
[2020-09-03 03:57] LABS: CREATININE 9.2 mg/dL (0.6-1.3)
[2020-09-03 04:00] VITALS: BP 135/41
[2020-09-03 08:00] VITALS: BP 143/50
[2020-09-03 16:15] VITALS: BP 134/46
[2020-09-03 20:21] VITALS: BP 128/41
[2020-09-04] VITALS (7 sets, daily range): BP systolic 100–164; BP diastolic 38–54
[2020-09-04 03:58] LABS: ALBUMIN 1.8 g/dL (3.4-5.0); CALCIUM 8.2 mg/dL (8.5-10.1); MAGNESIUM 2.2 mg/dL (1.8-2.4); POTASSIUM 3.8 mmol/L (3.5-5.1); TOTAL BILIRUBIN 0.6 mg/dL (<0.1-1.0); TOTAL PROTEIN 5.4 g/dL (6.4-8.2)
[2020-09-04 04:05] LABS: CREATININE 7.2 mg/dL (0.6-1.3)
[2020-09-04 04:06] LABS: HEMATOCRIT 26.9 % (37.0-47.0); HEMOGLOBIN 9.2 gm/dL (12.0-15.0); MCHC 34.1 g/dL (28.0-37.0); MCV 99.6 fL (80.0-100.0); MPV 8.3 fl. (7.2-11.1); RBC 2.71 mil/uL (4.20-5.00); RDW-CV 21.4 % (10.5-14.5); WBC 4.7 thou/uL (4.0-11.0)
[2020-09-05 04:36] LABS: HEMATOCRIT 27.7 % (37.0-47.0); HEMOGLOBIN 9.5 gm/dL (12.0-15.0); MCHC 34.1 g/dL (28.0-37.0); MCV 99.7 fL (80.0-100.0); RBC 2.78 mil/uL (4.20-5.00); RDW-CV 21.8 % (10.5-14.5); WBC 4.3 thou/uL (4.0-11.0)
[2020-09-05 04:49] LABS: ALBUMIN 1.8 g/dL (3.4-5.0); CALCIUM 8.5 mg/dL (8.5-10.1); MAGNESIUM 2.3 mg/dL (1.8-2.4); TOTAL BILIRUBIN 0.8 mg/dL (<0.1-1.0); TOTAL PROTEIN 5.3 g/dL (6.4-8.2)
[2020-09-05 04:55] LABS: CREATININE 9.4 mg/dL (0.6-1.3)
[2020-09-05] MEDS ORDERED: KEPPRA 500 MG500 M1 PO (07:45)
[2020-09-05] MEDS ORDERED: LEVOFLOXACIN250 MG PO (07:45)
[2020-09-05] MEDS ORDERED: PLAVIX 75 MG TA75 M1 PO (07:45)
[2020-09-05 12:34] VITALS: BP 147/62
[2020-09-05 16:39] VITALS: BP 127/45
[2020-09-05 20:00] VITALS: BP 132/55
[2020-09-06 07:35] VITALS: BP 139/42
[2020-09-06] MEDS ORDERED: LEVOFLOXACIN250 MG PO (07:48)
[2020-09-06 15:45] VITALS: BP 156/62
[2020-09-06 20:00] VITALS: BP 149/45
[2020-09-07 08:40] VITALS: BP 127/55
[2020-09-07 17:20] VITALS: BP 149/46
[2020-09-07 20:49] VITALS: BP 130/49
[2020-09-08 00:14] VITALS: BP 126/69
[2020-09-08 05:54] LABS: HEMATOCRIT 31.2 % (37.0-47.0); HEMOGLOBIN 10.5 gm/dL (12.0-15.0); MCH 33.7 pg (26.0-34.0); MCHC 33.7 g/dL (28.0-37.0); MPV 9.3 fl. (7.2-11.1); NUCLEATED RBCS 0 /100WBC; PLATELET COUNT* 95 thou/uL (150-400); RBC 3.12 mil/uL (4.20-5.00); RDW-CV 21.5 % (10.5-14.5); WBC 4.9 thou/uL (4.0-11.0)
[2020-09-08 06:15] LABS: ALBUMIN 1.9 g/dL (3.4-5.0); CALCIUM 8.6 mg/dL (8.5-10.1); CREATININE 5.8 mg/dL (0.6-1.3); MAGNESIUM 2.2 mg/dL (1.8-2.4); POTASSIUM 3.7 mmol/L (3.5-5.1); TOTAL BILIRUBIN 0.6 mg/dL (<0.1-1.0); TOTAL PROTEIN 5.9 g/dL (6.4-8.2)
[2020-09-08 07:22] LABS: ABSOLUTE LYMPHOCYTES 1.6 thou/uL (0.8-5.3); ABSOLUTE MONOCYTES 1.2 thou/uL (0.0-1.2); ABSOLUTE NEUTROPHILS 2.1 thou/uL (1.6-8.1); ATYPICAL LYMPHS 4 %; ATYPICAL MONONUCLEARS 1 %; PLATELET ESTIMATE DECREASED
[2020-09-08 07:23] LABS: MACROCYTES 2+; TARGET CELLS 1+; TOXIC GRANULATION 3+
[2020-09-08 08:45] VITALS: BP 125/45
[2020-09-08 13:08] LABS: HEPATITIS B SURFACE AG Negative (Negative)
[2020-09-08 16:00] VITALS: BP 119/47
[2020-09-08 20:00] VITALS: BP 143/52
[2020-09-09] VITALS: BP 119/48
[2020-09-09 08:55] VITALS: BP 112/51
[2020-09-09 09:11] LABS: HEMOGLOBIN 10.4 g/dL (11.1-15.9)
[2020-09-09 16:00] VITALS: BP 131/50
[2020-09-09 20:19] VITALS: BP 125/53
[2020-09-10 00:18] VITALS: BP 131/40
[2020-09-10 06:03] LABS: HEMATOCRIT 31.2 % (37.0-47.0); HEMOGLOBIN 10.6 gm/dL (12.0-15.0); MCH 33.7 pg (26.0-34.0); MCHC 33.9 g/dL (28.0-37.0); MCV 99.5 fL (80.0-100.0); MPV 9.7 fl. (7.2-11.1); RBC 3.13 mil/uL (4.20-5.00); RDW-CV 21.6 % (10.5-14.5); WBC 5.3 thou/uL (4.0-11.0)
[2020-09-10 06:32] LABS: ALBUMIN 1.9 g/dL (3.4-5.0); CALCIUM 8.4 mg/dL (8.5-10.1); CREATININE 5.7 mg/dL (0.6-1.3); MAGNESIUM 2.1 mg/dL (1.8-2.4); TOTAL BILIRUBIN 0.6 mg/dL (<0.1-1.0); TOTAL PROTEIN 5.7 g/dL (6.4-8.2)
[2020-09-10 08:20] VITALS: BP 132/73
== END 2020-09-10 15:15 | DRG 689 ==
LOC: M.ERS 11:59 → M.TBA-ER 13:36 → M.2W 13:36 → M.3W 09-04 19:37 → M.ORTHSURG 09-06 18:27
PROVIDERS: Emergency Medicine Emergency Medical Services; Internal Medicine; ADMIT Internal Medicine; ATTEND Internal Medicine
PROC: 5A1D70Z Performance of Urinary Filtration, Intermittent, Less than 6 Hours Per Day (ICD-10-PCS; principal; 2020-09-03)
PROC: 5A1D70Z Performance of Urinary Filtration, Intermittent, Less than 6 Hours Per Day (ICD-10-PCS; 2020-09-05)
PROC: 5A1D70Z Performance of Urinary Filtration, Intermittent, Less than 6 Hours Per Day (ICD-10-PCS; 2020-09-07)
PROC: 5A1D70Z Performance of Urinary Filtration, Intermittent, Less than 6 Hours Per Day (ICD-10-PCS; 2020-09-09)
DX: N39.0 Urinary tract infection, site not specified (principal); G93.41 Metabolic encephalopathy; N18.6 End stage renal disease; R65.11 Systemic inflammatory response syndrome (SIRS) of non-infectious origin with acute organ dysfunction; U07.1 COVID-19; I50.32 Chronic diastolic (congestive) heart failure; I13.2 Hypertensive heart and chronic kidney disease with heart failure and with stage 5 chronic kidney disease, or end stage renal disease; N17.9 Acute kidney failure, unspecified; I42.9 Cardiomyopathy, unspecified; B96.20 Unspecified Escherichia coli [E. coli] as the cause of diseases classified elsewhere; R56.9 Unspecified convulsions; K21.9 Gastro-esophageal reflux disease without esophagitis; E78.00 Pure hypercholesterolemia, unspecified; I25.10 Atherosclerotic heart disease of native coronary artery without angina pectoris; E86.0 Dehydration; J44.9 Chronic obstructive pulmonary disease, unspecified; G25.81 Restless legs syndrome; E78.5 Hyperlipidemia, unspecified; I48.91 Unspecified atrial fibrillation; D63.1 Anemia in chronic kidney disease; R53.81 Other malaise; Z99.2 Dependence on renal dialysis; I25.2 Old myocardial infarction; Z79.899 Other long term (current) drug therapy; Z88.8 Allergy status to other drugs, medicaments and biological substances; Z88.1 Allergy status to other antibiotic agents; Z95.1 Presence of aortocoronary bypass graft; Z95.5 Presence of coronary angioplasty implant and graft

== ENCOUNTER 2020-11-05 03:08 | Inpatient (IN) | payer MEDICARE, BC ==
[2020-11-05] VITALS (7 sets, daily range): BP systolic 92–145; BP diastolic 33–70
[~2020-11-05] VITALS: Ht 160 cm; Wt 85.2 kg
--- NOTE | ~2020-11-05 | CON ---
[address] [address] CONSULTATION Name: GABINO INIGUEZ Room: [address] IN M.R.#: [id number] Admission: 11/05/20 Attend Phys: Kathryn Echavarria MD Discharge: Date of : 40 Report #: [id number] THIS REPORT FOR: cc: Tres Zuniga Gregg R. DO ~ Khan, Abid R. MD NEPHROLOGY CONSULT CONSULTING PHYSICIAN: Kathryn Echavarria MD. REASON FOR CONSULTATION: End-stage kidney disease. HISTORY OF PRESENT ILLNESS: An 80-year-old female with a history of end-stage kidney disease, hemodialysis Saturday, Saturday and Saturday, last dialysis was on Saturday, comes in with some shortness of breath and anemia. She was found to have gram-positive cocci in her blood and was started on vancomycin. She has a tunneled dialysis catheter, not having any pain from that site. She was referred for an AV fistula, but unfortunately was deemed not a surgical candidate by Anesthesia and thus is dialysis catheter dependent. She presently appears to be comfortable, does not have any complaints. REVIEW OF SYSTEMS: Constitutional, psych, heme, eyes, ENT, respiratory, cardiac, GI, , endocrine, all negative except as documented above. PAST MEDICAL HISTORY: End-stage kidney disease, history of cirrhosis, coronary artery disease, diastolic heart failure, hypothyroidism, breast cancer, MGUS, COPD. CURRENT MEDICATIONS: Reviewed. SOCIAL HISTORY: No tobacco. FAMILY HISTORY: Noncontributory in this 80-year-old female. PHYSICAL EXAMINATION: VITAL SIGNS: Blood pressure 163/51, pulse 64, respirations 22, temperature 36.4. GENERAL: No acute distress. EYES: Open. EARS: Externally normal. NECK: Supple. CARDIOVASCULAR: Regular rate. LUNGS: No crackles. ABDOMEN: Soft. MUSCULOSKELETAL: [place] [address] CONSULTATION Name: GABINO INIGUEZ Room: [address]#: [id number] Admission: 11/05/20 Attend Phys: Kathryn Echavarria MD Discharge: Date of : 40 Report #: [id number] PSYCHIATRIC: Awake, alert. LABORATORY DATA: White cell count 9.1, hemoglobin 7.6, platelets 133. Sodium 135, potassium 3.8, chloride 102, bicarbonate 26, BUN 45, creatinine 6.1, glucose 95, calcium 8.3. ASSESSMENT: 1. End-stage kidney disease, hemodialysis Saturday, Saturday and Saturday at [facility]. 2. Gram-positive cocci bacteremia. White cell count was about 25 on admission. 3. Cirrhosis. 4. Left 1 mm punctate renal calculus noted on CT. 5. Colonic diverticulosis. 6. Chronic obstructive pulmonary disease. 7. 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 Vega. 8. Anemia of chronic kidney disease with history of acute unexplained drops in hemoglobin, currently being followed by Hematology. 9. Coronary artery disease. 10. Diastolic heart failure. 11. Hypothyroidism. 12. History of breast cancer. PLAN: 1. White cell count is down to 9. The patient is currently on antibiotics and is dialysis catheter dependent. Infectious Disease has been consulted. Await final results of blood culture. Depending on those results, she may need an echo and/or line exchange. We will defer to ID. 2. Epo with dialysis. 3. Add renal multivitamin, we will follow for dialysis needs. Thank you for requesting my opinion in the care and management of this patient. By: 1259 [id number] La MD /nt
[~2020-11-05 03:08] MED LIST changes: +LEVOFLOXACIN250 MG PO
[2020-11-05 03:55] LABS: HEMATOCRIT 28.5 % (37.0-47.0); HEMOGLOBIN 9.5 gm/dL (12.0-15.0); MCH 36.5 pg (26.0-34.0); MCHC 33.2 g/dL (28.0-37.0); MCV 109.7 fL (80.0-100.0); MPV 8.1 fl. (7.2-11.1); NUCLEATED RBCS 0 /100WBC; PLATELET COUNT* 197 thou/uL (150-400); RDW-CV 23.3 % (10.5-14.5); WBC 24.9 thou/uL (4.0-11.0)
[2020-11-05 04:04] LABS: CALCIUM 9.3 mg/dL (8.5-10.1); CREATININE 3.2 mg/dL (0.6-1.3); POTASSIUM 4.1 mmol/L (3.5-5.1)
[2020-11-05 04:06] LABS: INR 1.3; PROTIME 13.3 Seconds (9.20-11.50)
[2020-11-05 04:15] LABS: ALBUMIN 2.1 g/dL (3.4-5.0); TOTAL BILIRUBIN 1.1 mg/dL (<0.1-1.0); TOTAL PROTEIN 7.1 g/dL (6.4-8.2)
[2020-11-05] MEDS ORDERED: TIZANIDINE HCL2 M1 PO ×2 (04:41→11:15)
[2020-11-05] MEDS ORDERED: AMIODARONE HCL400 MG PO (04:42)
[2020-11-05 05:02] LABS: BE 4.4 mmol/L (-2 to +3); PCO2 35.1 mmHg (35.0-45.0); PO2 106.6 mmHg (75.0-100.0)
[2020-11-05 05:57] LABS: ABSOLUTE LYMPHOCYTES 0.2 thou/uL (0.8-5.3); ABSOLUTE NEUTROPHILS 23.7 thou/uL (1.6-8.1); ANISOCYTOSIS Occasional; PLATELET ESTIMATE ADEQUATE; TOXIC GRANULATION 2+
[2020-11-05] MEDS ORDERED: OMEPRAZOLE40 MG PO (11:13)
[2020-11-05] MEDS ORDERED: ELIQUIS2.5 MG PO (11:13)
[2020-11-05] MEDS ORDERED: PROBIOTIC1 EAC7 PO (11:14)
[2020-11-05] MEDS ORDERED: RENAPLEX TABLE1 EACH PO (11:14)
[2020-11-05] MEDS ORDERED: PRESERVISION A1 EAC2 PO (11:16)
[2020-11-06 00:12] VITALS: BP 100/39
[2020-11-06 04:33] VITALS: BP 94/32
[2020-11-06 04:34] LABS: HEMATOCRIT 21.1 % (37.0-47.0); MCH 36.9 pg (26.0-34.0); MCHC 33.2 g/dL (28.0-37.0); MCV 111.2 fL (80.0-100.0); MPV 8.4 fl. (7.2-11.1); RBC 1.9 mil/uL (4.20-5.00); RDW-CV 23.5 % (10.5-14.5); WBC 14.3 thou/uL (4.0-11.0)
[2020-11-06 04:36] LABS: CALCIUM 8.3 mg/dL (8.5-10.1); POTASSIUM 4.3 mmol/L (3.5-5.1)
[2020-11-06 04:50] LABS: CREATININE 4.9 mg/dL (0.6-1.3)
[2020-11-06 07:35] VITALS: BP 120/40
[2020-11-06 11:46] VITALS: BP 109/39
--- NOTE | 2020-11-06 11:52 | EKG ---
[place] [address] ELECTROCARDIOGRAM REPORT Name: GABINO INIGUEZ Room: [address] ADM IN M.R.#: [id number] Admission: 11/05/20 Attend Phys: Kathryn Echavarria, Discharge: Date of : 40 Date of Service: 11/05/20 0317 Report #: [id number] THIS REPORT FOR: //name// [facility] ED Test Date: 2020-11-05 Test Time: 03:17:11 Pat Name: GABINO INIGUEZ Department: Room: [facility] Gender: F Conditioning Room Worker: SHARLENE : 1940 Requested By: Karin Alvarado Order Number: [id number] MD: Thony Hawthorne Measurements Intervals [place] Rate: 89 P: 29 SD: 214 QRS: -17 QRSD: 114 T: 74 QT: 401 QTc: 488 Interpretive Statements Sinus rhythm Borderline prolonged SD interval Anteroseptal infarct, age indeterminate Compared to ECG 08/31/2020 12:29:42 Myocardial infarct finding now present Atrial premature complex(es) no longer present Intraventricular conduction delay no longer present Electronically Signed On 11-06-2020 11:52:38 PRESS OPERATOR HELPER by Thony Hawthorne [email or web address] <ELECTRONICALLY SIGNED> By: Georgette Hawthorne MD, [facility] 11/06/20 1152 6 6 Georgette Hawthorne MD, [facility] /EPI
[2020-11-06 16:00] VITALS: BP 127/56
[2020-11-06 19:40] VITALS: BP 125/66
[2020-11-06 22:05] LABS: IgA 619 mg/dL (64-422); IgG 1411 mg/dL (586-1602); IgM 267 mg/dL (26-217)
[2020-11-07] VITALS (8 sets, daily range): BP systolic 134–168; BP diastolic 40–61
[2020-11-07 04:19] LABS: HEMATOCRIT 22.4 % (37.0-47.0); HEMOGLOBIN 7.6 gm/dL (12.0-15.0); MCH 37.5 pg (26.0-34.0); MCHC 33.9 g/dL (28.0-37.0); MCV 110.7 fL (80.0-100.0); MPV 8.4 fl. (7.2-11.1); RBC 2.03 mil/uL (4.20-5.00); WBC 9.1 thou/uL (4.0-11.0)
[2020-11-07 04:50] LABS: CALCIUM 8.3 mg/dL (8.5-10.1); CREATININE 6.1 mg/dL (0.6-1.3); POTASSIUM 3.8 mmol/L (3.5-5.1)
[2020-11-08 03:54] VITALS: BP 139/40
[2020-11-08 04:26] LABS: POTASSIUM 3.7 mmol/L (3.5-5.1)
[2020-11-08 04:27] LABS: HEMATOCRIT 21.9 % (37.0-47.0); HEMOGLOBIN 7.4 gm/dL (12.0-15.0); MCHC 33.9 g/dL (28.0-37.0); MCV 109.1 fL (80.0-100.0); MPV 8.2 fl. (7.2-11.1); RBC 2.01 mil/uL (4.20-5.00); RDW-CV 22.2 % (10.5-14.5); WBC 5.6 thou/uL (4.0-11.0)
[2020-11-08 04:37] LABS: CREATININE 4.1 mg/dL (0.6-1.3)
[2020-11-08 08:27] VITALS: BP 130/53
[2020-11-08 09:00] VITALS: BP 130/53
[2020-11-08 11:42] VITALS: BP 147/57
--- NOTE | 2020-11-08 13:49 | 2DMMODE ---
[place] [address] 2 D/M-MODE ECHOCARDIOGRAM Name: GABINO INIGUEZ Room: [address] IN Jose Raul.#: [id number] Admission: 11/05/20 Attend Phys: Kathryn Echavarria, Discharge: Date of : 40 Date of Service: 11/08/20 1349 Report #: [id number] THIS REPORT FOR: cc: Tres Zuniga Gregg R. DO Liston, Michael J. MD [facility] ~ APPROVED REPORT Study performed: 11/08/2020 10:06:51 EXAM: Comprehensive 2D, Doppler, and color-flow Echocardiogram Patient Location: In-Patient Room #: 224 Status: routine BSA: 1.84 HR: 61 bpm BP: 130/53 mmHg Rhythm: NSR Other Information Study Quality: Good Indications COPD Dyspnea bacteremia 2D Dimensions IVSd: 15.57 (7-11mm) LVOT Diam: 19.55 (18-24mm) LVDd: 50.05 mm PWd: 8.60 (7-11mm) Ascending Ao: 33.82 (22-36mm) LVDs: 32.08 (25-40mm) Aortic Root: 27.54 mm Volumes Left Atrial Volume (Systole) LA ESV Index: 33.10 mL/m2 Aortic Valve AoV Peak Cedrick.: 3.41 m/s AO Peak Gr.: 46.51 mmHg LVOT Max P.45 mmHg AO Mean Gr.: 25.88 mmHg LVOT Mean P.36 mmHg LVOT Max V: 1.62 m/s AO V2 VTI: 89.59 cm LVOT Mean V: 1.07 m/[place] [address] 2 D/M-MODE ECHOCARDIOGRAM Name: GABINO INIGUEZ Room: [address] IN M.R.#: [id number] Admission: 11/05/20 Attend Phys: Kathryn Echavarria, Discharge: Date of : 40 Date of Service: 11/08/20 1349 Report #: [id number] MAURICIO (VTI): 1.55 cm2 LVOT V1 VTI: 46.12 cm Mitral Valve MV Mean Gr.: 4.88 mmHg E/A Ratio: 1.24 MV Decel. Time: 322.80 ms MV E Max Cedrick.: 1.74 m/s MV PHT: 93.61 ms MVA (PHT): 2.35 cm2 TDI E/Lateral E': 15.82 E/Medial E': 14.50 Medial E' Cedrick.: 0.12 m/s Lateral E' Cedrick.: 0.11 m/s Pulmonary Valve PV Peak Cedrick.: 1.77 m/s PV Peak Gr.: 12.48 mmHg Left Ventricle The left ventricle is normal size. The apex and apical septum appears akinetic. Mild basal septal hypertrophy is present. Left ventricular systolic function is preserved. LVEF is 55-60%. Transmitral Doppler flow pattern suggests pseudonormalization. Right Ventricle The right ventricle was mildly dilated. The right ventricular systolic function is normal. Atria The left atrium is mildly dilated. Right atrium is dilated. Aortic Valve Mild aortic valve sclerosis. No aortic regurgitation is present. Mild aortic stenosis. Mitral Valve Moderate mitral annular calcification. Trace mitral regurgitation. Mild to moderate mitral stenosis. Tricuspid Valve The tricuspid valve is normal in structure. Unable to assess PA pressure. Trace tricuspid regurgitation. Pulmonic Valve The pulmonary valve is normal in structure. [place] [address] 2 D/M-MODE ECHOCARDIOGRAM Name: GABINO INIGUEZ Room: [address] [place] [facility]#: [id number] Admission: 11/05/20 Attend Phys: Kathryn Echavarria, Discharge: Date of : 40 Date of Service: 11/08/20 1349 Report #: [id number] Great Vessels The aortic root is normal in size. IVC is normal in size and collapses >50% with inspiration. Pericardium There is no pericardial effusion. <Conclusion> The left ventricle is normal size. Mild basal septal hypertrophy is present. Left ventricular systolic function is preserved. LVEF is 55-60%. Transmitral Doppler flow pattern suggests pseudonormalization. The apex and apical septum appears akinetic. The right ventricle was mildly dilated. The left atrium is mildly dilated. Right atrium is dilated. Mild aortic valve sclerosis. Mild aortic stenosis. Moderate mitral annular calcification. Trace mitral regurgitation. Mild to moderate mitral stenosis. Unable to assess PA pressure. Trace tricuspid regurgitation. IVC is normal in size and collapses >50% with inspiration. <ELECTRONICALLY SIGNED> By: Kyle Valle MD, FACC 11/08/20 1349 1349 1349 Kyle Valle MD, FACC /INF
[2020-11-08 16:22] VITALS: BP 144/63
[2020-11-08 19:30] VITALS: BP 147/48
[2020-11-09] VITALS: BP 148/45
[2020-11-09 04:37] LABS: HEMATOCRIT 22.5 % (37.0-47.0); HEMOGLOBIN 7.6 gm/dL (12.0-15.0); MCH 36.8 pg (26.0-34.0); MCHC 33.7 g/dL (28.0-37.0); MPV 8.2 fl. (7.2-11.1); RBC 2.07 mil/uL (4.20-5.00); RDW-CV 20.9 % (10.5-14.5); WBC 5.7 thou/uL (4.0-11.0)
[2020-11-09 04:50] LABS: CALCIUM 8.4 mg/dL (8.5-10.1); POTASSIUM 3.9 mmol/L (3.5-5.1)
[2020-11-09 04:53] LABS: CREATININE 5.5 mg/dL (0.6-1.3)
[2020-11-09 08:11] VITALS: BP 149/64
[2020-11-09 12:00] VITALS: BP 137/47
[2020-11-09 14:07] LABS: GLOBULIN TOTAL 2.9 g/dL (2.2-3.9); M-SPIKE 0.2 g/dL (Not Observed)
[2020-11-09 16:00] VITALS: BP 120/42
[2020-11-09 17:07] LABS: KAPPA FREE LIGHT CHAINS 303.7 mg/L (3.3-19.4); LAMBDA FREE LIGHT CHAINS 224.2 mg/L (5.7-26.3)
[2020-11-10] VITALS (9 sets, daily range): BP systolic 111–151; BP diastolic 30–51
[2020-11-10 04:54] LABS: CALCIUM 8.8 mg/dL (8.5-10.1); POTASSIUM 3.5 mmol/L (3.5-5.1)
[2020-11-10 04:55] LABS: CREATININE 4.3 mg/dL (0.6-1.3)
[2020-11-10 05:10] LABS: MCHC 33.7 g/dL (28.0-37.0); MCV 109.8 fL (80.0-100.0); MPV 8.2 fl. (7.2-11.1); RBC 1.81 mil/uL (4.20-5.00); RDW-CV 21.3 % (10.5-14.5); WBC 5.1 thou/uL (4.0-11.0)
[2020-11-10 05:40] LABS: HEMATOCRIT 19.9 % (37.0-47.0); HEMOGLOBIN 6.7 gm/dL (12.0-15.0)
[2020-11-10 14:28] LABS: HEMATOCRIT 24.3 % (37.0-47.0); HEMOGLOBIN 8.3 gm/dL (12.0-15.0); MCH 35.6 pg (26.0-34.0); MCHC 34.2 g/dL (28.0-37.0); MPV 7.9 fl. (7.2-11.1); RBC 2.33 mil/uL (4.20-5.00); RDW-CV 23.8 % (10.5-14.5); WBC 6.4 thou/uL (4.0-11.0)
[2020-11-10 14:30] LABS: MCV 104.2 fL (80.0-100.0)
[2020-11-11 02:06] LABS: HEPATITIS B SURFACE AG Negative (Negative)
[2020-11-11 04:02] VITALS: BP 114/48
[2020-11-11 04:07] LABS: HEMATOCRIT 22.6 % (37.0-47.0); HEMOGLOBIN 7.8 gm/dL (12.0-15.0); MCH 36.2 pg (26.0-34.0); MCHC 34.6 g/dL (28.0-37.0); MCV 104.7 fL (80.0-100.0); MPV 8.3 fl. (7.2-11.1); NUCLEATED RBCS 0 /100WBC; PLATELET COUNT* 109 thou/uL (150-400); RBC 2.16 mil/uL (4.20-5.00); RDW-CV 24.4 % (10.5-14.5); WBC 6.8 thou/uL (4.0-11.0)
[2020-11-11 04:33] LABS: ALBUMIN 2.2 g/dL (3.4-5.0); CALCIUM 9.7 mg/dL (8.5-10.1); POTASSIUM 4.3 mmol/L (3.5-5.1); TOTAL BILIRUBIN 1.3 mg/dL (<0.1-1.0); TOTAL PROTEIN 5.8 g/dL (6.4-8.2)
[2020-11-11 06:01] LABS: ABSOLUTE BASOPHILS 0.1 thou/uL (0.0-0.2); ABSOLUTE EOSINOPHILS 0.4 thou/uL (0.0-0.7); ABSOLUTE MONOCYTES 1.3 thou/uL (0.0-1.2); PLATELET ESTIMATE DECREASED; TOXIC GRANULATION 1+
[2020-11-11 06:02] LABS: ANISOCYTOSIS 1+; HYPOCHROMASIA 1+; MACROCYTES 1+; POIKILOCYTOSIS 1+; POLYCHROMASIA Occasional
[2020-11-11 07:30] VITALS: BP 122/46
[2020-11-11] MEDS ORDERED: VANCO 500500 MG/100 IV (10:22)
[2020-11-11] MEDS ORDERED: ACIDOPHILUS1 EAC4 PO (10:22)
[2020-11-11 12:00] VITALS: BP 127/66
[2020-11-11 16:16] VITALS: BP 156/54
== END 2020-11-11 17:56 | DRG 314 ==
LOC: M.ERS 03:08 → M.TBA-ER 05:32 → M.2W 05:32
PROVIDERS: Family Medicine; Internal Medicine; Internal Medicine Hematology & Oncology; Internal Medicine Nephrology; Personal Emergency Response Attendant; ADMIT Internal Medicine; ATTEND Internal Medicine
PROC: 5A1D70Z Performance of Urinary Filtration, Intermittent, Less than 6 Hours Per Day (ICD-10-PCS; principal; 2020-11-07)
PROC: 5A1D70Z Performance of Urinary Filtration, Intermittent, Less than 6 Hours Per Day (ICD-10-PCS; 2020-11-09)
PROC: 30233N1 Transfusion of Nonautologous Red Blood Cells into Peripheral Vein, Percutaneous Approach (ICD-10-PCS; 2020-11-10)
PROC: 5A0935A Assistance with Respiratory Ventilation, Less than 24 Consecutive Hours, High Flow/Velocity Cannula (ICD-10-PCS; 2020-11-10)
PROC: 5A0935A Assistance with Respiratory Ventilation, Less than 24 Consecutive Hours, High Flow/Velocity Cannula (ICD-10-PCS; 2020-11-11)
DX: T80.211A Bloodstream infection due to central venous catheter, initial encounter (principal); A41.1 Sepsis due to other specified staphylococcus; N18.6 End stage renal disease; I50.32 Chronic diastolic (congestive) heart failure; I13.2 Hypertensive heart and chronic kidney disease with heart failure and with stage 5 chronic kidney disease, or end stage renal disease; E80.6 Other disorders of bilirubin metabolism; J44.9 Chronic obstructive pulmonary disease, unspecified; K74.60 Unspecified cirrhosis of liver; D63.1 Anemia in chronic kidney disease; N20.0 Calculus of kidney; I25.5 Ischemic cardiomyopathy; E03.9 Hypothyroidism, unspecified; K57.30 Diverticulosis of large intestine without perforation or abscess without bleeding; D47.2 Monoclonal gammopathy; Z60.2 Problems related to living alone; I25.10 Atherosclerotic heart disease of native coronary artery without angina pectoris; Z20.822 Contact with and (suspected) exposure to COVID-19; Z99.2 Dependence on renal dialysis; I25.2 Old myocardial infarction; Z95.5 Presence of coronary angioplasty implant and graft; Z88.6 Allergy status to analgesic agent; Z88.1 Allergy status to other antibiotic agents; Z88.8 Allergy status to other drugs, medicaments and biological substances; Z87.891 Personal history of nicotine dependence; Z85.3 Personal history of malignant neoplasm of breast; Z86.16 Personal history of COVID-19; Z82.49 Family history of ischemic heart disease and other diseases of the circulatory system; Z80.3 Family history of malignant neoplasm of breast; Z80.0 Family history of malignant neoplasm of digestive organs

== ENCOUNTER 2020-11-11 15:17 | Inpatient (IN) | payer MEDICARE, BC ==
[~2020-11-11] VITALS: Ht 160 cm; Wt 83.5 kg
[~2020-11-11 15:17] MED LIST changes: +ELIQUIS2.5 MG PO; +PROBIOTIC1 EAC7 PO; +RENAPLEX TABLE1 EACH PO; +TIZANIDINE HCL2 M1 PO; +VANCO 500500 MG/100 IV
[2020-11-11 18:02] VITALS: BP 170/59
[2020-11-11 19:43] VITALS: BP 143/46
[2020-11-12 08:05] VITALS: BP 139/46
[2020-11-12 08:40] LABS: HEMATOCRIT 21.4 % (37.0-47.0); HEMOGLOBIN 7.4 gm/dL (12.0-15.0); MCH 36.6 pg (26.0-34.0); MCHC 34.9 g/dL (28.0-37.0); MCV 104.9 fL (80.0-100.0); MPV 7.8 fl. (7.2-11.1); RBC 2.04 mil/uL (4.20-5.00); WBC 8.3 thou/uL (4.0-11.0)
[2020-11-12 09:35] LABS: CREATININE 7.5 mg/dL (0.6-1.3); POTASSIUM 4.6 mmol/L (3.5-5.1)
[2020-11-12 20:00] VITALS: BP 105/46
[2020-11-13 20:00] VITALS: BP 101/33
[2020-11-14 05:49] LABS: CALCIUM 8.2 mg/dL (8.5-10.1)
[2020-11-14 05:50] LABS: CREATININE 6.3 mg/dL (0.6-1.3)
[2020-11-14 08:00] VITALS: BP 110/34
[2020-11-14 20:00] VITALS: BP 108/31
[2020-11-15 19:00] VITALS: BP 127/38
[2020-11-16 06:15] LABS: MCH 36.6 pg (26.0-34.0); MCHC 33.7 g/dL (28.0-37.0); MCV 108.6 fL (80.0-100.0); RBC 1.67 mil/uL (4.20-5.00); RDW-CV 22.8 % (10.5-14.5); WBC 6.1 thou/uL (4.0-11.0)
[2020-11-16 06:38] LABS: CALCIUM 8.3 mg/dL (8.5-10.1); CREATININE 4.9 mg/dL (0.6-1.3)
[2020-11-16 06:44] LABS: HEMATOCRIT 18.1 % (37.0-47.0); HEMOGLOBIN 6.1 gm/dL (12.0-15.0)
[2020-11-16 10:11] VITALS: BP 116/36; BP 119/42; BP 126/43; BP 126/48
[2020-11-16 14:00] LABS: HEMATOCRIT 23.8 % (37.0-47.0)
[2020-11-16 20:00] VITALS: BP 158/48
[2020-11-17] MEDS ORDERED: COLACE100 MG PO (00:29)
[2020-11-17] MEDS ORDERED: MYLANTA MAXIMUM10 ML PO (00:32)
[2020-11-17] MEDS ORDERED: ZOFRAN4 MG PO (00:33)
[2020-11-17] MEDS ORDERED: LIPITOR 10 MG10 M1 PO (00:37)
[2020-11-17] MEDS ORDERED: PROTONIX40 M2 PO (00:40)
[2020-11-17 07:38] LABS: HEMATOCRIT 21.7 % (37.0-47.0); HEMOGLOBIN 7.4 gm/dL (12.0-15.0); MCHC 34.2 g/dL (28.0-37.0); MPV 7.5 fl. (7.2-11.1); PLATELET COUNT* 183 thou/uL (150-400); RBC 2.11 mil/uL (4.20-5.00); RDW-CV 24.8 % (10.5-14.5); WBC 6.8 thou/uL (4.0-11.0)
[2020-11-17 07:39] LABS: MCV 102.4 fL (80.0-100.0)
[2020-11-17 07:46] LABS: CALCIUM 8.6 mg/dL (8.5-10.1); POTASSIUM 3.8 mmol/L (3.5-5.1)
[2020-11-17 07:49] LABS: CREATININE 6.9 mg/dL (0.6-1.3)
[2020-11-17 09:16] LABS: BASOPHILS 1.7 %; EOSINOPHILS 4.5 %; LYMPHOCYTES 17.8 %; MONOCYTES 16.5 %; NUCLEATED RBCS 1 /100WBC; POLYS 59.5 %
[2020-11-17 09:19] LABS: ABSOLUTE BASOPHILS 0.1 thou/uL (0.0-0.2); ABSOLUTE EOSINOPHILS 0.3 thou/uL (0.0-0.7)
[2020-11-17 09:21] LABS: ABSOLUTE LYMPHOCYTES 1.2 thou/uL (0.8-5.3); ABSOLUTE MONOCYTES 1.1 thou/uL (0.0-1.2)
[2020-11-17 09:47] LABS: PLATELET ESTIMATE ADEQUATE
[2020-11-17 09:50] LABS: ANISOCYTOSIS 1+; HYPOCHROMASIA 1+; POIKILOCYTOSIS 1+
== END 2020-11-17 03:57 | disposition home health service (06) | DRG 947 ==
LOC: M.REH 15:17
PROVIDERS: Family Medicine; Internal Medicine; ADMIT Physical Medicine & Rehabilitation; ATTEND Physical Medicine & Rehabilitation
PROC: 5A1D70Z Performance of Urinary Filtration, Intermittent, Less than 6 Hours Per Day (ICD-10-PCS; 2020-11-12)
PROC: 30233N1 Transfusion of Nonautologous Red Blood Cells into Peripheral Vein, Percutaneous Approach (ICD-10-PCS; principal; 2020-11-16)
DX: R53.81 Other malaise (principal); A41.1 Sepsis due to other specified staphylococcus; N18.6 End stage renal disease; E87.2 Acidosis; I13.2 Hypertensive heart and chronic kidney disease with heart failure and with stage 5 chronic kidney disease, or end stage renal disease; I50.32 Chronic diastolic (congestive) heart failure; J44.9 Chronic obstructive pulmonary disease, unspecified; D63.1 Anemia in chronic kidney disease; E78.5 Hyperlipidemia, unspecified; K74.60 Unspecified cirrhosis of liver; N20.0 Calculus of kidney; K57.30 Diverticulosis of large intestine without perforation or abscess without bleeding; D47.2 Monoclonal gammopathy; I25.10 Atherosclerotic heart disease of native coronary artery without angina pectoris; E03.9 Hypothyroidism, unspecified; I25.5 Ischemic cardiomyopathy; E78.00 Pure hypercholesterolemia, unspecified; Z86.16 Personal history of COVID-19; I25.2 Old myocardial infarction; Z99.2 Dependence on renal dialysis; Z95.5 Presence of coronary angioplasty implant and graft; Z88.1 Allergy status to other antibiotic agents; Z88.8 Allergy status to other drugs, medicaments and biological substances; Z85.3 Personal history of malignant neoplasm of breast; Z87.891 Personal history of nicotine dependence

== ENCOUNTER 2020-11-17 04:15 | Observation (INO) | payer MEDICARE, BC ==
[~2020-11-17] VITALS: Ht 160 cm; Wt 75.2 kg
--- NOTE | ~2020-11-17 | PROC ---
[facility] [address] [place] [address] PROCEDURE REPORT Name: GABINO INIGUEZ Room: [address] Suresh Rios#: [id number] Admission: 11/17/20 Attend Phys: Garrison [place], Discharge: 11/18/20 Date of : 40 Report #: [id number] THIS REPORT FOR: cc: Tres Zuniga Gregg R. DO ~ [facility],Medical Records Staff For GI report, please see the Provation report in Perceptive 7 content. By: 1440Medical Records Staff [facility] /CHRISTIAN
[~2020-11-17 04:15] MED LIST changes: +LIPITOR 10 MG10 M1 PO; +MYLANTA MAXIMUM10 ML PO; +PROTONIX40 M2 PO; +ZOFRAN4 MG PO
[2020-11-17 08:00] VITALS: BP 147/44
[2020-11-17 09:24] LABS: ALBUMIN 2.1 g/dL (3.4-5.0); CALCIUM 9.1 mg/dL (8.5-10.1); PHOSPHORUS* 5.6 mg/dL (2.5-4.9); POTASSIUM 3.9 mmol/L (3.5-5.1)
[2020-11-17 11:30] VITALS: BP 141/54
[2020-11-17 20:00] VITALS: BP 99/33
[2020-11-17 23:35] VITALS: BP 104/30
[2020-11-18 03:35] VITALS: BP 130/32
[2020-11-18 08:00] VITALS: BP 123/57
[2020-11-18 09:14] LABS: ABSOLUTE BASOPHILS 0.1 thou/uL (0.0-0.2); ABSOLUTE EOSINOPHILS 0.3 thou/uL (0.0-0.7); ABSOLUTE LYMPHOCYTES 1.4 thou/uL (0.8-5.3); ABSOLUTE MONOCYTES 1.4 thou/uL (0.0-1.2); BASOPHILS 1.4 %; EOSINOPHILS 3.8 %; HEMATOCRIT 24.1 % (37.0-47.0); HEMOGLOBIN 8.1 gm/dL (12.0-15.0); LYMPHOCYTES 19.9 %; MCH 35.3 pg (26.0-34.0); MCHC 33.5 g/dL (28.0-37.0); MCV 105.3 fL (80.0-100.0); MONOCYTES 19.1 %; MPV 7.6 fl. (7.2-11.1); NUCLEATED RBCS 0 /100WBC; PLATELET COUNT* 207 thou/uL (150-400); POLYS 55.8 %; RBC 2.28 mil/uL (4.20-5.00); RDW-CV 24.8 % (10.5-14.5); WBC 7.2 thou/uL (4.0-11.0)
[2020-11-18 09:22] LABS: CALCIUM 9.3 mg/dL (8.5-10.1)
[2020-11-18 09:28] LABS: CREATININE 5.4 mg/dL (0.6-1.3)
[2020-11-18 12:13] VITALS: BP 129/36
--- NOTE | 2020-11-22 18:06 | PATH ---
[address] [address] PATHOLOGY RPT PROCEDURE Name: KIMBERLY INIGUEZ Room: [address] Suresh Rios#: [id number] Admission: 11/17/20 Date of : 40 Discharge: 11/18/20 Report #: [id number] Path Case #: [id number] [facility] Accession Number: [id number] . 01 Material submitted: . gastrointestinal site - GASTRIC BIOPSY . 01 Clinical history: . GASTRIC BIOPSY FOR GASTRITIS. ANEMIA EGD IN OR . 02 Diagnosis: Gastric biopsy: - Mild nonspecific chronic gastritis with mild fibrosis, negative for Helicobacter pylori organisms and dysplasia. . (ADRIANA:mmzoey; 11/22/2020) [facility] 11/22/2020 1539 Local . 02 Comment: Special stain: H. pylori immuno . (ADRIANA:mml; 11/22/2020) . 02 Electronically signed: . Calvin Villanueva MD, Pathologist NPI- [id number] . 01 Gross description: . The specimen is received in formalin, labeled "Kimberly Iniguez, gastric biopsy". Received are two segments of pale gracia tissue measuring 0.2 and 0.3 cm in maximum dimensions. The specimen is submitted entirely in cassette A1. (CAA; 11/21/2020) QAC/QA 11/21/2020 1133 Local . 02 Pathologist provided ICD-10: K29.50 . 02 CPT . 959617, B62115 Specimen Comment: A courtesy copy of this report has been sent to [phone] Specimen Comment: Report sent to Performed at: [address] [id number] MD Ezra Morelos MD Phone: [phone] [place] [address] PATHOLOGY RPT PROCEDURE Name: KIMBERLY INIGUEZ Room: [address]#: [id number] Admission: 11/17/20 Date of : 40 Discharge: 11/18/20 Report #: [id number] Path Case #: [id number] Performed at: [address] [place], [place] [id number] MD Calvin Villanueva MD Phone: [phone]
== END 2020-11-18 12:49 | disposition designated cancer center or children's hospital (05) ==
LOC: M.ORTHSURG 04:15 → M.2W 11:03 → M.REH 18:40 → M.TBA 18:49 → M.ORTHSURG 18:52 → M.2W 11-18 12:49
PROVIDERS: Nurse Practitioner Adult Health; ADMIT Family Medicine; ATTEND Family Medicine
DX: N18.6 End stage renal disease (principal); D64.9 Anemia, unspecified; D72.829 Elevated white blood cell count, unspecified; R06.00 Dyspnea, unspecified; R53.1 Weakness; J44.9 Chronic obstructive pulmonary disease, unspecified; E80.6 Other disorders of bilirubin metabolism; E87.2 Acidosis; R78.81 Bacteremia; R53.81 Other malaise; B95.8 Unspecified staphylococcus as the cause of diseases classified elsewhere; K74.60 Unspecified cirrhosis of liver; N20.0 Calculus of kidney; I25.10 Atherosclerotic heart disease of native coronary artery without angina pectoris; I12.0 Hypertensive chronic kidney disease with stage 5 chronic kidney disease or end stage renal disease; Z99.2 Dependence on renal dialysis; Z87.891 Personal history of nicotine dependence

== ENCOUNTER 2020-11-18 11:39 | Inpatient (IN) | payer MEDICARE, BC ==
[~2020-11-18] VITALS: Ht 160 cm; Wt 72.6 kg
[2020-11-18 20:00] VITALS: BP 148/51
[2020-11-19 04:50] LABS: HEMATOCRIT 22.9 % (37.0-47.0); HEMOGLOBIN 7.6 gm/dL (12.0-15.0); MCH 35.3 pg (26.0-34.0); MCHC 33.3 g/dL (28.0-37.0); MPV 7.5 fl. (7.2-11.1); RBC 2.16 mil/uL (4.20-5.00); RDW-CV 25.1 % (10.5-14.5); WBC 6.4 thou/uL (4.0-11.0)
[2020-11-19 04:57] LABS: POTASSIUM 4.3 mmol/L (3.5-5.1)
[2020-11-19 04:58] LABS: CREATININE 7.1 mg/dL (0.6-1.3)
[2020-11-19 07:53] VITALS: BP 142/39
[2020-11-19 19:25] VITALS: BP 131/41
[2020-11-20 08:23] VITALS: BP 148/59
[2020-11-20 19:40] VITALS: BP 138/51
[2020-11-21 05:12] LABS: HEMATOCRIT 24.4 % (37.0-47.0); HEMOGLOBIN 8.2 gm/dL (12.0-15.0); MCH 35.6 pg (26.0-34.0); MCHC 33.5 g/dL (28.0-37.0); MCV 106.3 fL (80.0-100.0); MPV 7.9 fl. (7.2-11.1); RBC 2.3 mil/uL (4.20-5.00); RDW-CV 24.8 % (10.5-14.5); WBC 6.2 thou/uL (4.0-11.0)
[2020-11-21 05:43] LABS: ALBUMIN 2.1 g/dL (3.4-5.0); CALCIUM 8.8 mg/dL (8.5-10.1); CREATININE 6.9 mg/dL (0.6-1.3); PHOSPHORUS* 4.7 mg/dL (2.5-4.9); POTASSIUM 4.1 mmol/L (3.5-5.1)
[2020-11-21 08:00] VITALS: BP 144/45
[2020-11-21 19:45] VITALS: BP 154/52
[2020-11-22 08:15] VITALS: BP 120/51
[2020-11-22 20:00] VITALS: BP 110/41
[2020-11-23 04:21] LABS: HEMATOCRIT 27.7 % (37.0-47.0); HEMOGLOBIN 9.3 gm/dL (12.0-15.0); MCH 35.4 pg (26.0-34.0); MCHC 33.5 g/dL (28.0-37.0); MCV 105.7 fL (80.0-100.0); MPV 8.1 fl. (7.2-11.1); RBC 2.62 mil/uL (4.20-5.00); RDW-CV 24.2 % (10.5-14.5); WBC 5.9 thou/uL (4.0-11.0)
[2020-11-23 04:30] LABS: CALCIUM 9.3 mg/dL (8.5-10.1); POTASSIUM 4.1 mmol/L (3.5-5.1)
[2020-11-23 04:36] LABS: CREATININE 5.7 mg/dL (0.6-1.3)
[2020-11-23 08:27] VITALS: BP 135/48
[2020-11-23 19:45] VITALS: BP 133/42
[2020-11-24 07:48] VITALS: BP 134/42
[2020-11-24 20:13] VITALS: BP 90/31
[2020-11-25 08:16] VITALS: BP 142/43
[2020-11-25 20:05] VITALS: BP 118/70
[2020-11-26 04:46] LABS: HEMATOCRIT 26.8 % (37.0-47.0); MCH 35.6 pg (26.0-34.0); MCHC 33.3 g/dL (28.0-37.0); MCV 106.8 fL (80.0-100.0); MPV 8.5 fl. (7.2-11.1); NUCLEATED RBCS 0 /100WBC; PLATELET COUNT* 154 thou/uL (150-400); RBC 2.51 mil/uL (4.20-5.00); RDW-CV 23.5 % (10.5-14.5)
[2020-11-26 04:57] LABS: CALCIUM 9.4 mg/dL (8.5-10.1); CREATININE 7.3 mg/dL (0.6-1.3); PHOSPHORUS* 4.2 mg/dL (2.5-4.9); POTASSIUM 3.9 mmol/L (3.5-5.1)
[2020-11-26 06:04] LABS: ABSOLUTE BASOPHILS 0.2 thou/uL (0.0-0.2); ABSOLUTE EOSINOPHILS 0.1 thou/uL (0.0-0.7); ABSOLUTE LYMPHOCYTES 1.6 thou/uL (0.8-5.3); ABSOLUTE NEUTROPHILS 3.1 thou/uL (1.6-8.1); PLATELET ESTIMATE ADEQUATE
[2020-11-26 06:05] LABS: HYPOCHROMASIA 2+; MACROCYTES 1+
[2020-11-26 06:06] LABS: ANISOCYTOSIS 1+
[2020-11-26 08:28] VITALS: BP 148/43
[2020-11-26 19:00] VITALS: BP 122/33
[2020-11-27 07:56] VITALS: BP 128/68
[2020-11-27 20:34] VITALS: BP 115/56
[2020-11-28 08:30] VITALS: BP 105/79
[2020-11-28 19:00] VITALS: BP 121/32
[2020-11-29 08:10] VITALS: BP 111/50
[2020-11-29 19:00] VITALS: BP 113/27
[2020-11-30 05:05] LABS: HEMATOCRIT 26.4 % (37.0-47.0); HEMOGLOBIN 8.8 gm/dL (12.0-15.0); MCH 35.8 pg (26.0-34.0); MCHC 33.3 g/dL (28.0-37.0); MCV 107.5 fL (80.0-100.0); MPV 8.3 fl. (7.2-11.1); RBC 2.46 mil/uL (4.20-5.00); RDW-CV 23.2 % (10.5-14.5); WBC 7.1 thou/uL (4.0-11.0)
[2020-11-30 05:08] LABS: CALCIUM 8.8 mg/dL (8.5-10.1); CREATININE 5.4 mg/dL (0.6-1.3); POTASSIUM 4.4 mmol/L (3.5-5.1)
[2020-11-30 07:58] VITALS: BP 110/29
[2020-11-30 19:00] VITALS: BP 97/22
[2020-11-30 20:59] VITALS: BP 94/27
[2020-12-01 00:39] VITALS: BP 116/25
[2020-12-01 04:23] LABS: HEMATOCRIT 25.3 % (37.0-47.0); HEMOGLOBIN 8.6 gm/dL (12.0-15.0); MCH 36.3 pg (26.0-34.0); MCHC 34.1 g/dL (28.0-37.0); MCV 106.5 fL (80.0-100.0); MPV 8.6 fl. (7.2-11.1); NUCLEATED RBCS 1 /100WBC; PLATELET COUNT* 93 thou/uL (150-400); RBC 2.38 mil/uL (4.20-5.00); RDW-CV 23.5 % (10.5-14.5); WBC 6.5 thou/uL (4.0-11.0)
[2020-12-01 06:07] LABS: ABSOLUTE EOSINOPHILS 0.1 thou/uL (0.0-0.7); ABSOLUTE MONOCYTES 0.8 thou/uL (0.0-1.2); ABSOLUTE NEUTROPHILS 4.6 thou/uL (1.6-8.1); ANISOCYTOSIS 1+; HYPOCHROMASIA 1+; MACROCYTES 1+; PLATELET ESTIMATE DECREASED; POIKILOCYTOSIS 1+; POLYCHROMASIA Occasional
[2020-12-01 06:08] LABS: TOXIC GRANULATION 1+
[2020-12-01 07:40] VITALS: BP 112/33
[2020-12-01 16:38] VITALS: BP 103/39
[2020-12-01 20:09] VITALS: BP 102/42
[2020-12-02 07:30] VITALS: BP 102/52
[2020-12-02 20:00] VITALS: BP 119/26
[2020-12-03 04:42] LABS: HEMATOCRIT 28.3 % (37.0-47.0); HEMOGLOBIN 9.5 gm/dL (12.0-15.0); MCH 36.1 pg (26.0-34.0); MCHC 33.4 g/dL (28.0-37.0); MPV 8.8 fl. (7.2-11.1); RBC 2.62 mil/uL (4.20-5.00); RDW-CV 24.2 % (10.5-14.5); WBC 8.2 thou/uL (4.0-11.0)
[2020-12-03 05:12] LABS: CALCIUM 9.2 mg/dL (8.5-10.1); POTASSIUM 3.8 mmol/L (3.5-5.1)
[2020-12-03 05:13] LABS: CREATININE 7.1 mg/dL (0.6-1.3)
[2020-12-03 08:00] VITALS: BP 104/30
[2020-12-03 20:13] VITALS: BP 114/26
[2020-12-04 08:29] VITALS: BP 116/31
[2020-12-04 19:51] VITALS: BP 130/28
[2020-12-05 04:47] LABS: CALCIUM 9.8 mg/dL (8.5-10.1); CREATININE 6.6 mg/dL (0.6-1.3)
[2020-12-05 08:30] VITALS: BP 104/30
[2020-12-05 19:00] VITALS: BP 112/30
[2020-12-06 08:15] VITALS: BP 112/35
--- NOTE | 2020-12-06 09:20 | EKG ---
[place] [address] ELECTROCARDIOGRAM REPORT Name: GABINO INIGUEZ Room: [address] ADM IN M.R.#: [id number] Admission: 11/18/20 Attend Phys: Ney Mclean MD Discharge: Date of : 40 Date of Service: 12/06/20 0110 Report #: [id number] THIS REPORT FOR: //name// [facility] Test Date: 2020-12-06 Test Time: 01:10:21 Pat Name: GABINO INIGUEZ Department: Room: [address] Gender: F Bilingual Speech Therapist: ECHO : 1940 Requested By: Ney Mclean Order Number: [id number] Reading MD: Luis Olvera Measurements Intervals [place] Rate: 52 P: 18 ID: 234 QRS: -12 QRSD: 122 T: 53 QT: 536 QTc: 499 Interpretive Statements Sinus rhythm Atrial premature complex Prolonged ID interval Nonspecific intraventricular conduction delay Compared to ECG 11/05/2020 03:17:11 Atrial premature complex(es) now present Intraventricular conduction delay now present Electronically Signed On 12-06-2020 9:20:28 CDT by Luis Olvera [email or web address] <ELECTRONICALLY SIGNED> By: Luis Olvera MD, [facility] 12/06/20 0920 9 9 Luis Olvera MD, FAC /EPI
[2020-12-06 19:00] VITALS: BP 92/25
[2020-12-06 21:12] VITALS: BP 104/31
[2020-12-07 05:14] LABS: HEMATOCRIT 26.7 % (37.0-47.0); HEMOGLOBIN 9.1 gm/dL (12.0-15.0); MCH 36.2 pg (26.0-34.0); MCV 106.6 fL (80.0-100.0); RBC 2.51 mil/uL (4.20-5.00); RDW-CV 23.5 % (10.5-14.5); WBC 8.8 thou/uL (4.0-11.0)
[2020-12-07 05:21] LABS: CALCIUM 8.4 mg/dL (8.5-10.1); CREATININE 5.8 mg/dL (0.6-1.3); POTASSIUM 4.6 mmol/L (3.5-5.1)
[2020-12-07 08:00] VITALS: BP 101/54
[2020-12-07 14:47] LABS: DIRECT BILIRUBIN 0.9 mg/dL (<0.1-0.3); TOTAL BILIRUBIN 1.7 mg/dL (<0.1-1.0); TOTAL PROTEIN 5.5 g/dL (6.4-8.2)
--- NOTE | 2020-12-07 16:39 | CON ---
[address] [address] CONSULTATION Name: GABINO INIGUEZ Room: [address] ADM IN M.R.#: [id number] Admission: 11/18/20 Attend Phys: Ney Mclean MD Discharge: Date of : 40 Report #: [id number] THIS REPORT FOR: cc: Tres Zuniga Gregg R. DO Biggs, F. Douglas MD [facility] ~ DATE OF SERVICE: 12/07/2020 CARDIOLOGY CONSULTATION HISTORY OF PRESENT ILLNESS: I was asked by Dr. Ney Mclean to see this 80-year-old white female in cardiology consultation for evaluation and treatment of bradycardia and hypotension. This lady was admitted to [facility] on 11/05/2020 with complaints of shortness of breath and generalized weakness. She was admitted to the acute Medicine Service. She is now on rehabilitation medicine. Besides her dyspnea, she had a metabolic encephalopathy. She was found to have staphylococcal sepsis. I do not believe an echocardiogram was done. She has been treated with IV vancomycin for 4 weeks. She was also quite anemic and required transfusion. She does have multiple medical problems including end-stage renal disease. She is on hemodialysis. She has diastolic heart failure, coronary artery disease. She has had seven coronary stents. She has mild aortic stenosis. She does have a history of scarlet fever as a child. She has hypertrophic obstructive cardiomyopathy on her echo. She has paroxysmal atrial fibrillation. She has severe debility and an ischemic cardiomyopathy as well as hypothyroidism. She has been on amiodarone. She is on 200 mg daily. She remains in sinus rhythm. She has been in sinus rhythm for some time. She is anticoagulated with Eliquis 5 mg daily. Her amiodarone dose is 200 mg daily. She is taking midodrine for her hypotension, apparently this is chronic and mostly related to dialysis but she only takes it to 1 tablet 10 mg daily for dialysis. Both her bradycardia, which is generally mild although occasionally during the night, will get down into the 30s and her hypotension, which is also mild and apparently asymptomatic. Her blood pressures get down into the 90s. These problems are chronic. She also said to have COPD. Now that she is on rehabilitation medicine she says she is much improved and is feeling much better than she did a month ago. Her EKG shows sinus bradycardia, heart rate 52. There are rare APCs. There is first-degree AV block, AL interval is 0.234. There is a nonspecific IVCD. The QRSD is 122 milliseconds. There is a probable old lateral infarct. There is small Q-waves in I and aVL. There are low R waves laterally on the chest leads, although R waves are present. That EKG is from 12/06/2020. I believe it was done because of atypical chest pain and brief palpitations. The chest pain was sharp, stabbing, and brief. I only have access at this point to her most recent records. We do have records in our office. She is followed by Dr. Valle and I have some of those available. I [address] [place] [address] CONSULTATION Name: GABINO INIGUEZ Room: [address] IN [facility].#: [id number] Admission: 11/18/20 Attend Phys: Ney Mclean MD Discharge: Date of : 40 Report #: [id number] have reviewed all of those. I have reviewed her previous admission to the hospital and our most recent office note from 06/21/2020 and I have reviewed the current rehab notes. This lady does have COPD as well. PAST MEDICAL HISTORY: As described above. REVIEW OF SYSTEMS: Essentially as described above. She mainly has weakness. She does have some postprandial nausea. She is not having any dyspnea currently. She does not have any edema currently. She does not have any chest pain currently. Otherwise, review of systems is negative. Please see our review of system form. Review of systems otherwise negative for some 40 different complaints in 14 different system categories. SOCIAL HISTORY: She no longer smokes. She quit in 2012. She does not drink or use illegal drugs. FAMILY HISTORY: Mother and father . She is not sure what of. There was heart disease in her mother. ALLERGIES: SHE IS ALLERGIC TO IBUPROFEN. PHYSICAL EXAMINATION: GENERAL: She presents as a well-developed, well-nourished white female, in no acute distress. VITAL SIGNS: Her pulse was 60, blood pressure was 110/80, respirations were 16 and regular, temperature was 98 degrees. HEENT: Her head is atraumatic. Eyes clear. NECK: Supple. There is no jugular venous distention or hepatojugular reflux. Thyroid is not enlarged. There is no adenopathy. SKIN: Warm and dry. Mucous membranes are moist. LUNGS: Clear to auscultation and percussion. HEART: Revealed normal first and second heart sound. There is a soft S4. There was no S3. There is a 2-3/6 systolic ejection murmur heard in the aortic area. The aortic second sound was audible, but it was somewhat distant. The rhythm was regular and the rate was approximately 60. PMI was not displaced. ABDOMEN: Soft, flat and nontender. No palpable masses, no organomegaly. EXTREMITIES: Reveal no cyanosis, clubbing or edema. NEUROLOGIC: The patient mentated normally, talked normally, moved all extremities normally. DIAGNOSTIC DATA: Her most recent chest x-ray showed a small pleural effusion on the right. Otherwise, it was unremarkable. IMPRESSION: [facility] [address] [place] [address] CONSULTATION Name: GABINO INIGUEZ Room: [address] IN ..#: [id number] Admission: 11/18/20 Attend Phys: Ney Mclean MD Discharge: Date of : 40 Report #: [id number] 1. Mild sinus bradycardia. 2. Mild hypotension that is not clearly symptomatic. 3. End-stage renal disease, on hemodialysis. 4. Coronary artery disease. 5. Status post seven coronary stents. 6. Diastolic congestive heart failure. 7. Mild aortic stenosis. 8. Hypertrophic obstructive cardiomyopathy. 9. Chronic obstructive pulmonary disease. 10. Paroxysmal atrial fibrillation. 11. Debility. 12. Recent staphylococcal sepsis. 13. Ischemic cardiomyopathy. 14. Hypothyroidism. 15. Possible recent pneumonia according to the nurses. RECOMMENDATION: 1. Please see my orders. I would put her on midodrine 3 times a day to raise her pressure. I decreased her amiodarone and check a level. It is possible this lady may require pacemaker. I will discuss her with her primary front desk agent, Dr. Valle. 2. I check thyroid functions. I checked her iron and TIBC and transferrin today. I check stool guaiacs and check a fasting lipid profile and hepatic profile and CPK and get an echo, I check B12 and folate levels as her anemia is macrocytic. I would check a gallbladder ultrasound for her postprandial nausea. I do note that she had an EGD recently that showed gastritis and esophagitis. She was apparently put on Protonix by the GI service. Thank you very much for asking me to see this patient. If any questions, please feel free to contact me. <ELECTRONICALLY SIGNED> By: Georgette Hawthorne MD, FACC 12/07/20 1639 0915 [id number]. Thony Hawthorne MD, FACC /nt
[2020-12-07 20:04] VITALS: BP 149/36
[2020-12-08 06:15] VITALS: BP 121/30
[2020-12-08 07:16] LABS: CHOLESTEROL 82 mg/dL (<200); HDL CHOLESTEROL 13 mg/dL (>40); LDL CHOLESTEROL 59 mg/dL (<100); TC:HDL 6.3 Ratio (Not establshd); TRIGLYCERIDE 52 mg/dL (<150); VLDL 10 mg/dL (<40)
[2020-12-08 07:19] LABS: SERUM ASSESSMENT Clear
[2020-12-08 08:19] VITALS: BP 112/30
[2020-12-08 10:00] VITALS: BP 112/30
[2020-12-08 13:00] LABS: BE -15.2 mmol/L (-2 to +3); pH 7.318 (7.340-7.450)
[2020-12-08 13:02] LABS: PCO2 17.7 mmHg (35.0-45.0); PO2 155.4 mmHg (75.0-100.0)
[2020-12-08 13:17] LABS: HEMATOCRIT 31.7 % (37.0-47.0); MCH 35.6 pg (26.0-34.0); MCHC 31.6 g/dL (28.0-37.0); MPV 9.1 fl. (7.2-11.1); NUCLEATED RBCS 1 /100WBC; PLATELET COUNT* 115 thou/uL (150-400); RBC 2.81 mil/uL (4.20-5.00); RDW-CV 24.6 % (10.5-14.5); WBC 18.7 thou/uL (4.0-11.0)
[2020-12-08 13:30] LABS: MCV 112.7 fL (80.0-100.0)
[2020-12-08 13:40] LABS: ALBUMIN 2.2 g/dL (3.4-5.0); ALKALINE PHOSPHATASE 247 U/L (46-116); BUN 35 mg/dL (7-18); CALCIUM 9.6 mg/dL (8.5-10.1); CHLORIDE 97 mmol/L (98-107); MAGNESIUM 2.4 mg/dL (1.8-2.4); POTASSIUM 5.6 mmol/L (3.5-5.1); SGOT 644 U/L (15-37); SGPT 282 U/L (30-65); SODIUM 132 mmol/L (136-145); TOTAL BILIRUBIN 2.1 mg/dL (<0.1-1.0); TOTAL PROTEIN 6.1 g/dL (6.4-8.2); TROPONIN-I LEVEL <0.06 ng/mL (<0.06)
[2020-12-08 13:45] LABS: ANION GAP 24 mmol/L (7-16)
[2020-12-08 13:47] LABS: CO2 11 mmol/L (21-32); CREATININE 8.5 mg/dL (0.6-1.3)
[2020-12-08 13:48] LABS: GLUCOSE 6 mg/dL (70-99)
--- NOTE | 2020-12-08 13:55 | EKG ---
[place] [address] ELECTROCARDIOGRAM REPORT Name: GABINO INIGUEZ Room: [address] DIS IN M..#: [id number] Admission: 11/18/20 Attend Phys: Ney Mclean MD Discharge: 12/08/20 Date of : 40 Date of Service: 12/08/20 1251 Report #: [id number] THIS REPORT FOR: //name// [facility] Test Date: 2020-12-08 Test Time: 12:51:17 Pat Name: GABINO INIGUEZ Department: Room: [facility] Gender: F Bath Attendant: : 1940 Requested By: Ney Mclean Order Number: [id number] Reading MD: Efren Sloan Measurements Intervals [place] Rate: 68 P: -25 LA: 255 QRS: -15 QRSD: 152 T: 80 QT: 474 QTc: 505 Interpretive Statements Sinus rhythm Prolonged LA interval Left bundle branch block Baseline wander in lead(s) II,III,aVF Compared to ECG 12/06/2020 01:10:21 Atrial premature complex(es) no longer present Electronically Signed On 12-08-2020 13:55:07 CDT by Efren Sloan [email or web address] <ELECTRONICALLY SIGNED> By: Efren Sloan MD, [facility] 12/08/20 1355 1251 1251 Efren Sloan MD, [facility] /EPI
[2020-12-08 14:12] LABS: ABSOLUTE LYMPHOCYTES 0.2 thou/uL (0.8-5.3); ABSOLUTE MONOCYTES 0.9 thou/uL (0.0-1.2); ABSOLUTE NEUTROPHILS 17.6 thou/uL (1.6-8.1); PLATELET ESTIMATE ADEQUATE
== END 2020-12-08 13:55 | disposition short-term general hospital (02) | DRG 947 ==
LOC: M.REH 11:39 → M.2W 12-08 13:41 → M.REH 12-08 13:54
PROVIDERS: Family Medicine; Internal Medicine; Internal Medicine Nephrology; ADMIT Physical Medicine & Rehabilitation; ATTEND Physical Medicine & Rehabilitation
PROC: 5A1D70Z Performance of Urinary Filtration, Intermittent, Less than 6 Hours Per Day (ICD-10-PCS; principal; 2020-11-19)
PROC: 5A1D70Z Performance of Urinary Filtration, Intermittent, Less than 6 Hours Per Day (ICD-10-PCS; 2020-11-22)
PROC: 5A1D70Z Performance of Urinary Filtration, Intermittent, Less than 6 Hours Per Day (ICD-10-PCS; 2020-11-24)
PROC: 5A1D70Z Performance of Urinary Filtration, Intermittent, Less than 6 Hours Per Day (ICD-10-PCS; 2020-11-26)
PROC: 5A1D70Z Performance of Urinary Filtration, Intermittent, Less than 6 Hours Per Day (ICD-10-PCS; 2020-11-29)
PROC: 5A1D70Z Performance of Urinary Filtration, Intermittent, Less than 6 Hours Per Day (ICD-10-PCS; 2020-12-01)
PROC: 5A1D70Z Performance of Urinary Filtration, Intermittent, Less than 6 Hours Per Day (ICD-10-PCS; 2020-12-06)
DX: R53.81 Other malaise (principal); A41.1 Sepsis due to other specified staphylococcus; N18.6 End stage renal disease; E87.2 Acidosis; I13.2 Hypertensive heart and chronic kidney disease with heart failure and with stage 5 chronic kidney disease, or end stage renal disease; I50.32 Chronic diastolic (congestive) heart failure; R53.1 Weakness; J44.9 Chronic obstructive pulmonary disease, unspecified; D63.1 Anemia in chronic kidney disease; D53.9 Nutritional anemia, unspecified; I25.10 Atherosclerotic heart disease of native coronary artery without angina pectoris; I48.0 Paroxysmal atrial fibrillation; E03.9 Hypothyroidism, unspecified; I25.5 Ischemic cardiomyopathy; R00.1 Bradycardia, unspecified; I95.9 Hypotension, unspecified; K74.60 Unspecified cirrhosis of liver; N20.0 Calculus of kidney; I35.0 Nonrheumatic aortic (valve) stenosis; K44.9 Diaphragmatic hernia without obstruction or gangrene; D69.6 Thrombocytopenia, unspecified; E11.22 Type 2 diabetes mellitus with diabetic chronic kidney disease; H53.8 Other visual disturbances; K21.00 Gastro-esophageal reflux disease with esophagitis, without bleeding; R41.82 Altered mental status, unspecified; Z88.1 Allergy status to other antibiotic agents; Z88.8 Allergy status to other drugs, medicaments and biological substances; Z86.16 Personal history of COVID-19; I25.2 Old myocardial infarction; Z99.2 Dependence on renal dialysis; Z95.5 Presence of coronary angioplasty implant and graft

== ENCOUNTER 2020-12-08 13:40 | Inpatient (IN) | payer MEDICARE, BC ==
[2020-12-08] VITALS (21 sets, daily range): BP systolic 97–143; BP diastolic 26–50
[~2020-12-08] VITALS: Ht 160 cm; Wt 77.0 kg
[2020-12-08 19:13] LABS: HEMATOCRIT 30.7 % (37.0-47.0); HEMOGLOBIN 9.7 gm/dL (12.0-15.0); MCH 35.6 pg (26.0-34.0); MCHC 31.7 g/dL (28.0-37.0); MCV 112.5 fL (80.0-100.0); MPV 9.7 fl. (7.2-11.1); RBC 2.73 mil/uL (4.20-5.00); RDW-CV 23.9 % (10.5-14.5); WBC 25.2 thou/uL (4.0-11.0)
[2020-12-08 19:31] LABS: ANION GAP 23 mmol/L (7-16); BUN 30 mg/dL (7-18); CALCIUM 9.4 mg/dL (8.5-10.1); CHLORIDE 98 mmol/L (98-107); CO2 14 mmol/L (21-32); GLUCOSE 147 mg/dL (70-99); POTASSIUM 5.1 mmol/L (3.5-5.1); SODIUM 135 mmol/L (136-145); TROPONIN-I LEVEL <0.06 ng/mL (<0.06)
[2020-12-08 19:38] LABS: CREATININE 6.5 mg/dL (0.6-1.3)
[2020-12-09] VITALS (72 sets, daily range): BP systolic 51–152; BP diastolic 11–99
[2020-12-09 02:47] LABS: HEMATOCRIT 28.5 % (37.0-47.0); MCH 35.5 pg (26.0-34.0); MCHC 31.5 g/dL (28.0-37.0); MCV 112.8 fL (80.0-100.0); MPV 9.2 fl. (7.2-11.1); RBC 2.52 mil/uL (4.20-5.00); RDW-CV 25.1 % (10.5-14.5); WBC 24.7 thou/uL (4.0-11.0)
[2020-12-09 03:04] LABS: ALBUMIN 1.8 g/dL (3.4-5.0); CALCIUM 9.9 mg/dL (8.5-10.1); CREATININE 7.2 mg/dL (0.6-1.3); PHOSPHORUS* 7.6 mg/dL (2.5-4.9); POTASSIUM 5.5 mmol/L (3.5-5.1); TOTAL BILIRUBIN 2.1 mg/dL (<0.1-1.0); TOTAL PROTEIN 5.3 g/dL (6.4-8.2)
[2020-12-09 03:13] LABS: APTT 60.7 Seconds (25.0-31.3)
[2020-12-09 05:24] LABS: PROTIME > 90.0 Seconds (9.20-11.50)
[2020-12-09 05:28] LABS: INR > 8.0
[2020-12-09 06:39] LABS: APTT 70.9 Seconds (25.0-31.3)
[2020-12-09 06:42] LABS: INR > 8.0; PROTIME > 90.0 Seconds (9.20-11.50)
[2020-12-09 07:03] LABS: HEMATOCRIT 26.8 % (37.0-47.0); HEMOGLOBIN 8.1 gm/dL (12.0-15.0); MCH 35.4 pg (26.0-34.0); MCHC 30.2 g/dL (28.0-37.0); MCV 117.2 fL (80.0-100.0); MPV 9.7 fl. (7.2-11.1); RBC 2.28 mil/uL (4.20-5.00); WBC 23.1 thou/uL (4.0-11.0)
== END 2020-12-09 11:50 | DRG 871 ==
LOC: M.2W 13:40 → M.ICU 13:40
PROVIDERS: ADMIT Internal Medicine; ATTEND Internal Medicine
PROC: 5A1D70Z Performance of Urinary Filtration, Intermittent, Less than 6 Hours Per Day (ICD-10-PCS; principal; 2020-12-08)
PROC: 02HV33Z Insertion of Infusion Device into Superior Vena Cava, Percutaneous Approach (ICD-10-PCS; principal; 2020-12-08)
DX: A41.2 Sepsis due to unspecified staphylococcus (principal); N18.6 End stage renal disease; D65 Disseminated intravascular coagulation [defibrination syndrome]; K92.1 Melena; I50.42 Chronic combined systolic (congestive) and diastolic (congestive) heart failure; E16.2 Hypoglycemia, unspecified; E78.5 Hyperlipidemia, unspecified; I95.9 Hypotension, unspecified; J44.9 Chronic obstructive pulmonary disease, unspecified; I25.10 Atherosclerotic heart disease of native coronary artery without angina pectoris; E78.00 Pure hypercholesterolemia, unspecified; I08.0 Rheumatic disorders of both mitral and aortic valves; I48.0 Paroxysmal atrial fibrillation; R53.81 Other malaise; E03.9 Hypothyroidism, unspecified; I25.5 Ischemic cardiomyopathy; Z66 Do not resuscitate; Z51.5 Encounter for palliative care; Z88.8 Allergy status to other drugs, medicaments and biological substances; Z95.5 Presence of coronary angioplasty implant and graft; Z88.1 Allergy status to other antibiotic agents; Z79.01 Long term (current) use of anticoagulants; Z79.899 Other long term (current) drug therapy